=== PATIENT | male | born 1970 | race Caucasian/White ===

== ENCOUNTER → 2020-03-26 10:09 | Outpatient (CLI) | payer OTHER, SELFPAY ==
--- NOTE | ~2020-03-26 | XR_ITS ---
EXAMINATION: XR elbow LT min 3V DATE: 03/26/2020 10:49 INDICATION: Left elbow pain. TECHNIQUE: 4 views of left elbow were obtained. COMPARISON: None. FINDINGS: Bone alignment is normal. No fracture. There is mild elbow joint osteoarthritis. There are enthesophytes at medial and lateral humeral epicondyles and at olecranon. No elbow joint effusion. IMPRESSION: 1. Mild elbow joint osteoarthritis. Reviewed, dictated and finalized at location A.
--- NOTE | ~2020-03-26 | XR_ITS ---
EXAMINATION: XR finger 2nd LT min 2V DATE: 03/26/2020 10:49 INDICATION: Left hand second digit injury. TECHNIQUE: 4 views of left hand second digit were obtained. COMPARISON: Left hand radiographs 07/27/2016 FINDINGS: There is an avulsion fracture of dorsal base of second distal phalanx involving less than 1 0% of the articular surface with 3 mm distraction. There is flexion of second distal interphalangeal joint and mild hyperextension of second proximal interphalangeal joint. There is mild osteoarthritis of second metacarpophalangeal joint and proximal and distal interphalangeal joints. IMPRESSION: 1. Avulsion fracture of dorsal base of second distal phalanx. Reviewed, dictated and finalized at location A.
--- NOTE | ~2020-03-26 | XR_ITS ---
EXAMINATION: XR humerus LT DATE: 03/26/2020 10:49 INDICATION: Left upper arm pain. TECHNIQUE: 2 views of left humerus were obtained. COMPARISON: None. FINDINGS: Bone alignment is normal. No fracture. There is mild osteoarthritis of glenohumeral joint a nd severe osteoarthritis of acromioclavicular joint. IMPRESSION: 1. Polyarticular osteoarthritis. Reviewed, dictated and finalized at location A.
== END ==
PROVIDERS: PCP Internal Medicine; Visit Provider Internal Medicine
DX: Z04.1 Encounter for examination and observation following transport accident (principal); M19.012 Primary osteoarthritis, left shoulder; M19.022 Primary osteoarthritis, left elbow; S62.631A Displaced fracture of distal phalanx of left index finger, initial encounter for closed fracture; X58.XXXA Exposure to other specified factors, initial encounter
CPT/HCPCS: 73060; 73080; 73140

== ENCOUNTER 2024-01-10 10:00 | Emergency (ER) | payer OTHER, SELFPAY ==
--- NOTE | ~2024-01-10 | XR_ITS ---
EXAMINATION: XR foot RT min 3V DATE: 01/10/2024 10:44 INDICATION: Diabetic with blunt trauma to the right third toe TECHNIQUE: Dorsoplantar, two oblique and lateral views of the right foot were obtained. COMPARISON: None. FINDINGS: Transmetatarsal amputation of the left great toe with osteotomy at the neck of the first metatarsal. There is some nonaggressive appearing periosteal reaction along the distal diaphysis likely represent ing secondary changes of healing. There is however some irregularity along the osteotomy margin as we ll as loss of the sharply defined corticated margin at the tibial sesamoid which raises concern for o steomyelitis. Similarly there is been a second toe amputation at the level of the metatarsophalangeal joint with loss of the smooth corticated margin at the head of the second metatarsal also suspicious for osteitis. There is an impacted fracture across the base of the third proximal phalanx. There is 3 mm dorsal dis placement on the lateral projection. There is however some periosteal reaction surrounding the fractu re suggesting this is subacute. No other fractures identified. Mild polyarticular osteoarthritis at m ultiple tarsal metatarsal and interphalangeal joints. IMPRESSION: 1. 3 mm dorsal displacement and impaction of a subacute fracture at the base of the right third proxi mal phalanx with surrounding periosteal reaction likely reflecting changes of healing. Periosteal guillermo ction also be seen in the setting of possible colitis although there is no evident osteolysis at this location to more specifically suggest osteomyelitis. 2. Amputations of the first and second toes with suggestion of osteomyelitis at the head of the secon d metatarsal, along the osteotomy margin at the neck of the first metatarsal and at the distal margin of the first metatarsal tibial sesamoid. Reviewed, dictated and finalized at location A. IMPRESSION: 1. 3 mm dorsal displacement and impaction of a subacute fracture at the base of the right third proximal phalanx with surrounding periosteal reaction likely r eflecting changes of healing. Periosteal reaction also be seen in the setting o f possible colitis although there is no evident osteolysis at this location to more specifically suggest osteomyelitis. 2. Amputations of the first and second toes with suggestion of osteomyelitis at the head of the second metatarsal, along the osteotomy margin at the neck of t he first metatarsal and at the distal margin of the first metatarsal tibial ses amoid.
[2024-01-10 10:15] VITALS: BP 146/91; PULSE 94; RESP 16; TEMP 36.9; O2SAT 97
--- NOTE | 2024-01-10 10:32 | ED.LOWEXIN ---
HPI - Extremity Injury (Lower) General Chief Complaint: Extremity Injury, Lower Stated Complaint: foot injury History of Present Illness HPI Narrative: 53-year-old male with a history of peripheral vascular disease R>L, s/p arterial bypass due to multiple collapsing of stents his right lower extremity, s/p right great and 2nd toe amputation due to osteomyelitis, presents to the emergency room for right foot pain. Patient states yesterday he dropped a large iron pot on his foot. Unable to bear weight or ambulate due to the pain. Was instructed to come to the emergency room for imaging. Related Data Home Medications Medication Instructions Recorded Confirmed ascorbic acid (vitamin C) 500 mg mg PO DAILY 11/10/20 11/13/23 capsule cholecalciferol (vitamin D3) 25 25 mcg PO DAILY 11/10/20 11/13/23 mcg (1,000 unit) capsule hprqdexm-afizxydf-jkjmp acid 400 tablet PO DAILY 11/10/20 11/13/23 mcg-vit K 20 mcg-lycop 300 mcg tablet (One-A-Day Men's Multivitamin) Allergies Allergy/AdvReac Type Severity Reaction Status Date / Time No Known Allergies Allergy Verified 01/10/24 10:01 Review of Systems Review of Systems: ROS unremarkable except for noted in HPI PMFSH Past Medical History Medical History Anxiety Erectile dysfunction Family history of depression GERD (gastroesophageal reflux disease) Macular degeneration of both eyes Primary osteoarthritis of knee Surgical History Surgical History H/O arterial bypass of lower limb Family History Family History Father Depression Father Depression Anxiety Heart disease Mother Anxiety Depression Other Diabetes mellitus Family history of arthritis Family history of heart disease in male family member before age 55 Hypertension Social History Social History Smoking packs per day: 1 Smoking cigarettes per day: 20.0 Smoking status: Current every day smoker Second hand tobacco smoke exposure: Yes Alcohol intake: former Substance use: never Substance use type: does not use Living arrangements: alone Occupation/Education: occupation Additional occupation/education comments: [employer] Gender identity (if verbalized by the patient): Male Spiritual care concerns: No Agree to blood products: Yes Exam Narrative: GENERAL: Well-appearing, well-nourished, no physical limitations, and in no acute distress. HEAD: Normocephalic, atraumatic. EYES: Conjunctivae normal, PERRLA and EOMI. ENT: External nose normal, Nares clear, no rhinorrhea or epistaxis. Mucous membranes moist. Oropharynx without tonsillar hypertrophy exudate or other lesions. External ears normal, bilateral TMs normal bilaterally NECK: Supple. No meningeal signs. No adenopathy or masses. No carotid bruits or JVD CHEST: Clear to auscultation. No respiratory distress. No wheezes rales or rhonchi. No tenderness. HEART: Regular rate and rhythm. No murmur heard. Normal peripheral pulses. ABDOMEN: Soft, nontender, nondistended, normal active bowel sounds. : Normal external male/female exam. BACK: No CVA tenderness; No cervical/thoracic/lumbar tenderness, step-offs, bony abnormality; FROM EXTREMITIES: Right leg: healing incision. Right foot: Diffuse swelling, erythema, tenderness to the dorsal surface extending into the 3rd toe. s/p Right great and 2nd toe amputation, with healing wounds and no discharge. SKIN: Warm, dry, no rash. No noted wounds NEURO: No focal deficits. Alert and oriented x3. MAEW. CN's II-XI intact bilaterally, normal gait PSYCH: Cooperative. Normal mood and affect. Course Course Emergency Course: 1145: spoke to Dr. Mcneal. he recommends placing patient's foot into an Ortho surgical shoe wh
[2024-01-10 12:00] VITALS: BP 140/88; PULSE 90; RESP 16; O2SAT 96
== END 2024-01-10 12:00 | disposition home or self-care (01) ==
PROVIDERS: Emergency Provider Nurse Practitioner Family; PCP Nurse Practitioner Family
DX: S92.511A Displaced fracture of proximal phalanx of right lesser toe(s), initial encounter for closed fracture (principal); I73.9 Peripheral vascular disease, unspecified; H35.30 Unspecified macular degeneration; K21.9 Gastro-esophageal reflux disease without esophagitis; M17.9 Osteoarthritis of knee, unspecified; F17.210 Nicotine dependence, cigarettes, uncomplicated; Z95.828 Presence of other vascular implants and grafts; Z89.411 Acquired absence of right great toe; Z89.421 Acquired absence of other right toe(s); R93.6 Abnormal findings on diagnostic imaging of limbs; W20.8XXA Other cause of strike by thrown, projected or falling object, initial encounter
CPT/HCPCS: 73630; 99283

== ENCOUNTER 2024-05-26 08:48 | Outpatient (RCR) | payer OTHER, SELFPAY ==
--- NOTE | 2024-04-24 09:24 | PCWOUND ---
WOCN NOTE Patient no show, no call for new patient appointment. This is the second no show, no call this patient has done. His first no call no show was on 04/09/24.
[2024-05-26 09:30] VITALS: BMI 35.9
== END 2024-08-11 09:05 | disposition home or self-care (01) ==
LOC: ANHWOC 08:48
PROVIDERS: PCP Nurse Practitioner Family; Visit Provider Nurse Practitioner Family
DX: S98.131A Complete traumatic amputation of one right lesser toe, initial encounter (principal); Z48.00 Encounter for change or removal of nonsurgical wound dressing
CPT/HCPCS: 99215; A9270; G0463; L2116

== ENCOUNTER 2024-06-16 09:15 | Emergency (ER) | payer OTHER, SELFPAY ==
[2024-06-16] VITALS (15 sets, daily range): BP systolic 135–145; BP diastolic 90–96; PULSE 97–105; RESP 13–20; TEMP 36.8; O2SAT 92–100
--- NOTE | ~2024-06-16 | XR_ITS ---
XR chest 2V Ordering provider: Bam Pace MD History: 53 years Male with . chest pain, pressure, sob, cough . Comparison: February 26, 2018 FINDINGS: MEDIASTINUM: The cardiac silhouette is not enlarged. LUNGS: No infiltrates, effusions or pneumothorax. Slightly prominent markings in the lower lobes with minimal interstitial changes which may indicate bronchitis. OTHER: No free air under the diaphragm. IMPRESSION: Slightly prominent markings in the lower lobes with minimal interstitial changes which may indicate b ronchitis. Clinical correlation and follow-up advised. Reviewed, dictated and finalized at location A. CHARGE BOOKKEEPER IMPRESSION: Slightly prominent markings in the lower lobes with minimal interstitial change s which may indicate bronchitis. Clinical correlation and follow-up advised.
--- NOTE | ~2024-06-16 | CT_ITS ---
EXAMINATION: CTA chest abdomen pelvis DATE: 06/16/2024 10:12 INDICATION: Chest and back pain. TECHNIQUE: Computed tomographic angiography (CTA) of the chest, abdomen and pelvis was performed with 150 cc of Omnipaque-350 intravenous contrast. Additional 3D reconstructions utilizing rotating maxim um intensity projection (MIP) were performed. Automated exposure control and iterative reconstruction technique were employed. The dose-length product was 1730.19 mGy-cm. COMPARISON: None FINDINGS: Chest: Mild emphysema. Respiratory motion along with mosaic attenuation in both lungs consistent with atelec tasis related to partially expiratory phase of imaging and subsegmental air trapping. No pneumonia, p ulmonary edema, pleural effusion or pneumothorax. Mild cardiomegaly. No pericardial effusion. Thoraci c aorta is normal in caliber with no dissection. No pathologically enlarged thoracic lymphadenopathy. Mild thoracic spondylosis. Abdomen and pelvis: Diffuse hepatic steatosis. Liver, spleen, pancreas, bilateral adrenal glands and kidneys are normal. Bowels including the appendix are normal. Bladder is normal. Normal caliber abdominal aorta with no d issection. Mild atherosclerotic calcifications at the bilateral iliac arteries. No free intraperitone al gas or fluid. No pathologically enlarged abdominal or pelvic lymphadenopathy. 5.9 x 3.1 x 4.6 cm p artially calcified subcutaneous mass at the lateral right lower quadrant. Severe lumbar spondylosis. IMPRESSION: 1. Normal caliber aorta with no dissection. No other acute intra-abdominal/pelvic process. 2. Mild emphysema. 3. Mild cardiomegaly. 4. Indeterminate 5.9 x 3.1 x 4.6 cm partially calcified subcutaneous mass at the lateral right lower quadrant. Recommend ultrasound-guided core needle biopsy. Reviewed, dictated and finalized at location B. [place] [employer] ASSOCIATE IMPRESSION: 1. Normal caliber aorta with no dissection. No other acute intra-abdominal/pelv ic process. 2. Mild emphysema. 3. Mild cardiomegaly. 4. Indeterminate 5.9 x 3.1 x 4.6 cm partially calcified subcutaneous mass at th e lateral right lower quadrant. Recommend ultrasound-guided core needle biopsy.
--- NOTE | 2024-06-16 09:16 | ECG_ITS ---
Test Date: 2024-06-16 09:22:04 Measurements Intervals [place] Rate: 103 P: -11 PA: 144 QRS: -38 QRSD: 113 T: 37 QT: 341 QTc: 448 Interpretive Statements SINUS TACHYCARDIA LEFT AXIS DEVIATION [QRS AXIS < -30] INCOMPLETE RIGHT BUNDLE BRANCH BLOCK [90+ ms QRS DURATION, TERMINAL R IN V1/V2, 40+ ms S IN I/aVL/V4/V5/V6] No previous ECG available for comparison Electronically Signed On 06-17-2024 14:52:23 DIGITAL MEASUREMENT ADVISOR by Chris Vigil M.D.
[2024-06-16] MEDS: ASPIRIN 81 MG CHEWABLE TABLET 324 MG PO (09:32)
[2024-06-16 09:43] LABS: Basophils Absolute Auto 0.1 K/mm3 (0.0-0.1); Basophils Percent Auto 0.7 % (0.2-1.2); Eosinophils Absolute Auto 0.2 K/mm3 (0-0.3); Eosinophils Percent Auto 1.8 % (0-4.4); Hematocrit 44.5 % (42.0-52.0); Immature Granulocyte Absolute 0.05 K/mm3 (0.00-0.031); Immature Granulocyte Percent A 0.4 % (0-0.5); Lymphocytes Absolute Auto 2.78 K/mm3 (0.9-3.2); Lymphocytes Percent Auto 22.9 % (18.3-44.2); Mean Corpuscular HGB Conc 33.7 g/dl (32-36); Mean Corpuscular Hemoglobin 28.8 pg (26-34); Mean Corpuscular Volume 85.6 fl (80-100); Mean Platelet Volume 9.8 fl (7.4-10.4); Monocytes Absolute Auto 0.9 K/mm3 (0.1-0.6); Monocytes Percent Auto 7.7 % (2.6-8.5); Neutrophils Absolute Auto 8.1 K/mm3 (1.3-6.7); Neutrophils Percent Auto 66.5 % (45.5-73.1); Platelet Count Result 305 k/mm3 (150-375); White Blood Count 12.2 K/mm3 (4.5-10.0)
--- NOTE | 2024-06-16 09:43 | ED_ITS ---
HPI - Chest Pain General Chief Complaint: Chest Pain Stated Complaint: chest pain Time Seen by Provider: 06/16/24 09:26 History of Present Illness HPI narrative: 53-year-old male with significant vascular history including right lower extremity bypass surgery, right upper extremity grafting, hypertension, hyperlipidemia, multiple amputations of various digits in the bilateral lower extremities secondary to vascular insufficiency. Patient presents today with sudden onset chest pain radiating straight towards his back that began at 6:00 p.m. last night. States it hurts to take a deep breath and lie down. He is concerned he was having a heart attack. No history of FL and his last cardiac catheterization showed 30% occlusion according to the patient in 2020. He has had significant vascular Surgical history is including multiple procedures with Dr. Eula talley at [facility] but he presently only follows Dr. Greenfield at [facility] with recent vascular arterial and venous duplex studies of his right lower extremity done less than 1 month prior according to the patient. He has a home healthcare nurse that helps him changes bandages for his right lower extremity wounds and these had previous fractures and nonhealing ulcerations of that extremity. No abdominal pain, fever, chills, headache, vision changes, new weakness. He states he is having subjective paresthesias left arm presently in addition to the chest and back discomfort. He is on aspirin and Plavix but no other blood thinners or anticoagulation. Related Data Home Medications ?Medication ?Instructions ?Recorded ?Confirmed ?Last Taken ?Type ascorbic acid (vitamin C) 500 mg mg PO DAILY 11/10/20 04/02/24 Unknown History capsule cholecalciferol (vitamin D3) 25 25 mcg PO DAILY 11/10/20 04/02/24 Unknown History mcg (1,000 unit) capsule xqurbowm-wtllqoml-pvkpf acid 400 tablet PO DAILY 11/10/20 04/02/24 Unknown History mcg-vit K 20 mcg-lycop 300 mcg tablet (One-A-Day Men's Multivitamin) Allergies Allergy/AdvReac Type Severity Reaction Status Date / Time No Known Allergies Allergy Verified 04/02/24 12:00 Review of Systems 2 Review of Systems: As reviewed above in HPI [facility] Past Medical History Medical History Erectile dysfunction Macular degeneration of both eyes GERD (gastroesophageal reflux disease) Anxiety Primary osteoarthritis of knee Family history of depression Surgical History Surgical History H/O arterial bypass of lower limb Family History Family History Father Depression Father Depression Anxiety Heart disease Mother Anxiety Depression Other Diabetes mellitus Family history of arthritis Family history of heart disease in male family member before age 55 Hypertension Social History Social History Smoking packs per day: 1 Smoking cigarettes per day: 20.0 Smoking status: Current every day smoker Second hand tobacco smoke exposure: Yes Alcohol intake: former Substance use: never Substance use type: does not use Living arrangements: alone Occupation/Education: occupation Additional occupation/education comments: [employer] Gender identity (if verbalized by the patient): Male Spiritual care concerns: No Agree to blood products: Yes Exam 2 Narrative: GENERAL: [Well-appearing, well-nourished, and in no acute distress.] HEAD: [Normocephalic, atraumatic.] EYES: [PERRLA and EOMI.] ENT: Nares clear, no rhinorrhea or epistaxis. Mucous membranes moist. NECK: Supple. CHEST: [Clear to auscultation. No respiratory distress.] HEART: [Regular rate and rhythm]. No murmur heard. 2+ bilateral radial pulses, 2+ dorsalis pedis pulse the left, absent pulse in the right lower extremity which is chronic and known per patient ABDOMEN: [Soft, nondistended], [nontender], [No rigidity or guarding] EXTREMITIES: Normal range of motion. Right lower extremity is near insensate distal to the knee, warm and has good collateral circulation, 1+ edema. Inter webspace between the right 1st and 2nd digit of his right lower extremity has some granulation tissue but no obvious infection. These are chronic findings per patient and not causing him concern today. SKIN: Warm, dry, no rash. Surgical graft site scar from his right upper extremity, graft scars in his right lower extremity NEURO: [No focal deficits]. Alert and oriented [x3.] PSYCH: [Normal mood and affect.] Course Vital Signs Vital signs: Vital Signs Temperature 36.8 C 06/16/24 09:23 Pulse Rate 105 H 06/16/24 09:23 Respiratory Rate 18 06/16/24 09:23 Blood Pressure 145/90 H 06/16/24 09:23 Pulse Oximetry 97 06/16/24 09:23 Temperature 36.8 C 06/16/24 11:38 Pulse Rate 101 H 06/16/24 13:01 Respiratory Rate 20 06/16/24 13:01 Blood Pressure 141/95 H 06/16/24 13:01 Pulse Oximetry 95 06/16/24 13:01 Oxygen Delivery Room Air 06/16/24 09:40 MDM - Chest Pain MDM Narrative Medical decision making narrative: 53-year-old male with significant vascular history including aneurysms, arterial bypass surgery is right lower extremity, grafting surgery in his right upper extremity. He is on aspirin and Plavix. He presents today with sudden onset chest pain radiating straight towards his back in his left side upper chest with associated pleuritic chest pain and difficulty lying flat. Symptoms started at 6:00 p.m. last night. He follows present with Dr. Greenfield at [facility] who saw him last month according to the patient with upcoming plans for potential right BKA for arterial insufficiency his right lower extremity which is chronic. His a history of blood clots according to him but is not taking any other anticoagulation medications. He is chronic arterial insufficiency is right lower extremity, extremities warm, dry, intact without any overt signs of infection endorses distal ulcerations in his inner web spaces which appear healing with good granulation tissue no signs of infection or tenderness with palpation. He has strong pulses and the remaining 3 limbs, clear breath sounds throughout, otherwise not any acute distress but is tachycardic with a pulse 105. Afebrile, not significantly hypertensive blood pressure 145/90. Given patient's significant vascular history considerations are presently for aortic insufficiency, aortic dissection, aortic aneurysm, ACS, less likely intrathoracic process such as pneumonia, pleurisy, pneumothorax. He was given morphine for analgesia well cardiac workup initiated including CBC, CMP, lipase, check EKG, chest x-ray, serial troponins, CT angiography of the chest abdomen pelvis ordered at this time. Workup shows a slight leukocytosis of 12.2, no anemia. Normal platelets. Coagulation studies normal, negative troponin, normal renal function, normal electrolytes, normal hepatic function, negative lipase. Serial troponins negative. Chest x-ray shows some bronchitis but no pneumonia. CT angiography shows normal caliber aorta without any dissection, no acute intra-abdominal or pelvic process. Normal emphysematous changes, mild cardiomegaly. A partially calcified subcutaneous mass located in the right lower quadrant is evident. I relayed these findings to the patient including the mass that was discovered and he states that he is well aware of that mass is been stable for last 15 years. He has not had biopsy previously but has not grown or cause him any discomfort. No further interventions needed on this at this time. I relayed patient's findings to him including the unremarkable CT angiography and my suspicion is that he likely has some chest pain and pleuritic chest pain secondary to bronchitis. We went over the risks and benefits of starting prednisone therapy with his chronic wounds which do appear well healing but steroids can cause some delayed healing. Patient elected to try steroids as he wants to get rid of his painful cough. Patient was given a Medrol Dosepak and strict return precautions and he was stable for discharge home at this time. Patient verbalized understanding of the instructions and was discharged without further intervention. Medical Records Data Attestation: I reviewed the patient's medical records. Lab Data Attestation: I reviewed the patient's lab results. 06/16/24 09:31 06/16/24 09:31 Labs: Lab Results 06/16/24 06/16/24 Range/Units 09:31 12:20 WBC 12.2 H (4.5-10.0) K/mm3 RBC 5.20 (4.6-6.20) M/mm3 Hgb 15.0 (14.0-18.0) g/dL Hct 44.5 (42.0-52.0) % MCV 85.6 (80-100) fl MCH 28.8 (26-34) pg MCHC 33.7 (32-36) g/dl RDW 14.0 (11.5-14.5) % Plt Count 305 (150-375) k/mm3 MPV 9.8 (7.4-10.4) fl Immature Gran % (Auto) 0.4 (0-0.5) % Neut % (Auto) 66.5 (45.5-73.1) % Lymph % (Auto) 22.9 (18.3-44.2) % [place] % (Auto) 7.7 (2.6-8.5) % Eos % (Auto) 1.8 (0-4.4) % Baso % (Auto) 0.7 (0.2-1.2) % Lymph # (Auto) 2.78 (0.9-3.2) K/mm3 [place] # (Auto) 0.9 H (0.1-0.6) K/mm3 Eos # (Auto) 0.2 (0-0.3) K/mm3 Baso # (Auto) 0.1 (0.0-0.1) K/mm3 Abs Immat Gran (auto) 0.05 H (0.00-0.031) K/mm3 Absolute Neuts (auto) 8.1 H (1.3-6.7) K/mm3 Absolute Nucleated RBC 0.000 (0.0-0.012) K/mm3 Nucleated RBC % 0.0 (0.0-0.2) % PT 13.1 (11.1-14.7) Seconds INR 1.0 APTT 27.6 (22.3-36.8) Seconds Sodium 135 L (137-145) mmol/L Potassium 4.1 (3.4-5.0) mmol/L Chloride 102 (98-107) mmol/L Carbon Dioxide 23 (22-30) mmol/L Anion Gap 10 (4-12) mmol/L BUN 16 (9-20) mg/dL Creatinine 0.90 (0.7-1.3) mg/dL Estim Creat Clear Calc 125 ml/min Estimated GFR > 60 (59 - ) Glucose 89 (65-110) mg/dL Calcium 9.8 (8.4-10.2) mg/dL Total Bilirubin 0.6 (0.2-1.3) mg/dL AST 21 (17-59) U/L ALT 26 (6-50) U/L Alkaline Phosphatase 100 (38-126) U/L Troponin I < 0.012 < 0.012 (0.000-0.034) ng/mL Total Protein 8.0 (6.3-8.2) g/dL Albumin 4.7 (3.5-5.1) g/dL Lipase 62 (23-300) U/L Imaging Data Attestation: I personally reviewed and interpreted this imaging study as follows: My impression: Impressions Chest X-Ray 06/16/24 09:52 IMPRESSION: Slightly prominent markings in the lower lobes with minimal interstitial changes which may indicate bronchitis. Clinical correlation and follow-up advised. Chest/Abdomen/Pelvis CTA 06/16/24 10:14 IMPRESSION: 1. Normal caliber aorta with no dissection. No other acute intra- abdominal/pelvic process. 2. Mild emphysema. 3. Mild cardiomegaly. 4. Indeterminate 5.9 x 3.1 x 4.6 cm partially calcified subcutaneous mass at the lateral right lower quadrant. Recommend ultrasound-guided core needle biopsy. ECG Data EKG #1: Attestation: I personally reviewed and interpreted this ECG as follows: ECG completion date: 06/16/24 ECG completion time: 09:22 Prior ECG tracings: not available for review Interpretation: Sinus tachycardia, no ST segment elevations depressions or inversions. No ectopy. Incomplete right bundle branch block, normal QTC of 448, normal QRS 114, normal MS interval 144. Slight left side deviation to the axis. Overall no signs of acute ischemic changes but no previous EKG for comparison. Sinus tachycardia final impression. Discharge Plan Discharge Clinical Impression: Bronchitis, Chest wall pain, History of peripheral vascular disease Patient Disposition: Home, Self-Care Condition: Stable Instructions: Antibiotic Form, Acute Bronchitis (ED) Additional Instructions: Your CT scans are very reassuring, no aortic or arterial injury or damage. No heart attack. Your chest x-ray looks like bronchitis which we will treat with a low-dose of prednisone. Make sure to watch because prednisone does make wound healing worsened you do of chronic ulcers of the right lower extremity. Follow- up with your regular doctor and vascular surgeon on outpatient basis. Return with any new or worsening concerns at any time. Patient Language: Lao Prescriptions: New methylprednisolone [Medrol (Jc)] 4 mg tablets,dose pack See Rx Instructions .ROUTE .COMPLEX Qty: 21 0RF Rx Instructions: orally per package directions hydrocodone-acetaminophen 5-325 mg tablet 1 tablet PO Q8H PRN (Reason: pain) Qty: 10 0RF No Action Culturelle 10 billion cell capsule 1 cap PO DAILY Qty: 14 0RF aspirin [Adult Aspirin Regimen] 81 mg tablet,delayed release (DR/EC) 81 mg PO DAILY Qty: 90 0RF One-A-Day Men's Multivitamin 400-20-300 mcg tablet PO DAILY ascorbic acid (vitamin C) 500 mg capsule PO DAILY cholecalciferol (vitamin D3) 25 mcg (1,000 unit) capsule 25 mcg PO DAILY sildenafil [Viagra] 100 mg tablet 100 mg PO DAILY PRN (Reason: sexual activity) Qty: 15 0RF Rx Instructions: administer 30 minutes to 4 hours before activity clopidogrel [Plavix] 75 mg tablet 75 mg PO DAILY Qty: 90 1RF (DME) Blood Glucose Test Strip See Rx Instructions .ROUTE .MEDSUPPLY Qty: 100 1RF Rx Instructions: use daily to check fasting glucose gabapentin 300 mg capsule 600 mg PO TID Qty: 540 0RF omeprazole 40 mg capsule,delayed release(DR/EC) 40 mg PO DAILY Qty: 90 1RF venlafaxine 75 mg capsule,extended release 24hr 300 mg PO DAILY Qty: 360 0RF hydrocodone-acetaminophen 10-325 mg tablet 1 tablet PO Q8H PRN (Reason: pain) Qty: 90 0RF metformin 500 mg tablet extended release 24 hr 500 mg PO DAILY Qty: 90 1RF amlodipine 10 mg tablet 10 mg PO DAILY Qty: 90 0RF Follow-up/Referrals: Isabell Willis APN-C [Primary Care Provider] - Time of Disposition: 13:09
[2024-06-16 09:55] LABS: Alanine Aminotransferase 26 U/L (6-50); Albumin Level 4.7 g/dL (3.5-5.1); Alkaline Phosphatase 100 U/L (38-126); Anion Gap 10 mmol/L (4-12); Aspartate Amino Transferase 21 U/L (17-59); Bilirubin,Total 0.6 mg/dL (0.2-1.3); Blood Urea Nitrogen 16 mg/dL (9-20); Calcium 9.8 mg/dL (8.4-10.2); Carbon Dioxide 23 mmol/L (22-30); Chloride 102 mmol/L (98-107); Estimated CRCL calculation 125 ml/min; Estimated Glomerular Filt Rate > 60; Glucose 89 mg/dL (65-110); Lipase 62 U/L (23-300); Partial Thromboplastin Time 27.6 Seconds (22.3-36.8); Potassium 4.1 mmol/L (3.4-5.0); Prothrombin Time 13.1 Seconds (11.1-14.7); Sodium 135 mmol/L (137-145)
[2024-06-16] MEDS: MORPHINE SULFATE (*CRX) 4 MG/ML INJ IV PUSH (09:56)
[2024-06-16 10:06] LABS: Troponin I < 0.012 ng/mL (0.000-0.034)
--- NOTE | 2024-06-16 11:03 | PC.NURSE ---
patient rounding complete and pt is complaining of persistent chest pain despite the morphine this morning. States he now also has back pain that is unrelieved by ice and position changes. MD Pace aware that patient is asking for more medication.
[2024-06-16] MEDS: LACTATED RINGERS 1,000 ML 999 ML IV CONT (11:32)
[2024-06-16] MEDS: HYDROmorphone HCL INJ (*CRX) 1 MG/ML SYR IV PUSH (11:32)
--- NOTE | 2024-06-16 12:17 | ECG_ITS ---
Test Date: 2024-06-16 12:17:58 Measurements Intervals [place] Rate: 97 P: -8 [place]: 157 QRS: -29 QRSD: 118 T: 29 QT: 351 QTc: 447 Interpretive Statements SINUS RHYTHM BORDERLINE LEFT AXIS DEVIATION [QRS AXIS < -20] INCOMPLETE RIGHT BUNDLE BRANCH BLOCK [90+ ms QRS DURATION, TERMINAL R IN V1/V2, 40+ ms S IN I/aVL/V4/V5/V6] Compared to ECG 06/16/2024 09:22:04 no changes Electronically Signed On 06-17-2024 15:21:21 SOFTWARE TEAM LEADER by Milady Gallardo M.D.
[2024-06-16 12:49] LABS: Troponin I < 0.012 ng/mL (0.000-0.034)
--- NOTE | 2024-06-16 13:05 | PC.NURSE ---
this RN was called into pt room due to bleeding wound on foot. Bleeding noted to bottom L foot, pt had a scab that popped open. Wound cleaned, antibiotic ointment applied, and dressed with gauze/kerlex. Pt instructed to call out if wound soaks through, although bleeding controlled at this time. PT also asking to speak with MD ELLIOTT aware.
== END 2024-06-16 13:18 | disposition home or self-care (01) ==
PROVIDERS: Emergency Provider Student in an Organized Health Care Education/Training Program; PCP Nurse Practitioner Family
DX: J40 Bronchitis, not specified as acute or chronic (principal); R07.89 Other chest pain; I10 Essential (primary) hypertension; E78.5 Hyperlipidemia, unspecified; I99.8 Other disorder of circulatory system; F17.210 Nicotine dependence, cigarettes, uncomplicated; Z79.02 Long term (current) use of antithrombotics/antiplatelets; Z79.82 Long term (current) use of aspirin; Z79.84 Long term (current) use of oral hypoglycemic drugs
CPT/HCPCS: 36415; 71046; 71275; 74174; 80053; 83690; 84484; 85025; 85610; 85730; 93005; 96361; 96374; 96375; 99284; A9270; J1171; J2270; J7120; Q9967

== ENCOUNTER 2024-07-11 11:56 | Emergency (ER) | payer OTHER, SELFPAY ==
--- NOTE | ~2024-07-11 | CT_ITS ---
EXAMINATION: CT LE RT w con DATE: 07/11/2024 15:28 INDICATION: Right foot and lower limb tenderness. TECHNIQUE: High resolution computed tomography (CT) of the right lower leg from the foot through the knee was performed with 100 mL Omnipaque-350 intravenous contrast. Additional sagittal and coronal re constructions were performed. Automated exposure control and iterative reconstruction technique were employed. The dose-length product was 1318.56 mGy-cm. 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 The osteotom y margins remain corticated and without significant interval change since the prior radiographs. Inte rval healing of a prior fracture at the base of the third proximal phalanx. A small portion of the fr acture at the lateral side of the articular surface remains nonunited. No definitive cortical erosion s to suggest osteomyelitis although assessment is somewhat limited given the chronic postoperative an d post traumatic changes without an intervening CT for direct comparison for interval change. Soft ti ssue swelling with subcutaneous edema over the dorsum of the forefoot. There is suggestion of a skin ulceration in the soft tissues covering the first and second toe amputation sites. No evident abscess or soft tissue gas. Moderate-sized Achilles and plantar calcaneal spurs. A few scattered bone islands infarcts the tibial plafond. Mild polyarticular osteoarthritis at the right knee, ankle and multiple joints in the foot. No knee or ankle joint effusion. Rim calcified heterotopic ossification, phlebolith or thrombosed an eurysm at the popliteal fossa. The [place] popliteal artery appears thrombosed with contrast extending along a likely bypass graft with anastomosis to the proximal peroneal artery. There is three-vessel runoff below the ankle. There are also postoperative change of likely prior right saphenous vein shaun t harvest with scarring along the subcutaneous tissues at the medial aspect of the calf and distal th igh. IMPRESSION: 1. Skin ulceration overlying indications of the first and second toes with no underlying abscess, sof t tissue gas or definitive osteomyelitis. Evaluation is however somewhat limited by the background po stoperative changes in the absence of any intervening prior CT imaging for direct comparison. 2. Healing of the prior fracture at the base of the third proximal phalanx with residual small nonuni sarabjit articular sided fragment. 3. 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 Reviewed, dictated and finalized at location B. R [employer]ER IMPRESSION: 1. Skin ulceration overlying indications of the first and second toes with no u nderlying abscess, soft tissue gas or definitive osteomyelitis. Evaluation is h owever somewhat limited by the background postoperative changes in the absence of any intervening prior CT imaging for direct comparison. 2. Healing of the prior fracture at the base of the third proximal phalanx with residual small nonunited articular sided fragment. 3. 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
[2024-07-11 11:57] VITALS: BP 189/111; PULSE 108; RESP 16; TEMP 36.4; O2SAT 97
--- NOTE | 2024-07-11 14:07 | ED.EXTPRO ---
HPI - Extremity Problem General Chief complaint: Extremity Problem,Nontraumatic <Terry June PA-C - Last Filed: 07/11/24 14:48> Stated complaint: R foot broken? no injury, hx of fx <Terry June PA-C - Last Filed: 07/11/24 14:48> Time Seen by Provider: 07/11/24 15:26 <Terry June PA-C - Last Filed: 07/11/24 14:48> Focused HPI: This is a 53-year-old male who presents to the ED for chief complaint of right lower extremity pain over the past couple days. Reports he has diabetic neuropathy and PAD. Has had 1st and 2nd toe amputations as well as arterial graft surgeries done this year. States that he has been following up with home health who wanted him to come today to make sure that he did have infection. Patient feels that he may have broken his foot because it feels similar to when he has had a toe fracture in the past. He is unsure of any specific injury other than bumping the left foot with a grocery cart at the store the other day. Denies fevers, chills, nausea, vomiting. GENERAL: Well-appearing, well-nourished, and in no acute distress. HEAD: Normocephalic, atraumatic. CHEST: Clear to auscultation. No respiratory distress. HEART: Regular rate and rhythm. NEURO: Alert and oriented x3. Patient screened in triage and initial orders placed. Additional care and disposition to be based upon diagnostic testing and treatment. <Terry June PA-C - Last Filed: 07/11/24 14:48> Source: patient <Terry June PA-C - Last Filed: 07/11/24 14:48> Mode of arrival: ambulatory <Terry June PA-C - Last Filed: 07/11/24 14:48> Limitations: no limitations <Terry June PA-C - Last Filed: 07/11/24 14:48> History of Present Illness HPI Narrative: Agree with HPI <Brock Santiago MD - Last Filed: 07/11/24 22:35> Related Data Home medications: Home Medications ?Medication ?Instructions ?Recorded ?Confirmed ?Last Taken ?Type ascorbic acid (vitamin C) 500 mg mg PO DAILY 11/10/20 04/02/24 Unknown History capsule cholecalciferol (vitamin D3) 25 25 mcg PO DAILY 11/10/20 04/02/24 Unknown History mcg (1,000 unit) capsule ujhkwnzg-ozkjtusn-hmowl acid 400 tablet PO DAILY 11/10/20 04/02/24 Unknown History mcg-vit K 20 mcg-lycop 300 mcg tablet (One-A-Day Men's Multivitamin) <Terry June PA-C - Last Filed: 07/11/24 14:48> Allergies/Adverse reactions: Allergies Allergy/AdvReac Type Severity Reaction Status Date / Time No Known Allergies Allergy Verified 07/11/24 12:02 <Terry June PA-C - Last Filed: 07/11/24 14:48> Review of Systems Review of Systems: All systems reviewed & are unremarkable except as noted in HPI and below <Brock Santiago MD - Last Filed: 07/11/24 22:35> Constitutional: Constitutional: Reports no additional constitutional complaints <Brock Santiago MD - Last Filed: 07/11/24 22:35> Cardiovascular: Cardiovascular: Reports no additional cardiovascular complaints <Brock Santiago MD - Last Filed: 07/11/24 22:35> Respiratory: Respiratory: Reports no additional respiratory complaints <Brock Santiago MD - Last Filed: 07/11/24 22:35> Musculoskeletal: Musculoskeletal: Reports no additional musculoskeletal complaints <Brock Santiago MD - Last Filed: 07/11/24 22:35> Integumentary/Breasts: Skin/Breast: Reports system reviewed and no additional complaints, except as docu <Brock Santiago MD - Last Filed: 07/11/24 22:35> [facility] Past Medical History Medical History: Medical History Erectile dysfunction Macular degeneration of both eyes GERD (gastroesophageal reflux disease) Anxiety Primary osteoarthritis of knee Family history of depression <Terry June PA-C - Last Filed: 07/11/24 14:48> Surgical History Surgical History: Surgical History H/O arterial bypass of lower limb <Terry June PA-C - Last Filed: 07/11/24 14:48> Family History Family History: Family History Father Depression Father Depression Anxiety Heart disease Mother Anxiety Depression Other Diabetes mellitus Family history of arthritis Family history of heart disease in male family member before age 55 Hypertension <Terry June PA-C - Last Filed: 07/11/24 14:48> Social History Social History: Social History Smoking packs per day: 1 Smoking cigarettes per day: 20.0 Smoking status: Current every day smoker Second hand tobacco smoke exposure: Yes Alcohol intake: former Substance use: never Substance use type: does not use Living arrangements: alone Occupation/Education: occupation Additional occupation/education comments: [employer] Gender identity (if verbalized by the patient): Male Spiritual care concerns: No Agree to blood products: Yes <Terry June PA-C - Last Filed: 07/11/24 14:48> Exam Narrative: GENERAL: Well-appearing, well-nourished, and in no acute distress. HEAD: Normocephalic, atraumatic. ENT: Mucous membranes moist. CHEST: Clear to auscultation. No respiratory distress. HEART: Regular rate and rhythm. Normal peripheral pulses. EXTREMITIES: Normal range of motion. No edema. Well-healing amputation site on the right foot. Mild warmth and tenderness. No purulent drainage. No lymphangitic streaking. SKIN: Warm, dry, no rash. NEURO: Alert and oriented x3. PSYCH: Normal mood and affect. 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 No evidence of abscess or osteomyelitis. Will treat his cellulitis and started doxycycline. He has follow-up with his surgeon next week. He feels comfortable with the plan we have reviewed all labs and imaging results. <Brock Santiago MD - Last Filed: 07/11/24 22:35> Vital Signs Vital signs: Vital Signs Temperature 97.6 F 07/11/24 11:57 Pulse Rate 108 H 07/11/24 11:57 Respiratory Rate 16 07/11/24 11:57 Blood Pressure 189/111 H 07/11/24 11:57 Pulse Oximetry 97 07/11/24 11:57 Oxygen Delivery Room Air 07/11/24 11:57 Temperature 97.6 F 07/11/24 11:57 Pulse Rate 84 07/11/24 18:27 Respiratory Rate 16 07/11/24 18:27 Blood Pressure 144/88 H 07/11/24 18:27 Pulse Oximetry 99 07/11/24 18:27 Oxygen Delivery Room Air 07/11/24 11:57 <Terry June PA-C - Last Filed: 07/11/24 14:48> Vital Signs Temperature 97.6 F 07/11/24 11:57 Pulse Rate 108 H 07/11/24 11:57 Respiratory Rate 16 07/11/24 11:57 Blood Pressure 189/111 H 07/11/24 11:57 Pulse Oximetry 97 07/11/24 11:57 Oxygen Delivery Room Air 07/11/24 11:57 Temperature 97.6 F 07/11/24 11:57 Pulse Rate 84 07/11/24 18:27 Respiratory Rate 16 07/11/24 18:27 Blood Pressure 144/88 H 07/11/24 18:27 Pulse Oximetry 99 07/11/24 18:27 Oxygen Delivery Room Air 07/11/24 11:57 <Brock Santiago MD - Last Filed: 07/11/24 22:35> MDM - Extremity (Nontraumatic) Lab Data Result diagrams: 07/11/24 14:18 07/11/24 14:18 <Terry June PA-C - Last Filed: 07/11/24 14:48> Labs: Lab Results 07/11/24 Range/Units 14:18 WBC 12.1 H (4.5-10.0) K/mm3 RBC 5.53 (4.6-6.20) M/mm3 Hgb 16.0 (14.0-18.0) g/dL Hct 47.5 (42.0-52.0) % MCV 85.9 (80-100) fl MCH 28.9 (26-34) pg MCHC 33.7 (32-36) g/dl RDW 14.0 (11.5-14.5) % Plt Count 312 (150-375) k/mm3 MPV 9.8 (7.4-10.4) fl Immature Gran % (Auto) 0.4 (0-0.5) % Neut % (Auto) 62.8 (45.5-73.1) % Lymph % (Auto) 26.8 (18.3-44.2) % [place] % (Auto) 8.0 (2.6-8.5) % Eos % (Auto) 1.3 (0-4.4) % Baso % (Auto) 0.7 (0.2-1.2) % Lymph # (Auto) 3.23 H (0.9-3.2) K/mm3 [place] # (Auto) 1.0 H (0.1-0.6) K/mm3 Eos # (Auto) 0.2 (0-0.3) K/mm3 Baso # (Auto) 0.1 (0.0-0.1) K/mm3 Abs Immat Gran (auto) 0.05 H (0.00-0.031) K/mm3 Absolute Neuts (auto) 7.6 H (1.3-6.7) K/mm3 Absolute Nucleated RBC 0.000 (0.0-0.012) K/mm3 Nucleated RBC % 0.0 (0.0-0.2) % ESR 25 H (0-20) mm/hr Sodium 135 L (137-145) mmol/L Potassium 4.3 (3.4-5.0) mmol/L Chloride 100 (98-107) mmol/L Carbon Dioxide 25 (22-30) mmol/L Anion Gap 10 (4-12) mmol/L BUN 18 (9-20) mg/dL Creatinine 0.83 (0.7-1.3) mg/dL Estim Creat Clear Calc 137 ml/min Estimated GFR > 60 (59 - ) Glucose 123 H (65-110) mg/dL Lactic Acid 1.7 (0.7-2.0) mmol/L Calcium 9.9 (8.4-10.2) mg/dL Total Bilirubin 0.7 (0.2-1.3) mg/dL AST 32 (17-59) U/L ALT 44 (6-50) U/L Alkaline Phosphatase 103 (38-126) U/L C-Reactive Protein 1.5 H (<1.0) mg/dL Total Protein 9.0 H (6.3-8.2) g/dL Albumin 4.8 (3.5-5.1) g/dL <Terry June PA-C - Last Filed: 07/11/24 14:48> Lab Results 07/11/24 Range/Units 14:18 WBC 12.1 H (4.5-10.0) K/mm3 RBC 5.53 (4.6-6.20) M/mm3 Hgb 16.0 (14.0-18.0) g/dL Hct 47.5 (42.0-52.0) % MCV 85.9 (80-100) fl MCH 28.9 (26-34) pg MCHC 33.7 (32-36) g/dl RDW 14.0 (11.5-14.5) % Plt Count 312 (150-375) k/mm3 MPV 9.8 (7.4-10.4) fl Immature Gran % (Auto) 0.4 (0-0.5) % Neut % (Auto) 62.8 (45.5-73.1) % Lymph % (Auto) 26.8 (18.3-44.2) % [place] % (Auto) 8.0 (2.6-8.5) % Eos % (Auto) 1.3 (0-4.4) % Baso % (Auto) 0.7 (0.2-1.2) % Lymph # (Auto) 3.23 H (0.9-3.2) K/mm3 [place] # (Auto) 1.0 H (0.1-0.6) K/mm3 Eos # (Auto) 0.2 (0-0.3) K/mm3 Baso # (Auto) 0.1 (0.0-0.1) K/mm3 Abs Immat Gran (auto) 0.05 H (0.00-0.031) K/mm3 Absolute Neuts (auto) 7.6 H (1.3-6.7) K/mm3 Absolute Nucleated RBC 0.000 (0.0-0.012) K/mm3 Nucleated RBC % 0.0 (0.0-0.2) % ESR 25 H (0-20) mm/hr Sodium 135 L (137-145) mmol/L Potassium 4.3 (3.4-5.0) mmol/L Chloride 100 (98-107) mmol/L Carbon Dioxide 25 (22-30) mmol/L Anion Gap 10 (4-12) mmol/L BUN 18 (9-20) mg/dL Creatinine 0.83 (0.7-1.3) mg/dL Estim Creat Clear Calc 137 ml/min Estimated GFR > 60 (59 - ) Glucose 123 H (65-110) mg/dL Lactic Acid 1.7 (0.7-2.0) mmol/L Calcium 9.9 (8.4-10.2) mg/dL Total Bilirubin 0.7 (0.2-1.3) mg/dL AST 32 (17-59) U/L ALT 44 (6-50) U/L Alkaline Phosphatase 103 (38-126) U/L C-Reactive Protein 1.5 H (<1.0) mg/dL Total Protein 9.0 H (6.3-8.2) g/dL Albumin 4.8 (3.5-5.1) g/dL <Brock Santiago MD - Last Filed: 07/11/24 22:35> Discharge Plan Discharge Clinical Impression: Cellulitis <Terry June PA-C - Last Filed: 07/11/24 14:48> Patient Disposition: Home, Self-Care <Terry June PA-C - Last Filed: 07/11/24 14:48> Condition: Stable <Terry June PA-C - Last Filed: 07/11/24 14:48> Instructions: Antibiotic Form, Cellulitis (ED) <Terry June PA-C - Last Filed: 07/11/24 14:48> Additional Instructions: Return to the ER if you have fever over 101F, you have pus draining from the wound, you have red streaking up your leg, or you have additional concerns. <Terry June PA-C - Last Filed: 07/11/24 14:48> Patient Language: Italian <Terry June PA-C - Last Filed: 07/11/24 14:48> Prescriptions: New doxycycline hyclate 100 mg capsule 100 mg PO BID Qty: 20 0RF hydrocodone-acetaminophen 10-325 mg tablet 1 tablet PO Q6H PRN (Reason: pain) Qty: 20 0RF No Action Culturelle 10 billion cell capsule 1 cap PO DAILY Qty: 14 0RF aspirin [Adult Aspirin Regimen] 81 mg tablet,delayed release (DR/EC) 81 mg PO DAILY Qty: 90 0RF One-A-Day Men's Multivitamin 400-20-300 mcg tablet PO DAILY ascorbic acid (vitamin C) 500 mg capsule PO DAILY cholecalciferol (vitamin D3) 25 mcg (1,000 unit) capsule 25 mcg PO DAILY sildenafil [Viagra] 100 mg tablet 100 mg PO DAILY PRN (Reason: sexual activity) Qty: 15 0RF Rx Instructions: administer 30 minutes to 4 hours before activity methylprednisolone [Medrol (Jc)] 4 mg tablets,dose pack See Rx Instructions .ROUTE .COMPLEX Qty: 21 0RF Rx Instructions: orally per package directions hydrocodone-acetaminophen 5-325 mg tablet 1 tablet PO Q8H PRN (Reason: pain) Qty: 10 0RF clopidogrel [Plavix] 75 mg tablet 75 mg PO DAILY Qty: 90 1RF omeprazole 40 mg capsule,delayed release(DR/EC) 40 mg PO DAILY Qty: 90 1RF venlafaxine 75 mg capsule,extended release 24hr 300 mg PO DAILY Qty: 360 0RF amlodipine 10 mg tablet 10 mg PO DAILY Qty: 90 0RF metformin 500 mg tablet extended release 24 hr 500 mg PO DAILY Qty: 90 1RF (DME) Blood Glucose Test Strip See Rx Instructions .ROUTE .MEDSUPPLY Qty: 100 1RF Rx Instructions: use daily to check fasting glucose hydrocodone-acetaminophen 10-325 mg tablet 1 tablet PO Q8H PRN (Reason: pain) Qty: 90 0RF gabapentin 300 mg capsule 600 mg PO TID Qty: 540 1RF <Terry June PA-C - Last Filed: 07/11/24 14:48> Follow-up/Referrals: Loepker,Isabell R., BANK TELLER-C [Primary Care Provider] - 1 Week <Terry June PA-C - Last Filed: 07/11/24 14:48>
[2024-07-11 14:26] LABS: Basophils Absolute Auto 0.1 K/mm3 (0.0-0.1); Basophils Percent Auto 0.7 % (0.2-1.2); Eosinophils Absolute Auto 0.2 K/mm3 (0-0.3); Eosinophils Percent Auto 1.3 % (0-4.4); Hematocrit 47.5 % (42.0-52.0); Immature Granulocyte Absolute 0.05 K/mm3 (0.00-0.031); Immature Granulocyte Percent A 0.4 % (0-0.5); Lymphocytes Absolute Auto 3.23 K/mm3 (0.9-3.2); Lymphocytes Percent Auto 26.8 % (18.3-44.2); Mean Corpuscular HGB Conc 33.7 g/dl (32-36); Mean Corpuscular Hemoglobin 28.9 pg (26-34); Mean Corpuscular Volume 85.9 fl (80-100); Mean Platelet Volume 9.8 fl (7.4-10.4); Neutrophils Absolute Auto 7.6 K/mm3 (1.3-6.7); Neutrophils Percent Auto 62.8 % (45.5-73.1); Platelet Count Result 312 k/mm3 (150-375); Red Blood Count 5.53 M/mm3 (4.6-6.20); White Blood Count 12.1 K/mm3 (4.5-10.0)
[2024-07-11 14:35] LABS: Lactic Acid Reflex 1.7 mmol/L (0.7-2.0)
[2024-07-11 14:39] LABS: Alanine Aminotransferase 44 U/L (6-50); Albumin Level 4.8 g/dL (3.5-5.1); Alkaline Phosphatase 103 U/L (38-126); Anion Gap 10 mmol/L (4-12); Aspartate Amino Transferase 32 U/L (17-59); Bilirubin,Total 0.7 mg/dL (0.2-1.3); Blood Urea Nitrogen 18 mg/dL (9-20); CRP 1.5 mg/dL (<1.0); Calcium 9.9 mg/dL (8.4-10.2); Carbon Dioxide 25 mmol/L (22-30); Chloride 100 mmol/L (98-107); Estimated CRCL calculation 137 ml/min; Estimated Glomerular Filt Rate > 60; Glucose 123 mg/dL (65-110); Potassium 4.3 mmol/L (3.4-5.0); Sodium 135 mmol/L (137-145)
[2024-07-11 14:50] LABS: Erythrocyte Sedimentation Rate 25 mm/hr (0-20)
[2024-07-11] MEDS: MORPHINE SULFATE (*CRX) 4 MG/ML INJ IV PUSH (15:56)
[2024-07-11 18:27] VITALS: BP 144/88; PULSE 84; RESP 16; O2SAT 99
--- OUTSIDE RECORDS SUMMARY | 2024-07-17 07:17 | XMS_ITS | Encounter Summary ---
Author Organization [facility] Address [facility] [facility] [place] [address] [place] [address] Care Team Providers Care Sharepoint Analyst Name Role Phone Philippe Martinez MD Primary Care Provider [phone] Reason for Referral * Surgical (Routine) - Closed Specialty Diagnoses / Procedures Referred By Margoth peoples Referred To Contact Diagnoses Osteomyelitis of second toe of left foot ([facility]/HCC HHS/HCC) Procedures Case request operating room: AMPUTATION TOE (LEFT SECOND TOE) Cisco Forde MD [facility]. [id number] [place] [address] Phone: tel: fax: Referral ID Status Reason Start Date Expiration Date Visits Re quested Visits Authorized [id number] Closed 06/29/2023 06/29/2024 1 1 Encounter Details Date Type Department Care Team (Late st Contact Info) Description 06/29/2023 Prep for Procedure [facility] [address] [place], [place] [id number] Cisco Forde MD [facility] [address] [place] [address] Social History Tobacco Use Types Packs/Day Years Used Date Smoking Tobacco: Every Day Cigarettes 0.5 30 Smokeless Tobacco: Never Alcohol Use Standard Drinks/Week Comments Not Currently 0 (1 standard drink = 0.6 oz pur e alcohol) socially [facility] Utilities Answer Date Recorded In the past 12 months has th e electric, gas, oil, or water [employer] threatened to shut off services in your home? No 05/24/2023 Humiliation, Afraid, Rape, and Kick questionnair e Answer Date Recorded Within the last year, have y ou been afraid of your partner or ex-partner? No 05/24/2023 Within the last year, have y ou been humiliated or emotionally abused in other ways by your partner or ex-partner? No Within the last year, have y ou been kicked, hit, slapped, or otherwise physically hurt by your partner or ex-partner? No 05/24/2023 Within the last year, have y ou been raped or forced to have any kind of sexual activity by your partner or ex-partner? No 05/24/2023 Overall Financial Resource Strain (CARDIA) Answe r Date Recorded How hard is it for you to pa y for the very basics like food, housing, medical care, and heating? Not hard at all 05/24/2023 Hunger Vital Sign Answer Date Recorded Within the past 12 months, y ou worried that your food would run out before you got the money to buy more. Never true 05/24/20 23 Within the past 12 months, t he food you bought just didn't last and you didn't have money to get more. Never true 05/24/2023 PRAPARE - Transportation Answer Date Re corded In the past 12 months, has l ack of transportation kept you from medical appointments or from getting medications? No 04/27 In the past 12 months, has l ack of transportation kept you from meetings, work, or from getting things needed for daily living? No 05/24/2023 Housing Stability Vital Sign Answer Sohail e Recorded In the last 12 months, was t here a time when you were not able to pay the mortgage or rent on time? No 05/24/2023 In the last 12 months, how many places have you lived? 1 05/24/2023 In the last 12 months, was t here a time when you did not have a steady place to sleep or slept in a intermediate (including now)? No 05/24/2023 Sex and Gender Information Value Date Recorded Sex Assigned at Not on file Legal Sex Male 8:32 PM CDT Gender Identity Not on file Sexual Orientation Not on file documented as of this encounter Functional Status * Are you deaf or do you have serious difficulty hearing Answer Date of Assessment Author Status No 05/24/2023 10:39 PM Luc Goetz RN Active * Are you blind or do you have serious difficulty seeing, even when wearing glasses? Answer Date of Assessment Author Status No 05/24/2023 10:39 PM Luc Goetz RN Active * Do you have serious difficulty walking or climbing stairs? Answer Date of Assessment Author Status No 05/24/2023 10:39 PM Luc Goetz RN Active * Do you have difficulty dressing or bathing? Answer Date of Assessment Author Status No 05/24/2023 10:39 PM Luc Goetz RN Active * Because of a physical, mental, or emotional condition, do you have difficulty doing errands alone such as visiting a doctor's office or shopping? Answer Date of Assessment Author Status No 05/24/2023 10:39 PM Luc Goetz RN Active documented as of this encounter Mental Status * Because of a physical, mental, or emotional condition, do you have serious difficulty concentrating, remembering, or making decisions? Answer Entry Date Author Status No 05/24/2023 10:39 PM Luc Goetz RN Active documented in this encounter Plan of Treatment Scheduled Orders Name Type Priority Associated Diagnoses Orde r Schedule Case request operating room: AMPUTATION TOE (LEFT SECOND TOE) Case Request Routine Osteomyelitis of second toe of left foot ([facility]/HCC [facility]) Once for 1 Occurrences starting 06/29/2023 until 06/29/2023 documented as of this encounter Goals Goal Patient Goal Type Associated Problems Recent Progress Patient-Stated? Author Family - family caregiver with be involved in care transitions and discharge planning General No Estrella Henderson, SYSTEMS ARCHITECT Health - patient able to perform ADLs independently General No Marcial Goodman RN documented as of this encounter Results * (ABNORMAL) COMPREHENSIVE METABOLIC PANEL (07/12/2023 10:45 AM ) [facility] GLUCOSE 102(H) 70 - 99 MG/DL 07/12/2023 11:20 AM [facility] BUN 13 7 - 18 MG/DL 07/12/2023 11:20 AM [facility] CREATININE S/P/B 1.05 0.7 - 1.3 MG/DL 07/12/2023 11:20 AM [facility] SODIUM S/P/B 138 136 - 145 MMOL/L 07/12/2023 11:20 AM [facility] POTASSIUM S/P/B 4.0 3.5 - 5.1 MMOL/L 07/12/2023 11:20 AM [facility] CHLORIDE S/P/B 108 100 - 108 MMOL/L 07/12/2023 11:20 AM [facility] CO2 25.0 21 - 32 MMOL/L 07/12/2023 11:20 AM [facility] CALCIUM S/P/B 9.3 8.5 - 10.1 MG/DL 07/12/2023 11:20 AM [facility] BILIRUBIN TOTAL S/P/B 0.5 0.2 - 1.2 MG/DL 07/12/2023 11:20 AM [facility] Comment: THIS ASSAY IS NOT RECOMMENDED FOR PATIENTS UNDERGOING TREATMENT WITH ELTROMBOPAG DUE TO THE POTENTIAL FOR FALSELY ELEVATED RESULTS. TOTAL PROTEIN S/P/B 8.0 6.4 - 8.2 G/DL 07/12/2023 11:20 AM [facility] ALBUMIN S/P/B 3.9 3.4 - 5.0 G/DL 07/12/2023 11:20 AM [facility] AST 17 15 - 37 U/L 07/12/2023 11:20 AM [facility] ALT 33 16 - 60 U/L 07/12/2023 11:20 AM [facility] ALKALINE PHOSPHATASE S/P/B 110 50 - 136 U/L 07/12/2023 11:20 AM [facility] ANION GAP 5.0 5 - 15 MMOL/L 07/12/2023 11:20 AM [facility] BUN CREATININE RATIO 12.4 6 - 26 07/12/2023 11:20 AM [facility] A/G RATIO 1.0 1.0 - 2.0 RATIO 07/12/2023 11:20 AM [facility] GFR ESTIMATE 85(L) >90 ML/MIN/1.7 3 M2 07/12/2023 11:20 AM [facility] Comment: NOTE: eGFR is not calculated for patients <18 years of age. This is an estimated GFR calculation using the new CKD EPI creatinine equation without race and so does not require a correction factor for race. This estimated GFR should not be used for calculating drug doses. 07/12/2023 10:4 5 AM us Cisco Forde MD LABORATORY Final Result [facility] [address] [place] [address], [place] [phone] * PROTIME/INR, VENOUS (07/12/2023 10:45 AM ) PROTIME 11.1 10.2 - 12.9 SEC 07/12/2023 11:09 AM [facility] INR 0.9 07/12/2023 11:09 AM [facility] Comment: Recommended INR Therapeutic Goals: ??2.0-3.0 Routine Therapy ??2.5-3.5 Mechanical Prosthetic Valves (High Risk) 07/12/2023 10:4 5 AM us Cisco Forde MD LABORATORY Final Result [facility] [address] [place] [address], * CBC W/DIFF AUTOMATED (07/12/2023 10:45 AM ) WBC 8.4 4.5 - 11.0 x10'3/uL 07/12/2023 11:11 AM [facility] RBC 5.32 4.70 - 6.10 x10'6/uL 07/12/2023 11:11 AM [facility] HGB 16.5 14.0 - 18.0 G/DL 07/12/2023 11:11 AM [facility] HCT 47.8 43.0 - 54.0 % 07/12/2023 11:11 AM [facility] MCV 89.8 80.0 - 94.0 FL 07/12/2023 11:11 AM [facility] MCH 31.0 27.0 - 31.0 PG 07/12/2023 11:11 AM [facility] MCHC 34.5 32.0 - 36.0 G/DL 07/12/2023 11:11 AM [facility] RDW 12.6 11.5 - 14.5 % 07/12/2023 11:11 AM [facility] PLT 201 130 - 400 x10'3/uL 07/12/2023 11:11 AM [facility] MPV 10.0 9.3 - 12.2 FL 07/12/2023 11:11 AM [facility] DIFFERENTIAL TYPE AUTOMATED DIFFERENTIAL 07/12/2023 11:11 AM [facility] NEUTROPHILS % 62.9 % 07/12/2023 11:11 AM [facility] LYMPHOCYTES % 26.1 % 07/12/2023 11:11 AM [facility] MONOCYTES % 8.8 % 07/12/2023 11:11 AM [facility] EOSINOPHILS 1.2 % 07/12/2023 11:11 AM [facility] BASOPHILS 0.8 % 07/12/2023 11:11 AM [facility] IMMATURE GRANS % 0.2 % 07/12/19 11:11 AM [facility] ABS. NEUTROPHILS TOTAL 5.27 1.80 - 7.70 x10'3/uL 07/12/2023 11:11 AM [facility] ABS. LYMPHOCYTES 2.19 1.00 - 4.80 x10'3/uL 07/12/2023 11:11 AM [facility] ABS. MONOCYTES 0.74 0.30 - 0.82 x10'3/uL 07/12/2023 11:11 AM [facility] ABS. EOSINOPHILS 0.10 0.04 - 0.54 x10'3/uL 07/12/2023 11:11 AM [facility] ABS. BASOPHILS 0.07 0.01 - 0.08 x10'3/uL 07/12/2023 11:11 AM [facility] ABS. IMMATURE GRANULOCYTES 0.02 0.00 - 0.49 x10'3/uL 07/12/2023 11:11 AM [facility] 07/12/2023 10:4 5 AM us Cisco Forde MD LABORATORY Final Result [facility] [address] [place], [place] [address] [phone] documented in this encounter Visit Diagnoses Diagnosis Osteomyelitis of second toe of left foot (CMS/HCC HHS/HCC)- Primary documented in this encounter Care Teams Sharepoint Analyst Relationship Specialty Start Date End Date Philippe Martinez MD [address] [place] [id number] PCP - General FAMILY PRACTICE 01/10/23 documented as of this encounter
--- OUTSIDE RECORDS SUMMARY | 2024-07-17 07:17 | XMS_ITS | Referral Summary ---
Author Organization [facility] Address [address] [place] [address] Care Team Providers Care Furniture Removalist Name Role Phone Philippe Martinez MD Primary Care Provider [phone] Source Comments [facility],non-owned Affiliates and Associated Physician Practices is amultiple site organization consisting of ambulatory clinics and hospital sitesin [place], [place], [place] and [place]. This disclosure is being madepursuant to the Care Everywhere program and may not contain all information available regarding this patient. Last updated 18.[facility] Encounters Date Type Department Care Team Description 07/15/2024 Travel 07/15/2024 1:30 PM HELMET BINDER Office Visit [facility] - [facility] Surgery [address] [place] [phone] Pablo Greenfield MD History of amputation of lesser toe of right foot (HCC) (Primary Dx); Right knee pain, unspecified chronicity 07/09/2024 Travel 06/11/2024 Travel 05/12/2024 Telephone [facility] [address] [place] [phone] Pablo Greenfield MD Update 05/05/2024 Telephone [facility] [address] [place] [phone] Pablo Greenfield MD Wound/Incision Check 04/29/2024 Travel 04/29/2024 2:15 PM HELMET BINDER Office Visit [facility] [address] [place] [phone] Pablo Greenfield MD PAD (peripheral artery disease) ([facility]) (Primary Dx) 04/28/2024 12:33 PM HELMET BINDER - 04/28/2024 11:59 PM [facility] Hospital Encounter [facility] [address] [place] [address] Pablo Greenfield MD Discharge Disposition: Home or Self Care 04/28/2024 12:32 PM HELMET BINDER Hospital Encounter [facility] [address] [place] [address] Pablo Greenfield MD Discharge Disposition: Home or Self Care 04/25/2024 Travel from Last 3 Months Allergies Active Allergy Reactions Criticality Noted Date Comments Morphine Palpitations 10/19/2023 Medications * Be aware that medications may not be up to date on this document. Alwaysverify current medications with the patient. Medication Sig Dispensed Refills Start Date End Date Status venlafaxine XR 24hr (Effexor XR) 75 MG capsule Take 4 (four) capsules by mouth daily with breakfast Active omeprazole (PriLOSEC) 40 MG capsule Take 1 (one) capsule by mouth daily before breakfast Active Blood Glucose Monitoring Suppl (Blood Glucose Monitor System) w/Device KITIndications:Type 2 diabetes mellitus with diabetic polyneuropathy, without long-term current use of insulin ([facility]) Use 1 Each as directed 1 Each 4 Active blood glucose test stripIndications:Ty pe 2 diabetes mellitus with diabetic polyneuropathy, without long-term current use of insulin ([facility]) Use 1 (one) strip as directed 100 strip 3 4 Active acetaminophen (Tylenol) 500 MG tablet Take 2 (two) tablets by mouth every 6 hours as needed for Fever, Pain or Headache Maximum allowable Acetaminophen amount = 4 Grams (4000 mg) / 24 hours. 4 Active aspirin (Aspirin) 81 MG chew tablet Take 1 (one) tablet by mouth once daily 30 tablet 2 4 Active clopidogrel (plaVIX) 75 MG tablet Take 1 (one) tablet by mouth once daily 30 tablet 1 4 Active gabapentin (Neurontin) 300 MG capsule Take 2 (two) capsules by mouth 3 times daily 180 capsule 4 Active insulin aspart (NovoLOG) pen Inject 0 (zero) Units to 6 (six) Units subcutaneously 3 times daily with meals 3 mL 2 4 Active insulin glargine (Lantus/Semglee) 100 units/mL pen Inject 10 (ten) Units subcutaneously once daily 15 mL 1 4 Active amLODIPine (Norvasc) 10 MG tablet Take 1 (one) tablet by mouth once daily 30 tablet 4 Active metroNIDAZOLE (Flagyl) 500 MG tablet Take 1 (one) tablet by mouth every 8 hours for 1 day 3 tablet 4 Active lancetsIndications: Type 2 diabetes mellitus with diabetic polyneuropathy, without long-term current use of insulin (HCC) Use 1 (one) Each once daily 100 Each 2 4 Active HumaLOG KwikPen 100 UNIT/ML pen 4 Active BD Pen Needle Analisa 2nd Gen 32G X 4 MM MISC as directed 4 Active ibuprofen (Motrin) 800 MG tablet Take 1 (one) tablet by mouth 3 times daily 30 tablet 4 Active oxyCODONE, immediate release, (Roxicodone) 5 MG tabletIndications:P ost-op pain Take 1 (one) tablet by mouth every 6 hours as needed for Pain 12 tablet 4 Active Blood Glucose Monitoring Suppl (OneTouch Verio Reflect) w/Device KITIndications:Type 2 diabetes mellitus with diabetic polyneuropathy (HCC) USE DIRECTED 1 kit 4 11/01/19 25 Active Lancets (ONETOUCH DELICA PLUS 33G EXTRA FINE LANCET)Indications: Type 2 diabetes mellitus with diabetic polyneuropathy (HCC) USE 1 EACH ONCE DAILY 100 Each 2 4 11/01/19 25 Active insulin lispro (HumaLOG;ADMelog) 100 UNIT/ML pen INJECT ZERO TO SIX UNITS UNDER THE SKIN 3 TIMES A DAY WITH MEALS 15 mL 2 4 Active blood glucose test stripIndications:Ty pe 2 diabetes mellitus with diabetic polyneuropathy (HCC) USE 1 STRIP ONCE DAILY DIRECTED 100 strip 3 4 11/01/19 25 Active insulin glargine (Lantus/Semglee) 100 units/mL pen INJECT 10 UNITS UNDER THE SKIN ONCE DAILY 15 mL 2 4 Active gabapentin (Neurontin) 300 MG capsule TAKE 2 CAPSULES BY MOUTH 3 TIMES A DAY 180 capsule 4 Active senna-docusate (Senokot-S) 8.6-50 MG tablet TAKE ONE TABLET BY MOUTH 2 TIMES A DAY 30 tablet 4 Active polyethylene glycol 3350 (Miralax) 17 GM/SCOOP powder TAKE 17 GRAMS BY MOUTH ONCE DAILY 238 g 4 Active nicotine (Nicoderm CQ) 14 MG/24HR patchIndications:Os teomyelitis, unspecified (HCC) APPLY ONE PATCH TO THE SKIN ONCE DAILY 28 patch 4 Active insulin aspart (NovoLOG) pen INJECT 0 TO 6 UNITS UNDER THE SKIN 3 TIMES A DAY WITH MEALS 15 mL 2 4 11/02/19 25 Active insulin glargine (Lantus/Semglee) 100 units/mL pen INJECT 10 UNITS UNDER THE SKIN ONCE DAILY 15 mL 1 4 11/02/19 25 Active polyethylene glycol 3350 (Miralax) 17 GM/SCOOP powder MIX AND TAKE 1 CAPFUL (17 GM) BY MOUTH ONCE DAILY 510 g 4 11/02/19 25 Active senna-docusate (Senokot-S) 8.6-50 MG tablet TAKE ONE TABLET BY MOUTH 2 TIMES A DAY 30 tablet 4 11/02/19 25 Active nicotine (Nicoderm CQ) 14 MG/24HR patchIndications:Os teomyelitis, unspecified (HCC) APPLY ONE PATCH TO SKIN ONCE DAILY 28 patch 4 11/02/19 25 Active metroNIDAZOLE (Flagyl) 500 MG tablet TAKE ONE TABLET BY MOUTH EVERY 8 HOURS 3 tablet 4 11/02/19 25 Active Misc. Devices (Crutches-Aluminum) MISC Use 1 Units once for 1 dose 1 Each 4 Active aspirin (Aspirin) 81 MG chew tablet TAKE ONE TABLET BY MOUTH ONCE DAILY 30 tablet 2 4 07/15/19 25 Discontinu ed(List Clean-Up) clopidogrel (plaVIX) 75 MG tablet TAKE ONE TABLET BY MOUTH ONCE DAILY 30 tablet 1 4 07/15/19 25 Discontinu ed(List Clean-Up) gabapentin (Neurontin) 300 MG capsule TAKE 2 CAPSULES BY MOUTH 3 TIMES A DAY 180 capsule 4 07/15/19 25 Discontinu ed(List Clean-Up) amLODIPine (Norvasc) 10 MG tablet TAKE ONE TABLET BY MOUTH ONCE DAILY 30 tablet 07/15/19 25 Discontinu ed(List Clean-Up) Active Problems Problem Noted Date Diagnosed Date Fracture of right foot, sequela 01/27/2024 PAD (peripheral artery disease) 10/20/2023 Primary hypertension 10/20/2023 Type 2 diabetes mellitus wit h diabetic polyneuropathy, without long-term current use of insulin 10/20/2023 Anxiety 10/20/2023 Osteomyelitis of multiple sites, unspecified typ e 10/19/2023 MSSA (methicillin susceptibl e Staphylococcus aureus) infection 10/19/2023 Osteomyelitis of second toe of left foot 023 Abrasion of foot with infection 08/24/2021 Popliteal artery thrombosis, 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 (F LUZONE; FLULAVAL; FLUARIX; AFLURIA QUADRIVALENT; 6MO+), 0.5 ML (IIV4) 05/26/2023 Social History Tobacco Use Types Packs/Day Years Used Date Smoking Tobacco: Every Day Cigarettes 2 34.4 Started: 1989; Last attempted to quit: 11/25/2023 Smokeless Tobacco: Never Tobacco Cessation:Ready to Q uit: Not Asked; Counseling Given: Not Answered Alcohol Use Standard Drinks/Week Comments Not Currently 1 (1 standard drink = 0.6 oz pur e alcohol) AUDIT-C Answer Date Recorded Q1: How often do you have a drink containing alc ohol? Monthly or less 01/02/2024 Q2: How many drinks containi ng alcohol do you have on a typical day when you are drinking? 5 or 6 01/02/2024 Q3: How often do you have si x or more drinks on one occasion? Monthly 01/02/2024 Overall Financial Resource Strain (CARDIA) Answe r Date Recorded How hard is it for you to pa y for the very basics like food, housing, medical care, and heating? Not hard at all 11/01/2023 [facility] - Occupational Stress Questionnaire Answer Date Recorded Do you feel stress - tense, restless, nervous, or anxious, or unable to sleep at night because your mind is troubled all the time - these days? Not at all 11/01/2023 Hunger Vital Sign Answer Date Recorded Within the past 12 months, y ou worried that your food would run out before you got the money to buy more. Never true 11/01/19 24 Within the past 12 months, t he food you bought just didn't last and you didn't have money to get more. Never true 11/01/2023 PRAPARE - Transportation Answer Date Re corded In the past 12 months, has l ack of transportation kept you from medical appointments or from getting medications? No 02/2024 In the past 12 months, has l ack of transportation kept you from meetings, work, or from getting things needed for daily living? No 11/01/2023 Housing Stability Vital Sign Answer Sohail e Recorded In the last 12 months, was t here a time when you were not able to pay the mortgage or rent on time? No 11/01/2023 In the last 12 months, how many places have you lived? 1 11/01/2023 In the last 12 months, was t here a time when you did not have a steady place to sleep or slept in a fdc (including now)? No 11/01/2023 Sex and Gender Information Value Date Recorded Sex Assigned at Not on file Gender Identity Not on file Sexual Orientation Not on file Last Filed Vital Signs Vital Sign Reading Time Taken Comments Blood Pressure 131/94 07/15/2024 1:14 PM HELMET BINDER Pulse 100 07/15/2024 1:14 PM HELMET BINDER Temperature 37.1 ??C (98.7 ??F) 07/15/2024 1:14 PM CS T Respiratory Rate 18 04/29/2024 1:36 PM HELMET BINDER Oxygen Saturation 94% 07/15/2024 1:14 PM HELMET BINDER Inhaled Oxygen Concentration - - Weight 137.4 kg (303 lb) 07/15/2024 1:14 PM HELMET BINDER Height 193 cm (6' 4 ) 07/15/2024 1:14 PM HELMET BINDER Body Mass Index 36.88 07/15/2024 1:14 PM HELMET BINDER Functional Status Functional Status Response Date of Assess ment Is person deaf or have serious hearing difficult y? No 01/02/2024 Is person blind or have serious difficulty seein g? No 01/02/2024 Does person have serious dif ficulty walking/climbing stairs? No 01/02/2024 Does person have difficulty dressing/bathing? No 01/02/2024 Does person have difficulty doing errands alone? No 01/02/2024 Cognitive Status Response Date of Assessm ent Does person have difficulty concentrating/remembering/making decisions? No 01/02/2024 Plan of Treatment Upcoming Encounters Date Type Department Care Team (Late st Contact Info) Description 11/04/2024 10:00 AM CDT Appointment [facility] [address] [phone] Pablo Greenfield MD [address] [place] [address] [address] [place] [address] 11/04/2024 11:00 AM CDT Appointment [facility] [address] [phone] Pablo Greenfield MD [address] [place] [address] [address] [place] [address] 11/04/2024 2:15 PM CDT Office Visit [facility] - Vascular Surgery [address] [place] [address], [place] [address] Pablo Greenfield MD [address] [place] [address] [address] [place] [address] Procedures Procedure Name Priority Date/Time Associated Diagnosis Comments VAS ARTERIAL ANKLE ARM INDEX OTILIA 04/28/2024 1:22 PM HELMET BINDER PAD (peripheral artery disease) (HCC) VAS RIGHT ARTERIAL DUPLEX LE Routine 04/28/2024 1:22 PM HELMET BINDER PAD (peripheral artery disease) (HCC) COMPREHENSIVE METABOLIC PANEL STAT 12/04/2023 4:49 PM CDT HEMOGLOBIN A1C Routine 2023 4:05 AM CDT MICROALB/CREAT RATIO URINE RANDOM PANEL Routine 10/19/2023 11:18 PM CDT from Last 3 Months or Most Recently Relevant to Health Maintenance Results * VAS ARTERIAL ANKLE ARM INDEX (04/28/2024 1:22 PM HELMET BINDER) Anatomical Region Laterality Modality Ankle / Foot, Upper Extremity In travascular Ultrasound 04/28/2024 12:4 0 PM HELMET BINDER Narrative Procedure Note Forrest Polk MD - 04/29/2024 Pablo Greenfield MD VASCULAR LAB ORDER TREY * VAS Right Arterial Duplex Le (04/28/2024 1:22 PM HELMET BINDER) Anatomical Region Laterality Modality Lower Extremity Intravascular Ul trasound 04/28/2024 12:4 8 PM HELMET BINDER Narrative Procedure Note Forrest Polk MD - 04/29/2024 Pablo Greenfield MD VASCULAR LAB ORDER TREY * (ABNORMAL) COMPREHENSIVE METABOLIC PANEL (12/04/2023 4:49 PM CDT) BUN 16 7 - 26 mg/dL 12/04/2023 5:26 PM [facility] Creatinine 0.91 0.71 - 1.16 mg/dL 12/04/2023 5:26 PM [facility] Sodium 140 136 - 145 mmol/L 12/04/2023 5:26 PM [facility] Potassium 4.3 3.5 - 4.5 mmol/L 12/04/2023 5:26 PM [facility] Chloride 106 98 - 107 mmol/L 12/04/2023 5:26 PM [facility] CO2 21(L) 22 - 29 mmol/L 12/04/2023 5:26 PM [facility] Glucose 84 70 - 115 mg/dL 12/04/2023 5:26 PM [facility] Calcium 10.0 8.4 - 10.2 mg/dL 12/04/2023 5:26 PM [facility] Protein Total 8.2 6.0 - 8.3 g/dL 12/04/2023 5:26 PM [facility] Albumin 4.1 3.4 - 5.0 g/dL 12/04/2023 5:26 PM [facility] Bilirubin Total 0.3 0.2 - 1.2 mg/dL 12/04/2023 5:26 PM [facility] Alkaline Phosphatase 122 40 - 150 U/L 12/04/2023 5:26 PM [facility] ALT 19 5 - 55 U/L 12/04/2023 5:26 PM [facility] AST 16 5 - 34 U/L 12/04/2023 5:26 PM [facility] Anion Gap 13 6 - 16 12/04/2023 5:26 PM [facility] BUN/Creatinine Ratio 18 7 - 23 12/04/2023 5:26 PM [facility] Osmolality Calculated 290 275 - 295 mOsm/kg 12/04/2023 5:26 PM [facility] Albumin/Globulin Ratio 1.0(L) 1.1 - 2.3 12/04/2023 5:26 PM [facility] eGFR by CKD-EPI >90 >=90 mL/min/1.7 3 m2 12/04/2023 5:26 PM [facility] Blood BLOOD SPECIMEN / Unknown Venipuncture / Unknown 12/04/2023 4:49 PM CDT 12/04/2023 5:00 PM [facility] Walter Oakes MD LAB - CHEMISTRY [place] [facility] Organization Address City/State/ZIP Co de Phone Number [facility] [address] [place] [address], [facility] [phone] * (ABNORMAL) HEMOGLOBIN A1C (2023 4:05 AM [facility]) Hemoglobin A1c 8.7(H) <=5.6 % 2023 9:42 AM [facility] Estimated Average Glucose 203 mg/dL 2023 9:42 AM [facility] Comment: HbA1c Interpretation: Normal : < 5.7% Pre-diabetes: 5.7-6.4% Diabetes: Equal to or greater than 6.5% Test results diagnostic of diabetes should be repeated for confirmation. Treatment target values recommended by ADA and other clinical organizations should be used to evaluate metabolic control in patients. Reference: [place] [employer], Standards of Care in Diabetes -2020 In patients 70 years and older consider HbA1c target range of 7.0-7.5% (Reference: Harjit Aviles et al. MIADA. 2012) The Sebia assay for the measurement of HbA1c is a National Glycohemoglobin Standardization Program (NGSP) certified method. Blood BLOOD SPECIMEN / Unknown Lab Venipuncture / Unknown 2023 4:05 AM CDT 2023 5:59 AM CDT Aurea Del Castillo MD LAB - CHEMISTRY [place] Performing Organization Address City/[facility]/ZIP Co de Phone Number [address] [address], [facility] [phone] * (ABNORMAL) MICROALB/CREAT RATIO URINE RANDOM PANEL (10/19/2023 11:18 PM CDT) Albumin Random Urine 26.6 Not Established ug/mL 10/19/2023 11:58 PM CDT [facility] Creatinine Urine 77.71 Not Established mg/dL 10/19/2023 11:58 PM CDT [facility] Urine Albumin/Creati nine Ratio 34(H) <30 mg/g 10/19/2023 11:58 PM CDT [facility] Urine URINE SPECIMEN OBTAINED BY CLEAN CATCH PROCEDURE / Unknown Collection / Unknown 10/19/2023 11:18 PM CDT 10/19/2023 11:37 PM CDT Jennifer Caban MD LAB - URINE [place]LLEN GALDINO ORDERABLES [address] [address], [place] [phone] from Last 3 Months or Most Recently Relevant to Health Maintenance Advance Directives * Full Code (Latest Code Status on File) Date Activated Date Inactivated Comments 10/29/2023 5:30 PM 11/02/2023 8:39 PM * Full Code Date Activated Date Inactivated Comments 10/19/2023 8:07 PM 10/29/2023 5:29 PM Care Teams Furniture Removalist Relationship Specialty Start Date End Date Philippe Martinez MD [address] [place] [phone] PCP - General Family Medicine 11/01/23
--- OUTSIDE RECORDS SUMMARY | 2024-07-17 07:17 | XMS_ITS | Encounter Summary ---
Author Organization [facility] Address [facility] [facility] [place] [address] [place] [address] Care Team Providers Care Landscape Architect Name Role Phone Philippe Martinez MD Primary Care Provider [phone] Encounter Details Date Type Department Care Team (Late st Contact Info) Description 02/09/2023 Prep for Procedure [facility] [address] [place], [place] [id number] Cisco Forde MD [facility]. [facility] [address] [place], [place] [id number] Social History Tobacco Use Types Packs/Day Years Used Date Smoking Tobacco: Every Day Cigarettes 0.5 30 Smokeless Tobacco: Never Alcohol Use Standard Drinks/Week Comments Not Currently 0 (1 standard drink = 0.6 oz pur e alcohol) socially Sex and Gender Information Value Date Recorded Sex Assigned at Not on file Legal Sex Male 8:32 PM CDT Gender Identity Not on file Sexual Orientation Not on file documented as of this encounter Functional Status * RETIRED Are you deaf or do you have serious difficulty hearing Answer Date of Assessment Author Status No 08/24/2021 3:00 PM PSYCHIATRIC CNS Activ e * RETIRED Are you blind or do you have serious difficulty seeing, even when wearing glasses? Answer Date of Assessment Author Status No 08/24/2021 3:00 PM PSYCHIATRIC CNS Activ e * Do you have serious difficulty walking or climbing stairs? Answer Date of Assessment Author Status No 08/24/2021 3:00 PM Paty Riojas RN Active * Do you have difficulty dressing or bathing? Answer Date of Assessment Author Status No 08/24/2021 3:00 PM Paty Riojas, SANDIE Active * Because of a physical, mental, or emotional condition, do you have difficulty doing errands alone such as visiting a doctor's office or shopping? Answer Date of Assessment Author Status No 08/24/2021 3:00 PM Paty Riojas RN Active documented as of this encounter Mental Status * Because of a physical, mental, or emotional condition, do you have serious difficulty concentrating, remembering, or making decisions? Answer Entry Date Author Status No 08/24/2021 3:00 PM Paty Riojas RN Active documented in this encounter Plan of Treatment Not on file documented as of this encounter Goals Goal Patient Goal Type Associated Problems Recent Progress Patient-Stated? Author Family - family caregiver with be involved in care transitions and discharge planning General No Estrella Henderson, SODDER Health - patient able to perform ADLs independently General No Marcial Goodman RN documented as of this encounter Visit Diagnoses Not on filedocumented in this encounter Care Teams Landscape Architect Relationship Specialty Start Date End Date Philippe Martinez MD [address] [place] [phone] PCP - General FAMILY PRACTICE 01/10/23 documented as of this encounter
--- OUTSIDE RECORDS SUMMARY | 2024-07-17 07:17 | XMS_ITS | Patient Health Summary ---
Author Organization [facility] [place] Address [address] [place] [address] Care Team Providers Care Commercial Real Estate Lender Name Role Phone Philippe Martinez MD Primary Care Provider [phone] Note from [facility],non-owned Affiliates and Associated Physician Practices is amultiple site organization consisting of ambulatory clinics and hospital sitesin [place], [place], [place] and [place]. This disclosure is being madepursuant to the Care Everywhere program and may not contain all information available regarding this patient. Last updated 18.[facility] [place] Allergies * Morphine(Palpitations) Medications * Be aware that medications may not be up to date on this document. Alwaysverify current medications with the patient. * venlafaxine XR 24hr (Effexor XR) 75 MG capsule Take 4 (four) capsules by mouth daily with breakfast * omeprazole (PriLOSEC) 40 MG capsule Take 1 (one) capsule by mouth daily before breakfast * Blood Glucose Monitoring Suppl (Blood Glucose Monitor System) w/Device KIT (Started 11/01/2023) Use 1 Each as directed * blood glucose test strip(Started 11/01/2023) Use 1 (one) strip as directed 3 refills by 10/31/2024 * acetaminophen (Tylenol) 500 MG tablet(Started 11/01/2023) Take 2 (two) tablets by mouth every 6 hours as needed for Fever, Pain or Headache Maximum allowableAcetaminophen amount = 4 Grams (4000 mg) / 24 hours. * aspirin (Aspirin) 81 MG chew tablet(Started 11/02/2023) Take 1 (one) tablet by mouth once daily 2 refills by 10/31/2024 * clopidogrel (plaVIX) 75 MG tablet(Started 11/02/2023) Take 1 (one) tablet by mouth once daily 1 refill by 11/01/2024 * gabapentin (Neurontin) 300 MG capsule(Started 11/02/2023) Take 2 (two) capsules by mouth 3 times daily * insulin aspart (NovoLOG) pen(Started 11/02/2023) Inject 0 (zero) Units to 6 (six) Units subcutaneously 3 times daily with meals 2 refills by 11/01/2024 * insulin glargine (Lantus/Semglee) 100 units/mL pen(Started 11/02/2023) Inject 10 (ten) Units subcutaneously once daily 1 refill by 11/01/2024 * amLODIPine (Norvasc) 10 MG tablet(Started 11/02/2023) Take 1 (one) tablet by mouth once daily * metroNIDAZOLE (Flagyl) 500 MG tablet(Started 11/02/2023) Take 1 (one) tablet by mouth every 8 hours for 1 day * lancets(Started 11/06/2023) Use 1 (one) Each once daily 2 refills by 11/05/2024 * HumaLOG KwikPen 100 UNIT/ML pen(Started 11/01/2023) * BD Pen Needle Anailsa 2nd Gen 32G X 4 MM MISC(Started 11/06/2023) as directed * ibuprofen (Motrin) 800 MG tablet(Started 12/07/2023) Take 1 (one) tablet by mouth 3 times daily * oxyCODONE, immediate release, (Roxicodone) 5 MG tablet(Started 01/02/2024) Take 1 (one) tablet by mouth every 6 hours as needed for Pain * Blood Glucose Monitoring Suppl (OneTouch Verio Reflect) w/Device KIT(Started 11/01/2023) USE DIRECTED * Lancets (ONETOUCH DELICA PLUS 33G EXTRA FINE LANCET)(Started 11/01/2023) USE 1 EACH ONCE DAILY 2 refills by 10/31/2024 * insulin lispro (HumaLOG;ADMelog) 100 UNIT/ML pen(Started 11/01/2023) INJECT ZERO TO SIX UNITS UNDER THE SKIN 3 TIMES A DAY WITH MEALS 2 refills by 11/05/2023 * blood glucose test strip(Started 11/01/2023) USE 1 STRIP ONCE DAILY DIRECTED 3 refills by 10/31/2024 * insulin glargine (Lantus/Semglee) 100 units/mL pen(Started 11/01/2023) INJECT 10 UNITS UNDER THE SKIN ONCE DAILY 2 refills by 11/05/2023 * gabapentin (Neurontin) 300 MG capsule(Started 11/01/2023) TAKE 2 CAPSULES BY MOUTH 3 TIMES A DAY * senna-docusate (Senokot-S) 8.6-50 MG tablet(Started 11/01/2023) TAKE ONE TABLET BY MOUTH 2 TIMES A DAY * polyethylene glycol 3350 (Miralax) 17 GM/SCOOP powder(Started 11/01/2023) TAKE 17 GRAMS BY MOUTH ONCE DAILY * nicotine (Nicoderm CQ) 14 MG/24HR patch(Started 11/01/2023) APPLY ONE PATCH TO THE SKIN ONCE DAILY * insulin aspart (NovoLOG) pen(Started 11/02/2023) INJECT 0 TO 6 UNITS UNDER THE SKIN 3 TIMES A DAY WITH MEALS 3 refills by 11/01/2024 * insulin glargine (Lantus/Semglee) 100 units/mL pen(Started 11/02/2023) INJECT 10 UNITS UNDER THE SKIN ONCE DAILY 2 refills by 11/01/2024 * polyethylene glycol 3350 (Miralax) 17 GM/SCOOP powder(Started 11/02/2023) MIX AND TAKE 1 CAPFUL (17 GM) BY MOUTH ONCE DAILY * senna-docusate (Senokot-S) 8.6-50 MG tablet(Started 11/02/2023) TAKE ONE TABLET BY MOUTH 2 TIMES A DAY * nicotine (Nicoderm CQ) 14 MG/24HR patch(Started 11/02/2023) APPLY ONE PATCH TO SKIN ONCE DAILY * metroNIDAZOLE (Flagyl) 500 MG tablet(Started 11/02/2023) TAKE ONE TABLET BY MOUTH EVERY 8 HOURS * Misc. Devices (Crutches-Aluminum) MISC(Started 03/20/2024) Use 1 Units once for 1 dose Ended Medications* aspirin (Aspirin) 81 MG chew tablet(Started 11/01/2023) (Discontinued) TAKE ONE TABLET BY MOUTH ONCE DAILY 2 refills by 10/31/2024 * clopidogrel (plaVIX) 75 MG tablet(Started 11/02/2023)(Discontinued) TAKE ONE TABLET BY MOUTH ONCE DAILY 1 refill by 11/01/2024 * gabapentin (Neurontin) 300 MG capsule(Started 11/02/2023)(Discontinued) TAKE 2 CAPSULES BY MOUTH 3 TIMES A DAY * amLODIPine (Norvasc) 10 MG tablet(Started 11/02/2023)(Discontinued) TAKE ONE TABLET BY MOUTH ONCE DAILY Active Problems Problem Noted Date Diagnosed Date [...] 08/24/2021 Popliteal artery thrombosis, 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 (FLUZONE; FLULAVAL; FLUARIX; AFLURIA QUADRIVALENT; 6MO+), 0.5 ML (IIV4)(Given 05/26/2023) Social History Tobacco Use Types Packs/Day Years [...] and heating? Not hard at all 11/01/2023 [facility] - Occupational Stress [...] place to sleep or slept in a halfway (including now)? No 11/01/2023 Sex and Gender Information Value Date Recorded Sex Assigned at Not on file Gender Identity Not on file Sexual Orientation Not on file Last Filed Vital Signs Vital Sign Reading Time Taken Comments Blood Pressure 131/94 07/15/2024 1:14 PM [employer]AG [employer] Pulse 100 07/15/2024 1:14 PM [employer] Temperature 37.1 ??C (98.7 ??F) 07/15/2024 1:14 PM CS T Respiratory Rate 18 04/29/2024 1:36 PM [employer] Oxygen Saturation 94% 07/15/2024 1:14 PM [employer] Inhaled Oxygen Concentration - - Weight 137.4 kg (303 lb) 07/15/2024 1:14 PM [employer]AG [employer] DR[employer] Height 193 cm (6' 4 ) 07/15/2024 1:14 PM [employer] Body Mass Index 36.88 07/15/2024 1:14 PM [employer]AG [employer]IVER Procedures * VAS ARTERIAL ANKLE ARM INDEX(Performed 04/28/2024) Performed for PAD (peripheral artery disease) (HCC) * VAS RIGHT ARTERIAL DUPLEX LE(Performed 04/28/2024) Performed for PAD (peripheral artery disease) (FORM[facility]LY [facility]) * XR FOOT RIGHT WT BEARING 3VW(Performed 02/28/2024) Performed for Orthopedic aftercare * XR ANKLE RIGHT 3VW OR MORE(Performed 02/28/2024) Performed for Orthopedic aftercare * GLUCOSE - POINT OF CARE(Performed 01/02/2024) * LARYNGEAL MASK AIRWAY(Performed 01/02/2024) * MI DEBRIDE SKIN AT FX SITE(Performed 01/02/2024) Performed for S/P peripheral artery bypass, PVD (peripheral vascular disease) ([facility]) * GLUCOSE - POINT OF CARE(Performed 01/02/2024) * CARDIAC EKG ORDER(Performed 12/05/2023) * XR TIBIA FIBULA RIGHT 2VW(Performed 12/04/2023) Performed for Pain of right lower extremity * MAGNESIUM BLOOD(Performed 12/04/2023) * ERYTHROCYTE SEDIMENTATION RATE(Performed 12/04/2023) * TROPONIN-I HIGH SENSITIVE(Performed 12/04/2023) * PT-INR SLH(Performed 12/04/2023) * LACTIC ACID BLOOD REFLEX TO REPEAT(Performed 12/04/2023) * COMPREHENSIVE METABOLIC PANEL(Performed 12/04/2023) * CBC W AUTO DIFFERENTIAL(Performed 12/04/2023) * CULTURE BLOOD(Performed 12/04/2023) * CULTURE BLOOD(Performed 12/04/2023) * EKG 12-LEAD(Performed 12/04/2023) Performed for Chest pain, unspecified type * VAS ARTERIAL MULTILEVEL LE(Performed 11/27/2023) Performed for Osteomyelitis of multiple sites, unspecified type ([facility]) * VAS RIGHT ARTERIAL DUPLEX LE(Performed 11/27/2023) Performed for Osteomyelitis of multiple sites, unspecified type ([facility]) * CULTURE BLOOD(Performed 11/06/2023) * C-REACTIVE PROTEIN(Performed 11/06/2023) * ERYTHROCYTE SEDIMENTATION RATE(Performed 11/06/2023) * MAGNESIUM BLOOD(Performed 11/06/2023) * COMPREHENSIVE METABOLIC PANEL(Performed 11/06/2023) * CBC W AUTO DIFFERENTIAL(Performed 11/06/2023) * CULTURE BLOOD(Performed 11/06/2023) * GLUCOSE - POINT OF CARE(Performed 11/02/2023) * GLUCOSE - POINT OF CARE(Performed 11/02/2023) * BASIC METABOLIC PANEL (CALCIUM TOTAL)(Performed 11/02/2023) * CBC W AUTO DIFFERENTIAL(Performed 11/02/2023) * MAGNESIUM BLOOD(Performed 11/02/2023) * PHOSPHORUS BLOOD(Performed 11/02/2023) * GLUCOSE - POINT OF CARE(Performed 11/01/2023) * GLUCOSE - POINT OF CARE(Performed 11/01/2023) * GLUCOSE - POINT OF CARE(Performed 11/01/2023) * GLUCOSE - POINT OF CARE(Performed 11/01/2023) * BASIC METABOLIC PANEL (CALCIUM TOTAL)(Performed 11/01/2023) * CBC W AUTO DIFFERENTIAL(Performed 11/01/2023) * MAGNESIUM BLOOD(Performed 11/01/2023) * PHOSPHORUS BLOOD(Performed 11/01/2023) * PREPARE RBC LEUKOREDUCED UNIT(Performed 11/01/2023) * GLUCOSE - POINT OF CARE(Performed 10/31/2023) * GLUCOSE - POINT OF CARE(Performed 10/31/2023) * GLUCOSE - POINT OF CARE(Performed 10/31/2023) * GLUCOSE - POINT OF CARE(Performed 10/31/2023) * BASIC METABOLIC PANEL (CALCIUM TOTAL)(Performed 10/31/2023) * CBC W AUTO DIFFERENTIAL(Performed 10/31/2023) * MAGNESIUM BLOOD(Performed 10/31/2023) * PHOSPHORUS BLOOD(Performed 10/31/2023) * GLUCOSE - POINT OF CARE(Performed 10/30/2023) * GLUCOSE - POINT OF CARE(Performed 10/30/2023) * GLUCOSE - POINT OF CARE(Performed 10/30/2023) * PT EVAL AND TREAT(Performed 10/30/2023) * OT EVAL AND TREAT(Performed 10/30/2023) * BASIC METABOLIC PANEL (CALCIUM TOTAL)(Performed 10/30/2023) * CBC W AUTO DIFFERENTIAL(Performed 10/30/2023) * MAGNESIUM BLOOD(Performed 10/30/2023) * PHOSPHORUS BLOOD(Performed 10/30/2023) * GLUCOSE - POINT OF CARE(Performed 10/29/2023) * GLUCOSE - POINT OF CARE(Performed 10/29/2023) * FL TARYN W ANGIO TEAM(Performed 10/29/2023) Performed for PVD (peripheral vascular disease) ([facility]) * BLOOD GAS+COOX+LYTES+METAB ARTERIAL POCT(Performed 10/29/2023) * BLOOD GAS ART+LYTES+METAB+COOX POC NOTIF(Performed 10/29/2023) Performed for PVD (peripheral vascular disease) ([facility]) * PATHOLOGY TISSUE(Performed 10/29/2023) Performed for Osteomyelitis of multiple sites, unspecified type ([facility]) * CULTURE TISSUE+GRAM STAIN(Performed 10/29/2023) * CULTURE ANAEROBE(Performed 10/29/2023) * PATHOLOGY TISSUE(Performed 10/29/2023) Performed for Osteomyelitis of multiple sites, unspecified type ([facility]) * CULTURE ANAEROBE(Performed 10/29/2023) * CULTURE TISSUE+GRAM STAIN(Performed 10/29/2023) * ACT LR - POCT (SS)(Performed 10/29/2023) * ACT LR - POCT (SSMH)(Performed 10/29/2023) * BLOOD GAS+COOX+LYTES+METAB ARTERIAL POCT(Performed 10/29/2023) * BLOOD GAS ART+LYTES+METAB+COOX POC NOTIF(Performed 10/29/2023) Performed for PVD (peripheral vascular disease) ([facility]) * PERIPHERAL IV NOTE(Performed 10/29/2023) * MI VEIN BYPASS GRAFT,FEM-TIBIAL(Performed 10/29/2023) Performed for Toe osteomyelitis ([facility]) * ENDOTRACHEAL TUBE NOTE(Performed 10/29/2023) * PERIPHERAL IV NOTE(Performed 10/29/2023) * ARTERIAL LINE NOTE(Performed 10/29/2023) * BASIC METABOLIC PANEL (CALCIUM TOTAL)(Performed 10/29/2023) * CBC W/O DIFFERENTIAL(Performed 10/29/2023) * GLUCOSE - POINT OF CARE(Performed 10/28/2023) * GLUCOSE - POINT OF CARE(Performed 10/28/2023) * BLOOD TYPE VERIFICATION(Performed 10/28/2023) * TYPE + SCREEN PANEL(Performed 10/28/2023) * GLUCOSE - POINT OF CARE(Performed 10/28/2023) * GLUCOSE - POINT OF CARE(Performed 10/27/2023) * GLUCOSE - POINT OF CARE(Performed 10/27/2023) * GLUCOSE - POINT OF CARE(Performed 10/27/2023) * GLUCOSE - POINT OF CARE(Performed 10/26/2023) * GLUCOSE - POINT OF CARE(Performed 10/26/2023) * GLUCOSE - POINT OF CARE(Performed 10/26/2023) * GLUCOSE - POINT OF CARE(Performed 10/25/2023) * VAS BILATERAL VENOUS MAPPING(Performed 10/25/2023) Performed for Osteomyelitis of multiple sites, unspecified type (HCC), PVD (peripheral vascular disease) (HCC) * VAS BILATERAL VENOUS MAPPING(Performed 10/25/2023) Performed for Osteomyelitis of multiple sites, unspecified type (HCC), PVD (peripheral vascular disease) (HCC) * GLUCOSE - POINT OF CARE(Performed 10/25/2023) * GLUCOSE - POINT OF CARE(Performed 10/24/2023) * IR ANGIOGRAM BILATERAL LEG(Performed 10/24/2023) Performed for Osteomyelitis of multiple sites, unspecified type (HCC) * MRI FOOT RIGHT WO CONTRAST(Performed 10/23/2023) Performed for Osteomyelitis of left foot, unspecified type (HCC), Osteomyelitis of multiple sites, unspecified type (HCC) * GLUCOSE - POINT OF CARE(Performed 10/23/2023) * ECHO COMPLETE W CONTRAST(Performed 10/23/2023) Performed for Osteomyelitis of multiple sites, unspecified type (HCC) * GLUCOSE - POINT OF CARE(Performed 10/23/2023) * MAGNESIUM BLOOD(Performed 10/23/2023) * RENAL FUNCTION PANEL(Performed 10/23/2023) * GLUCOSE - POINT OF CARE(Performed 2023) * VAS ARTERIAL MULTILEVEL LE(Performed 2023) Performed for Osteomyelitis of left foot, unspecified type (HCC), Osteomyelitis of multiple sites, unspecified type (HCC) * GLUCOSE - POINT OF CARE(Performed 2023) * GLUCOSE - POINT OF CARE(Performed 2023) * MAGNESIUM BLOOD(Performed 2023) * CBC W/O DIFFERENTIAL(Performed 2023) * HEMOGLOBIN A1C(Performed 2023) * RENAL FUNCTION PANEL(Performed 2023) * GLUCOSE - POINT OF CARE(Performed 10/21/2023) * MRI HAND LEFT WWO CONTRAST(Performed 10/21/2023) Performed for Osteomyelitis of multiple sites, unspecified type (HCC) * GLUCOSE - POINT OF CARE(Performed 10/21/2023) * MRI FOOT RIGHT WO CONTRAST(Performed 10/20/2023) Performed for Osteomyelitis of multiple sites, unspecified type (HCC) * GLUCOSE - POINT OF CARE(Performed 10/20/2023) * CULTURE WOUND+GRAM STAIN(Performed 10/20/2023) * GLUCOSE - POINT OF CARE(Performed 10/20/2023) * LIPID PROFILE(Performed 10/20/2023) * COMPREHENSIVE METABOLIC PANEL(Performed 10/20/2023) * CBC W/O DIFFERENTIAL(Performed 10/20/2023) * XR HAND LEFT 2VW(Performed 10/20/2023) Performed for Osteomyelitis of multiple sites, unspecified type (HCC) * GLUCOSE - POINT OF CARE(Performed 10/20/2023) * BLOOD GASES CRISTIAN + COOX PANEL(Performed 10/19/2023) * MICROALB/CREAT RATIO URINE RANDOM PANEL(Performed 10/19/2023) * XR SKULL 3VW OR LESS(Performed 10/19/2023) Performed for Osteomyelitis of multiple sites, unspecified type (HCC) * XR TIBIA FIBULA RIGHT 2VW(Performed 10/19/2023) Performed for Osteomyelitis of multiple sites, unspecified type (HCC) * CULTURE BLOOD(Performed 10/19/2023) * B-TYPE NATRIURETIC PEPTIDE(Performed 10/19/2023) * CBC W AUTO DIFFERENTIAL(Performed 10/19/2023) * CULTURE BLOOD(Performed 10/19/2023) * MAGNESIUM BLOOD(Performed 10/19/2023) * PT-INR SLH(Performed 10/19/2023) * LACTIC ACID BLOOD(Performed 10/19/2023) * COMPREHENSIVE METABOLIC PANEL(Performed 10/19/2023) * XR CHEST 1VW PORTABLE(Performed 10/19/2023) Performed for MSSA (methicillin susceptible Staphylococcus aureus) infection Results * VAS ARTERIAL ANKLE ARM INDEX (04/28/2024 1:22 PM [employer]) Anatomical Region Laterality Modality Ankle / Foot, Upper Extremity In travascular Ultrasound 04/28/2024 12:4 0 PM [employer] Narrative Procedure Note Forrest Polk MD - 04/29/2024 Pablo Greenfield MD VASCULAR LAB ORDER TREY * VAS Right Arterial Duplex Le (04/28/2024 1:22 PM [employer]) Only the most recent of2 resultswithin the time period is included. Anatomical Region Laterality Modality Lower Extremity Intravascular Ul trasound 04/28/2024 12:4 8 PM [employer] Narrative Procedure Note Forrest Polk MD - 04/29/2024 Pablo Greenfield MD VASCULAR LAB ORDER TREY * XR FOOT RIGHT WT BEARING 3VW (02/28/2024 9:22 AM CDT) Anatomical Region Laterality Modality Ankle / Foot Radiographic Juliann ging 02/28/2024 10:2 7 AM CDT Impressions 02/28/2024 12:45 PM CDT IMPRESSION: Postsurgical changes of first and second digit amputations with moderate soft tissue swelling about the forefoot. Subacute fracture of the third digit proximal phalanx base with extension to the third metatarsophalangeal joint. Whether this is posttraumatic in etiology versus pathologic in nature is uncertain. No definite destroyed bone or bony destructive process of the third proximal phalanx clearly defined in relationship to the fracture. Suggested erosion of the lateral side of the second metatarsal head. Report dictated by Partha Dixon MD (residential appraiser). I, Ghassan Gomez MD have personally reviewed and interpreted this examination/study. > Interpreting Provider: Ghassan Gomez MD on 02/28/2024 12:45 PM Narrative 02/28/2024 12:45 PM CDT PROCEDURE: ??XR FOOT RIGHT WT BEARING 3VW, DATE/TIME OF EXAM: ??02/28/2024 9:22 AM, LOCATION [facility] INDICATION: Z47.89: Orthopedic aftercare ADDITIONAL CLINICAL INFORMATION: Ordering Provider Reason For Exam: ??PAIN COMPARISON: Right foot MRI dated 10/23/2023. FINDINGS: Postsurgical changes of amputation of the first and second digit phalanges as well as partial amputation of the first digit metatarsal at the level of the mid/distal shaft. There is some fragmentation of bone at the remaining distal aspect of the first metatarsal bone. There appears to be an ulceration at the lateral side of the second metatarsal head. Comminuted fracture of the base of the third digit proximal phalanx extending into the metatarsophalangeal joint with surrounding periosteal reaction.No definite associated dislocation. Mild degenerative changes of the first tarsometatarsal joint. Moderate-sized spur seen at the plantar fascia and Achilles tendon insertion sites. There is moderate soft tissue swelling of the distal midfoot and forefoot regions. The hindfoot articulations appear intact. Procedure Note Ghassan Gomez MD - 02/28/2024 PROCEDURE: XR FOOT RIGHT WT BEARING 3VW, DATE/TIME OF EXAM: 49:22 AM, LOCATION [facility] INDICATION: Z47.89: Orthopedic aftercare ADDITIONAL CLINICAL INFORMATION: Ordering Provider Reason For Exam: PAIN COMPARISON: Right foot MRI dated 10/23/2023. FINDINGS: Postsurgical changes of amputation of the first and second digitphalanges as well as partial amputation of the first digit metatarsal at the levelof the mid/distal shaft. There is some fragmentation of bone at theremaining distal aspect of the first metatarsal bone. There appears to be an ulceration at the lateral side of the second metatarsal head. Comminuted fracture of the base of the third digit proximal phalanx extending into the metatarsophalangeal joint with surrounding periosteal reaction.No definite associated dislocation. Mild degenerative changesof the first tarsometatarsal joint. Moderate-sized spur seen at the plantar fascia and Achilles tendon insertion sites. There is moderate softtissue swelling of the distal midfoot and forefoot regions. The hindfoot articulations appear intact. IMPRESSION: Postsurgical changes of first and second digit amputations with moderate soft tissue swelling about the forefoot. Subacute fracture of the third digit proximal phalanx base withextension to the third metatarsophalangeal joint. Whether this is posttraumatic in etiology versus pathologic in nature is uncertain. No definite destroyed bone or bony destructive process of the third proximal phalanx clearly defined in relationship to the fracture. Suggested erosion of the lateral side of the second metatarsal head. Report dictated by Partha Dixon MD (residential appraiser). I, Ghassan Gomez MD have personally reviewed and interpreted this examination/study. > Interpreting Provider: Ghassan Gomez MD on 02/28/2024 12:45 PM David Morrow MD DIAGNOSTIC IMAGING O RDERABLES * XR ANKLE RIGHT 3VW OR MORE (02/28/2024 9:22 AM CDT) Anatomical Region Laterality Modality Lower Extremity Radiographic Juliann ging 02/28/2024 9:59 AM CDT Impressions 02/28/2024 10:02 AM CDT IMPRESSION: No evidence of fracture nor disruption of the right ankle articulations. Mild arthritic changes in relationship to the medial malleolus. Unchanged at least moderate-sized posterior calcaneal spurs seen at the plantar fascia and Achilles tendon insertion sites. The previously visualized lucency through the posterior malleolus demonstrates some sclerosis along its margins but similar in appearance. > Interpreting Provider: Ghassan Gomez MD on 02/28/2024 10:02 AM Narrative 02/28/2024 10:02 AM CDT PROCEDURE: ??XR ANKLE RIGHT 3VW OR MORE DATE/TIME OF EXAM: ??02/28/2024 9:22 AM CLINICAL INFORMATION: None relevant/not provided if blank. Indication: Z47.89: Orthopedic aftercare Additional History: COMPARISON: AP and lateral views the right tibia and fibula dated 10/19/2023 FINDINGS: Nonweightbearing AP, internal rotation and lateral views of the right ankle were obtained and demonstrates mild arthritic changes in relationship to the medial malleolus to include a small amount of spurring and adjacent degenerative soft tissue calcifications. No evidence of fracture nor disruption of the right ankle articulations. Ankle mortise appears normal in width and symmetric in appearance. No evidence of significant joint effusion. Procedure Note Ghassan Gomez MD - 02/28/2024 PROCEDURE: XR ANKLE RIGHT 3VW OR MORE DATE/TIME OF EXAM: 02/28/2024 9:22 AM CLINICAL INFORMATION: None relevant/not provided if blank. Indication: Z47.89: Orthopedic aftercare Additional History: COMPARISON: AP and lateral views the right tibia and fibula dated 10/19/2023 FINDINGS: Nonweightbearing AP, internal rotation and lateral views ofthe right ankle were obtained and demonstrates mild arthritic changes in relationship to the medial malleolus to include a small amount ofspurring and adjacent degenerative soft tissue calcifications. No evidence of fracture nor disruption of the right ankle articulations. Ankle mortise appears normal in width and symmetric in appearance. No evidence of significant joint effusion. IMPRESSION: No evidence of fracture nor disruption of the right ankle articulations. Mild arthritic changes in relationship to the medial malleolus. Unchanged at least moderate-sized posterior calcaneal spurs seen at the plantar fascia and Achilles tendon insertion sites. The previously visualized lucency through the posterior malleolus demonstrates some sclerosis along its margins but similar in appearance. > Interpreting Provider: Ghassan Gomez MD on 02/28/2024 10:02 AM David Morrow MD DIAGNOSTIC IMAGING O RDERABLES * GLUCOSE - POINT OF CARE (01/02/2024 1:53 PM CDT) Only the most recent of39 resultswithin the time period is included. Glucose WB/POC 103 70 - 115 mg/dL 01/02/2024 1:54 PM CDT [facility] Specimen Type Cap Fingerstick 2023 1:54 PM CDT [facility] Blood BLOOD SPECIMEN / Unknown 01/02/2024 1:53 PM CDT 01/02/2024 1:54 PM CDT Pablo Greenfield MD LAB - POINT OF CAR E ORDERABLES Performing Organization Address [facility]/State/[facility] Co de Phone Number [facility] [address] [place] [id number], [facility] [phone] * LARYNGEAL MASK AIRWAY (01/02/2024 1:08 PM CDT) Narrative Aristeo Mendoza Anes Asst - 01/02/2024 1:08 PM CDT Aristeo Mendoza Anes Asst ? 01/02/2024 ??1:08 PM LMA Placement Procedure/LDA Note: Patient Location: OR. LMA Insertion Date/Time: ??01/02/2024 12:59 PM Procedure: LMA Induction: standard IV Mask Ventilation: easy Type: ??LMA Size: ??5 Number of Attempts: 1. Placement verified by: bilateral breath sounds, chest auscultation and CO2 monitor Dentition unchanged? ??Yes Procedure Start Time: 01/02/2024 12:59 PM. Staff Section ? Anesthesia Provider: Aristeo Mendoza Anes Asst, Performed the procedure ? Provider #1: Cisco Cottrell MD. Additional Comments: LMA placed atraumatically. ??No change in dentition or soft tissue after placement. ??Min cuff to seal.. Cisco Cottrell MD GENERAL ANESTHESIA O RDERABLES * CARDIAC EKG ORDER (12/05/2023 11:54 AM CDT) Narrative 12/05/2023 11:54 AM CDT Ordered by an unspecified provider. Scanned Document CARDIAC SERVICES ORD ERABLES * XR TIBIA FIBULA RIGHT 2VW (12/04/2023 5:25 PM CDT) Only the most recent of2 resultswithin the time period is included. Anatomical Region Laterality Modality Lower Extremity Radiographic Juliann ging 12/04/2023 5:22 PM CDT Impressions 12/04/2023 8:41 PM CDT IMPRESSION: No acute tibial or fibular fracture identified. No evidence of bone erosions. Report dictated by Jose Angel Delgado MD, (Government Property Inspector). I, Magda Barbosa MD have personally reviewed and interpreted this examination/study. > Interpreting Provider: Magda Barbosa MD on 12/04/2023 8:41 PM Narrative 12/04/2023 8:41 PM CDT PROCEDURE: ??XR TIBIA FIBULA RIGHT 2VW, DATE/TIME OF EXAM: ??12/04/2023 5:26 PM, LOCATION [facility] INDICATION: M79.604: Pain of right lower extremity ADDITIONAL CLINICAL INFORMATION: Ordering Provider Reason For Exam: ??r/o abscess, cellulitis COMPARISON: X-ray tibia-fibula right 10/19/2023. FINDINGS: Surgical clips within the medial aspect of the right lower extremity and posterior aspect of the right knee. 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 Diffuse soft tissue edema. No evidence of subcutaneous emphysema or bone erosions. Patellar enthesophyte at the insertion of the quadriceps tendon. Calcaneal enthesophyte at the insertion of the Achilles tendon. The tibia and fibula are intact without evidence of acute fracture. The bones are mildly diffusely demineralized. Procedure Note Magda Barobsa MD - 12/04/2023 PROCEDURE: XR TIBIA FIBULA RIGHT 2VW, DATE/TIME OF EXAM: 45:26 PM, LOCATION [facility] INDICATION: M79.604: Pain of right lower extremity ADDITIONAL CLINICAL INFORMATION: Ordering Provider Reason For Exam: r/o abscess, cellulitis COMPARISON: X-ray tibia-fibula right 10/19/2023. FINDINGS: Surgical clips within the medial aspect of the right lower extremity and posterior aspect of the right knee. Redemonstrated 3 cm peripheral calcification of the posterior aspect of the knee, may representcalcified Gtz's cyst, unchanged. Diffuse soft tissue edema. No evidence of subcutaneous emphysema or bone erosions. Patellar enthesophyte at the insertion of the quadriceps tendon. Calcaneal enthesophyte at theinsertion of the Achilles tendon. The tibia and fibula are intact without evidence of acute fracture. The bones are mildly diffusely demineralized. IMPRESSION: No acute tibial or fibular fracture identified. No evidence of bone erosions. Report dictated by Jose Angel Delgado MD, (Government Property Inspector). I, Magda Barbosa MD have personally reviewed and interpreted this examination/study. > Interpreting Provider: Magda Barbosa MD on 12/04/2023 8:41 PM Kim Wilson EMERGENCY RESPONSE COORDINATOR-MANAGER RISK DIAGNOSTIC I MAGING ORDERABLES * TROPONIN-I HIGH SENSITIVE (12/04/2023 4:49 PM CDT) Troponin I High Sensitive <3 <=35 ng/L 12/04/2023 5:30 PM CDT [facility] Blood BLOOD SPECIMEN / Unknown Venipuncture / Unknown 12/04/2023 4:49 PM CDT 12/04/2023 5:00 PM CDT Walter Oakes MD LAB - CHEMISTRY BHARTI [place]RA[place] Performing Organization Address [facility]/ZIP Co de Phone Number [facility] [address] [place] [address], [place] [phone] * PT-INR [facility] (12/04/2023 4:49 PM CDT) Only the most recent of2 resultswithin the time period is included. PT 12.8 12.1 - 14.8 Seconds 12/04/2023 5:21 PM CDT [facility] INR 1.0 See Comment 12/04/2023 5:21 PM CDT [facility] Comment:The suggested therap eutic range for standard coumadin (warfarin) therapy is an INR of 2.0-3.0. For high-risk patients (Mechanical Mitral Valve Prosthesis, etc.), the suggested prophylactic therapeutic range is an INR of 2.5-3.5. Blood BLOOD SPECIMEN / Unknown Venipuncture / Unknown 12/04/2023 4:49 PM CDT 12/04/2023 5:21 PM CDT Walter Oakes MD LAB - COAGULATION OR DERABLES Performing Organization Address [facility] Co de Phone Number [address] [address], [place] [phone] * LACTIC ACID BLOOD REFLEX TO REPEAT (12/04/2023 4:49 PM CDT) Lactic Acid-Stat 1.2 <=2.0 mmol/L 12/04/2023 5:19 PM CDT [facility] Blood BLOOD SPECIMEN / Unknown Venipuncture / Unknown 12/04/2023 4:49 PM CDT 12/04/2023 5:00 PM CDT Walter Oakes MD LAB - CHEMISTRY BHARTI [place]RA[place] Performing Organization Address [facility]/ZIP Co de Phone Number [facility] [address] [place] [address], [place] [phone] * CULTURE BLOOD (12/04/2023 4:49 PM CDT) Only the most recent of6 resultswithin the time period is included. Pathologist [facility] Culture No growth day 5 JANET 12/09/2023 11:31 PM CDT [facility] Blood PERIPHERAL BLOOD / Unknown Venipuncture / Unknown 12/04/2023 4:49 PM CDT 12/04/2023 4:58 PM CDT Walter Oakes MD LAB - MICROBIOLOGY O RDERABLES [facility] [address] [place] [address], [facility] [phone] * (ABNORMAL) ERYTHROCYTE SEDIMENTATION RATE (12/04/2023 4:49 PM CDT) Only the most recent of2 resultswithin the time period is included. Pathologist [facility] Erythrocyte Sedimentation Rate Westergren 90(H) 0 - 20 MM/HR 12/04/2023 5:29 PM CDT [facility] Blood BLOOD SPECIMEN / Unknown Venipuncture / Unknown 12/04/2023 4:49 PM CDT 12/04/2023 5:00 PM CDT Kim Wilson APRN-MANAGER RISK LAB - HEMATO LOGY ORDERABLES Performing Organization Address City/[facility]/ZIP Co de Phone Number [facility] [address] [place] [address], [place] [phone] * (ABNORMAL) CBC W AUTO DIFFERENTIAL (12/04/2023 4:49 PM CDT) Only the most recent of7 resultswithin the time period is included. Pathologist [facility] WBC 12.0(H) 4.0 - 10.7 x10E9/L 12/04/2023 5:32 PM CDT [facility] RBC Count 4.61 4.30 - 5.80 x10E12/L 12/04/2023 5:32 PM CDT [facility] Hemoglobin 13.1(L) 13.3 - 17.5 g/dL 12/04/2023 5:32 PM CDT [facility] Hematocrit 40.2 38.7 - 51.1 % 12/04/2023 5:32 PM [facility] MCV 87.2 80.0 - 98.0 fL 12/04/2023 5:32 PM [facility] MCH 28.4 26.7 - 33.6 pg 12/04/2023 5:32 PM [facility] MCHC 32.6 31.7 - 36.3 g/dL 12/04/2023 5:32 PM [facility] RDW-CV 13.7 11.3 - 14.8 % 12/04/2023 5:32 PM [facility] Platelet Count 12/04/2023 5:32 PM [facility] Comment:Automated platelet c ount is inaccurate due to clumping, platelet estimate from smear appears adequate. MPV 12/04/2023 5:32 PM [facility] Comment:Unable to report Neutrophil % 66.1 41.0 - 74.0 % 12/04/2023 5:32 PM [facility] Lymphocyte % 23.5 17.0 - 47.0 % 12/04/2023 5:32 PM [facility] Monocyte % 8.1 3.0 - 11.0 % 12/04/2023 5:32 PM [facility] Eosinophil % 1.1 0.0 - 7.0 % 12/04/2023 5:32 PM [facility] Basophil % 0.8 0.0 - 1.6 % 12/04/2023 5:32 PM [facility] Immature Granulocytes % 0.4 0.0 - 1.0 % 12/04/2023 5:32 PM [facility] Neutrophil Absolute 7.90(H) 1.60 - 7.50 x10E9/L 12/04/2023 5:32 PM [facility] Lymphocyte Absolute 2.81 1.00 - 4.40 x10E9/L 12/04/2023 5:32 PM [facility] Monocyte Absolute 0.97 0.15 - 1.00 x10E9/L 12/04/2023 5:32 PM [facility] Eosinophil Absolute 0.13 0.00 - 0.60 x10E9/L 12/04/2023 5:32 PM [facility] Basophil Absolute 0.10 0.00 - 0.13 x10E9/L 12/04/2023 5:32 PM [facility] Blood BLOOD SPECIMEN / Unknown Venipuncture / Unknown 12/04/2023 4:49 PM CDT 12/04/2023 5:00 PM CDT Walter Oakes MD LAB - HEMATOLOGY ORD ERABLES [facility] [address] [place] [address], [facility] [phone] * (ABNORMAL) COMPREHENSIVE METABOLIC PANEL (12/04/2023 4:49 PM CDT) Only the most recent of4 resultswithin the time period is included. BUN 16 7 - 26 mg/dL 12/04/2023 5:26 PM [facility] Creatinine 0.91 0.71 - 1.16 mg/dL 12/04/2023 5:26 PM [facility] Sodium 140 136 - 145 mmol/L 12/04/2023 5:26 PM [facility] Potassium 4.3 3.5 - 4.5 mmol/L 12/04/2023 5:26 PM [facility] Chloride 106 98 - 107 mmol/L 12/04/2023 5:26 PM [facility] CO2 21(L) 22 - 29 mmol/L 12/04/2023 5:26 PM [facility] Glucose 84 70 - 115 mg/dL 12/04/2023 5:26 PM [facility] Calcium 10.0 8.4 - 10.2 mg/dL 12/04/2023 5:26 PM [facility] Protein Total 8.2 6.0 - 8.3 g/dL 12/04/2023 5:26 PM [facility] Albumin 4.1 3.4 - 5.0 g/dL 12/04/2023 5:26 PM [facility] Bilirubin Total 0.3 0.2 - 1.2 mg/dL 12/04/2023 5:26 PM [facility] Alkaline Phosphatase 122 40 - 150 U/L 12/04/2023 5:26 PM [facility] ALT 19 5 - 55 U/L 12/04/2023 5:26 PM [facility] AST 16 5 - 34 U/L 12/04/2023 5:26 PM [facility] Anion Gap 13 6 - 16 12/04/2023 5:26 PM [facility] BUN/Creatinine Ratio 18 7 - 23 12/04/2023 5:26 PM [facility] Osmolality Calculated 290 275 - 295 mOsm/kg 12/04/2023 5:26 PM [facility] Albumin/Globulin Ratio 1.0(L) 1.1 - 2.3 12/04/2023 5:26 PM [facility] eGFR by CKD-EPI >90 >=90 mL/min/1.7 3 m2 12/04/2023 5:26 PM [facility] Blood BLOOD SPECIMEN / Unknown Venipuncture / Unknown 12/04/2023 4:49 PM CDT 12/04/2023 5:00 PM CDT Walter Oakes MD LAB - CHEMISTRY BHARTI [place] [address] [address], [facility] [phone] * MAGNESIUM BLOOD (12/04/2023 4:49 PM CDT) Only the most recent of9 resultswithin the time period is included. Magnesium 2.2 1.6 - 2.6 mg/dL 12/04/2023 5:26 PM T [facility] Blood BLOOD SPECIMEN / Unknown Venipuncture / Unknown 12/04/2023 4:49 PM CDT 12/04/2023 5:00 PM CDT Kim Wilson EMERGENCY RESPONSE COORDINATOR-MANAGER RISK LAB - CHEMIS TRY ORDERABLES [address] [address], [facility] [phone] * EKG 12-LEAD (12/04/2023 3:57 PM CDT) Ventricular Rate 104 BPM [facility] MUSE Atrial Rate 104 BPM [facility] MUSE P-R Interval 140 ms [facility] MUSE QRS Duration ms 94 ms [facility] MUSE Q-T Interval ms 340 ms [facility] MUSE QTC Calculation (Bezet) 448 ms [facility] MUSE Calculated P [place] -5 degrees [facility] MUSE Calculated R [place] -22 degrees [facility] MUSE Calculated T [place] 42 degrees [facility] MUSE Interpretation EKG SINUS TACHYCARDIA OTHERWISE NORMAL ECG NO PREVIOUS ECGS AVAILABLE Confirmed by WALTER AUGUSTIN MD ([id number]) on 12/07/2023 7:00:47 AM [facility] MUSE 12/04/2023 3:57 PM CDT 12/07/2023 7:00 AM CDT Walter Oakes MD ECG ORDERABLES [facility] MUSE * VAS ARTERIAL MULTILEVEL LE (11/27/2023 2:39 PM CDT) Only the most recent of2 resultswithin the time period is included. Anatomical Region Laterality Modality Intravascular Ul trasound 11/27/2023 1:56 AM CDT Narrative Procedure Note Uriah Liu MD - 11/28/2023 Ian Almonte MD VASCULAR LAB ORDERAB LES * (ABNORMAL) C-REACTIVE PROTEIN (11/06/2023 2:33 PM CDT) C-Reactive Protein 4.3(H) <=0.5 mg/dL 11/06/2023 3:26 PM CDT [facility] Blood BLOOD SPECIMEN / Unknown Venipuncture / Unknown 11/06/2023 2:33 PM CDT 11/06/2023 2:46 PM CDT Kim Wilson EMERGENCY RESPONSE COORDINATOR-MANAGER RISK LAB - CHEMIS TRY ORDERABLES [facility] [address] [place] [address], [facility] [phone] * (ABNORMAL) BASIC METABOLIC PANEL (CALCIUM TOTAL) (11/02/2023 3:50 AM CDT) Only the most recent of5 resultswithin the time period is included. BUN 17 7 - 26 mg/dL 11/02/2023 5:09 AM [facility] Creatinine 0.78 0.71 - 1.16 mg/dL 11/02/2023 5:09 AM [facility] Sodium 139 136 - 145 mmol/L 11/02/2023 5:09 AM [facility] Potassium 4.3 3.5 - 4.5 mmol/L 11/02/2023 5:09 AM [facility] Chloride 108(H) 98 - 107 mmol/L 11/02/2023 5:09 AM [facility] CO2 21(L) 22 - 29 mmol/L 11/02/2023 5:09 AM [facility] Glucose 112 70 - 115 mg/dL 11/02/2023 5:09 AM [facility] Calcium 9.6 8.4 - 10.2 mg/dL 11/02/2023 5:09 AM [facility] Anion Gap 10 6 - 16 11/02/2023 5:09 AM [facility] BUN/Creatinine Ratio 22 7 - 23 11/02/2023 5:09 AM [facility] Osmolality Calculated 290 275 - 295 mOsm/kg 11/02/2023 5:09 AM [facility] eGFR by CKD-EPI >90 >=90 mL/min/1.7 3 m2 11/02/2023 5:09 AM [facility] Blood BLOOD SPECIMEN / Unknown Lab Venipuncture / Unknown 11/02/2023 3:50 AM CDT 11/02/2023 4:06 AM T Jose Ramon Murphy MD LAB - CHEMISTRY BH[place]I [place] [address] [address], [facility] [phone] * PHOSPHORUS BLOOD (11/02/2023 3:50 AM CDT) Only the most recent of4 resultswithin the time period is included. Phosphorus 3.9 2.8 - 5.1 mg/dL 11/02/2023 5:09 AM CDT [facility] Blood BLOOD SPECIMEN / Unknown Lab Venipuncture / Unknown 11/02/2023 3:50 AM CDT 11/02/2023 4:06 AM CDT Jose Ramon Murphy MD LAB - CHEMISTRY BHARTI [place] [address] [address], [facility] [phone] * PREPARE (CROSSMATCH) RBC UNIT(S), 2 Units (11/01/2023 1:17 AM CDT) [facility] Signature Unit Description AS1 LR PRBC [facility] BLOOD BANK LAB Unit ABO A [facility] B[facility] Unit Rh POS [facility] Product Number R02 [facility] B LOOD BANK LAB Unit Donor # [id number] [facility] Code [id number] [facility] BLO OD BANK LAB Blood Type Barcode 6200 [facility] BLOOD [facility] LAB Expiration Date [id number] S BLOOD BANK LAB Unit Description AS1 LR PRBC [facility] BLOOD [facility] LAB Unit ABO A [facility] BLOOD [facility] LAB Unit Rh POS [facility] BLOOD [facility] LAB Product Number R02 [facility] B LOOD BANK LAB Unit Donor # [id number] [facility] BLOOD B[facility] LAB Unit Status released [facility] BLOO D BANK LAB Product Code [id number] [facility] BLO OD BANK LAB Blood Type Barcode 6200 [facility] BLOOD [facility] LAB Expiration Date [id number] S BLOOD BANK LAB Blood Bank BLOOD SPECIMEN / Unknown 10/28/2023 11:33 AM CDT Lew Laura MD LAB - BLOOD BANK ORD TIKA [facility] B[facility] [address] [place] [address], [facility] [phone] * MANUEL López ANGIO TEAM (10/29/2023 3:15 PM CDT) Narrative [facility] - 10/29/2023 4:10 PM CDT Fluoroscopy was used for this exam in the OR. Please see the Operative report. Pablo Greenfield MD FLUOROSCOPY ORDERA BLES [facility] * (ABNORMAL) BLOOD GAS+COOX+LYTES+METAB ARTERIAL POCT (10/29/2023 2:20 PM CDT) Only the most recent of2 resultswithin the time period is included. pH Arterial 7.38 7.35 - 7.45 pH 10/29/2023 2:20 PM [facility] pO2 Arterial 92 80 - 100 mmHg 10/29/2023 2:20 PM [facility] pCO2 Arterial 46(H) 35 - 45 mmHg 2:20 PM [facility] HCO3 Arterial 27.2 20.0 - 30.0 mmol/L 10/29/2023 2:20 PM [facility] BE Arterial 1.6 -2.0 - 2.0 mmol/L 10/29/2023 2:20 PM [facility] Oxyhemoglobin Arterial 96.4 % 10/29/2023 2:20 PM [facility] Dexoyhemoglobin (HHB) % 1.0 % 10/29/2023 2:20 PM [facility] Methemoglobin <0.8 0.0 - 2.0 % 10/29/2023 2:20 PM [facility] Carboxyhemoglobin 1.9 0.0 - 2.0 % 2023 2:20 PM [facility] Comment:Carboxyhemoglobin No rmal Concentration: Non-smokers: 0-2%; Smokers: 0- 9%; Toxic: >20% O2 Content Arterial 17.0 Interpret within clinical context ml/dL 10/29/2023 2:20 PM [facility] Hemoglobin by COOX 12.5 12.0 - 17.6 g/dL 10/29/2023 2:20 PM [facility] O2 Saturation Arterial 99 90 - 100 % 10/29/2023 2:20 PM [facility] Sodium Whole Blood 132(L) 135 - 145 mmol/L 10/29/2023 2:20 PM T [facility] Potassium Whole Blood 5.2 3.5 - 5.5 mmol/L 10/29/2023 2:20 PM [facility] Chloride WB 103 78 - 107 mmol/L 10/29/2023 2:20 PM [facility] Calcium Ionized 1.13 mmol/L 2:20 PM [facility] Ionized Calcium pH Adjusted 1.12(L) 1.19 - 1.34 mmol/L 10/29/2023 2:20 PM [facility] Anion Gap (AG) Arterial 2(L) 6 - 16 mmol/L 10/29/2023 2:20 PM [facility] Glucose WB 146(H) 70 - 115 mg/dL 10/29/2023 2:20 PM [facility] Lactic Acid Whole Blood 2.4(H) <=2.0 mmol/L 10/29/2023 2:20 PM [facility] Blood, arterial ARTERIAL BLOOD SPECIMEN / Unknown 10/29/2023 2:20 PM CDT 10/29/2023 2:20 PM CDT Narrative Authorizing Provider Result Catrachito Laura MD LAB - POINT OF CARE ORDERABLES [facility] [address] [place] [address], [facility] [phone] * BLOOD GAS ART+LYTES+METAB+COOX POC NOTIF (10/29/2023 2:18 PM CDT) Only the most recent of2 resultswithin the time period is included. Comment Notification Label Only - See Separate Report 10/29/2023 3:31 PM T [facility] Other MISCELLANEOUS SAMPLES / Unknown 10/29/2023 2:18 PM CDT 10/29/2023 2:18 PM CDT Balaji Harrison MD LAB - BLOOD GASES OR DERABLES Performing Organization Address [facility]/State/[facility] Co de Phone Number [facility] [address] [place] [address], [facility] [phone] * PATHOLOGY TISSUE (10/29/2023 1:48 PM CDT) Only the most recent of2 resultswithin the time period is included. Case Report Surgical Pathology Report ? Case: [id number] ? Authorizing Provider: ??Pablo Greenfield MD ?Collected: ? 10/29/2023 01:48 PM ? Ordering Location: ? [facility] ?Received: ?10/29/2023 03:33 PM ? Pathologist: ? Damari Joyner MD ? Specimen: ?Amputation Toe ? 11/01/2023 10:52 AM CDT [facility] Final Diagnosis Bone, right 1st and 2nd toe margin, amputation (A): - Bone, skeletal muscle and fibroadipose tissue, negative for acute inflammation 11/01/2023 10:52 AM [facility] Microscopic Description and Comment Microscopic examination substantiates the diagnosis. 11/01/2023 10:52 AM [facility] Clinical History The patient is a 53-year-old male with history of previous right [id number]-iwd-jfuh popliteal artery bypass with greater saphenous vein that was occluded. He presented with osteomyelitis in his right first and second toes and left third toe. Operative procedure: Right first and second toe amputation. 11/01/2023 10:52 AM [facility] Gross Description The requisition and specimen(s) are identified with the patient's name, Ghassan Viramontes. Received in formalin, specimen A , is a irregular segment of orozco-white bone with a minimal amount of attached soft tissue measuring 3.5 x 3.0 x 2.4 cm. One of the surfaces is ragged and presumed to be the resection margin. Sectioning perpendicular to the resection margin shows orozco-white firm underlying bone. Exterior Interior Specialist section is submitted in A1 following decalcification. MSL 11/01/2023 10:52 AM [facility] Pathologist Location at [facility] 11/01/2023 10:52 AM [facility] Disclaimer The performance characteristics of all immunohistochemical and indirect immunofluorescence stains (if any) cited in this report were determined by the Histopathology Laboratory of [facility]. Some of these tests were developed by our own laboratory and have not been cleared or approved by the US Food and Drug Administration. The FDA does not require this test to go through premarket FDA review. These tests are used for clinical purposes. They should not be regarded as investigational or for research. This laboratory is certified under the Clinical Laboratory Improvement Amendments (CLIA) as qualified to perform high complexity clinical laboratory testing. This case has been personally reviewed and interpreted by the attending (teaching) pathologist. 11/01/2023 10:52 AM [facility] Embedded Images 11/01/2023 10:52 AM [facility] Pathology/Cytolo gy AMPUTATION OF TOE / Unknown Collection / Unknown 10/29/2023 1:48 PM CDT 10/29/2023 3:33 PM CDT Comment:Right 1st and 2nd To e Bone Margin Pablo Greenfield MD LAB - PATHOLOGY/CY TOLOGY ORDERABLES [facility] [address] [facility] [place] [address], [facility] [phone] * (ABNORMAL) CULTURE TISSUE+GRAM STAIN (10/29/2023 1:43 PM CDT) Only the most recent of2 resultswithin the time period is included. Culture Moderate Escherichia coli(AA) JANET 11/01/2023 4:36 AM CDT [facility] Culture Light Staphylococcus aureus(AA) JANET 11/01/2023 4:36 AM CDT [facility] Comment:Staphylococcus aureu s methicillin-susceptible (MSSA) detected by penicillin binding protein immunoassay. Culture Moderate normal skin robyn 11/01/2023 4:36 AM CDT [facility] Gram Stain Moderate Gram-positive bacilli(AA) 11/01/2023 4:36 AM CDT [facility] Gram Stain Moderate Gram-positive cocci(AA) 11/01/2023 4:36 AM CDT [facility] Gram Stain Rare Gram-negative bacilli(AA) 11/01/2023 4:36 AM CDT [facility] Gram Stain No polymorphonuclear cells(AA) 11/01/2023 4:36 AM CDT [facility] Microbiology ENTIRE TOE / Unknown Collection / Unknown 10/29/2023 1:43 PM CDT 10/29/2023 3:02 PM CDT Narrative Organism Antibiotic Method Susceptibility Escherichia coli Amikacin JANET <=2 ug/mL: Susceptible Escherichia coli Ampicillin JANET >=32 ug/mL: Resistant Escherichia coli Ampicillin-sulbactam JANET >=32 ug/mL: Resistant Escherichia coli Cefazolin JANET 8 ug/mL: Resistant Escherichia coli Cefepime JANET <=1 ug/mL: Susceptible Escherichia coli Ceftriaxone JANET <=1 ug/mL: Susceptible Escherichia coli Ciprofloxacin JANET <=0.25 ug/mL: Susceptible Escherichia coli Extended-Spectrum Beta-Lactamase JANET NEG ug/mL: Neg Escherichia coli Gentamicin JANET <=1 ug/mL: Susceptible Escherichia coli Meropenem JANET <=0.25 ug/mL: Susceptible Escherichia coli Piperacillin-tazobactam JANET <=4 ug/mL: Susceptible Escherichia coli Tobramycin JANET <=1 ug/mL: Susceptible Escherichia coli Trimethoprim-sulfame thoxa zole JANET <=20 ug/mL: Susceptible Staphylococcus aureus Cefazolin JANET Susceptible Staphylococcus aureus Clindamycin JANET 0.25 ug/mL: Resistant Staphylococcus aureus Doxycycline JANET <=0.5 ug/mL: Susceptible Staphylococcus aureus Inducible Clindamy kiera Resistance JANET POS ug/mL: Pos Staphylococcus aureus Oxacillin JANET 0.5 ug/mL: Susceptible Staphylococcus aureus Trimethoprim-sulfa methoxa zole JANET <=10 ug/mL: Susceptible Comment: This isolate is presumed to be resistant to clindamycin on the basis of detection of inducible clindamycin resistance. Staphylococcus sensitivity to oxacillin predicts susceptibility for nafcillin, ampicillin/sulbactam, amoxicillin/clavulanate, piperacillin/tazobactam, all cephalosporins (except ceftazidime, ceftazidime/avibactam, ceftolozane/tazobactam), and all carbapenems. Pablo Greenfield MD LAB - MICROBIOLOGY ORDERABLES Performing Organization Address City/[facility] de Phone Number [facility] [address] [place] [address], [facility] [phone] * (ABNORMAL) CULTURE ANAEROBE (10/29/2023 1:43 PM CDT) Only the most recent of2 resultswithin the time period is included. Culture Light Bacteroides fragilis(A) JANET 11/02/2023 9:55 AM CDT [facility] Comment:Beta-lactamase posit redd Microbiology ENTIRE TOE / Unknown Collection / Unknown 10/29/2023 1:43 PM CDT 10/29/2023 3:02 PM CDT Pablo Greenfield MD LAB - MICROBIOLOGY ORDERABLES Performing Organization Address City/[facility]/ZIP Co de Phone Number [facility] [address] [place] [address], [facility] [phone] * ACT LR - POCT ([facility]) (10/29/2023 11:58 AM CDT) Only the most recent of2 resultswithin the time period is included. ACT LR 197 See result comments sec 10/29/2023 2:19 PM CDT [facility] Blood BLOOD SPECIMEN / Unknown 10/29/2023 11:58 AM CDT 10/29/2023 2:19 PM CDT Narrative [facility] - 10/29/2023 2:19 PM CDT ACT-LR Therapeutics ranges are: Cardiac dental laboratory manager = 200-300 seconds Sheath pull = ACT less than 170 seconds EPS lab = 200-240 seconds Sheath pull = ACT less than 140 seconds Radiology : CT/Angio lab = 200-300 seconds Sheath pull = ACT less than 200 seconds Expected range of normal volunteers: ACT-LR = 113-149 seconds Expected range of a Non-heparin patients: ACT-LR = 89-169 seconds From established ranges from the company manual Lew Laura MD LAB - COAGULATION OR DERABLES Performing Organization Address City/State/[facility] Co de Phone Number [facility] [address] [place] [id number], [facility] [phone] * IV PLACEMENT PERFORMABLE (10/29/2023 9:25 AM CDT) Narrative Cisco Vuong Anes Asst - 10/29/2023 9:25 AM CDT Cisco Vuong Anes Asst ? 10/29/2023 ??9:26 AM Peripheral IV Line Placement: Patient Location: ??OR Insertion Time: ??10/29/2023 9:25 AM Procedure: IV start ([id number]). Procedure Section: ?? Skin Prep: alcohol. Orientation: left Location: forearm Catheter Gauge: 18 Catheter Length (in): 1 Number of Attempts: 1. Staff Section ? Anesthesia Provider: Cisco Vuong Anes Asst, Performed the procedure ? Provider #1: Balaji Harrison MD. Balaji Harrison MD GENERAL ANESTHESIA O RDERABLES * ETT LINE PERFORMABLE (10/29/2023 8:15 AM CDT) Narrative Cisco Vuong Anes Asst - 10/29/2023 8:15 AM CDT Cisco Vuong Anes Asst ? 10/29/2023 ??8:16 AM Endotracheal Tube Placement: ? Patient Location: OR. Intubation Event Date/Time: ??10/29/2023 7:39 AM Procedure: intubation (79862). Procedure Section: ?? Sedation: under general anesthesia. Indications for Airway Management: ??anesthesia Induction: standard IV Patient Position: ??sniffing Mask Ventilation: difficult and required 2 people (2 handed). Blade Type: Capps Blade Size: 2 Laryngoscopy View: grade 1 (full cords) Tube: endotracheal tube Placement: oral Tube type: cuff - inflated Tube Size (MM): 8 Depth of Insertion (CM): 24 Measured From: lips Cuff Inflated With: air Number of Attempts: 1. Placement Verified By: bilateral breath sounds and CO2 monitor Tube secured with: ??adhesive tape. Dentition unchanged? ??Yes Difficult Airway? ??No. Procedure Start Time: 10/29/2023 7:39 AM. Staff Section ? Anesthesia Provider: Cisco Vuong Anes Asst, Performed the procedure ? Provider #1: Balaji Harrison MD. Additional Comments: Pt failed to remove dentures, removed by anesthesia prior to DL and placed in specimen bag in pt chart . Balaji Harrison MD GENERAL ANESTHESIA O RDERABLES * IV PLACEMENT PERFORMABLE (10/29/2023 8:14 AM CDT) Narrative Cisco Vuong Anes Asst - 10/29/2023 8:14 AM CDT Cisco Vuong Anes Asst ? 10/29/2023 ??8:15 AM Peripheral IV Line Placement: Patient Location: ??OR Insertion Time: ??10/29/2023 7:43 AM Procedure: IV start ([id number]). Procedure Section: ?? Skin Prep: Chloraprep. Orientation: left Location: external jugular Catheter Gauge: 14 Catheter Length (in): 1.5 Number of Attempts: 1. Staff Section ? Anesthesia Provider: Balaji Harrison MD, Performed the procedure Balaji Harrison MD GENERAL ANESTHESIA O WOOD * ARTERIAL LINE PERFORMABLE (10/29/2023 8:14 AM CDT) Narrative Cisco Vuong Anes Asst - 10/29/2023 8:14 AM CDT Cisco Vuong Anes Asst ? 10/29/2023 ??8:14 AM Arterial Line Placement Procedure Note Patient Location: OR. Procedure: Arterial Line ([id number]). Procedure Section ?? Indications: blood sampling needed and continuous blood pressure monitoring. Skin Prep: Chloraprep. Orientation: Left. Site: radial. Site Identification: ultrasound guided with sterile sleeve and gel. Sterile Technique: mask and cap. Gauge: 20. Catheter Length: 1 and 1/4 inch. Catheter Type: Arrow. Seldinger Technique Used? ??Yes Number of Attempts: 2. Line Secured with: tape and Tegaderm. Events: none. Procedure Start Time: 10/29/2023 7:52 AM. Staff Section ? Anesthesia Provider: Lisbeth Byrne Anes Asst, Performed the procedure ? Provider #1: Balaji Harrison MD. Balaji Harrison MD GENERAL ANESTHESIA O WOOD * CBC W/O DIFFERENTIAL (10/29/2023 3:58 AM CDT) Only the most recent of3 resultswithin the time period is included. WBC 7.3 4.0 - 10.7 x10E9/L 10/29/2023 5:03 AM [facility] RBC Count 4.73 4.30 - 5.80 x10E12/L 10/29/2023 5:03 AM [facility] Hemoglobin 14.8 13.3 - 17.5 g/dL 10/29/2023 5:03 AM [facility] Hematocrit 42.3 38.7 - 51.1 % 10/29/2023 5:03 AM [facility] MCV 89.4 80.0 - 98.0 fL 10/29/2023 5:03 AM [facility] MCH 31.3 26.7 - 33.6 pg 10/29/2023 5:03 AM CDT [facility] MCHC 35.0 31.7 - 36.3 g/dL 10/29/2023 5:03 AM CDT [facility] RDW-CV 12.6 11.3 - 14.8 % 10/29/2023 5:03 AM CDT [facility] Platelet Count 284 150 - 420 x10E9/L 10/29/2023 5:03 AM CDT [facility] MPV 9.7 7.8 - 11.4 fL 10/29/2023 5:03 AM CDT [facility] Blood BLOOD SPECIMEN / Unknown Lab Venipuncture / Unknown 10/29/2023 3:58 AM CDT 10/29/2023 4:50 AM CDT Lew Laura MD LAB - HEMATOLOGY ORD ERABLES [facility] [address] [place] [id number], [facility] [phone] * BLOOD TYPE VERIFICATION (10/28/2023 11:40 AM CDT) ABO Rh A POS 10/28/2023 12:16 PM CDT [facility] Blood Bank BLOOD SPECIMEN / Unknown Lab Venipuncture / Unknown 10/28/2023 11:40 AM CDT 10/28/2023 11:49 AM CDT Lew Laura MD LAB - BLOOD BANK ORD ERABLES [facility] [address] [place] [address], [place] [phone] * TYPE + SCREEN PANEL (10/28/2023 11:29 AM CDT) Antibody Screen NEG 12:16 PM CDT [facility] ABO Rh A POS 10/28/2023 12:16 PM CDT [facility] Blood Bank BLOOD SPECIMEN / Unknown Lab Venipuncture / Unknown 10/28/2023 11:29 AM CDT 10/28/2023 11:33 AM CDT Lew Laura MD LAB - BLOOD BANK ORD ERABLES [facility] [address] [place] [address], [facility] [phone] * VAS BILATERAL VENOUS MAPPING (10/25/2023 9:49 AM CDT) Only the most recent of2 resultswithin the time period is included. Anatomical Region Laterality Modality Upper Extremity, Lower Extremity Intravascular Ultrasound 10/25/2023 9:15 AM CDT Narrative Procedure Note Pablo Greenfield MD - 10/26/2023 Tayler Moon MD VASCULAR LAB ORDERAB LES * IR ANGIOGRAM BILATERAL LEG (10/24/2023 2:34 PM CDT) Anatomical Region Laterality Modality Lower Extremity X-Ray Angiograph y 10/24/2023 3:16 PM CDT Impressions 10/26/2023 4:48 PM CDT IMPRESSION: Left lower extremity angiogram with runoff to the foot via the anterior tibial artery with occlusion of the dorsalis pedis artery before it enters the mid foot. Right lower extremity angiogram with occlusion of the distal superficial femoral artery and reconstitution of all 3 tibial vessels with runoff to the foot primarily via the posterior tibial artery. Molina Jack MD > Dictated by Molina Jack (Government Property Inspector) 10/24/2023 3:16 PM I, Pablo Greenfield MD have personally reviewed and interpreted this examination/study. > Interpreting Provider: Pablo Greenfield MD on 10/26/2023 4:48 PM Narrative 10/26/2023 4:48 PM CDT PROCEDURE: ??IR ANGIOGRAM BILATERAL LEG, DATE/TIME OF EXAM: ??10/24/2023 2:34 PM, LOCATION ??[facility] PRE-PROCEDURE DIAGNOSIS: ?Bilateral toe osteomyelitis POST-PROCEDURE DIAGNOSIS: ?Same OPERATORS: ? Dr. Pablo Greenfield MD, Attending Physician ? Dr. Molina Jack MD, Resident Physician ? Dr. Pablo Hendrix MD, Resident Physician PROCEDURE: 1. ?Ultrasound guided access of the left common femoral artery 2. ?Abdominal aortogram 3. ?Bilateral lower extremity angiogram, third order catheterization of the right superficial femoral artery 4. 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 The procedure, along with the risks, benefits and alternatives were discussed in detail, they were agreeable with the plan and all of their questions were answered. PROCEDURE IN DETAIL: The patient was brought into the angiography suite and placed supine on the table. Vital signs were monitored consistently and the patient was given midazolam and fentanyl for sedation, please see below. The bilateral groins were then prepped and draped in the usual sterile fashion. A timeout was performed verifying the correct patient, procedure and site. Limited ultrasound of the left common femoral artery demonstrated a patent vessel. Lidocaine 1% was injected overlying the vessel. The ??common femoral artery measured 8 mm in AP diameter, and a normal waveform was observed. The left common femoral artery was accessed using a micropuncture needle under ultrasound guidance. The needle entry was documented. ??Images have been stored. Seldinger technique was used to place a microcatheter sheath. After a series of exchanges this was upsized for a 5 Norwegian sheath. A left lower extremity angiogram showed patent common femoral and profunda femoris and superficial femoral arteries. There was no significant disease down to the below-knee popliteal artery. There was runoff to the foot via the anterior tibial artery with apparent occlusion of the dorsalis pedis artery crosses the ankle. A Glidewire and Omni flush catheter were then advanced into the aorta. An aortoiliac angiogram showed no significant disease. The Glidewire and Omni flush catheter were then advanced to the level of the right femoral head. Right lower extremity angiogram showed patent common femoral and profunda femoris arteries. The superficial femoral artery was occluded just as it entered Brett's canal. The Glidewire and Omni flush catheter were then advanced into the superficial femoral artery. The remainder of the angiogram showed reconstitution of the anterior tibial and peroneal and posterior tibial arteries. The posterior tibial artery was the major runoff to the foot and into the toes. All devices were removed and a 5 Norwegian minx device was deployed in the left common femoral artery with manual pressure held with adequate hemostasis. SEDATION: I, Dr. Pablo Greenfield MD, was present and performed/supervised the entire procedure. Moderate sedation on this adult patient was ordered by me, administered intravenously in my presence, and monitored by the procedure nurse as an independent trained observer who was present throughout the procedure. The following parameters were monitored: oxygen saturation, heart rate, blood pressure, and response to care. The patient was given a total of 1.5 mg of midazolam and 50 micrograms of fentanyl with a start time of ??1335 hrs and an end time of 1636 hrs for a total of 61 minutes. Vital signs were observed and noted to be within normal limits throughout the entirety of sedation as well as postprocedure in the recovery area until discharge. For details on pre-moderate sedation and post-moderate sedation patient evaluation, please review the evaluation forms [facility]. For details on monitored clinical parameters during the intra-service sedation time, please review the procedure nurse documentation in [facility]. ? COMPLICATIONS: ??None apparent ESTIMATED BLOOD LOSS: 3cc Procedure Note Pablo Greenfield MD - 10/26/2023 PROCEDURE: IR ANGIOGRAM BILATERAL LEG, DATE/TIME OF EXAM: :34 PM, LOCATION [facility] PRE-PROCEDURE DIAGNOSIS: Bilateral toe osteomyelitis POST-PROCEDURE DIAGNOSIS: Same OPERATORS: Dr. Pablo Greenfield MD, Attending Physician Dr. Molina Jack MD, Resident Physician Dr. Pablo Hendrix MD, Resident Physician PROCEDURE: 1. Ultrasound guided access of the left common femoral artery 2. Abdominal aortogram 3. Bilateral lower extremity angiogram, third order catheterizationof the right superficial femoral artery 4. 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 The procedure, along with the risks, benefits and alternativeswere discussed in detail, they were agreeable with the plan and all of their questions were answered. PROCEDURE IN DETAIL: The patient was brought into the angiography suite and placed supine onthe table. Vital signs were monitored consistently and the patient was given midazolam and fentanyl for sedation, please see below. The bilateralgroins were then prepped and draped in the usual sterile fashion. A timeout was performed verifying the correct patient, procedure and site. Limited ultrasound of the left common femoral artery demonstrated apatent vessel. Lidocaine 1% was injected overlying the vessel. The commonfemoral artery measured 8 mm in AP diameter, and a normal waveform was observed. The left common femoral artery was accessed using a micropuncture needle under ultrasound guidance. The needle entry was documented. Images have been stored. Seldinger technique was used to place a microcathetersheath. After a series of exchanges this was upsized for a 5 Norwegian sheath. A left lower extremity angiogram showed patent common femoral andprofunda femoris and superficial femoral arteries. There was no significantdisease down to the below-knee popliteal artery. There was runoff to the footvia the anterior tibial artery with apparent occlusion of the dorsalis pedis artery crosses the ankle. A Glidewire and Omni flush catheter were then advanced into the aorta. An aortoiliac angiogram showed no significant disease. The Glidewire and Omni flush catheter were then advanced to the level of the right femoral head. Right lower extremity angiogram showed patent common femoral and profunda femoris arteries. The superficial femoral artery was occluded just as it entered Brett's canal. The Glidewire and Omni flush catheter were then advanced into thesuperficial femoral artery. The remainder of the angiogram showed reconstitution ofthe anterior tibial and peroneal and posterior tibial arteries. Theposterior tibial artery was the major runoff to the foot and into the toes. All devices were removed and a 5 Norwegian minx device was deployed in the left common femoral artery with manual pressure held with adequatehemostasis. SEDATION: I, Dr. Pablo Greenfield MD, was present and performed/supervised the entire procedure. Moderate sedation on this adult patient was ordered by me, administered intravenously in my presence, and monitored by the procedure nurse as an independent trained observer who was present throughout the procedure. The following parameters were monitored:oxygen saturation, heart rate, blood pressure, and response to care. Thepatient was given a total of 1.5 mg of midazolam and 50 micrograms of fentanylwith a start time of 1335 hrs and an end time of 1636 hrs for a total of 61 minutes. Vital signs were observed and noted to be within normal limits throughout the entirety of sedation as well as postprocedure in the recovery area until discharge. For details on pre-moderate sedation and post-moderate sedation patient evaluation, please review the evaluation forms in [facility]. For details on monitored clinical parameters during the intra-service sedation time, please review the procedure nurse documentation in [facility]. COMPLICATIONS: None apparent ESTIMATED BLOOD LOSS: 3cc IMPRESSION: Left lower extremity angiogram with runoff to the foot viathe anterior tibial artery with occlusion of the dorsalis pedis arterybefore it enters the mid foot. Right lower extremity angiogram with occlusionof the distal superficial femoral artery and reconstitution of all 3 tibial vessels with runoff to the foot primarily via the posterior tibialartery. Molina Jack MD > Dictated by Molina Jack (Government Property Inspector) 10/24/2023 3:16 PM Pablo Ambrosio MD have personally reviewed and interpreted this examination/study. > Interpreting Provider: Pablo Greenfield MD on 10/26/2023 4:48 PM Lew Laura MD IR ORDERABLES * MRI FOOT RIGHT WO CONTRAST (10/23/2023 3:46 PM CDT) Only the most recent of2 resultswithin the time period is included. Anatomical Region Laterality Modality Ankle / Foot Magnetic Resonan ce 10/23/2023 3:29 PM CDT Impressions 10/23/2023 4:35 PM CDT IMPRESSION: 1.Limited study due to patient motion artifact. 2.Bone marrow signal abnormality in the first and second toe distal phalanges compatible with osteomyelitis. Report dictated by Colin Cuenca DO (residential appraiser). Branden Ambrosio MD have personally reviewed and interpreted this examination/study. > Interpreting Provider: Branden Mcgregor MD on 10/23/2023 4:35 PM Narrative 10/23/2023 4:35 PM CDT PROCEDURE: ??MRI FOOT RIGHT WO CONTRAST DATE/TIME OF EXAM: ??10/23/2023 3:24 PM CLINICAL INFORMATION: None relevant/not provided if blank. Indication: M86.9: Osteomyelitis of left foot, unspecified type (HCC) M86.9: Osteomyelitis of multiple sites, unspecified type (HCC) Additional History: COMPARISON: MRI right foot dated 10/20/2023 TECHNIQUE: MRI of the right foot was performed without contrast. FINDINGS: Image quality is degraded due to patient motion artifact. The accuracy of musculoskeletal MRI interpretation is decreased without radiographic correlation. There is again bone marrow signal abnormality in the first and second toe distal phalanges likely representing osteomyelitis. Procedure Note Branden Mcgregor MD - 10/23/2023 PROCEDURE: MRI FOOT RIGHT WO CONTRAST DATE/TIME OF EXAM: 10/23/2023 3:24 PM CLINICAL INFORMATION: None relevant/not provided if blank. Indication: M86.9: Osteomyelitis of left foot, unspecified type (HCC) M86.9: Osteomyelitis of multiple sites, unspecified type (HCC) Additional History: COMPARISON: MRI right foot dated 10/20/2023 TECHNIQUE: MRI of the right foot was performed without contrast. FINDINGS: Image quality is degraded due to patient motion artifact. The accuracy of musculoskeletal MRI interpretation is decreased without radiographic correlation. There is again bone marrow signal abnormality in the first and secondtoe distal phalanges likely representing osteomyelitis. IMPRESSION: 1.Limited study due to patient motion artifact. 2.Bone marrow signal abnormality in the first and second toe distal phalanges compatible with osteomyelitis. Report dictated by Colin Cuenca DO (residential appraiser). I, Branden Mcgregor MD have personally reviewed and interpreted this examination/study. > Interpreting Provider: Branden Mcgregor MD on 10/23/2023 4:35 PM Aurea Del Castillo MD MR ORDERABLES * ECHO COMPLETE W CONTRAST (10/23/2023 10:51 AM CDT) BSA 2.7774071 m2 SSM CV FUJ I PACS Sinus of Valsalva 3.90 cm SS M CV FUJI PACS ST junction 3.4 cm SSM CV F UJI PACS Sinus of valsalva index 1.46 cm/m2 SSM CV FUJI PACS ST junction index 1.28 cm/m2 SS M CV FUJI PACS LV A4C EF 59 46 - 74 % SSM CV FUJ I PACS LV stroke vol BP 67.4 mL SSM CV FUJI PACS LV stroke vol BP index 25.3 mL/m2 SSM CV FUJI PACS LVOT stroke vol 102.59 mL SSM CV FUJI PACS LVOT stroke vol index 38.49 mL/m2 SSM CV FUJI PACS LV stroke vol 2D teich 55.64 ml SSM CV FUJI PACS LV Stroke Index 2D Teich 20.88 mL/m2 SSM CV FUJI PACS LV stroke vol index A4C MOD 90.211 ml/m2 SSM CV FUJI PACS LVIDd 5.84 4.2 - 5.8 cm SSM CV FUJI PACS LVIDs 4.92 2.5 - 4.0 cm SSM CV FUJI PACS IVSd 2D 1.059 0.6 - 1 cm SSM CV FUJI PACS LVPWd 0.84 0.6 - 1 cm SSM CV FUJI PACS Fractional Shortening 2D 16 28 - 44 % SSM CV FUJI PACS LV ESV BP 64.108 21 - 61 mL SSM CV FUJI PACS LV ESV index BP 24.1 11 - 31 mL/m2 SSM CV FUJI PACS LV ESV A2C 63.115 15 - 75 mL SSM CV FUJI PACS LV ESV index A2C 23.68 9 - 37 mL/m2 SSM CV FUJI PACS LV EDV BP 131.495 62 - 150 mL SSM CV FUJI PACS LV ESV A4C 61.811 22 - 78 mL SSM CV FUJI PACS LV ESV index A4C 23.19 12 - 40 mL/m2 SSM CV FUJI PACS LV EDV index BP 49.3 34 - 74 mL/m2 SSM CV FUJI PACS LV EDV A2C 106.302 59 - 175 mL SSM CV FUJI PACS LV EDV index A2C 39.88 31 - 87 mL/m2 SSM CV FUJI PACS LV EDV A4C 153.327 mL SSM CV FU JI PACS LV ESV 2D 113.834 21 - 61 mL SSM CV FUJI PACS LV EDV index A4C 57.53 37 - 93 mL/m2 SSM CV FUJI PACS LV ESV index 2D 42.71 11 - 31 mL/m2 SSM CV FUJI PACS LV EDV 2D 169.474 62 - 150 mL SSM CV FUJI PACS LV EDV index 2D 63.58 34 - 74 mL/m2 SSM CV FUJI PACS LVOT diam 2.4 cm SSM CV FUJ I PACS LVOT area 4.59 cm2 SSM CV FUJ I PACS LV RWT 0.288 SSM CV FUJ I PACS LV [place] A2C 9.137 cm SSM CV F UJI PACS LV [place] A4C 9.731 cm SSM CV F UJI PACS IVS/LVPW 1.256 SSM CV FUJ I PACS LV mass 2D 186.226 96 - 200 g SSM CV FUJI PACS LV mass index 2D 69.87 50 - 102 g/m2 SSM CV FUJI PACS MV E pk lady 81.159 cm/s SSM CV F UJI PACS MV avg E/e' ratio 8.50 SS M CV FUJI PACS MV A pk lady 95.284 cm/s SSM CV F UJI PACS MV E A ratio 0.85 SSM CV FUJI PACS MV E' lateral lady 10.597 cm/s SS M CV FUJI PACS MV DT 199 ms SSM CV FUJ I PACS MV E' septal lady 8.68 cm/s SSM CV FUJI PACS MV E/e' septal 9.35 SSM C V FUJI PACS MV E/e' lateral 7.659 SSM CV FUJI PACS LA vol BP 89.738 mL SSM CV FUJ I PACS P vein A lady 33.7 cm/s SSM CV FUJI PACS P vein A duration 134 msec SS M CV FUJI PACS P vein S/D ratio 1.32 SSM CV FUJI PACS LVOT pk lady 1.17 m/s SSM CV F UJI PACS LVOT mn lady 0.78 m/s SSM CV F UJI PACS LVOT mn grad 2.8 mmHg SSM CV FUJI PACS LVOT Cardiac Output 7.928 l/min SSM CV FUJI PACS LVOT Cardiac Index 2.97 l/min/m2 SSM CV FUJI PACS Qp:Qs 0.53 SSM CV FUJ I PACS LA vol index 33.7 16 - 34 mL/m2 SSM CV FUJI PACS LA size 4.202 3.0 - 4.0 cm SSM CV FUJI PACS LA vol BP A-L 95.285 mL SSM CV FUJI PACS RV-orantes basal diam 4.7 2.5 - 4.1 cm SSM CV FUJI PACS RV-orantes longitudinal diam 8.3 5.9 - 8.3 cm SSM CV FUJI PACS RVIDd 3.7 cm SSM CV FUJ I PACS RVOT diam Doppler 2.177 cm SS M CV FUJI PACS RVOT area Doppler 3.72 10 - 24 cm2 SSM CV FUJI PACS RVOT stroke vol 54.64 cm3 SSM CV FUJI PACS RVOT VTI 14.679 cm SSM CV FUJ I PACS TV S' lady 14.695 cm/s SSM CV FUJ I PACS TAPSE 2.705 1.7 cm SSM CV [facility] I PACS RVOT pk lady 0.76 m/s SSM CV F UJI PACS RA area 25.774 cm2 SSM CV FUJ I PACS AV mn grad 4 mmHg SSM CV FU JI PACS AV pk grad 8 mmHg SSM CV FU JI PACS AV mn lady 0.97 m/s SSM CV [facility] I PACS AV pk lady 1.49 m/s SSM CV [facility] I PACS AV VTI 27.191 cm SSM CV [facility] I PACS LVOT pk grad 5.473 mmHg SSM CV FUJI PACS LVOT VTI 22.341 cm SSM CV [facility] I PACS AV area cont VTI 3.8 cm2 SSM CV FUJI PACS AV area pk lady 3.6 cm2 [facility] C [facility] Doppler lady index pk lady 0.785 SSM CV FUJI PACS Dimensionless Index 0.822 SSM CV FUJI PACS MV mn grad 2 mmHg SSM CV FU JI PACS MV pk grad 3 mmHg SSM CV FU JI PACS MV mn lady 0.64 m/s SSM CV FUJ I PACS MV pk lady 90.715 cm/s SSM CV FUJ I PACS MV PHT 57 ms SSM CV FUJ I PACS MV area PHT 3.84 cm2 SSM CV F UJI PACS MV area cont eq 3.85 cm2 SSM CV FUJI PACS MV VTI 26.672 cm SSM CV FUJ I PACS MV decel slope 407.831 cm/s2 SSM C V FUJI PACS RVOT mn grad 1 mmHg SSM CV FUJI PACS RVOT pk grad 2 mmHg SSM CV FUJI PACS PV area cont eq 2.5 cm2 SSM CV FUJI PACS PV mn grad 3 mmHg SSM CV FU JI PACS PV pk lady 116.542 cm/s SSM CV FUJ I PACS PV pk grad 5 mmHg SSM CV FU JI PACS PV VTI 21.916 cm SSM CV FUJ I PACS PV mn lady 79.98 cm/s SSM CV FUJ I PACS IVC size 1.1 cm SSM CV FUJ I PACS RV stroke vol 54.61 mL SSM CV FUJI PACS LA ESV A4C MOD Index 35 ml/m2 SSM CV FUJI PACS LA ESV A2C MOD Index 28 ml/m2 SSM CV FUJI PACS [id number] 8.272 cm SSM CV FUJ I PACS [id number] 7.763 cm SSM CV FUJ I PACS LVIDs index 1.85 1.3 - 2.1 cm/m2 SSM CV FUJI PACS LV LVIDd index 2.19 2.2 - 3.0 cm/m2 SSM CV FUJI PACS LV biplane EF 61 52 - 72 % SSM CV FUJI PACS Anatomical Region Laterality Modality Ultrasound Narrative 10/23/2023 12:44 PM CDT ?Left??Ventricle: Left ventricle size is normal. Normal wall thickness. Ventricular mass is normal. Normal systolic function. EF by 2D Larsen biplane is 61%. Normal wall motion. Normal diastolic function. ?Right??Ventricle: Right ventricle size is normal. Normal systolic function. ?No hemodynamically significant valvular abnormalities Left Ventricle Left ventricle size is normal. Normal wall thickness. Ventricular mass is normal. Normal systolic function. EF by 2D Larsen biplane is 61%. Normal wall motion. Normal diastolic function. Right Ventricle Right ventricle size is normal. Normal systolic function. Left Atrium Left atrium size is normal. Left atrium volume index is 33.7 mL/m2. Right Atrium Right atrium size is normal. IVC/SVC IVC was not well visualized. IVC diameter is less than or equal to 21 mm and decreases greater than 50% during inspiration; therefore the estimated right atrial pressure is normal (~3 mmHg). Mitral Valve Valve structure is normal. No restricted motion. Trace regurgitation. No stenosis. Tricuspid Valve Valve structure is normal. No restricted motion. Trace regurgitation. Unable to estimate the pulmonary artery systolic pressure due to lack of envelope. No stenosis. Aortic Valve Valve structure is trileaflet. No restricted motion. No regurgitation. No stenosis. AV mean gradient is 4 mmHg. AV peak velocity is 1.49 m/s. AV area by continuity VTI is 3.8 cm2. Pulmonic Valve Valve structure is normal. Trace regurgitation. No stenosis. Ascending Aorta Normal sized sinus of Valsalva (aortic root). Sinus of Valsalva is 3.90 cm. Sinus of Valsalva indexed to BSA is 1.46 cm/m2. Pericardium No pericardial effusion. Study Details Study quality was adequate. A complete 2D, color Doppler, spectral Doppler and M-mode echocardiogram was performed. The apical, parasternal, subcostal and suprasternal views were obtained. Definity ultrasound enhancing agent used. Patient exhibited sinus rhythm. Technical difficulties due to patient's body habitus and poor acoustic windows. Procedure Note Alda Bryant MD - 10/23/2023 ? ? Left??Ventricle: Left ventricle size is normal. Normal wall thickness.Ventricular mass is normal. Normal systolic function. EF by 2D Simpsonbiplane is 61%. Normal wall motion. Normal diastolic function. ? ? Right??Ventricle: Right ventricle size is normal. Normal systolicfunction. ? ? No hemodynamically significant valvular abnormalities Aurea Del Castillo MD ECHO CUPID * (ABNORMAL) RENAL FUNCTION PANEL (10/23/2023 3:45 AM CDT) Only the most recent of2 resultswithin the time period is included. [facility] BUN 14 7 - 26 mg/dL 10/23/2023 4:47 AM T [facility] Creatinine 0.76 0.71 - 1.16 mg/dL 10/23/2023 4:47 AM [facility] Sodium 138 136 - 145 mmol/L 10/23/2023 4:47 AM [facility] Potassium 4.4 3.5 - 4.5 mmol/L 10/23/2023 4:47 AM [facility] Chloride 104 98 - 107 mmol/L 10/23/2023 4:47 AM [facility] CO2 25 22 - 29 mmol/L 10/23/2023 4:47 AM [facility] Glucose 113 70 - 115 mg/dL 10/23/2023 4:47 AM [facility] Albumin 3.1(L) 3.4 - 5.0 g/dL 10/23/2023 4:47 AM [facility] Calcium 9.6 8.4 - 10.2 mg/dL 10/23/2023 4:47 AM [facility] Phosphorus 4.0 2.8 - 5.1 mg/dL 10/23/2023 4:47 AM [facility] Anion Gap 9 6 - 16 10/23/2023 4:47 AM [facility] BUN/Creatinine Ratio 18 7 - 23 10/23/2023 4:47 AM [facility] Osmolality Calculated 287 275 - 295 mOsm/kg 10/23/2023 4:47 AM [facility] eGFR by CKD-EPI >90 >=90 mL/min/1.7 3 m2 10/23/2023 4:47 AM [facility] Blood BLOOD SPECIMEN / Unknown Lab Venipuncture / Unknown 10/23/2023 3:45 AM CDT 10/23/2023 4:19 AM T Aurea Del Castillo MD LAB - CHEMISTRY ORDE [facility] Organization Address City/State/ZIP Co de Phone Number [facility] [address] [place] [address], [facility] [phone] * (ABNORMAL) HEMOGLOBIN A1C (2023 4:05 AM CDT) Hemoglobin A1c 8.7(H) <=5.6 % 2023 9:42 AM [facility] Estimated Average Glucose 203 mg/dL 2023 9:42 AM CDT [facility] Comment: HbA1c Interpretation: Normal : < 5.7% Pre-diabetes: 5.7-6.4% Diabetes: Equal to or greater than 6.5% Test results diagnostic of diabetes should be repeated for confirmation. Treatment target values recommended by ADA and other clinical organizations should be used to evaluate metabolic control in patients. Reference: [place] [employer], Standards of Care in Diabetes -2020 In patients 70 years and older consider HbA1c target range of 7.0-7.5% (Reference: Harjit Aviles et al. JAMDA. 2012) The Sebia assay for the measurement of HbA1c is a National Glycohemoglobin Standardization Program (NGSP) certified method. Blood BLOOD SPECIMEN / Unknown Lab Venipuncture / Unknown 2023 4:05 AM CDT 2023 5:59 AM CDT Aurea Del Castillo MD LAB - CHEMISTRY [facility] Organization Address City/State/[facility] Co de Phone Number [facility] [address] [place] [address], [facility] [phone] * MRI HAND LEFT WWO CONTRAST (10/21/2023 11:31 AM CDT) Anatomical Region Laterality Modality Wrist / Hand Magnetic Resonan ce 2023 7:56 AM CDT Impressions 2023 10:08 AM CDT IMPRESSION: 1.Soft tissue edema and enhancement in the third digit, greater distally, compatible with cellulitis. There is a small defect in the skin at the palmar aspect which may represent a site of incision and drainage or laceration. 2.Mild bone marrow edema involving the third distal phalanx is likely reactive, less likely early osteomyelitis. 3.Flexion deformity at the second digit distal interphalangeal joint may represent extensor tendon injury (mallet finger). The extensor tendon is not well visualized due to poor image quality in this region. Report dictated by Colin Cuenca DO (residential appraiser). I, Branden Mcgregor MD have personally reviewed and interpreted this examination/study. > Interpreting Provider: Branden Mcgregor MD on 2023 10:08 AM Narrative 2023 10:08 AM CDT PROCEDURE: ??MRI HAND LEFT WWO CONTRAST DATE/TIME OF EXAM: ??10/21/2023 11:32 AM CLINICAL INFORMATION: None relevant/not provided if blank. Indication: M86.9: Osteomyelitis of multiple sites, unspecified type (HCC) Additional History: COMPARISON: Left hand x-ray dated 10/20/2023 TECHNIQUE: MRI of the left hand was performed utilizing multiple pulse sequences in multiple planes before and after intravenous gadolinium contrast administration. CONTRAST: ?? GADOBUTROL 1 MMOL/ML IV SSM SO:10 mL FINDINGS: There are mild polyarticular degenerative changes throughout the hand. There is subcutaneous edema in the third digit, greater distally. Postcontrast images demonstrate associated soft tissue enhancement. These findings are compatible with cellulitis. There is a small defect in the skin at the palmar aspect of the third digit at the level of the distal phalanx (series 27 image 9, series 29 image 6) which could represent a site of incision and drainage or laceration. No peripherally enhancing fluid collection is visualized. There is mild bone marrow edema involving the third distal phalanx without definitive correlate on the T1 images. The cortex is preserved. The second digit is flexed at the distal interphalangeal joint which could represent metallic finger. Due to degraded image quality including patient motion artifact, the extensor tendon is not well visualized in this region. There is soft tissue edema in the second digit distally. Procedure Note Branden Mcgregor MD - 2023 PROCEDURE: MRI HAND LEFT WWO CONTRAST DATE/TIME OF EXAM: 10/21/2023 11:32 AM CLINICAL INFORMATION: None relevant/not provided if blank. Indication: M86.9: Osteomyelitis of multiple sites, unspecified type(HCC) Additional History: COMPARISON: Left hand x-ray dated 10/20/2023 TECHNIQUE: MRI of the left hand was performed utilizing multiple pulse sequences in multiple planes before and after intravenous gadolinium contrast administration. CONTRAST: GADOBUTROL 1 MMOL/ML IV SSM SO:10 mL FINDINGS: There are mild polyarticular degenerative changes throughout the hand. There is subcutaneous edema in the third digit, greater distally. Postcontrast images demonstrate associated soft tissue enhancement.These findings are compatible with cellulitis. There is a small defect in the skin at the palmar aspect of the third digit at the level of the distal phalanx (series 27 image 9, series 29 image 6) which could represent asite of incision and drainage or laceration. No peripherally enhancing fluid collection is visualized. There is mild bone marrow edema involving the third distal phalanxwithout definitive correlate on the T1 images. The cortex is preserved. The second digit is flexed at the distal interphalangeal joint whichcould represent metallic finger. Due to degraded image quality includingpatient motion artifact, the extensor tendon is not well visualized in thisregion. There is soft tissue edema in the second digit distally. IMPRESSION: 1.Soft tissue edema and enhancement in the third digit, greaterdistally, compatible with cellulitis. There is a small defect in the skin at the palmar aspect which may represent a site of incision and drainage or laceration. 2.Mild bone marrow edema involving the third distal phalanx is likely reactive, less likely early osteomyelitis. 3.Flexion deformity at the second digit distal interphalangeal joint may represent extensor tendon injury (mallet finger). The extensor tendon is not well visualized due to poor image quality in this region. Report dictated by Colin Cuenca DO (residential appraiser). I, Branden Mcgregor MD have personally reviewed and interpreted this examination/study. > Interpreting Provider: Branden Mcgregor MD on 2023 10:08 AM Jennifer Caban MD MR ORDERABLES * CULTURE WOUND+GRAM STAIN (10/20/2023 3:25 PM CDT) Culture Rare normal skin robyn 2023 8:23 PM CDT [facility] MICROBIOLOGY Gram Stain Moderate Red blood cells 2023 8:23 PM CDT [facility] MICROBIOLOG[facility] Gram Stain No polymorphonuclear cells 2023 8:23 PM CDT [facility]CROBIOLOG[facility] Gram Stain No organisms seen 024 8:23 PM CDT [facility] MICROBIOLOGY Microbiology ENTIRE FINGER / Unknown Collection / Unknown 10/20/2023 3:25 PM CDT 10/20/2023 3:28 PM CDT Aurea Del Castillo MD LAB - MICROBIOLOGY O RDERABLES [facility] MICROBIOLOG[facility] [address] [place] [address], [facility] [phone] * (ABNORMAL) LIPID PROFILE (10/20/2023 4:02 AM CDT) Cholesterol Total 163 <200 mg/dL 10/20/2023 5:16 AM [facility] HDL 31(L) >40 mg/dL 10/20/2023 5:16 AM [facility] Comment: ATP III Classification of HDL Cholesterol: ? <40 mg/dL: ??Considered a major risk factor. ? >60 mg/dL: ??Considered a negative risk factor. ? LDL Calculated 93 <100 mg/dL 10/20/2023 5:16 AM [facility] Comment: ATP III Classification of LDL Cholesterol: ?<100 mg/dL: ??Optimal ? 100 - 129 mg/dL: ??Near Optimal/Above Optimal ? 130 - 159 mg/dL: ??Borderline High ? 160 - 189 mg/dL: ??High ?>190 mg/dL: ??Very High ? Triglycerides 194(H) <150 mg/dL 10/20/2023 5:16 AM [facility] Comment: ATP III Classification of Triglycerides: ?<150 mg/dL: ??Normal ? 150 - 199 mg/dL: ??Borderline High ? 200 - 400 mg/dL: ??High ?>500 mg/dL: ??Very High Blood BLOOD SPECIMEN / Unknown Lab Venipuncture / Unknown 10/20/2023 4:02 AM CDT 10/20/2023 4:41 AM CDT Jennifer Caban MD LAB - CHEMISTRY ORDERABLES [facility] [address] [place] [address], [facility] [phone] * XR HAND LEFT 2VW (10/20/2023 1:25 AM CDT) Anatomical Region Laterality Modality Wrist / Hand Radiographic Juliann ging 10/20/2023 9:16 AM CDT Narrative 10/20/2023 2:42 PM CDT PROCEDURE: ??XR HAND LEFT 2VW DATE/TIME OF EXAM: ??10/20/2023 1:25 AM CLINICAL INFORMATION: None relevant/not provided if blank. Indication: M86.9: Osteomyelitis of multiple sites, unspecified type (HCC) Additional History: MRI screening COMPARISON: None. FINDINGS/IMPRESSION: No acute fracture. No osseous erosion. Degenerative changes seen in the first and second distal interphalangeal joints. No metallic objects are seen within the radiographs. > Dictated by Campos Deshpande MD I, Forrest Waters DO have personally reviewed and interpreted this examination/study. > Interpreting Provider: Forrest Waters DO on 10/20/2023 2:42 PM Procedure Note Forrest Waters DO - 10/20/2023 PROCEDURE: XR HAND LEFT 2VW DATE/TIME OF EXAM: 10/20/2023 1:25 AM CLINICAL INFORMATION: None relevant/not provided if blank. Indication: M86.9: Osteomyelitis of multiple sites, unspecified type(HCC) Additional History: MRI screening COMPARISON: None. FINDINGS/IMPRESSION: No acute fracture. No osseous erosion. Degenerative changes seen in the first and second distal interphalangeal joints. No metallic objects are seen within the radiographs. > Dictated by Campos Deshpande MD I, Forrest Waters DO have personally reviewed and interpreted this examination/study. > Interpreting Provider: Forrest Waters DO on 10/20/2023 2:42 PM Jennifer Cabna MD DIAGNOSTIC IMAG ING ORDERABLES * (ABNORMAL) BLOOD GASES CRISTIAN + COOX PANEL (10/19/2023 11:25 PM CDT) pH Venous 7.42 7.32 - 7.42 pH 10/19/2023 11:49 PM [facility] pO2 Venous 121(H) 35 - 40 mmHg 10/19/2023 11:49 PM [facility] pCO2 Venous 40 40 - 50 mmHg 10/19/2023 11:49 PM [facility] HCO3 Venous 25.9 20 - 30 mmol/L 10/19/2023 11:49 PM [facility] Base Excess Venous 1.3 -2.0 - 2.0 mmol/L 10/19/2023 11:49 PM [facility] Oxyhemoglobin Venous 96.3 % 09/24 11:49 PM [facility] Deoxyhemoglobin (HHB) Venous % <1.0 % 10/19/2023 11:49 PM [facility] Methemoglobin 1.0 0.0 - 2.0 % 10/19/2023 11:49 PM [facility] Carboxyhemoglobin 2.0 0.0 - 2.0 % 2023 11:49 PM [facility] O2 Content Venous 19.1 Interpret within clinical context ml/dL 10/19/2023 11:49 PM [facility] Hemoglobin by COOX 14.0 12.0 - 17.6 g/dL 10/19/2023 11:49 PM [facility] O2 Saturation Venous 99 >=70 % 09/24 11:49 PM [facility] FI O2 Mixed Venous 21.0 % 2023 11:49 PM [facility] Blood BLOOD SPECIMEN / Unknown Venipuncture / Unknown 10/19/2023 11:25 PM T 10/19/2023 11:37 PM [facility] - 10/19/2023 11:49 PM [facility] Carboxyhemoglobin Normal Concentration: Non-smokers: 0-2%; Smokers: 0-9%; Toxic: >20% Jennifer Caban MD LAB - BLOOD GAS ES ORDERABLES Performing Organization Address City/State/[facility] Co de Phone Number [address] [address], [facility] [phone] * (ABNORMAL) MICROALB/CREAT RATIO URINE RANDOM PANEL (10/19/2023 11:18 PM CDT) Albumin Random Urine 26.6 Not Established ug/mL 10/19/2023 11:58 PM CDT [facility] Creatinine Urine 77.71 Not Established mg/dL 10/19/2023 11:58 PM CDT [facility] Urine Albumin/Creati nine Ratio 34(H) <30 mg/g 10/19/2023 11:58 PM CDT [facility] Urine URINE SPECIMEN OBTAINED BY CLEAN CATCH PROCEDURE / Unknown Collection / Unknown 10/19/2023 11:18 PM CDT 10/19/2023 11:37 PM CDT Jennifer Caban MD LAB - URINE KELLEN GALDINO ORDERABLES Performing Organization Address [facility] Co de Phone Number [address] [address], [facility] [phone] * XR SKULL 3VW OR LESS (10/19/2023 10:00 PM CDT) Anatomical Region Laterality Modality Head Radiographic Juliann ging 10/20/2023 9:13 AM CDT Impressions 10/20/2023 2:41 PM CDT IMPRESSION: No displaced fracture of the skull or erosion is noted. > Dictated by Campos Deshpande MD I, Forrest Waters DO have personally reviewed and interpreted this examination/study. > Interpreting Provider: Forrest Waters DO on 10/20/2023 2:41 PM Narrative 10/20/2023 2:41 PM CDT PROCEDURE: ??XR SKULL 3VW OR LESS DATE/TIME OF EXAM: ??10/19/2023 10:01 PM CLINICAL INFORMATION: None relevant/not provided if blank. Indication: M86.9: Osteomyelitis of multiple sites, unspecified type (HCC) Additional History: COMPARISON: None. FINDINGS: Hardware is seen in the mandible. No displaced skull fracture is seen. Procedure Note Forrest Waters DO - 10/20/2023 PROCEDURE: XR SKULL 3VW OR LESS DATE/TIME OF EXAM: 10/19/2023 10:01 PM CLINICAL INFORMATION: None relevant/not provided if blank. Indication: M86.9: Osteomyelitis of multiple sites, unspecified type(HCC) Additional History: COMPARISON: None. FINDINGS: Hardware is seen in the mandible. No displaced skull fracture is seen. IMPRESSION: No displaced fracture of the skull or erosion is noted. > Dictated by Campos Deshpande MD I, Forrest Waters DO have personally reviewed and interpreted this examination/study. > Interpreting Provider: Forrest Waters DO on 10/20/2023 2:41 PM Jennifer Caban MD DIAGNOSTIC IMAG ING ORDERABLES * B-TYPE NATRIURETIC PEPTIDE (10/19/2023 8:40 PM CDT) BNP 35 <100 pg/mL 10/19/2023 9:27 PM CDT [facility] Comment: A decision threshold of 100 pg/mL has been demonstrated to provide the maximal combination of sensitivity, specificity and predictive value for the diagnosis of congestive heart failure (CHF). ??Virtually all patients with no evidence of CHF have BNP values less than 100 pg/mL. A BNP value greater than 100 pg/mL is consistent with the diagnosis of CHF in the appropriate clinical setting. In a study of 693 patients (male and female) with diagnosed CHF, the following values were determined based on the NYHA functional classification system: NYHA Functional Class ?Mean Valule (pg/mL) ? % >100 pg/mL ?I ?320 ? 58.1 ?II ? 432 ? 73.0 ?III ?656 ? 79.0 ?IV ?1635 ? 98.3 ? Blood BLOOD SPECIMEN / Unknown Lab Venipuncture / Unknown 10/19/2023 8:40 PM CDT 10/19/2023 8:54 PM CDT Jennifer Caban MD LAB - CHEMISTRY ORDERABLES Performing Organization Address [facility] de Phone Number [address] [address], [place] [phone] * LACTIC ACID BLOOD (10/19/2023 8:39 PM CDT) Lactic Acid-Stat 1.1 <=2.0 mmol/L 10/19/2023 9:16 PM CDT [facility] Blood BLOOD SPECIMEN / Unknown Lab Venipuncture / Unknown 10/19/2023 8:39 PM CDT 10/19/2023 8:54 PM CDT Jennifer Caban MD LAB - CHEMISTRY ORDERABLES Performing Organization Address [facility] de Phone Number [address] [address], [place] [phone] * XR CHEST 1VW PORTABLE (10/19/2023 8:20 PM CDT) Anatomical Region Laterality Modality Chest Radiographic Juliann ging 10/20/2023 7:31 AM CDT Narrative 10/20/2023 2:17 PM CDT PROCEDURE: ??XR CHEST 1VW PORTABLE, DATE/TIME OF EXAM: ??10/19/2023 8:20 PM, LOCATION ??[facility] INDICATION: A49.01: MSSA (methicillin susceptible Staphylococcus aureus) infection ADDITIONAL CLINICAL INFORMATION: Ordering Provider Reason For Exam: ??rule out pna Technologist Note: Additional: COMPARISON: None. FINDINGS/IMPRESSION: Subtle airspace opacities mild interstitial thickening throughout the bilateral lungs may represent pulmonary edema versus multifocal infection versus underpenetration of the exam. Calcified granuloma versus vessel on end seen at the medial aspect of the right mid lower lung. The cardiomediastinal silhouette is normal. No displaced fractures identified. Report dictated by Stacey Dorantes Dr, MD (residential appraiser). Forrest Ambrosio DO have personally reviewed and interpreted this examination/study. > Interpreting Provider: Forrest Waters DO on 10/20/2023 2:17 PM Procedure Note Forrest Waters DO - 10/20/2023 PROCEDURE: XR CHEST 1VW PORTABLE, DATE/TIME OF EXAM: 10/19/2023 8:20PM, LOCATION [facility] INDICATION: A49.01: MSSA (methicillin susceptible Staphylococcus aureus) infection ADDITIONAL CLINICAL INFORMATION: Ordering Provider Reason For Exam: rule out pna Technologist Note: Additional: COMPARISON: None. FINDINGS/IMPRESSION: Subtle airspace opacities mild interstitial thickening throughout the bilateral lungs may represent pulmonary edema versus multifocalinfection versus underpenetration of the exam. Calcified granuloma versus vesselon end seen at the medial aspect of the right mid lower lung. The cardiomediastinal silhouette is normal. No displaced fracturesidentified. Report dictated by Stacey Dorantes Dr, MD (residential appraiser). Forrest Ambrosio DO have personally reviewed and interpreted this examination/study. > Interpreting Provider: Forrest Waters DO on 10/20/2023 2:17 PM Jennifer Caban MD DIAGNOSTIC IMAG ING ORDERABLES Care Teams Commercial Real Estate Lender Relationship Specialty Start Date End Date Philippe Martinez MD [address] [place] [phone] PCP - General Family Medicine 11/01/23
--- OUTSIDE RECORDS SUMMARY | 2024-07-17 07:17 | XMS_ITS | Clinical Summary ---
Author Organization [facility] Address [address] [place] [address] Care Team Providers Care Computer Engineering Professor Name Role Phone Dejan Zabala MD Unavailable Isabell Willis NP Primary Care Provider Allergies Active Allergy Reactions Criticality Noted Date Comments Morphine Other (See comments),Palpitations Low 05/24/2023 Patient reports became jittery and agitated with morphine Medications amLODIPine (NORVASC) 10 mg tablet Take 1 tablet (10 mg total) by mouth daily 4 11/02/19 25 Active aspirin 81 mg chewable tablet Take 1 tablet (81 mg total) by mouth daily 4 Active clopidogreL (PLAVIX) 75 mg tablet Take 1 tablet (75 mg total) by mouth daily 3 11/02/19 25 Active gabapentin (NEURONTIN) 300 mg capsule Take 2 capsules (600 mg total) by mouth 3 (three) times a day 4 11/02/19 25 Active metFORMIN (FORTAMET) 500 mg 24 hr tablet Take 1 tablet (500 mg total) by mouth daily with breakfast Active acidophilus-pec tin, citrus 100 million cell-10 mg capsule Take by mouth Activ e omeprazole (PriLOSEC) 40 mg capsule Take 1 capsule (40 mg total) by mouth daily before breakfast Active omeprazole (PriLOSEC) 40 mg capsule Take 1 capsule (40 mg total) by mouth daily Active sildenafiL (VIAGRA) 100 mg tablet Take 1 tablet (100 mg total) by mouth daily as needed for erectile dysfunction Active venlafaxine XR (EFFEXOR-XR) 75 mg 24 hr capsule Take 4 capsules (300 mg total) by mouth daily 1 Active HYDROcodone-allie taminophen (NORCO) 10-325 mg per tablet Take by mouth every 8 (eight) hours as needed 4 Active insulin aspart (NovoLOG) 100 unit/mL (3 mL) pen for injection INJECT 0 TO 6 UNITS UNDER THE SKIN 3 TIMES A DAY WITH MEALS 4 11/02/19 25 Active atorvastatin (LIPITOR) 80 mg tablet Take 1 tablet (80 mg total) by mouth daily 90 tablet 3 5 Active Active Problems Problem Noted Date Diagnosed Date Chest pain 06/26/2024 Primary hypertension 06/26/2024 Mixed hyperlipidemia 06/26/2024 PAD (peripheral artery disease) 01/10/2023 Encounters Date Type Department Care Team Description 07/02/2024 9:15 AM ENTERPRISE APPLICATIONS MANAGER Ancillary Procedure [facility] Medical [facility] Cardiology [address] [facility] [address] [place] [phone] Chest pain, unspecified type 06/26/2024 9:30 AM ENTERPRISE APPLICATIONS MANAGER Office Visit [facility] Cardiology [address] [facility] [address] [place] [phone] Lynn Ren MD Chest pain, unspecified type (Primary Dx); Primary hypertension; Mixed hyperlipidemia; PAD (peripheral artery disease) (HCC) from Last 3 Months Surgical History Surgery Date Site/Laterality Comments TOE AMPUTATION 10/29/2023 Right ARTERIAL BYPASS SURGERY lower limb Medical History Medical History Date Comments PAD (peripheral artery disease) (HCC) Hx of blood clots Hypertension GERD (gastroesophageal reflux disease) Depression Family History Medical History Relation Name Comments CABG Father Depression Father Heart disease Father Depression Mother Relation Name Status Comments Father Alive Mother Alive Social History Tobacco Use Types Packs/Day Years Used Date Smoking Tobacco: Every Day Cigarettes Tobacco Cessation:Ready to Q uit: Not Asked; Counseling Given: Not Answered Personal Safety Answer Date Recorded Have you ever been in or are you currently in a harmful physical or emotional relationship or is someone making you feel afraid or unsafe? Denies 01/10/2023 Sex and Gender Information Value Date Recorded Sex Assigned at Not on file Legal Sex Male 8:21 PM ENTERPRISE APPLICATIONS MANAGER Gender Identity Not on file Sexual Orientation Not on file Obstetrics History Last Filed Vital Signs Vital Sign Reading Time Taken Comments Blood Pressure 150/92 06/26/2024 9:25 AM ENTERPRISE APPLICATIONS MANAGER Pulse 112 06/26/2024 9:25 AM ENTERPRISE APPLICATIONS MANAGER Temperature 36.4 ??C (97.5 ??F) 01/10/2023 6:50 PM CD T Respiratory Rate 16 01/10/2023 6:50 PM CDT Oxygen Saturation 96% 06/26/2024 9:25 AM ENTERPRISE APPLICATIONS MANAGER Inhaled Oxygen Concentration - - Weight 137.8 kg (303 lb 14.4 oz) 06/26/2024 9:25 AM ENTERPRISE APPLICATIONS MANAGER Height 193 cm (6' 4 ) 06/26/2024 9:25 AM ENTERPRISE APPLICATIONS MANAGER Body Mass Index 36.99 06/26/2024 9:25 AM ENTERPRISE APPLICATIONS MANAGER Plan of Treatment Health Maintenance Due Date Last Done Comments Colon Cancer Screening-Colonoscopy 1970 Depression Screening 1970 Hepatitis C Screening 1970 Prostate Cancer Screening-PSA 1970 Pneumococcal vaccine <65 (1 of 2 - PCV) 1976 DTaP/Tdap/Td Vaccine (1 - Tdap) 1981 Hepatitis B Screening 1988 Regular Well Visit/Exam 18-64 1988 Zoster Vaccine (1 of 2) 2020 Influenza Vaccine (#1) 2024 05/26/2023 Procedures Procedure Name Priority Date/Time Associated Diagnosis Comments NM MPI SPECT (REST AND/OR STRESS) MULTIPLE STUDIES Schedule Routine, Read Routine (OP Routine) 07/02/2024 10:50 AM ENTERPRISE APPLICATIONS MANAGER Chest pain, unspecified type ELECTROCARDIOGRAM REPORT Routine 06/26/2024 12:34 PM ENTERPRISE APPLICATIONS MANAGER Chest pain, unspecified type from Last 3 Months Results * NM MPI SPECT (Rest and/or Stress) Multiple Studies (07/02/2024 10:50 AM ENTERPRISE APPLICATIONS MANAGER) LV EF % CONS SCIMAGE Anatomical Region Laterality Modality Body N/A Nuclear Medicine 07/02/2024 9:52 AM ENTERPRISE APPLICATIONS MANAGER Narrative 07/02/2024 12:56 PM ENTERPRISE APPLICATIONS MANAGER [facility] Medical Group Cardiology [address], [place] [address] [address] [facility] [address], [place] [address] P:[phone] P:[phone] MPI Imaging Report Patient Name: BERNICE COLUNGA M : 1970 Study Date: 07/02/2024 9:52:05 AM Gender: M Tech: [facility] Location: [facility] Provider: LYNN REN ?Height(Cm): 193 BSA: ??Weight(Kg): 137.8 BMI: 36.99 ?Order Provider: LYNN REN - ?? PHYSICIAN: Referring Physician: Isabell Willis NP. HCG Physician: Lynn Ren M.D., F.A.C.C. Interpreting Physician: Jorden Moreira M.D. Stress Supervision: Jorden Moreira M.D. ?? PROCEDURES: Pharmacologic SPECT Report: Myocardial perfusion imaging with Tc99M Sestamibi SPECT at rest and stress post regadenoson (Lexiscan) infusion. ?? INDICATIONS: Hypertension, Shortness Of Breath. PAD, Diabetes, Family Hx CAD, High Cholesterol, Smoker, and R07.9 Chest pain, unspecified. ?? FINDINGS: Procedural Findings: ??One day rest/stress was used. ??Tc99m Sestamibi injected IV at rest was 12.2 millicuries ??37.5 millicuries of Tc99M Sestamibi injected IV during Lexiscan stress ??Lexiscan 0.4mg administered IV over 10 seconds. ??Patient had no symptoms during stress test. ??Baseline heart rate was 89 BPM ??Maximum Heart Rate Achieved was: 107 BPM ??Baseline blood pressure was 150/80 mmHg ??Post Stress Blood Pressure was 146/82 mmHg Termination: Protocol complete. Resting ECG: Normal sinus rhythm. Cannot r/o anteroseptal infarct - age uncertain. Post ECG: No diagnostic ST changes. Arrhythmia: No arrhythmias seen. Perfusion Findings: Normal perfusion imaging. No definite fixed or reversible defects. Technical quality of study is excellent. Prone imaging was not performed. Left ventricle cavity size at rest is normal. Left ventricle cavity size with stress is unchanged. A TID of 0.99 was automatically calculated. LV Function: Global left ventricular function is normal. Left ventricular ejection fraction is 53 %. ?? CONCLUSIONS: Global left ventricular function is normal. Left ventricular ejection fraction is 53 %. Myocardial perfusion imaging is normal. Negative EKG portion of stress test. Electronically Signed By: Forrest Moreira MD 07/02/2024 12:55:27 PM ENTERPRISE APPLICATIONS MANAGER Electronically Signed By: Forrest Moreira MD 07/02/2024 12:55:27 PM ENTERPRISE APPLICATIONS MANAGER Procedure Note Forrest Moreira MD - 07/02/2024 [facility] Medical Group Cardiology [address] [facility] [address] [id number] [address] [facility] [address] [place], [place] [address] P:[phone] P:[phone] MPI Imaging Report Patient Name: BERNICE COLUNGA M : 1970 Study Date: 07/02/2024 9:52:05 AM Gender: M Tech: [facility] Location: [facility] Provider: LYNN REN Height(Cm): 193 BSA: Weight(Kg): 137.8 BMI: 36.99 Order Provider: LYNN REN - PHYSICIAN: Referring Physician: Isabell Willis NP. HCG Physician: Lynn Ren M.D., F.A.C.C. Interpreting Physician: Jorden Moreira M.D. Stress Supervision: Jorden Moreira M.D. PROCEDURES: Pharmacologic SPECT Report: Myocardial perfusion imaging with Tc99M Sestamibi SPECT at rest and stresspost regadenoson (Lexiscan) infusion. INDICATIONS: Hypertension, Shortness Of Breath. PAD, Diabetes, Family Hx CAD, HighCholesterol, Smoker, and R07.9 Chest pain, unspecified. FINDINGS: Procedural Findings: One day rest/stress was used. Tc99m Sestamibi injected IV at rest was 12.2 millicuries 37.5 millicuries of Tc99M Sestamibi injected IV during Lexiscan stress Lexiscan 0.4mg administered IV over 10 seconds. Patient had no symptoms during stress test. Baseline heart rate was 89 BPM Maximum Heart Rate Achieved was: 107 BPM Baseline blood pressure was 150/80 mmHg Post Stress Blood Pressure was 146/82 mmHg Termination: Protocol complete. Resting ECG: Normal sinus rhythm. Cannot r/o anteroseptal infarct - age uncertain. Post ECG: No diagnostic ST changes. Arrhythmia: No arrhythmias seen. Perfusion Findings: Normal perfusion imaging. No definite fixed or reversible defects.Technical quality of study is excellent. Prone imaging was not performed. Left ventricle cavitysize at rest is normal. Left ventricle cavity size with stress is unchanged. A TID of0.99 was automatically calculated. LV Function: Global left ventricular function is normal. Left ventricular ejectionfraction is 53 %. CONCLUSIONS: Global left ventricular function is normal. Left ventricular ejectionfraction is 53 %. Myocardial perfusion imaging is normal. Negative EKG portion of stress test. Electronically Signed By: Forrest Moreira MD 07/02/2024 12:55:27 PM ENTERPRISE APPLICATIONS MANAGER Electronically Signed By: Forrest Moreira MD 07/02/2024 12:55:27 PM ENTERPRISE APPLICATIONS MANAGER [facility] Esteban Ren MD [employer] PROCEDURES Final Result * Electrocardiogram Report (06/26/2024 12:34 PM ENTERPRISE APPLICATIONS MANAGER) us Ripa Esteban Ren MD ECG ORDERABLES Final R esult from Last [address] [place] [place] [address] [facility] [facility] H[facility]/PPO Address: [place] [address] Advance Directives For more information, please contact: [phone] * Full Code (Latest Code Status on File) Date Activated Date Inactivated Comments 01/10/2023 7:28 PM 01/11/2023 12:07 AM Care Teams Computer Engineering Professor Relationship Specialty Start Date End Date Isabell Willis NP [address] [place] [id number] PCP - General Nurse Practitioner 05/09/24 Dejan Zabala MD Surgeon Vascular Surgery 01/10/23
--- OUTSIDE RECORDS SUMMARY | 2024-07-17 07:17 | XMS_ITS | Clinical Summary ---
Author Organization [facility] Address [address] [place] [address] Care Team Providers Care Glass Etcher Helper Name Role Phone Philippe Martinez MD Primary Care Provider [phone] Source Comments [facility],non-owned Affiliates and Associated Physician Practices is amultiple site organization consisting of ambulatory clinics and hospital sitesin [place], [place], [place] and [place]. This disclosure is being madepursuant to the Care Everywhere program and may not contain all information available regarding this patient. Last updated 18.[facility] Allergies Active Allergy Reactions Criticality Noted Date [...] polyneuropathy, without long-term current use of insulin ([facility]) Use 1 Each as directed 1 Each 4 Active blood glucose test stripIndications:Ty pe 2 diabetes mellitus with diabetic polyneuropathy, without long-term current use of insulin (HCC) Use 1 (one) strip as directed 100 [...] (Nicoderm CQ) 14 MG/24HR patchIndications:Os teomyelitis, unspecified ([facility]) APPLY ONE PATCH TO THE SKIN ONCE [...] (Nicoderm CQ) 14 MG/24HR patchIndications:Os teomyelitis, unspecified ([facility]) APPLY ONE PATCH TO SKIN ONCE DAILY [...] TABLET BY MOUTH ONCE DAILY 30 tablet 4 07/15/19 Discontinu ed(List Clean-Up) Active Problems Problem Noted [...] infection 08/24/2021 Popliteal artery thrombosis, 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 Encounters Date Type Department Care Team Description 07/15/2024 1:30 PM FIRE PILOT Office Visit [facility] - Vascular Surgery [address] [place] [phone] Pablo Greenfield MD History of amputation of lesser toe of right foot (HCC) (Primary Dx); Right knee pain, unspecified chronicity 07/15/2024 Travel 07/09/2024 Travel 06/11/2024 Travel 05/12/2024 Telephone [facility] - Vascular Surgery [address] [place] [phone] Pablo Greenfield MD Update 05/05/2024 Telephone [facility] - Vascular Surgery [address] [place] [phone] Pablo Greenfield MD Wound/Incision Check 04/29/2024 2:15 PM FIRE PILOT Office Visit [facility] - Vascular Surgery [address] [facility] [place] [address] Pablo Greenfield MD PAD (peripheral artery disease) (HCC) (Primary Dx) 04/29/2024 Travel 04/28/2024 12:33 PM FIRE PILOT - 04/28/2024 11:59 PM FIRE PILOT Hospital Encounter [facility] VASCULAR US [address] [place] [address] Pablo Greenfield MD Discharge Disposition: Home or Self Care 04/28/2024 12:32 PM FIRE PILOT Hospital Encounter [facility] VASCULAR [address] [place] [address] Pablo Greenfield MD Discharge Disposition: Home or Self Care 04/25/2024 Travel from Last 3 Months Immunizations Name Administration Dates Next Due INFLUENZA [...] and heating? Not hard at all 11/01/2023 [facility] [place] [facility] - Occupational Stress [...] Comments Blood Pressure 131/94 07/15/2024 1:14 PM FIRE PILOT Pulse 100 07/15/2024 1:14 PM FIRE PILOT Temperature 37.1 ??C (98.7 ??F) 07/15/2024 1:14 PM CS T Respiratory Rate 18 04/29/2024 1:36 PM FIRE PILOT Oxygen Saturation 94% 07/15/2024 1:14 PM FIRE PILOT Inhaled Oxygen Concentration - - Weight 137.4 kg (303 lb) 07/15/2024 1:14 PM FIRE PILOT Height 193 cm (6' 4 ) 07/15/2024 1:14 PM FIRE PILOT Body Mass Index 36.88 07/15/2024 1:14 PM FIRE PILOT Plan of Treatment Upcoming Encounters Date Type Department Care Team (Late st Contact Info) Description 11/04/2024 10:00 AM CDT Appointment [facility] VASCULAR [facility] [place] [address] Pablo Greenfield MD [address] [facility] 2L [place] [address] 11/04/2024 11:00 AM CDT Appointment [facility] VASCULAR US [address] [place] [address] Pablo Greenfield MD [address] [place] [address] [address] [place] [address] 11/04/2024 2:15 PM CDT Office Visit [facility] - Vascular Surgery [address] [facility] [place] [address] Pablo Greenfield MD [address] [place] [address] [address] [place] [address] Health Maintenance Due Date Last Done Comments COLOGUARD (AGES 45-75) - COLON CA SCREENING 1970 COLON MONITORING 1970 COLONOSCOPY - COLON CA SCREENING 1970 CT COLONOGRAPHY - COLON CA SCREENING 1970 Colorectal Cancer Screening 1970 FIT - COLON CA SCREENING 1970 FLEX SIG - COLON CA SCREENING 1970 HIV SCREENING 1985 HEPATITIS C SCREENING 10/17/1988 DTAP/TDAP/TD VACCINES (1 - Tdap) 1989 HEPATITIS B VACCINE (1 of 3 - 19+ 3-dose series) 1989 PNEUMOCOCCAL VACCINE 50+ (1 of 2 - PCV) 1989 DIABETES-STATIN 2010 LUNG CANCER SCREENING 2020 ZOSTER VACCINE (1 of 2) 2020 DIABETES RETINOPATHY SCREENING 10/20/2023 DIABETES-FOOT EXAM WITH MONOFILAMENT 10/20/2023 DIABETES-HGB A1C 01/21/2024 2023, , 08/25/2021, Additional history exists COVID-19 VACCINE (1 - season) 2024 INFLUENZA VACCINE (#1) 2024 05/26/2023 DEPRESSION SCREENING 06/25/2024 DIABETES - URINE PROTEIN SCREENING 06/25/2024 10/19/2023 DIABETES-SERUM CREATININE 12/03/20242023, 11/06/2023, 11/02/2023, Additional history exists HIB VACCINE Aged Out No longer eligi ble based on patient's age to complete this topic HPV VACCINE Aged Out No longer eligi ble based on patient's age to complete this topic MENINGOCOCCAL (Group B) VACCINE Aged Out No longer eligible based on patient's age to complete this topic MENINGOCOCCAL VACCINE Aged Out No iain osorio eligible based on patient's age to complete this topic Procedures Procedure Name Priority Date/Time Associated Diagnosis Comments VAS ARTERIAL ANKLE ARM INDEX OTILIA 04/28/2024 1:22 PM FIRE PILOT PAD (peripheral artery disease) (HCC) VAS RIGHT ARTERIAL DUPLEX LE Routine 04/28/2024 1:22 PM FIRE PILOT PAD (peripheral artery disease) ([facility]) COMPREHENSIVE METABOLIC PANEL STAT 12/04/2023 4:49 PM CDT HEMOGLOBIN A1C Routine 2023 4:05 AM CDT MICROALB/CREAT RATIO URINE RANDOM PANEL Routine 10/19/2023 11:18 PM CDT from Last 3 Months or Most Recently Relevant to Health Maintenance Results * VAS ARTERIAL ANKLE ARM INDEX (04/28/2024 1:22 PM FIRE PILOT) Anatomical Region Laterality Modality Ankle / Foot, Upper Extremity In travascular Ultrasound 04/28/2024 12:4 0 PM FIRE PILOT Narrative Procedure Note Forrest Polk MD - 04/29/2024 Pablo Greenfield MD VASCULAR LAB ORDER TREY * VAS Right Arterial Duplex Le (04/28/2024 1:22 PM FIRE PILOT) Anatomical Region Laterality Modality Lower Extremity Intravascular Ul trasound 04/28/2024 12:4 8 PM FIRE PILOT Narrative Procedure Note Forrest Polk MD - 04/29/2024 Pablo Greenfield MD VASCULAR LAB ORDER TREY * (ABNORMAL) COMPREHENSIVE METABOLIC PANEL (12/04/2023 4:49 PM [facility]) BUN 16 7 - 26 mg/dL 12/04/2023 5:26 PM [facility] Creatinine 0.91 0.71 - 1.16 mg/dL 12/04/2023 5:26 PM [facility] Sodium 140 136 - 145 mmol/L 12/04/2023 5:26 PM [facility] Potassium 4.3 3.5 - 4.5 mmol/L 12/04/2023 5:26 PM [facility] Chloride 106 98 - 107 mmol/L 12/04/2023 5:26 PM [facility] CO2 21(L) 22 - 29 mmol/L 12/04/2023 5:26 PM [facility] Glucose 84 70 - 115 mg/dL 12/04/2023 5:26 PM [facility] Calcium 10.0 8.4 - 10.2 mg/dL 12/04/2023 5:26 PM [facility] Protein Total 8.2 6.0 - 8.3 g/dL 12/04/2023 5:26 PM [facility] Albumin 4.1 3.4 - 5.0 g/dL 12/04/2023 5:26 PM [facility] Bilirubin Total 0.3 0.2 - 1.2 mg/dL 12/04/2023 5:26 PM [facility] Alkaline Phosphatase 122 40 - 150 U/L 12/04/2023 5:26 PM [facility] ALT 19 5 - 55 U/L 12/04/2023 5:26 PM [facility] AST 16 5 - 34 U/L 12/04/2023 5:26 PM [facility] Anion Gap 13 6 - 16 12/04/2023 5:26 PM [facility] BUN/Creatinine Ratio 18 7 - 23 12/04/2023 5:26 PM CDT [facility] Osmolality Calculated 290 275 - 295 mOsm/kg 12/04/2023 5:26 PM CDT [facility] Albumin/Globulin Ratio 1.0(L) 1.1 - 2.3 12/04/2023 5:26 PM T [facility] eGFR by CKD-EPI >90 >=90 mL/min/1.7 3 m2 12/04/2023 5:26 PM T [facility] Blood BLOOD SPECIMEN / Unknown Venipuncture / Unknown 12/04/2023 4:49 PM CDT 12/04/2023 5:00 PM CDT Walter Oakes MD LAB - CHEMISTRY BHARTI [place] Performing Organization Address [facility]/ZIP Co de Phone Number [facility] [address] [place] [address], [facility] [phone] * (ABNORMAL) HEMOGLOBIN A1C (2023 4:05 AM CDT) Hemoglobin A1c 8.7(H) <=5.6 % 2023 9:42 AM T [facility] Estimated Average Glucose 203 mg/dL 2023 9:42 AM [facility] Comment: HbA1c Interpretation: Normal : < 5.7% Pre-diabetes: 5.7-6.4% Diabetes: Equal to or greater than 6.5% Test results diagnostic of diabetes should be repeated for confirmation. Treatment target values recommended by ADA and other clinical organizations should be used to evaluate metabolic control in patients. Reference: [place] [employer], Standards of Care in Diabetes [...] Castillo MD LAB - CHEMISTRY BHARTI [place] [facility] [address] [place] [address], [facility] [phone] * (ABNORMAL) MICROALB/CREAT RATIO URINE RANDOM PANEL (10/19/2023 11:18 PM CDT) Albumin Random Urine 26.6 Not Established ug/mL 10/19/2023 11:58 PM CDT [facility] Creatinine Urine 77.71 Not Established mg/dL 10/19/2023 11:58 PM CDT [facility] Urine Albumin/Creati nine Ratio 34(H) <30 mg/g 10/19/2023 11:58 PM CDT [facility] Urine URINE SPECIMEN OBTAINED BY CLEAN CATCH PROCEDURE / Unknown Collection / Unknown 10/19/2023 11:18 PM CDT 10/19/2023 11:37 PM CDT Jennifer Caban MD LAB - URINE KELLEN GALDINO ORDERABLES Performing Organization Address City/State/[facility] Co de Phone Number [address] [address], [facility] [phone] from Last 3 Months or Most Recently Relevant to Health Maintenance Advance Directives * Full Code (Latest Code Status on File) Date Activated Date Inactivated Comments 10/29/2023 5:30 PM 11/02/2023 8:39 PM * Full Code Date Activated Date Inactivated Comments 10/19/2023 8:07 PM 10/29/2023 5:29 PM Care Teams Glass Etcher Helper Relationship Specialty Start Date End Date Philippe Martinez MD [address] [place] [address] PCP - General Family Medicine 11/01/23
--- OUTSIDE RECORDS SUMMARY | 2024-07-17 07:17 | XMS_ITS | Referral Summary ---
Author Organization [facility] Address [address] [place] [address] Care Team Providers Care Environmental Studies Faculty Member Name Role Phone Dejan Zabala MD Unavailable Isabell Willis NP Primary Care Provider Encounters Date Type Department Care Team Description 07/02/2024 9:15 AM SECURITY ASSURANCE SPECIALIST Ancillary Procedure [facility] Medical [facility] Cardiology [address] [place] [phone] Chest pain, unspecified type 06/26/2024 9:30 AM SECURITY ASSURANCE SPECIALIST Office Visit [facility] Cardiology [address] [facility] [address] [place] [phone] Lynn Ren MD Chest pain, unspecified type (Primary Dx); Primary hypertension; Mixed hyperlipidemia; PAD (peripheral artery disease) (HCC) from Last 3 Months Allergies Active Allergy [...] hyperlipidemia 06/26/2024 PAD (peripheral artery disease) 01/10/2023 Social History Tobacco Use Types Packs/Day Years [...] on file Legal Sex Male 8:21 PM SECURITY ASSURANCE SPECIALIST Gender Identity Not on file Sexual Orientation Not on file Last Filed Vital Signs Vital Sign Reading Time Taken Comments Blood Pressure 150/92 06/26/2024 9:25 AM SECURITY ASSURANCE SPECIALIST Pulse 112 06/26/2024 9:25 AM SECURITY ASSURANCE SPECIALIST Temperature 36.4 ??C (97.5 ??F) 01/10/2023 6:50 PM CD T Respiratory Rate 16 01/10/2023 6:50 PM CDT Oxygen Saturation 96% 06/26/2024 9:25 AM SECURITY ASSURANCE SPECIALIST Inhaled Oxygen Concentration - - Weight 137.8 kg (303 lb 14.4 oz) 06/26/2024 9:25 AM SECURITY ASSURANCE SPECIALIST Height 193 cm (6' 4 ) 06/26/2024 9:25 AM SECURITY ASSURANCE SPECIALIST Body Mass Index 36.99 06/26/2024 9:25 AM SECURITY ASSURANCE SPECIALIST Plan of Treatment Not on file Procedures Procedure Name Priority Date/Time Associated Diagnosis Comments NM MPI SPECT (REST AND/OR STRESS) MULTIPLE STUDIES Schedule Routine, Read Routine (OP Routine) 07/02/2024 10:50 AM SECURITY ASSURANCE SPECIALIST Chest pain, unspecified type ELECTROCARDIOGRAM REPORT Routine 06/26/2024 12:34 PM SECURITY ASSURANCE SPECIALIST Chest pain, unspecified type from Last 3 Months Results * NM MPI SPECT (Rest and/or Stress) Multiple Studies (07/02/2024 10:50 AM SECURITY ASSURANCE SPECIALIST) LV EF % CONS SCIMAGE Anatomical Region Laterality Modality Body N/A Nuclear Medicine 07/02/2024 9:52 AM SECURITY ASSURANCE SPECIALIST Narrative 07/02/2024 12:56 PM SECURITY ASSURANCE SPECIALIST [facility] Medical Group Cardiology [address] [facility] [address] [id number] [address] [facility] [address] [address] P:[phone] P:[phone] MPI Imaging Report Patient Name: BERNICE COLUNGA M : 1970 Study Date: 07/02/2024 9:52:05 AM Gender: M Tech: [facility] Location: [facility] Provider: LYNN REN ?Height(Cm): 193 BSA: ??Weight(Kg): [...] By: Forrest Moreira MD 07/02/2024 12:55:27 PM SECURITY ASSURANCE SPECIALIST Electronically Signed By: Forrest Moreira MD 07/02/2024 12:55:27 PM SECURITY ASSURANCE SPECIALIST Procedure Note Forrest Moreira MD - 07/02/2024 [facility] Medical Group Cardiology [address] [facility] [address], [place] [address] [address] [facility] [address], [place] [address] P:[phone] P:[phone] MPI Imaging Report Patient Name: BERNICE COLUNGA M : 1970 Study Date: 07/02/2024 9:52:05 AM Gender: M Tech: [facility] Location: [facility] Provider: LYNN REN Height(Cm): 193 BSA: Weight(Kg): [...] By: Forrest Moreira MD 07/02/2024 12:55:27 PM SECURITY ASSURANCE SPECIALIST Electronically Signed By: Forrest Moreira MD 07/02/2024 12:55:27 PM SECURITY ASSURANCE SPECIALIST Lynn Ren MD IMG NM PROCEDURES Final Result * Electrocardiogram Report (06/26/2024 12:34 PM SECURITY ASSURANCE SPECIALIST) Lynn Ren MD ECG ORDERABLES Final R esult from Last 3 Months Insurance [facility] CHO[facility] PL[facility] Advance Directives For more information, please contact: [phone] * Full Code (Latest Code Status on File) Date Activated Date Inactivated Comments 01/10/2023 7:28 PM 01/11/2023 12:07 AM Care Teams Environmental Studies Faculty Member Relationship Specialty Start Date End Date Isabell Wlilis ASSISTANT PASTRY CHEF [address] [place] [id number] PCP - General Nurse Practitioner 05/09/24 Dejan Zabala MD Surgeon Vascular Surgery 01/10/23
--- OUTSIDE RECORDS SUMMARY | 2024-07-17 07:17 | XMS_ITS | Clinical Summary ---
Author Organization [facility] Address [facility] [place] [address] [place] [address] Care Team Providers Care Regional Airline Pilot Name Role Phone Philippe Martinez MD Primary Care Provider [phone] Allergies Active Allergy Reactions Criticality Noted Date Comments Morphine Other (see comment) Low 05/24/2023 Patient reports became jittery and agitated with morphine Medications venlafaxine XR 75 MG 24 hr capsule Take 4 capsules (300 mg total) by mouth daily. 11/10/2020 Active amLODIPine (NORVASC) 5 MG tablet Take 1 tablet (5 mg total) by mouth daily. 08/16/2022 Active omeprazole (PRILOSEC) 40 MG capsule Take 1 capsule (40 mg total) by mouth daily. Active clopidogrel (PLAVIX) 75 MG tablet Take 1 tablet (75 mg total) by mouth daily. 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 Immunizations Name Administration Dates Next Due Fluzone 6 Months+ Quad (0.5 mL Prefilled Syringe ) 05/26/2023 Family History Medical History Relation Comments CABG Father Depression Father Heart Disease Father Hypertension Father Arthritis Mother Depression Mother Depression Sister Relation Status Comments Daughter Alive Father Alive Mother Alive Sister Alive Son Alive Social History Tobacco Use Types Packs/Day Years Used Date Smoking Tobacco: Every Day Cigarettes 0.5 30 Smokeless Tobacco: Never Alcohol Use Standard Drinks/Week Comments Not Currently 0 (1 standard drink = 0.6 oz pur e alcohol) socially [facility] Utilities Answer Date Recorded In the past 12 months has e electric, gas, oil, or water company threatened to shut off services in your home? No 10/18/2023 Humiliation, Afraid, Rape, and Kick questionnair e Answer Date Recorded Within the last year, have y ou been afraid of your partner or ex-partner? No 10/18/2023 Within the last year, have y ou been humiliated or emotionally abused in other ways by your partner or ex-partner? No Within the last year, have y ou been kicked, hit, slapped, or otherwise physically hurt by your partner or ex-partner? No 10/18/2023 Within the last year, have y ou been raped or forced to have any kind of sexual activity by your partner or ex-partner? No 10/18/2023 Overall Financial Resource Strain (CARDIA) Answe r Date Recorded How hard is it for you to pa y for the very basics like food, housing, medical care, and heating? Not hard at all 10/18/2023 Hunger Vital Sign Answer Date Recorded Within the past 12 months, y ou worried that your food would run out before you got the money to buy more. Never true 10/18/19 24 Within the past 12 months, t he food you bought just didn't last and you didn't have money to get more. Never true 10/18/2023 PRAPARE - Transportation Answer Date Re corded In the past 12 months, has l ack of transportation kept you from medical appointments or from getting medications? No 09/24 In the past 12 months, has l ack of transportation kept you from meetings, work, or from getting things needed for daily living? No 10/18/2023 Housing Stability Vital Sign Answer Sohail e [...] place to sleep or slept in a residential (including now)? No 05/24/2023 Housing Stability Vital Sign Answer Sohail e Recorded In the last 12 months, was t here a time when you were not able to pay the mortgage or rent on time? No 10/18/2023 In the past 12 months, how m any times have you moved where you were living? 2 10/18/2023 At any time in the past 12 m [facility], were you homeless or living in a residential (including now)? No 10/18/2023 Sex and Gender Information Value Date Recorded Sex Assigned at Not on file Legal Sex Male 8:32 PM CDT Gender Identity Not on file Sexual Orientation Not on file Last Filed Vital Signs Vital Sign Reading Time Taken Comments Blood Pressure 125/73 10/19/2023 4:06 PM CDT Pulse 91 10/19/2023 4:06 PM CDT Temperature 37.2 ??C (99 ??F) 10/19/2023 4:06 PM CDT Respiratory Rate 18 10/19/2023 4:06 PM CDT Oxygen Saturation 95% 10/19/2023 4:06 PM CDT Inhaled Oxygen Concentration - - Weight 135 kg (297 lb 9.9 oz) 10/18/2023 1:04 PM CDT Height 193 cm (6' 4 ) 10/18/2023 8:03 AM CDT Body Mass Index 36.23 10/18/2023 8:03 AM CDT Plan of Treatment Health Maintenance Due Date Last Done Comments ASCVD Statin 1970 Colorectal Cancer Screening Colonoscopy (10 Years) 1970 Kidney Health Evaluation 1970 Annual Physical 1973 Pneumococcal Vaccine: Pediatrics (0 to 5 Years) and At-Risk Patients (6 to 64 Years) (1 of 2 - PCV) 1976 Diabetes: Retinopathy Eye Exam 1988 Hepatitis C 1988 DTaP, Tdap and Td Vaccines (1 - Tdap) 1989 Hepatitis B Vaccines (1 of 3 - 19+ 3-dose series) 1989 Zoster Vaccines (1 of 2) 2020 Hemoglobin A1C 01/18/2024 10/19/2023, 03/0 08/2021, 11/10/2020 COVID-19 Vaccine (1 - season) 2024 Influenza Adult (#1) 2024 05/26/2023 Lipid Panel 10/18/2024 10/19/2023, 03/0 07/2021, 11/11/2020, Additional history exists Meningococcal Vaccine Aged Out No iain osorio eligible based on patient's age to complete this topic RSV Immunizations Under 20 Months Aged Out No longer eligible based on patient's age to complete this topic Goals Goal Patient Goal Type Associated Problems Recent Progress Patient-Stated? Author Family - family caregiver with be involved in care transitions and discharge planning General No Estrella Henderson, QUALITY ASSURANCE SUPERVISOR TRIM Health - patient able to perform ADLs independently General No Marcial Goodman, RN Health - patient able to perform ADLs independently Lifestyle No Kathi Holbrook RN Procedures Procedure Name Priority Date/Time Associated Diagnosis Comments LIPID PANEL Routine 10/19/2023 4:41 AM CDT HEMOGLOBIN, GLYCOSYLATED TIMED 10/19/2023 4:41 AM CDT from Last 3 Months or Most Recently Relevant to Health Maintenance Results * (ABNORMAL) HEMOGLOBIN, GLYCOSYLATED (10/19/2023 4:41 AM CDT) HGB A1C 9.0(H) <5.7 % 10/19/2023 9:20 AM CDT [facility] Comment: ADA GUIDELINES 2010 5.7 TO 6.4% INCREASED RISK OF DIABETES > OR = 6.5% CONSISTENT WITH DIABETES ESTIMATED AVG GLUCOSE 212 mg/dL 10/19/2023 9:20 AM CDT [facility] 10/19/2023 4:41 AM CDT us Stevenson CARDOSO MD LABORATORY Fi nal Result [facility] [address] [place] [address], [place] [phone] * (ABNORMAL) LIPID PANEL (10/19/2023 4:41 AM CDT) [facility] Signature CHOLESTEROL 168 <200 MG/DL 10/19/2023 5:42 AM CDT [facility] TRIGLYCERIDES 222(H) <150 MG/DL 10/19/2023 5:42 AM T [facility] HDL 29(L) >40.0 MG/DL 10/19/2023 5:42 AM T [facility] LDL (CALCULATED) 95 <100 MG/DL 10/19/2023 5:42 AM T [facility] NON HDL CHOLESTEROL 139(H) <130 MG/DL 10/19/2023 5:42 AM [facility] CHOL/HDL RATIO 5.8(H) 0.0 - 4.5 10/19/2023 5:42 AM [facility] VLDL CALCULATION 44 5 - 55 MG/DL 10/19/2023 5:42 AM [facility] LIPID INTERPRETATION 10/19/2023 5:42 AM [facility] Comment: NIH CONCENSUS REPORT RECOMMENDATIONS: ?ADULT ?CHILD ??LOW RISK: ?CHOLESTEROL ? <200 ? <170 ?TRIGLYCERIDE ?<150 ?--- ?HDL ? >=60 ?--- ?LDL ? <100 ? <110 ??BORDERLINE: ?CHOLESTEROL ? 200-239 ?? 170-199 ?TRIGLYCERIDE ?150-199 ? --- ?HDL ?40-59 ?--- ?LDL ? 100-159 ?? 110-129 ??HIGH RISK: ?CHOLESTEROL ? >=240 ?>=200 ?TRIGLYCERIDE ?>=200 ? --- ?HDL ?<40 ?--- ?LDL ? >=160 ?>=130 10/19/2023 4:41 AM CDT us Stevenson CARDOSO MD LABORATORY Fi nal Result Performing Organization Address City/State/[facility] Co de Phone Number [facility] [address] [place] [address], from Last 3 Months or Most Recently Relevant to Health Maintenance Insurance [place] [address] Advance Directives * Full Code (Latest Code Status on File) Date Activated Date Inactivated Comments 10/18/2023 10:33 AM 10/19/2023 9:26 PM * Full Code Date Activated Date Inactivated Comments 05/24/2023 8:44 PM 05/26/2023 5:27 PM * Full Code Date Activated Date Inactivated Comments 09/23/2021 2:02 PM 09/23/2021 11:14 PM * Full Code Date Activated Date Inactivated Comments 08/24/2021 2:01 PM 08/26/2021 8:40 PM * Full Code Date Activated Date Inactivated Comments 11/15/2020 5:00 PM 11/18/2020 6:05 PM Care Teams Regional Airline Pilot Relationship Specialty Start Date End Date Philippe Martinez MD [address] [place] [id number] PCP - General FAMILY PRACTICE 01/10/23
== END 2024-07-11 18:29 | disposition home or self-care (01) ==
PROVIDERS: Physician Assistant; Emergency Provider Emergency Medicine; PCP Nurse Practitioner Family
DX: L03.115 Cellulitis of right lower limb (principal); E11.51 Type 2 diabetes mellitus with diabetic peripheral angiopathy without gangrene; I73.9 Peripheral vascular disease, unspecified; E11.40 Type 2 diabetes mellitus with diabetic neuropathy, unspecified; K21.9 Gastro-esophageal reflux disease without esophagitis; M17.9 Osteoarthritis of knee, unspecified; H35.30 Unspecified macular degeneration; F17.210 Nicotine dependence, cigarettes, uncomplicated; Z89.411 Acquired absence of right great toe; Z89.421 Acquired absence of other right toe(s); Z79.82 Long term (current) use of aspirin; Z79.899 Other long term (current) drug therapy; Z79.02 Long term (current) use of antithrombotics/antiplatelets; Z79.84 Long term (current) use of oral hypoglycemic drugs
CPT/HCPCS: 36415; 73701; 80053; 83605; 85025; 85652; 86140; 96374; 99284; J2270; Q9967

== ENCOUNTER 2024-08-29 10:20 | Emergency (ER) | payer OTHER, SELFPAY ==
--- NOTE | ~2024-08-29 | US_ITS ---
EXAMINATION: US venous doppler LE RT DATE: 08/29/2024 11:11 INDICATION: Right lower limb pain and swelling. TECHNIQUE: Grayscale ultrasound images without and with compression and Doppler ultrasound images of the right lower extremity veins were obtained. COMPARISON: None. FINDINGS: The visualized portions of right common femoral vein, profunda (deep) femoral vein, femoral vein, pop liteal vein, peroneal veins, posterior tibial veins, and greater saphenous vein outflow are patent. IMPRESSION: 1. No deep venous thrombosis. Reviewed, dictated and finalized at location A. RONMENTAL TECH
--- NOTE | ~2024-08-29 | XR_ITS ---
EXAMINATION: XR chest 2V DATE: 08/29/2024 11:09 INDICATION: Shortness of breath. TECHNIQUE: Frontal and lateral views of the chest were obtained. COMPARISON: Chest 2 views 06/16/2024 FINDINGS: There is no pneumonia, pleural effusion, or pneumothorax. The heart size is normal. IMPRESSION: 1. No acute cardiopulmonary disease. Reviewed, dictated and finalized at location A. HASING DEPARTMENT CLERK
--- NOTE | 2024-08-29 10:21 | ECG_ITS ---
Test Date: 2024-08-29 10:28:03 Measurements Intervals [place] Rate: 103 P: 20 HI: 153 QRS: -34 QRSD: 109 T: 44 QT: 331 QTc: 435 Interpretive Statements SINUS TACHYCARDIA LEFT AXIS DEVIATION [QRS AXIS < -30] INCOMPLETE RIGHT BUNDLE BRANCH BLOCK [90+ ms QRS DURATION, TERMINAL R IN V1/V2, 40+ ms S IN I/aVL/V4/V5/V6] Compared to ECG 06/16/2024 12:17:58 Sinus rhythm no longer present Electronically Signed On 08-29-2024 16:34:08 RFID SPECIALIST by Sherlyn Ren M.D.
[2024-08-29 10:35] VITALS: BP 153/86; PULSE 105; RESP 16; TEMP 36.6; O2SAT 97
[2024-08-29 10:45] LABS: Basophils Absolute Auto 0.1 K/mm3 (0.0-0.1); Basophils Percent Auto 0.4 % (0.2-1.2); Eosinophils Percent Auto 0.1 % (0-4.4); Hemoglobin 14.9 g/dL (14.0-18.0); Immature Granulocyte Absolute 0.06 K/mm3 (0.00-0.031); Immature Granulocyte Percent A 0.4 % (0-0.5); Lymphocytes Absolute Auto 1.89 K/mm3 (0.9-3.2); Lymphocytes Percent Auto 14.1 % (18.3-44.2); Mean Corpuscular HGB Conc 33.9 g/dl (32-36); Mean Corpuscular Hemoglobin 29.1 pg (26-34); Mean Corpuscular Volume 85.9 fl (80-100); Monocytes Absolute Auto 1.1 K/mm3 (0.1-0.6); Monocytes Percent Auto 8.3 % (2.6-8.5); Neutrophils Absolute Auto 10.3 K/mm3 (1.3-6.7); Neutrophils Percent Auto 76.7 % (45.5-73.1); Platelet Count Result 214 k/mm3 (150-375); Red Blood Count 5.12 M/mm3 (4.6-6.20); Red Cell Distribution Width 13.8 % (11.5-14.5); White Blood Count 13.5 K/mm3 (4.5-10.0)
[2024-08-29 10:56] LABS: Prothrombin Time 13.9 Seconds (11.1-14.7)
[2024-08-29 10:57] LABS: Partial Thromboplastin Time 25.9 Seconds (22.3-36.8)
[2024-08-29 11:00] LABS: Alanine Aminotransferase 39 U/L (6-50); Albumin Level 4.7 g/dL (3.5-5.1); Alkaline Phosphatase 121 U/L (38-126); Anion Gap 15 mmol/L (4-12); Aspartate Amino Transferase 21 U/L (17-59); Bilirubin,Total 1.3 mg/dL (0.2-1.3); Blood Urea Nitrogen 14 mg/dL (9-20); Calcium 9.5 mg/dL (8.4-10.2); Carbon Dioxide 20 mmol/L (22-30); Chloride 96 mmol/L (98-107); Estimated CRCL calculation 128 ml/min; Estimated Glomerular Filt Rate > 60; Glucose 313 mg/dL (65-110); Lipase 39 U/L (23-300); Potassium 4.1 mmol/L (3.4-5.0); Sodium 131 mmol/L (137-145)
[2024-08-29 11:10] LABS: Troponin I < 0.012 ng/mL (0.000-0.034)
--- OUTSIDE RECORDS SUMMARY | 2024-08-29 11:12 | XMS_ITS | Patient Health Summary ---
Author Organization [facility] Address [address] [address] Care Team Providers Care Heliarc Welder Name Role Phone Philippe Martinez MD Primary Care Provider [phone] Note from [facility],non-owned Affiliates and Associated Physician Practices is amultiple site organization consisting of ambulatory clinics and hospital sitesin [place], [place], [place] and [place]. This disclosure is being madepursuant to the Care Everywhere program and may not contain all information available regarding this patient. Last updated 18.[facility] Cardiocore Allergies * Morphine(Palpitations) Medications * Be aware [...] UNIT/ML pen(Started 11/01/2023) * BD Pen Needle Analisa 2nd Gen 32G X 4 MM MISC(Started 11/06/2023) as directed * ibuprofen (Motrin) 800 MG tablet(Started 12/07/2023) Take 1 (one) tablet by mouth 3 times daily * oxyCODONE, immediate release, (Roxicodone) 5 MG tablet(Started 01/02/2024) Take 1 (one) tablet by mouth every 6 hours as needed for Pain * Blood Glucose Monitoring Suppl (Jana MobileTouch Verio Reflect) w/Device KIT(Started 11/01/2023) USE DIRECTED * Lancets ([employer]TOUCH DELICA PLUS 33G EXTRA FINE LANCET)(Started 11/01/2023) [...] Use 1 Units once for 1 dose Active Problems Problem Noted Date Diagnosed Date Right knee pain 07/27/2024 History of amputation of lesser toe of right pj t 07/27/2024 Fracture of right foot, sequela 01/27/2024 PAD [...] and heating? Not hard at all 11/01/2023 [facility] [place] [facility] Occupat ional Health - Occupational Stress [...] place to sleep or slept in a care home (including now)? No 11/01/2023 Sex and Gender Information Value Date Recorded Sex Assigned at Not on file Gender Identity Not on file Sexual Orientation Not on file Last Filed Vital Signs Vital Sign Reading Time Taken Comments Blood Pressure 131/94 07/15/2024 1:14 PM [facility] Pulse 100 07/15/2024 1:14 PM [facility] Temperature 37.1 C (98.7 F) 07/15/2024 1:14 PM [facility] Respiratory Rate 18 04/29/2024 1:36 PM [facility] Oxygen Saturation 94% 07/15/2024 1:14 PM [facility] Inhaled Oxygen Concentration - - Weight 137.4 kg (303 lb) 07/15/2024 1:14 PM [facility] Height 193 cm (6' 4 ) 07/15/2024 1:14 PM [facility] Body Mass Index 36.88 07/15/2024 1:14 PM [facility] Procedures * VAS ARTERIAL ANKLE ARM INDEX(Performed 04/28/2024) Performed for PAD (peripheral artery disease) ([facility]) * VAS RIGHT ARTERIAL DUPLEX LE(Performed 04/28/2024) Performed for PAD (peripheral artery disease) ([facility]) * XR FOOT RIGHT WT BEARING 3VW(Performed 02/28/2024) Performed for Orthopedic aftercare * XR ANKLE RIGHT 3VW OR MORE(Performed 02/28/2024) Performed for Orthopedic aftercare * GLUCOSE - POINT OF CARE(Performed 01/02/2024) * LARYNGEAL MASK AIRWAY(Performed 01/02/2024) * NC DEBRIDE SKIN AT FX SITE(Performed 01/02/2024) Performed for S/P peripheral artery bypass, PVD (peripheral vascular disease) ([facility]) * GLUCOSE - POINT OF CARE(Performed 01/02/2024) [...] for Osteomyelitis of multiple sites, unspecified type ([facility]) * VAS RIGHT ARTERIAL DUPLEX LE(Performed 11/27/2023) Performed for Osteomyelitis of multiple sites, unspecified type ([facility]) * CULTURE BLOOD(Performed 11/06/2023) * C-REACTIVE PROTEIN(Performed [...] 10/29/2023) Performed for PVD (peripheral vascular disease) ([facility]) * BLOOD GAS+COOX+LYTES+METAB ARTERIAL POCT(Performed 10/29/2023) * BLOOD GAS ART+LYTES+METAB+COOX POC NOTIF(Performed 10/29/2023) Performed for PVD (peripheral vascular disease) ([facility]) * PATHOLOGY TISSUE(Performed 10/29/2023) Performed for Osteomyelitis of multiple sites, unspecified type ([facility]) * CULTURE TISSUE+GRAM STAIN(Performed 10/29/2023) * CULTURE ANAEROBE(Performed 10/29/2023) * PATHOLOGY TISSUE(Performed 10/29/2023) Performed for Osteomyelitis of multiple sites, unspecified type ([facility]) * CULTURE ANAEROBE(Performed 10/29/2023) * CULTURE TISSUE+GRAM STAIN(Performed 10/29/2023) * ACT LR - POCT (SS)(Performed 10/29/2023) * ACT LR - POCT (SS)(Performed 10/29/2023) * BLOOD GAS+COOX+LYTES+METAB ARTERIAL POCT(Performed 10/29/2023) * BLOOD GAS ART+LYTES+METAB+COOX POC NOTIF(Performed 10/29/2023) Performed for PVD (peripheral vascular disease) ([facility]) * PERIPHERAL IV NOTE(Performed 10/29/2023) * NC VEIN BYPASS GRAFT,FEM-TIBIAL(Performed 10/29/2023) Performed for Toe osteomyelitis ([facility]) * ENDOTRACHEAL TUBE NOTE(Performed 10/29/2023) * PERIPHERAL [...] unspecified type (HCC), PVD (peripheral vascular disease) ([facility]) * VAS BILATERAL VENOUS MAPPING(Performed 10/25/2023) Performed [...] ARTERIAL ANKLE ARM INDEX (04/28/2024 1:22 PM [facility]) Anatomical Region Laterality Modality Ankle / Foot, Upper Extremity In travascular Ultrasound 04/28/2024 12:4 0 PM [facility] Narrative Procedure Note Forrest Polk MD - 04/29/2024 Pablo Greenfield MD VASCULAR LAB ORDER TREY * VAS Right Arterial Duplex Le (04/28/2024 1:22 PM [facility]) Only the most recent of2 resultswithin the time period is included. Anatomical Region Laterality Modality Lower Extremity Intravascular Ul trasound 04/28/2024 12:4 8 PM [facility] Narrative Procedure Note Forrest Polk MD - [...] head. Report dictated by Partha Dixon MD (limited radiology technician). IGhassan MD have personally reviewed and interpreted this examination/study. > Interpreting Provider: Ghassan Gomez MD on 02/28/2024 12:45 PM Narrative 02/28/2024 12:45 PM CDT PROCEDURE: XR FOOT RIGHT WT BEARING 3VW, DATE/TIME OF EXAM: 02/28/2024 9:22 AM, LOCATION [facility] INDICATION: Z47.89: Orthopedic aftercare ADDITIONAL CLINICAL INFORMATION: [...] 3VW, DATE/TIME OF EXAM: 49:22 AM, LOCATION [facility] INDICATION: Z47.89: Orthopedic aftercare ADDITIONAL CLINICAL INFORMATION: [...] head. Report dictated by Partha Dixon MD (limited radiology technician). I, Ghassan Gomez MD have personally reviewed [...] AM Narrative 02/28/2024 10:02 AM CDT PROCEDURE: XR ANKLE RIGHT 3VW OR MORE [...] - 115 mg/dL 01/02/2024 1:54 PM CDT [facility] Specimen Type Cap Fingerstick 2023 1:54 PM CDT [facility] Blood BLOOD SPECIMEN / Unknown 01/02/2024 1:53 PM CDT 01/02/2024 1:54 PM CDT Pablo Greenfield MD LAB - POINT OF CAR E ORDERABLES [address] [address], [facility] [phone] * LARYNGEAL MASK AIRWAY (01/02/2024 1:08 PM CDT) Narrative Aristeo Mendoza Anes Asst - 01/02/2024 1:08 PM CDT Aristeo Mendoza Anes Asst 01/02/2024 1:08 PM LMA Placement Procedure/LDA Note: Patient Location: OR. LMA Insertion Date/Time: 01/02/2024 12:59 PM Procedure: LMA Induction: standard IV Mask Ventilation: easy Type: LMA Size: 5 Number of Attempts: 1. Placement verified by: bilateral breath sounds, chest auscultation and CO2 monitor Dentition unchanged? Yes Procedure Start Time: 01/02/2024 12:59 PM. Staff Section Anesthesia Provider: Aristeo Mendoza Anes Asst, Performed the procedure Provider #1: Cisco Cottrell MD. Additional Comments: LMA placed atraumatically. No change in dentition or soft tissue after placement. Min cuff to seal.. Cisco Cottrell MD GENERAL ANESTHESIA O PROSPERERATATY * CARDIAC EKG ORDER (12/05/2023 11:54 AM [...] Report dictated by Jose Angel Delgado MD, (Supervisor Testing). I, Magda Barbosa MD have personally reviewed and interpreted this examination/study. > Interpreting Provider: Magda Barbosa MD on 12/04/2023 8:41 PM Narrative 12/04/2023 8:41 PM CDT PROCEDURE: XR TIBIA FIBULA RIGHT 2VW, DATE/TIME OF EXAM: 12/04/2023 5:26 PM, LOCATION [facility] INDICATION: M79.604: Pain of right lower extremity [...] are mildly diffusely demineralized. Procedure Note Magda Barbosa MD - 12/04/2023 PROCEDURE: XR TIBIA FIBULA RIGHT 2VW, DATE/TIME OF EXAM: 45:26 PM, LOCATION [facility] INDICATION: M79.604: Pain of right lower extremity [...] Report dictated by Jose Angel Delgado MD, (Supervisor Testing). I, Magda Barbosa MD have personally reviewed and interpreted this examination/study. > Interpreting Provider: Magda Barbosa MD on 12/04/2023 8:41 PM Kim Wilson SIGN MAINTENANCE-UTILITY BILL COMPLAINTS INVESTIGATOR DIAGNOSTIC I MAGING ORDERABLES * TROPONIN-I HIGH SENSITIVE (12/04/2023 4:49 PM CDT) Pathologist [facility] Troponin I High Sensitive <3 <=35 ng/L 12/04/2023 5:30 PM CDT [facility] Blood BLOOD SPECIMEN / Unknown Venipuncture / Unknown 12/04/2023 4:49 PM CDT 12/04/2023 5:00 PM CDT Walter Oakes MD LAB - CHEMISTRY BHARTI [place] Organization Address City/State/[facility] Co de Phone Number [facility] [address] [place] [phone] [phone] * PT-INR [facility] (12/04/2023 4:49 PM CDT) Only the most recent of2 resultswithin the time period is included. Pathologist [facility] PT 12.8 12.1 - 14.8 Seconds 12/04/2023 5:21 PM CDT [facility] INR 1.0 See Comment 12/04/2023 5:21 PM CDT [facility] Comment:The suggested therap eutic range for standard coumadin (warfarin) therapy is an INR of 2.0-3.0. For high-risk patients (Mechanical Mitral Valve Prosthesis, etc.), the suggested prophylactic therapeutic range is an INR of 2.5-3.5. Blood BLOOD SPECIMEN / Unknown Venipuncture / Unknown 12/04/2023 4:49 PM CDT 12/04/2023 5:21 PM CDT Walter Oakes MD LAB - COAGULATION OR DERABLES Performing Organization Address [facility] Co de Phone Number [address] [address], [place] [phone] * LACTIC ACID BLOOD REFLEX TO REPEAT (12/04/2023 4:49 PM CDT) [facility] Lactic Acid-Stat 1.2 <=2.0 mmol/L 12/04/2023 5:19 PM CDT [facility] Blood BLOOD SPECIMEN / Unknown Venipuncture / Unknown 12/04/2023 4:49 PM CDT 12/04/2023 5:00 PM CDT Walter Oakes MD LAB - CHEMISTRY ORDE RABCORRY Performing Organization Address [facility] de Phone Number [address] [address], [place] [phone] * CULTURE BLOOD (12/04/2023 4:49 PM CDT) Only the most recent of6 resultswithin the time period is included. Pathologist [facility] Culture No growth day 5 JANET 12/09/2023 11:31 PM CDT [facility] Blood PERIPHERAL BLOOD / Unknown Venipuncture / Unknown 12/04/2023 4:49 PM CDT 12/04/2023 4:58 PM CDT Walter Oakes MD LAB - MICROBIOLOGY O RDERABLES Performing Organization Address [facility] Co de Phone Number [facility] [address] [place] [address], [place] [phone] * (ABNORMAL) ERYTHROCYTE SEDIMENTATION RATE (12/04/2023 4:49 PM CDT) Only the most recent of2 resultswithin the time period is included. Erythrocyte Sedimentation Rate Westergren 90(H) 0 - 20 MM/HR 12/04/2023 5:29 PM CDT [facility] Blood BLOOD SPECIMEN / Unknown Venipuncture / Unknown 12/04/2023 4:49 PM CDT 12/04/2023 5:00 PM CDT Kim Emilyshun Wilson SIGN MAINTENANCE-UTILITY BILL COMPLAINTS INVESTIGATOR LAB - HEMATO LOGY ORDERABLES [address] [address], [facility] [phone] * (ABNORMAL) CBC W AUTO DIFFERENTIAL (12/04/2023 4:49 PM CDT) Only the most recent of7 resultswithin the time period is included. WBC 12.0(H) 4.0 - 10.7 x10E9/L 12/04/2023 5:32 PM [facility] RBC Count 4.61 4.30 - 5.80 x10E12/L 12/04/2023 5:32 PM [facility] Hemoglobin 13.1(L) 13.3 - 17.5 g/dL 12/04/2023 5:32 PM [facility] Hematocrit 40.2 38.7 - 51.1 % 12/04/2023 5:32 PM [facility] MCV 87.2 80.0 - 98.0 fL 12/04/2023 5:32 PM [facility] MCH 28.4 26.7 - 33.6 pg 12/04/2023 5:32 PM [facility] MCHC 32.6 31.7 - 36.3 g/dL 12/04/2023 5:32 PM [facility] RDW-CV 13.7 11.3 - 14.8 % 12/04/2023 5:32 PM [facility] Platelet Count 12/04/2023 5:32 PM [facility] Comment:Automated platelet c ount is inaccurate due to clumping, platelet estimate from smear appears adequate. MPV 12/04/2023 5:32 PM [facility] Comment:Unable to report Neutrophil % 66.1 41.0 - 74.0 % 12/04/2023 5:32 PM [facility] Lymphocyte % 23.5 17.0 - 47.0 % 12/04/2023 5:32 PM [facility] Monocyte % 8.1 3.0 - 11.0 % 12/04/2023 5:32 PM [facility] Eosinophil % 1.1 0.0 - 7.0 % 12/04/2023 5:32 PM [facility] Basophil % 0.8 0.0 - 1.6 % 12/04/2023 5:32 PM [facility] Immature Granulocytes % 0.4 0.0 - 1.0 % 12/04/2023 5:32 PM [facility] Neutrophil Absolute 7.90(H) 1.60 - 7.50 x10E9/L 12/04/2023 5:32 PM [facility] Lymphocyte Absolute 2.81 1.00 - 4.40 x10E9/L 12/04/2023 5:32 PM [facility] Monocyte Absolute 0.97 0.15 - 1.00 x10E9/L 12/04/2023 5:32 PM [facility] Eosinophil Absolute 0.13 0.00 - 0.60 x10E9/L 12/04/2023 5:32 PM [facility] Basophil Absolute 0.10 0.00 - 0.13 x10E9/L 12/04/2023 5:32 PM [facility] Blood BLOOD SPECIMEN / Unknown Venipuncture / Unknown 12/04/2023 4:49 PM CDT 12/04/2023 5:00 PM T Walter Oakes MD LAB - HEMATOLOGY ORD ERABLES [facility] [address] [place] [address], [facility] [phone] * (ABNORMAL) COMPREHENSIVE METABOLIC PANEL (12/04/2023 4:49 PM [facility]) Only the most recent of4 resultswithin the time period is included. BUN 16 7 - 26 mg/dL 12/04/2023 5:26 PM [facility] Creatinine 0.91 0.71 - 1.16 mg/dL 12/04/2023 5:26 PM [facility] Sodium 140 136 - 145 mmol/L 12/04/2023 5:26 PM [facility] Potassium 4.3 3.5 - 4.5 mmol/L 12/04/2023 5:26 PM [facility] Chloride 106 98 - 107 mmol/L 12/04/2023 5:26 PM [facility] CO2 21(L) 22 - 29 mmol/L 12/04/2023 5:26 PM [facility] Glucose 84 70 - 115 mg/dL 12/04/2023 5:26 PM [facility] Calcium 10.0 8.4 - 10.2 mg/dL 12/04/2023 5:26 PM [facility] Protein Total 8.2 6.0 - 8.3 g/dL 12/04/2023 5:26 PM [facility] Albumin 4.1 3.4 - 5.0 g/dL 12/04/2023 5:26 PM [facility] Bilirubin Total 0.3 0.2 - 1.2 mg/dL 12/04/2023 5:26 PM [facility] Alkaline Phosphatase 122 40 - 150 U/L 12/04/2023 5:26 PM [facility] ALT 19 5 - 55 U/L 12/04/2023 5:26 PM [facility] AST 16 5 - 34 U/L 12/04/2023 5:26 PM [facility] Anion Gap 13 6 - 16 12/04/2023 5:26 PM [facility] BUN/Creatinine Ratio 18 7 - 23 12/04/2023 5:26 PM [facility] Osmolality Calculated 290 275 - 295 mOsm/kg 12/04/2023 5:26 PM [facility] Albumin/Globulin Ratio 1.0(L) 1.1 - 2.3 12/04/2023 5:26 PM CDT [facility] eGFR by CKD-EPI >90 >=90 mL/min/1.7 3 m2 12/04/2023 5:26 PM CDT [facility] Blood BLOOD SPECIMEN / Unknown Venipuncture / Unknown 12/04/2023 4:49 PM CDT 12/04/2023 5:00 PM CDT Walter Oakes MD LAB - CHEMISTRY ORDE JHONATAN [facility] [address] [place] [address], [place] [phone] * MAGNESIUM BLOOD (12/04/2023 4:49 PM CDT) Only the most recent of9 resultswithin the time period is included. Magnesium 2.2 1.6 - 2.6 mg/dL 12/04/2023 5:26 PM CDT [facility] Blood BLOOD SPECIMEN / Unknown Venipuncture / Unknown 12/04/2023 4:49 PM CDT 12/04/2023 5:00 PM CDT Kim Wislon APRN-UTILITY BILL COMPLAINTS INVESTIGATOR LAB - CHEMIS TRY ORDERABLES [facility] [address] [place] [address], [place] [phone] * EKG 12-LEAD (12/04/2023 3:57 PM CDT) Ventricular Rate 104 BPM SL MUSE Atrial Rate 104 BPM [facility] MUSE P-R Interval 140 ms [facility] MUSE QRS Duration ms 94 ms [facility] MUSE Q-T Interval ms 340 ms [facility] MUSE QTC Calculation (Bezet) 448 ms SL MUSE Calculated P Dumont -5 degrees SL MUSE Calculated R Dumont -22 degrees SL MUSE Calculated T Dumont 42 degrees [facility] MUSE Interpretation EKG SINUS TACHYCARDIA OTHERWISE NORMAL ECG NO PREVIOUS ECGS AVAILABLE Confirmed by WALTER AUGUSTIN MD ([id number]) on 12/07/2023 7:00:47 AM [facility] MUSE 12/04/2023 3:57 PM CDT 12/07/2023 7:00 AM CDT Walter Oakes MD ECG ORDERABLES Performing Organization Address City/[facility]/ZIP Co de Phone Number [facility] MUSE * VAS ARTERIAL MULTILEVEL LE (11/27/2023 2:39 PM CDT) Only the most recent of2 resultswithin the time period is included. Anatomical Region Laterality Modality Intravascular Ul trasound 11/27/2023 1:56 AM CDT Narrative Procedure Note Uriah Liu MD - 11/28/2023 Ian Almonte MD VASCULAR LAB ORDERAB LES * (ABNORMAL) C-REACTIVE PROTEIN (11/06/2023 2:33 PM CDT) Pathologist [facility] C-Reactive Protein 4.3(H) <=0.5 mg/dL 11/06/2023 3:26 PM CDT [facility] Blood BLOOD SPECIMEN / Unknown Venipuncture / Unknown 11/06/2023 2:33 PM CDT 11/06/2023 2:46 PM CDT Kim Wilson SIGN MAINTENANCE-UTILITY BILL COMPLAINTS INVESTIGATOR LAB - CHEMIS TRY ORDERABLES Performing Organization Address City/[facility]/ZIP Co de Phone Number [facility] [address] [place] [address], [facility] [phone] * (ABNORMAL) BASIC METABOLIC PANEL (CALCIUM TOTAL) (11/02/2023 3:50 AM CDT) Only the most recent of5 resultswithin the time period is included. Pathologist [facility] BUN 17 7 - 26 mg/dL 11/02/2023 5:09 AM CDT [facility] Creatinine 0.78 0.71 - 1.16 mg/dL 11/02/2023 5:09 AM CDT [facility] Sodium 139 136 - 145 mmol/L 11/02/2023 5:09 AM [facility] Potassium 4.3 3.5 - 4.5 mmol/L 11/02/2023 5:09 AM [facility] Chloride 108(H) 98 - 107 mmol/L 11/02/2023 5:09 AM [facility] CO2 21(L) 22 - 29 mmol/L 11/02/2023 5:09 AM [facility] Glucose 112 70 - 115 mg/dL 11/02/2023 5:09 AM [facility] Calcium 9.6 8.4 - 10.2 mg/dL 11/02/2023 5:09 AM [facility] Anion Gap 10 6 - 16 11/02/2023 5:09 AM [facility] BUN/Creatinine Ratio 22 7 - 23 11/02/2023 5:09 AM [facility] Osmolality Calculated 290 275 - 295 mOsm/kg 11/02/2023 5:09 AM [facility] eGFR by CKD-EPI >90 >=90 mL/min/1.7 3 m2 11/02/2023 5:09 AM [facility] Blood BLOOD SPECIMEN / Unknown Lab Venipuncture / Unknown 11/02/2023 3:50 AM CDT 11/02/2023 4:06 AM CDT Jose Ramon Murphy MD LAB - CHEMISTRY BHARTI [facility] Organization Address City/State/ZIP Co de Phone Number [facility] [address] [place] [phone], [facility] [phone] * PHOSPHORUS BLOOD (11/02/2023 3:50 AM CDT) Only the most recent of4 resultswithin the time period is included. Phosphorus 3.9 2.8 - 5.1 mg/dL 11/02/2023 5:09 AM [facility] Blood BLOOD SPECIMEN / Unknown Lab Venipuncture / Unknown 11/02/2023 3:50 AM CDT 11/02/2023 4:06 AM CDT Jose Ramon Murphy MD LAB - CHEMISTRY BHARTI [place] Performing Organization Address [facility]/ZIP Co de Phone Number [facility] [address] [place] [address], [facility] [phone] * PREPARE (CROSSMATCH) RBC UNIT(S), 2 Units (11/01/2023 1:17 AM CDT) Unit Description AS1 LR PRBC [facility] LAB Unit ABO A [facility] Unit Rh POS [facility] Product Number R02 [facility] B LOOD BANK LAB Unit Donor # [id number] [facility] BLOOD [facility]ANK LAB Unit Status released [facility] BLOO D BANK LAB Product Code [id number] [facility] BLO OD BANK LAB Blood Type Barcode 6200 [facility] BLOOD BANK LAB Expiration Date S BLOOD BANK LAB Unit Description AS1 LR PRBC [facility] BLOOD BANK LAB Unit ABO A [facility] BLOOD BANK LAB Unit Rh POS [facility] BLOOD BANK LAB Product Number R02 [facility] B LOOD BANK LAB Unit Donor # [id number] [facility] BLOOD BANK LAB Unit Status released [facility] BLOO D BANK LAB Product Code [id number] [facility] BLO OD BANK LAB Blood Type Barcode 6200 [facility] BLOOD BANK LAB Expiration Date [id number] S BLOOD BANK LAB Blood Bank BLOOD SPECIMEN / Unknown 10/28/2023 11:33 AM CDT Lew Laura MD LAB - BLOOD BANK ORD ERABLES Performing Organization Address [facility]/ZIP Co de Phone Number [facility] BLOOD BANK LAB [address] [place] [address], [facility] [phone] * FL TARYN W ANGIO TEAM (10/29/2023 3:15 PM CDT) Narrative [facility] RADIOLOGY - 10/29/2023 4:10 PM CDT Fluoroscopy was used for this exam in the OR. Please see the Operative report. Pablo Greenfield MD FLUOROSCOPY ORDERA BLES Performing Organization Address [facility]/ZIP Co de Phone Number [facility] * (ABNORMAL) BLOOD GAS+COOX+LYTES+METAB ARTERIAL POCT (10/29/2023 2:20 PM CDT) Only the most recent of2 resultswithin the time period is included. pH Arterial 7.38 7.35 - 7.45 pH 10/29/2023 2:20 PM [facility] pO2 Arterial 92 80 - 100 mmHg 10/29/2023 2:20 PM [facility] pCO2 Arterial 46(H) 35 - 45 mmHg 2:20 PM [facility] HCO3 Arterial 27.2 20.0 - 30.0 mmol/L 10/29/2023 2:20 PM [facility] BE Arterial 1.6 -2.0 - 2.0 mmol/L 10/29/2023 2:20 PM [facility] Oxyhemoglobin Arterial 96.4 % 10/29/2023 2:20 PM [facility] Dexoyhemoglobin (HHB) % 1.0 % 10/29/2023 2:20 PM [facility] Methemoglobin <0.8 0.0 - 2.0 % 10/29/2023 2:20 PM [facility] Carboxyhemoglobin 1.9 0.0 - 2.0 % 2023 2:20 PM [facility] Comment:Carboxyhemoglobin No rmal Concentration: Non-smokers: 0-2%; Smokers: 0- 9%; Toxic: >20% O2 Content Arterial 17.0 Interpret within clinical context ml/dL 10/29/2023 2:20 PM [facility] Hemoglobin by COOX 12.5 12.0 - 17.6 g/dL 10/29/2023 2:20 PM [facility] O2 Saturation Arterial 99 90 - 100 % 10/29/2023 2:20 PM [facility] Sodium Whole Blood 132(L) 135 - 145 mmol/L 10/29/2023 2:20 PM [facility] Potassium Whole Blood 5.2 3.5 - 5.5 mmol/L 10/29/2023 2:20 PM [facility] Chloride WB 103 78 - 107 mmol/L 10/29/2023 2:20 PM [facility] Calcium Ionized 1.13 mmol/L 2:20 PM CDT [facility] Ionized Calcium pH Adjusted 1.12(L) 1.19 - 1.34 mmol/L 10/29/2023 2:20 PM CDT [facility] Anion Gap (AG) Arterial 2(L) 6 - 16 mmol/L 10/29/2023 2:20 PM CDT [facility] Glucose WB 146(H) 70 - 115 mg/dL 10/29/2023 2:20 PM CDT [facility] Lactic Acid Whole Blood 2.4(H) <=2.0 mmol/L 10/29/2023 2:20 PM CDT [facility] Blood, arterial ARTERIAL BLOOD SPECIMEN / Unknown 10/29/2023 2:20 PM CDT 10/29/2023 2:20 PM CDT Lew Laura MD LAB - POINT OF CARE ORDERABLES Performing Organization Address City/[facility]/ZIP Co de Phone Number [address] [address], [facility] [phone] * BLOOD GAS ART+LYTES+METAB+COOX POC NOTIF (10/29/2023 2:18 PM CDT) Only the most recent of2 resultswithin the time period is included. Comment Notification Label Only - See Separate Report 10/29/2023 3:31 PM CDT [facility] Other MISCELLANEOUS SAMPLES / Unknown 10/29/2023 2:18 PM CDT 10/29/2023 2:18 PM CDT Balaji Harrison MD LAB - BLOOD GASES OR DERABLES [address] [address], [place] [phone] * PATHOLOGY TISSUE (10/29/2023 1:48 PM CDT) Only the most recent of2 resultswithin the time period is included. Case Report Surgical Pathology Report Case: [id number] Authorizing Provider: Pablo Greenfield MD Collected: 10/29/2023 01:48 PM Ordering Location: [facility] JUVENCIO OP Received: 10/29/2023 03:33 PM Pathologist: Damari Joyner MD Specimen: Amputation Toe 11/01/2023 10:[address] [facility] Final Diagnosis Bone, right 1st and 2nd toe margin, amputation (A): - Bone, skeletal muscle and fibroadipose tissue, negative for acute inflammation 11/01/2023 10:[address] [facility] Microscopic Description and Comment Microscopic examination substantiates the diagnosis. 11/01/2023 10:[address] [facility] Clinical History The patient is a 53-year-old male with history of previous right tiqcz-rhu-nksk popliteal artery bypass with greater saphenous vein that was occluded. He presented with osteomyelitis in his right first and second toes and left third toe. Operative procedure: Right first and second toe amputation. 11/01/2023 10:[address] [facility] Gross Description The requisition [...] resection margin shows orozco-white firm underlying bone. Director Social Service section is submitted in A1 following decalcification. [facility] 11/01/2023 10:[address] [facility] Pathologist Location at [facility] 11/01/2023 10:[address] [facility] Disclaimer The performance characteristics of all immunohistochemical and indirect immunofluorescence stains (if any) cited in this report were determined by the Histopathology Laboratory of [facility]. Some of these tests were developed by [...] the attending (teaching) pathologist. 11/01/2023 10:52 AM CDT [facility] Embedded Images 11/01/2023 10:52 AM CDT [facility] Pathology/Cytolo gy AMPUTATION OF TOE / Unknown Collection / Unknown 10/29/2023 1:48 PM CDT 10/29/2023 3:33 PM CDT Comment:Right 1st and 2nd To e Bone Margin Pablo Greenfield MD LAB - PATHOLOGY/CY TOLOGY ORDERABLES [facility] [address] [phone] * (ABNORMAL) CULTURE TISSUE+GRAM STAIN (10/29/2023 1:43 PM CDT) Only the most recent of2 resultswithin the time period is included. Culture Moderate Escherichia coli(AA) JANET 11/01/2023 4:36 AM CDT [facility] Culture Light Staphylococcus aureus(AA) JANET 11/01/2023 4:36 AM CDT [facility] Comment:Staphylococcus aureu s methicillin-susceptible (MSSA) detected by penicillin binding protein immunoassay. Culture Moderate normal skin robyn 11/01/2023 4:36 AM CDT [facility] Gram Stain Moderate Gram-positive bacilli(AA) 11/01/2023 4:36 AM CDT [facility] Gram Stain Moderate Gram-positive cocci(AA) 11/01/2023 4:36 AM CDT [facility] Gram Stain Rare Gram-negative bacilli(AA) 11/01/2023 4:36 AM CDT [facility]CRO[facility] Gram Stain No polymorphonuclear cells(AA) 11/01/2023 4:36 AM CDT [facility]CRO[facility] Microbiology ENTIRE TOE / Unknown [...] Pablo Greenfield MD LAB - MICROBIOLOGY ORDERABLES [facility] [address] [phone] * (ABNORMAL) CULTURE ANAEROBE (10/29/2023 1:43 PM CDT) Only the most recent of2 resultswithin the time period is included. Culture Light Bacteroides fragilis(A) JANET 11/02/2023 9:55 AM CDT [facility] Comment:Beta-lactamase posit redd Microbiology ENTIRE TOE / Unknown Collection / Unknown 10/29/2023 1:43 PM CDT 10/29/2023 3:02 PM CDT Pablo Greenfield MD LAB - MICROBIOLOGY ORDERABLES Performing Organization Address City/[facility]/ZIP Co de Phone Number [facility] [address] [place] [address], [facility] [phone] * ACT LR - POCT ([facility]) (10/29/2023 11:58 AM CDT) Only the most recent of2 resultswithin the time period is included. 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 Co de Phone Number [facility] [address] [place] [address], [facility] [phone] * IV PLACEMENT PERFORMABLE (10/29/2023 9:25 AM CDT) Narrative Cisco Vuong Anes Asst - 10/29/2023 9:25 AM CDT Cisco Vuong Anes Asst 10/29/2023 9:26 AM Peripheral IV Line Placement: Patient Location: OR Insertion Time: 10/29/2023 9:25 AM Procedure: IV start ([id number]). Procedure Section: Skin Prep: alcohol. Orientation: left Location: forearm Catheter Gauge: 18 Catheter Length (in): 1 Number of Attempts: 1. Staff Section Anesthesia Provider: Cisco Vuong Anes Asst, Performed the procedure Provider #1: Balaji Harrison MD. Balaji Harrison MD GENERAL ANESTHESIA O WOOD * ETT LINE PERFORMABLE (10/29/2023 8:15 AM CDT) Cisco Hong Anes Asst - 10/29/2023 8:15 AM CDT Cisco Vuong Anes Asst 10/29/2023 8:16 AM Endotracheal Tube Placement: Patient Location: OR. Intubation Event Date/Time: 10/29/2023 7:39 AM Procedure: intubation ([id number]). Procedure Section: Sedation: under general anesthesia. Indications for Airway Management: anesthesia Induction: standard IV Patient Position: sniffing Mask Ventilation: difficult and required 2 people (2 handed). Blade Type: Capps Blade Size: 2 Laryngoscopy View: grade 1 (full cords) Tube: endotracheal tube Placement: oral Tube type: cuff - inflated Tube Size (MM): 8 Depth of Insertion (CM): 24 Measured From: lips Cuff Inflated With: air Number of Attempts: 1. Placement Verified By: bilateral breath sounds and CO2 monitor Tube secured with: adhesive tape. Dentition unchanged? Yes Difficult Airway? No. Procedure Start Time: 10/29/2023 7:39 AM. Staff Section Anesthesia Provider: Cisco Vuong Anes Asst, Performed the procedure Provider #1: Balaji Harrison MD. Additional Comments: Pt failed to remove dentures, removed by anesthesia prior to DL and placed in specimen bag in pt chart . Balaji Harrison MD GENERAL ANESTHESIA O WOOD * IV PLACEMENT PERFORMABLE (10/29/2023 8:14 AM CDT) Cisco Hong Anes Asst - 10/29/2023 8:14 AM CDT Cisco Vuong Anes Asst 10/29/2023 8:15 AM Peripheral IV Line Placement: Patient Location: OR Insertion Time: 10/29/2023 7:43 AM Procedure: IV start ([id number]). Procedure Section: Skin Prep: Chloraprep. Orientation: left Location: external jugular Catheter Gauge: 14 Catheter Length (in): 1.5 Number of Attempts: 1. Staff Section Anesthesia Provider: Balaji Harrison MD, Performed the procedure Balaji Harrison MD GENERAL ANESTHESIA O RDERATATY * ARTERIAL LINE PERFORMABLE (10/29/2023 8:14 AM CDT) Narrative Cisco Vuong Anes Asst - 10/29/2023 8:14 AM CDT Cisco Vuong Anes Asst 10/29/2023 8:14 AM Arterial Line Placement Procedure Note Patient Location: OR. Procedure: Arterial Line ([id number]). Procedure Section Indications: blood sampling needed and continuous blood pressure monitoring. Skin Prep: Chloraprep. Orientation: Left. Site: radial. Site Identification: ultrasound guided with sterile sleeve and gel. Sterile Technique: mask and cap. Gauge: 20. Catheter Length: 1 and 1/4 inch. Catheter Type: Arrow. Seldinger Technique Used? Yes Number of Attempts: 2. Line Secured with: tape and Tegaderm. Events: none. Procedure Start Time: 10/29/2023 7:52 AM. Staff Section Anesthesia Provider: Lisbeth Byrne Anes Asst, Performed the procedure Provider #1: Balaji Harrison MD. Balaji Harrison MD GENERAL ANESTHESIA O PROSPERERATATY * CBC W/O DIFFERENTIAL (10/29/2023 3:58 AM CDT) Only the most recent of3 resultswithin the time period is included. WBC 7.3 4.0 - 10.7 x10E9/L 10/29/2023 5:03 AM [facility] RBC Count 4.73 4.30 - 5.80 x10E12/L 10/29/2023 5:03 AM [facility] Hemoglobin 14.8 13.3 - 17.5 g/dL 10/29/2023 5:03 AM [facility] Hematocrit 42.3 38.7 - 51.1 % 10/29/2023 5:03 AM [facility] MCV 89.4 80.0 - 98.0 fL 10/29/2023 5:03 AM [facility] MCH 31.3 26.7 - 33.6 pg 10/29/2023 5:03 AM CDT [facility] MCHC 35.0 31.7 - 36.3 g/dL 10/29/2023 5:03 AM CDT [facility] RDW-CV 12.6 11.3 - 14.8 % 10/29/2023 5:03 AM CDT [facility] Platelet Count 284 150 - 420 x10E9/L 10/29/2023 5:03 AM CDT [facility] MPV 9.7 7.8 - 11.4 fL 10/29/2023 5:03 AM CDT [facility] Blood BLOOD SPECIMEN / Unknown Lab Venipuncture / Unknown 10/29/2023 3:58 AM CDT 10/29/2023 4:50 AM CDT Lew Laura MD LAB - HEMATOLOGY ORD ERABLES [facility] [address] [place] [phone], [facility] [phone] * BLOOD TYPE VERIFICATION (10/28/2023 11:40 AM CDT) ABO Rh A POS 10/28/2023 12:16 PM CDT [facility] B[facility]OD BANK LAB Blood Bank BLOOD SPECIMEN / Unknown Lab Venipuncture / Unknown 10/28/2023 11:40 AM CDT 10/28/2023 11:49 AM CDT Lew Laura MD LAB - BLOOD BANK ORD ERABLES [facility] [address] [place] [address], [place] [phone] * TYPE + SCREEN PANEL (10/28/2023 11:29 AM CDT) Antibody Screen NEG 12:16 PM CDT [facility] ABO Rh A POS 10/28/2023 12:16 PM CDT [facility] Blood Bank BLOOD SPECIMEN / Unknown Lab Venipuncture / Unknown 10/28/2023 11:29 AM CDT 10/28/2023 11:33 AM CDT Lew Laura MD LAB - BLOOD BANK ORD ERABLES [facility] [address] [place] [address], [facility] [phone] * VAS BILATERAL VENOUS MAPPING (10/25/2023 9:49 [...] Jack MD > Dictated by Molina Jack (Supervisor Testing) 10/24/2023 3:16 PM I, Pablo Greenfield MD have personally reviewed and interpreted this examination/study. > Interpreting Provider: Pablo Greenfield MD on 10/26/2023 4:48 PM Narrative 10/26/2023 4:48 PM CDT PROCEDURE: IR ANGIOGRAM BILATERAL LEG, DATE/TIME OF EXAM: 10/24/2023 2:34 PM, LOCATION [facility] PRE-PROCEDURE DIAGNOSIS: Bilateral toe osteomyelitis POST-PROCEDURE DIAGNOSIS: Same OPERATORS: Dr. Pablo Greenfield MD, Attending Physician Dr. Molina Jack MD, Resident Physician Dr. Pablo Hendrix MD, Resident Physician PROCEDURE: 1. Ultrasound guided access of the left common femoral artery 2. Abdominal aortogram 3. Bilateral lower extremity angiogram, third order catheterization of the right superficial femoral artery 4. Moderate [...] 1% was injected overlying the vessel. The common femoral artery measured 8 mm in AP diameter, and a normal waveform was observed. The left common femoral artery was accessed using a micropuncture needle under ultrasound guidance. The needle entry was documented. Images have been stored. Seldinger technique was used to place a microcatheter sheath. After a series of exchanges this was upsized for a 5 Belarusian sheath. A left lower extremity angiogram showed [...] All devices were removed and a 5 Belarusian minx device was deployed in the left [...] of fentanyl with a start time of 1335 hrs and an end time of 1636 hrs for a total of 61 minutes. Vital signs were observed and noted to be within normal limits throughout the entirety of sedation as well as postprocedure in the recovery area until discharge. For details on pre-moderate sedation and post-moderate sedation patient evaluation, please review the evaluation forms in [facility]. For details on monitored clinical parameters during the intra-service sedation time, please review the procedure nurse documentation in [facility]. COMPLICATIONS: None apparent ESTIMATED BLOOD LOSS: 3cc Procedure Note Pablo Greenfield MD - 10/26/2023 PROCEDURE: IR ANGIOGRAM BILATERAL LEG, DATE/TIME OF EXAM: :34 PM, LOCATION [facility] PRE-PROCEDURE DIAGNOSIS: Bilateral toe osteomyelitis POST-PROCEDURE DIAGNOSIS: [...] exchanges this was upsized for a 5 Belarusian sheath. A left lower extremity angiogram showed [...] All devices were removed and a 5 Belarusian minx device was deployed in the left [...] evaluation, please review the evaluation forms in [facility]. For details on monitored clinical parameters during the intra-service sedation time, please review the procedure nurse documentation in [facility]. COMPLICATIONS: None apparent ESTIMATED BLOOD LOSS: 3cc [...] Jack MD > Dictated by Molina Jack (Supervisor Testing) 10/24/2023 3:16 PM Pablo Ambrosio MD have personally reviewed and interpreted this examination/study. > Interpreting Provider: Pablo Greenfield MD on 10/26/2023 4:48 PM Lew Luara MD IR ORDERABLES * MRI FOOT RIGHT [...] osteomyelitis. Report dictated by Colin Cuenca DO (limited radiology technician). IBranden MD have personally reviewed and interpreted this examination/study. > Interpreting Provider: Branden Mcgregor MD on 10/23/2023 4:35 PM Narrative 10/23/2023 4:35 PM CDT PROCEDURE: MRI FOOT RIGHT WO CONTRAST DATE/TIME [...] osteomyelitis. Report dictated by Colin Cuenca DO (limited radiology technician). I, Branden Mcgregor MD have personally reviewed and interpreted this examination/study. > Interpreting Provider: Branden Mcgregor MD on 10/23/2023 4:35 PM Aurea Del Castillo MD MR ORDERABLES * ECHO COMPLETE W CONTRAST (10/23/2023 10:51 AM CDT) BSA [id number] m2 [facility]SM CV FUJ I PACS Sinus [...] PACS TAPSE 2.705 1.7 cm [facility] CV FUJ I PACS RVOT pk lady 0.76 m/s SSM CV F UJI PACS RA area 25.774 cm2 [facility] CV FUJ I PACS AV mn grad 4 mmHg SSM CV FU JI PACS AV pk grad 8 mmHg SSM CV FU JI PACS AV mn lady 0.97 m/s SSM CV FUJ I PACS AV pk lady 1.49 m/s SSM CV FUJ I PACS AV VTI 27.191 cm SSM CV FUJ I PACS LVOT pk grad 5.473 mmHg SSM CV FUJI PACS LVOT VTI 22.341 cm SSM CV FUJ I PACS AV area cont VTI 3.8 cm2 SSM CV FUJI PACS AV area pk lady 3.6 cm2 SSM C V FUJI PACS AV Doppler lady index pk lady [...] Index 28 ml/m2 SSM CV FUJI PACS [id number] 8.272 cm SSM CV FUJ I PACS [id number] 7.763 cm SSM CV FUJ I PACS LVIDs index 1.85 1.3 - 2.1 cm/m2 S[facility] CV FUJI PACS LV LVIDd index 2.19 2.2 - 3.0 cm/m2 SSM CV FUJI PACS LV biplane EF 61 52 - 72 % SSM CV FUJI PACS Anatomical Region Laterality Modality Ultrasound Narrative 10/23/2023 12:44 PM CDT Left Ventricle: Left ventricle size is normal. Normal wall thickness. Ventricular mass is normal. Normal systolic function. EF by 2D Larsen biplane is 61%. Normal wall motion. Normal diastolic function. Right Ventricle: Right ventricle size is normal. Normal systolic function. No hemodynamically significant valvular abnormalities Left Ventricle Left [...] Procedure Note Alda Bryant MD - 10/23/2023 Left Ventricle: Left ventricle size is normal. Normal wall thickness.Ventricular mass is normal. Normal systolic function. EF by 2D Simpsonbiplane is 61%. Normal wall motion. Normal diastolic function. Right Ventricle: Right ventricle size is normal. Normal systolicfunction. No hemodynamically significant valvular abnormalities Aurea Del Castillo MD ECHO CUPID * (ABNORMAL) RENAL FUNCTION PANEL (10/23/2023 3:45 AM CDT) Only the most recent of2 resultswithin the time period is included. BUN 14 7 - 26 mg/dL 10/23/2023 4:47 AM [facility] Creatinine 0.76 0.71 - 1.16 mg/dL 10/23/2023 4:47 AM [facility] Sodium 138 136 - 145 mmol/L 10/23/2023 4:47 AM [facility] Potassium 4.4 3.5 - 4.5 mmol/L 10/23/2023 4:47 AM [facility] Chloride 104 98 - 107 mmol/L [facility]/23[facility]23 [facility] 25 22 - 29 mmol/L 10/23/2023 4:47 AM [facility] Glucose 113 70 - 115 mg/dL 10/23/2023 4:47 AM [facility] Albumin 3.1(L) 3.4 - 5.0 g/dL 10/23/2023 4:47 AM [facility] Calcium 9.6 8.4 - 10.2 mg/dL 10/23/2023 4:47 AM [facility] Phosphorus 4.0 2.8 - 5.1 mg/dL 10/23/2023 4:47 AM [facility] Anion Gap 9 6 - 16 10/23/2023 4:47 AM [facility] BUN/Creatinine Ratio 18 7 - 23 10/23/2023 4:47 AM [facility] Osmolality Calculated 287 275 - 295 mOsm/kg 10/23/2023 4:47 AM [facility] eGFR by CKD-EPI >90 >=90 mL/min/1.7 3 m2 10/23/2023 4:47 AM [facility] Blood BLOOD SPECIMEN / Unknown Lab Venipuncture / Unknown 10/23/2023 3:45 AM CDT 10/23/2023 4:19 AM T Aurea Del Castillo MD LAB - CHEMISTRY ORDE [facility] Organization Address City/State/ZIP Co de Phone Number [facility] [address] [place] [address], [facility] [phone] * (ABNORMAL) HEMOGLOBIN A1C (2023 4:05 AM T) Hemoglobin A1c 8.7(H) <=5.6 % 2023 9:42 AM [facility] Estimated Average Glucose 203 mg/dL 2023 9:42 AM [facility] Comment: HbA1c Interpretation: Normal : < 5.7% Pre-diabetes: 5.7-6.4% Diabetes: Equal to or greater than 6.5% Test results diagnostic of diabetes should be repeated for confirmation. Treatment target values recommended by ADA and other clinical organizations should be used to evaluate metabolic control in patients. Reference: [place] [employer], Standards of Care in Diabetes [...] Aurea Del Castillo MD LAB - CHEMISTRY [facility] Organization Address City/State/ZIP Co de Phone Number [address] [address], [facility] [phone] * MRI HAND LEFT WWO CONTRAST (10/21/2023 [...] region. Report dictated by Colin Cuenca DO (limited radiology technician). I, Branden Mcgregor MD have personally reviewed and interpreted this examination/study. > Interpreting Provider: Branden Mcgregor MD on 2023 10:08 AM Narrative 2023 10:08 AM CDT PROCEDURE: MRI HAND LEFT WWO CONTRAST DATE/TIME [...] region. Report dictated by Colin Cuenca DO (limited radiology technician). I, Branden Mcgregor MD have personally reviewed and interpreted this examination/study. > Interpreting Provider: Branden Mcgregor MD on 2023 10:08 AM Jennifer Caban MD MR ORDERABLES * CULTURE WOUND+GRAM STAIN (10/20/2023 3:25 PM CDT) Pathologist [facility] Culture Rare normal skin robyn 2023 8:23 PM CDT [facility] Gram Stain Moderate Red blood cells 2023 8:23 PM CDT [facility] Gram Stain No polymorphonuclear cells 2023 8:23 PM CDT [facility] Gram Stain No organisms seen 024 8:23 PM CDT [facility] Microbiology ENTIRE FINGER / Unknown Collection / Unknown 10/20/2023 3:25 PM CDT 10/20/2023 3:28 PM CDT Aurea Del Castillo MD LAB - MICROBIOLOGY O RDERABLES [facility] [address] [place] [address], [facility] [phone] * (ABNORMAL) LIPID PROFILE (10/20/2023 4:02 AM CDT) Pathologist [facility] Cholesterol Total 163 <200 mg/dL 10/20/2023 5:16 AM CDT [facility] HDL 31(L) >40 mg/dL 10/20/2023 5:16 AM CDT [facility] Comment: ATP III Classification of HDL Cholesterol: <40 mg/dL: Considered a major risk factor. >60 mg/dL: Considered a negative risk factor. LDL Calculated 93 <100 mg/dL 10/20/2023 5:16 AM CDT [facility] Comment: ATP III Classification of LDL Cholesterol: <100 mg/dL: Optimal 100 - 129 mg/dL: Near Optimal/Above Optimal 130 - 159 mg/dL: Borderline High 160 - 189 mg/dL: High >190 mg/dL: Very High Triglycerides 194(H) <150 mg/dL 10/20/2023 5:16 AM CDT [facility] Comment: ATP III Classification of Triglycerides: <150 mg/dL: Normal 150 - 199 mg/dL: Borderline High 200 - 400 mg/dL: High >500 mg/dL: Very High Blood BLOOD SPECIMEN / Unknown Lab Venipuncture / Unknown 10/20/2023 4:02 AM CDT 10/20/2023 4:41 AM CDT Jennifer Caban MD LAB - CHEMISTRY ORDERABLES Performing Organization Address [facility]/State/[facility] Co de Phone Number [facility] [address] [place] [address], [facility] [phone] * XR HAND LEFT 2VW (10/20/2023 1:25 AM CDT) Anatomical Region Laterality Modality Wrist / Hand Radiographic Juliann ging 10/20/2023 9:16 AM CDT Narrative 10/20/2023 2:42 PM CDT PROCEDURE: XR HAND LEFT 2VW DATE/TIME OF [...] Waters DO on 10/20/2023 2:42 PM Jennifer Caban MD DIAGNOSTIC IMAG ING ORDERABLES * (ABNORMAL) BLOOD GASES CRISTIAN + COOX PANEL (10/19/2023 11:25 PM CDT) pH Venous 7.42 7.32 - 7.42 pH 10/19/2023 11:49 PM [facility] pO2 Venous 121(H) 35 - 40 mmHg 10/19/2023 11:49 PM [facility] pCO2 Venous 40 40 - 50 mmHg 10/19/2023 11:49 PM [facility] HCO3 Venous 25.9 20 - 30 mmol/L 10/19/2023 11:49 PM [facility] Base Excess Venous 1.3 -2.0 - 2.0 mmol/L 10/19/2023 11:49 PM [facility] Oxyhemoglobin Venous 96.3 % 09/24 11:49 PM [facility] Deoxyhemoglobin (HHB) Venous % <1.0 % 10/19/2023 11:49 PM [facility] Methemoglobin 1.0 0.0 - 2.0 % 10/19/2023 11:49 PM T [facility] Carboxyhemoglobin 2.0 0.0 - 2.0 % 2023 11:49 PM [facility] O2 Content Venous 19.1 Interpret within clinical context ml/dL 10/19/2023 11:49 PM [facility] Hemoglobin by COOX 14.0 12.0 - 17.6 g/dL 10/19/2023 11:49 PM [facility] O2 Saturation Venous 99 >=70 % 09/24 11:49 PM [facility] FI O2 Mixed Venous 21.0 % 2023 11:49 PM [facility] Blood BLOOD SPECIMEN / Unknown Venipuncture / Unknown 10/19/2023 11:25 PM CDT 10/19/2023 11:37 PM CDT Narrative [facility] - 10/19/2023 11:49 PM CDT Carboxyhemoglobin Normal Concentration: Non-smokers: 0-2%; Smokers: 0-9%; Toxic: >20% Jennifer Caban MD LAB - BLOOD GAS ES ORDERABLES [facility] [address] [place] [phone], [facility] [phone] * (ABNORMAL) MICROALB/CREAT RATIO URINE RANDOM PANEL (10/19/2023 11:18 PM CDT) Albumin Random Urine 26.6 Not Established ug/mL 10/19/2023 11:58 PM [facility] Creatinine Urine 77.71 Not Established mg/dL 10/19/2023 11:58 PM [facility] Urine Albumin/Creati nine Ratio 34(H) <30 mg/g 10/19/2023 11:58 PM T [facility] Urine URINE SPECIMEN OBTAINED BY CLEAN CATCH PROCEDURE / Unknown Collection / Unknown 10/19/2023 11:18 PM CDT 10/19/2023 11:37 PM CDT Jennifer Caban MD LAB - URINE KELLEN GALDINO ORDERABLES [place] [id number] [place] [address], [facility] [phone] * XR SKULL 3VW OR LESS (10/19/2023 [...] PM Narrative 10/20/2023 2:41 PM CDT PROCEDURE: XR SKULL 3VW OR LESS DATE/TIME [...] 35 <100 pg/mL 10/19/2023 9:27 PM CDT [facility] Comment: A decision threshold of 100 pg/mL has been demonstrated to provide the maximal combination of sensitivity, specificity and predictive value for the diagnosis of congestive heart failure (CHF). Virtually all patients with no evidence of CHF have BNP values less than 100 pg/mL. A BNP value greater than 100 pg/mL is consistent with the diagnosis of CHF in the appropriate clinical setting. In a study of 693 patients (male and female) with diagnosed CHF, the following values were determined based on the NYHA functional classification system: NYHA Functional Class Mean Valule (pg/mL) % >100 pg/mL I 320 58.1 II 432 73.0 III 656 79.0 IV 1635 98.3 Blood BLOOD SPECIMEN / Unknown Lab Venipuncture / Unknown 10/19/2023 8:40 PM CDT 10/19/2023 8:54 PM CDT Jennifer Caban MD LAB - CHEMISTRY ORDERABLES [address] [address], [facility] [phone] * LACTIC ACID BLOOD (10/19/2023 8:39 PM CDT) Pathologist [facility] Lactic Acid-Stat 1.1 <=2.0 mmol/L 10/19/2023 9:16 PM CDT [facility] Blood BLOOD SPECIMEN / Unknown Lab Venipuncture / Unknown 10/19/2023 8:39 PM CDT 10/19/2023 8:54 PM CDT Jennifer Caban MD LAB - CHEMISTRY ORDERABLES [address] [address], [facility] [phone] * XR CHEST 1VW PORTABLE (10/19/2023 8:20 PM CDT) Anatomical Region Laterality Modality Chest Radiographic Juliann ging 10/20/2023 7:31 AM CDT Narrative 10/20/2023 2:17 PM CDT PROCEDURE: XR CHEST 1VW PORTABLE, DATE/TIME OF EXAM: 10/19/2023 8:20 PM, LOCATION [facility] INDICATION: A49.01: MSSA (methicillin susceptible Staphylococcus aureus) [...] Report dictated by Stacey Dorantes Dr, MD (limited radiology technician). Forrest Ambrosio DO have personally reviewed and interpreted this examination/study. > Interpreting Provider: Forrest Waters DO on 10/20/2023 2:17 PM Procedure Note Forrest Waters DO - 10/20/2023 PROCEDURE: XR CHEST 1VW PORTABLE, DATE/TIME OF EXAM: 10/19/2023 8:20PM, LOCATION [facility] INDICATION: A49.01: MSSA (methicillin susceptible Staphylococcus aureus) [...] Report dictated by Stacey Dorantes Dr, MD (limited radiology technician). Forrest Ambrosio DO have personally reviewed and interpreted this examination/study. > Interpreting Provider: Forrest Waters DO on 10/20/2023 2:17 PM Jennifer Caban MD DIAGNOSTIC IMAG ING ORDERABLES Care Teams Heliarc Welder Relationship Specialty Start Date End Date Philippe Martinez MD [address] [place] [phone] PCP - General Family Medicine 11/01/23
--- OUTSIDE RECORDS SUMMARY | 2024-08-29 11:12 | XMS_ITS | Clinical Summary ---
Author Organization [facility] Address [address] [place] [address] Care Team Providers Care Manager Internal Name Role Phone Dejan Zabala MD Unavailable [...] Department Care Team Description 07/02/2024 9:15 AM BLENDER SNUFF Ancillary Procedure [facility] Medical [facility] Cardiology [address] [facility] [address] [place] [phone] Chest pain, unspecified type 06/26/2024 9:30 AM BLENDER SNUFF Office Visit [facility] Cardiology [address] [facility] [address] [place] [phone] Lynn Ren MD Chest pain, unspecified type (Primary Dx); Primary hypertension; Mixed hyperlipidemia; PAD (peripheral artery disease) from Last 3 Months Surgical History Surgery Date Site/Laterality Comments TOE AMPUTATION 10/29/2023 Right ARTERIAL BYPASS SURGERY lower limb Medical History Medical History Date Comments PAD (peripheral artery disease) Hx of blood clots Hypertension GERD (gastroesophageal [...] on file Legal Sex Male 8:21 PM BLENDER SNUFF Gender Identity Not on file Sexual Orientation Not on file Obstetrics History Last Filed Vital Signs Vital Sign Reading Time Taken Comments Blood Pressure 150/92 06/26/2024 9:25 AM BLENDER SNUFF Pulse 112 06/26/2024 9:25 AM BLENDER SNUFF Temperature 36.4 C (97.5 F) 01/10/2023 6:50 PM CDT Respiratory Rate 16 01/10/2023 6:50 PM CDT Oxygen Saturation 96% 06/26/2024 9:25 AM BLENDER SNUFF Inhaled Oxygen Concentration - - Weight 137.8 kg (303 lb 14.4 oz) 06/26/2024 9:25 AM BLENDER SNUFF Height 193 cm (6' 4 ) 06/26/2024 9:25 AM BLENDER SNUFF Body Mass Index 36.99 06/26/2024 9:25 AM BLENDER SNUFF Plan of Treatment Health Maintenance Due Date Last Done Comments Colon Cancer Screening-Colonoscopy 1970 Depression Screening 1970 Hepatitis C Screening 1970 Prostate Cancer Screening-PSA 1970 DTaP/Tdap/Td Vaccine (1 - Tdap) 1981 Hepatitis B Screening 1988 Regular Well Visit/Exam 18-64 1988 Pneumococcal vaccine <65 (1 of 2 - PCV) 1989 Zoster Vaccine (1 of 2) 2020 Influenza Vaccine (#1) 2024 05/26/2023 Procedures Procedure Name Priority Date/Time Associated Diagnosis Comments NM MPI SPECT (REST AND/OR STRESS) MULTIPLE STUDIES Schedule Routine, Read Routine (OP Routine) 07/02/2024 10:50 AM BLENDER SNUFF Chest pain, unspecified type ELECTROCARDIOGRAM REPORT Routine 06/26/2024 12:34 PM BLENDER SNUFF Chest pain, unspecified type from Last 3 Months Results * NM MPI SPECT (Rest and/or Stress) Multiple Studies (07/02/2024 10:50 AM BLENDER SNUFF) LV EF % CONS SCIMAGE Anatomical Region Laterality Modality Body N/A Nuclear Medicine 07/02/2024 9:52 AM BLENDER SNUFF Narrative 07/02/2024 12:56 PM BLENDER SNUFF [facility] Medical Group Cardiology [address], [place] [address] [address] [facility] [address], [place] [address] P:[phone] P:[phone] MPI Imaging Report Patient Name: BERNICE COLUNGA M : 1970 Study Date: 07/02/2024 9:52:05 AM Gender: M Tech: [facility] Location: [facility] Provider: LYNN REN Height(Cm): 193 BSA: Weight(Kg): 137.8 BMI: 36.99 Order Provider: LYNN REN - PHYSICIAN: Referring Physician: Isabell Willis NP. HCG Physician: Lynn Ren M.D., F.A.C.C. Interpreting Physician: Jorden Moreira M.D. Stress Supervision: Jorden Moreira M.D. PROCEDURES: Pharmacologic SPECT Report: Myocardial perfusion imaging with Tc99M Sestamibi SPECT at rest and stress post regadenoson (Lexiscan) infusion. INDICATIONS: Hypertension, Shortness Of Breath. PAD, Diabetes, Family Hx CAD, High Cholesterol, Smoker, and R07.9 Chest pain, unspecified. FINDINGS: [...] Left ventricular ejection fraction is 53 %. CONCLUSIONS: Global left ventricular function is normal. Left ventricular ejection fraction is 53 %. Myocardial perfusion imaging is normal. Negative EKG portion of stress test. Electronically Signed By: Forrest Moreira MD 07/02/2024 12:55:27 PM BLENDER SNUFF Electronically Signed By: Forrest Moreira MD 07/02/2024 12:55:27 PM BLENDER SNUFF Procedure Note Forrest Moreira MD - 07/02/2024 [facility] Medical Group Cardiology [address] [facility] [address] [id number] [address] [facility] [address], [place] [address] P:[phone] P:[phone] MPI Imaging Report Patient Name: BERNICE COLUNGA M : 1970 Study Date: 07/02/2024 9:52:05 AM Gender: M Tech: [facility] Location: [facility] Provider: LYNN REN Height(Cm): 193 BSA: [...] By: Forrest Moreira MD 07/02/2024 12:55:27 PM BLENDER SNUFF Electronically Signed By: Forrest Moreira MD 07/02/2024 12:55:27 PM BLENDER SNUFF Lynn Ren MD IMG NM PROCEDURES Final Result * Electrocardiogram Report (06/26/2024 12:34 PM BLENDER SNUFF) Lynn Ren MD ECG ORDERABLES Final R esult from Last 3 Months Insurance [facility] H[facility]PPO Address: [facility] [address] [place] [id number] Advance Directives For more information, please contact: [phone] * Full Code (Latest Code Status on File) Date Activated Date Inactivated Comments 01/10/2023 7:28 PM 01/11/2023 12:07 AM Care Teams Manager Internal Relationship Specialty Start Date End Date Isabell Willis NP [address] [place] [phone] PCP - General Nurse Practitioner 05/09/24 Dejan Zabala MD Surgeon Vascular Surgery 01/10/23
--- OUTSIDE RECORDS SUMMARY | 2024-08-29 11:12 | XMS_ITS | Encounter Summary ---
Author Organization [facility] Address [address] [place] [address] Care Team Providers Care Hatchery Helper Name Role Phone Philippe Martinez MD Primary Care Provider [phone] Encounter Details Date Type Department Care Team (Late st Contact Info) Description 02/09/2023 Prep for Procedure [facility], [facility] [address] [place], [place] [phone] Cisco Forde MD Three [facility]. [facility] [address] [place], [place] [phone] Social History Tobacco Use Types Packs/Day Years [...] Assessment Author Status No 08/24/2021 3:00 PM VP SOFTWARE SUPPORT Activ e * RETIRED Are you blind or do you have serious difficulty seeing, even when wearing glasses? Answer Date of Assessment Author Status No 08/24/2021 3:00 PM VP SOFTWARE SUPPORT Activ e * Do you have serious difficulty walking or climbing stairs? Answer Date of Assessment Author Status No 08/24/2021 3:00 PM Paty Riojas RN Active * Do you have difficulty dressing or bathing? Answer Date of Assessment Author Status No 08/24/2021 3:00 PM Paty Riojas RN Active * Because of a physical, [...] and discharge planning General No Estrella Henderson, INSURANCE PROFESSIONAL Health - patient able to perform ADLs independently General No Marcial Goodman RN documented as of this encounter Visit Diagnoses Not on filedocumented in this encounter Care Teams Hatchery Helper Relationship Specialty Start Date End Date Philippe Martinez MD [address] [place] [phone] PCP - General FAMILY PRACTICE 01/10/23 documented as of this encounter
--- OUTSIDE RECORDS SUMMARY | 2024-08-29 11:12 | XMS_ITS | Referral Summary ---
Author Organization [facility] Address [address] [place] [address] Care Team Providers Care Diagnostic Assistant Name Role Phone Philippe Martinez MD Primary Care Provider [phone] Source Comments [facility],non-owned Affiliates and Associated Physician Practices is amultiple site organization consisting of ambulatory clinics and hospital sitesin [place], [place]. This disclosure is being madepursuant to the Care Everywhere program and may not contain all information available regarding this patient. Last updated 18.[facility] Encounters Date Type Department Care Team Description 07/15/2024 Travel 07/15/2024 1:30 PM DRY CHAIN WORKER Office Visit [facility] - Vascular Surgery [address] [place] [phone] Pablo Greenfield MD History of amputation of lesser toe of right foot ([facility]) (Primary Dx); Right knee pain, unspecified chronicity; PAD (peripheral artery disease) ([facility]); Fracture of right foot, sequela; Type 2 diabetes mellitus with diabetic polyneuropathy, without long-term current use of insulin ([facility]) 07/09/2024 Travel 06/11/2024 Travel from Last 3 Months Allergies Active [...] current use of insulin (HCC) Use 1 Each as directed 1 Each 11/01/2023 Active blood glucose test stripIndications:Ty pe 2 diabetes mellitus with diabetic polyneuropathy, without long-term current use of insulin (HCC) Use 1 (one) strip as directed 100 strip 3 11/01/2023 Active acetaminophen (Tylenol) 500 MG tablet Take 2 (two) tablets by mouth every 6 hours as needed for Fever, Pain or Headache Maximum allowable Acetaminophen amount = 4 Grams (4000 mg) / 24 hours. 11/01/2023 Active aspirin (Aspirin) 81 MG chew tablet Take 1 (one) tablet by mouth once daily 30 tablet 2 11/02/2023 Active clopidogrel (plaVIX) 75 MG tablet Take 1 (one) tablet by mouth once daily 30 tablet 1 11/02/2023 Active gabapentin (Neurontin) 300 MG capsule Take 2 (two) capsules by mouth 3 times daily 180 capsule 11/02/2023 Active insulin aspart (NovoLOG) pen Inject 0 (zero) Units to 6 (six) Units subcutaneously 3 times daily with meals 3 mL 2 11/02/2023 Active insulin glargine (Lantus/Semglee) 100 units/mL pen Inject 10 (ten) Units subcutaneously once daily 15 mL 1 11/02/2023 Active amLODIPine (Norvasc) 10 MG tablet Take 1 (one) tablet by mouth once daily 30 tablet 11/02/2023 Active metroNIDAZOLE (Flagyl) 500 MG tablet Take 1 (one) tablet by mouth every 8 hours for 1 day 3 tablet 11/02/2023 Active lancetsIndications: Type 2 diabetes mellitus with diabetic polyneuropathy, without long-term current use of insulin ([facility]) Use 1 (one) Each once daily 100 Each 2 11/06/2023 Active HumaLOG KwikPen 100 UNIT/ML pen 11/01/2023 Active BD Pen Needle Analisa 2nd Gen 32G X 4 MM MISC as directed 11/06/2023 Active ibuprofen (Motrin) 800 MG tablet Take 1 (one) tablet by mouth 3 times daily 30 tablet 12/07/2023 Active oxyCODONE, immediate release, (Roxicodone) 5 MG tabletIndications:P ost-op pain Take 1 (one) tablet by mouth every 6 hours as needed for Pain 12 tablet 01/02/2024 Active Blood Glucose Monitoring Suppl (DB3 MobileTouch Verio Reflect) w/Device KITIndications:Type 2 diabetes mellitus with diabetic polyneuropathy (HCC) USE DIRECTED 1 kit 11/01/2023 11/01/19 25 Active Lancets (ONETOUCH DELICA PLUS 33G EXTRA FINE LANCET)Indications: Type 2 diabetes mellitus with diabetic polyneuropathy (HCC) USE 1 EACH ONCE DAILY 100 Each 2 11/01/2023 11/01/19 25 Active insulin lispro (HumaLOG;ADMelog) 100 UNIT/ML pen INJECT ZERO TO SIX UNITS UNDER THE SKIN 3 TIMES A DAY WITH MEALS 15 mL 2 11/01/2023 Active blood glucose test stripIndications:Ty pe 2 diabetes mellitus with diabetic polyneuropathy (HCC) USE 1 STRIP ONCE DAILY DIRECTED 100 strip 3 11/01/2023 11/01/19 25 Active insulin glargine (Lantus/Semglee) 100 units/mL pen INJECT 10 UNITS UNDER THE SKIN ONCE DAILY 15 mL 2 11/01/2023 Active gabapentin (Neurontin) 300 MG capsule TAKE 2 CAPSULES BY MOUTH 3 TIMES A DAY 180 capsule 11/01/2023 Active senna-docusate (Senokot-S) 8.6-50 MG tablet TAKE ONE TABLET BY MOUTH 2 TIMES A DAY 30 tablet 11/01/2023 Active polyethylene glycol 3350 (Miralax) 17 GM/SCOOP powder TAKE 17 GRAMS BY MOUTH ONCE DAILY 238 g 11/01/2023 Active nicotine (Nicoderm CQ) 14 MG/24HR patchIndications:Os teomyelitis, unspecified ([facility]) APPLY ONE PATCH TO THE SKIN ONCE DAILY 28 patch 11/01/2023 Active insulin aspart (NovoLOG) pen INJECT 0 TO 6 UNITS UNDER THE SKIN 3 TIMES A DAY WITH MEALS 15 mL 2 11/02/2023 11/02/19 25 Active insulin glargine (Lantus/Semglee) 100 units/mL pen INJECT 10 UNITS UNDER THE SKIN ONCE DAILY 15 mL 1 11/02/2023 11/02/19 25 Active polyethylene glycol 3350 (Miralax) 17 GM/SCOOP powder MIX AND TAKE 1 CAPFUL (17 GM) BY MOUTH ONCE DAILY 510 g 11/02/2023 11/02/19 Active senna-docusate (Senokot-S) 8.6-50 MG tablet TAKE ONE TABLET BY MOUTH 2 TIMES A DAY 30 tablet 11/02/2023 11/02/19 Active nicotine (Nicoderm CQ) 14 MG/24HR patchIndications:Os teomyelitis, unspecified (HCC) APPLY ONE PATCH TO SKIN ONCE DAILY 28 patch 11/02/2023 11/02/19 Active metroNIDAZOLE (Flagyl) 500 MG tablet TAKE ONE TABLET BY MOUTH EVERY 8 HOURS 3 tablet 11/02/2023 11/02/19 Active Misc. Devices (Crutches-Aluminum) MISC Use 1 Units once for 1 dose 1 Each 03/20/2024 Active Active Problems Problem Noted Date Diagnosed [...] and heating? Not hard at all 11/01/2023 [facility] - Occupational Stress [...] slept in a residential (including now)? No 11/01/2023 Sex and Gender Information Value Date Recorded Sex Assigned at Not on file Gender Identity Not on file Sexual Orientation Not on file Last Filed Vital Signs Vital Sign Reading Time Taken Comments Blood Pressure 131/94 07/15/2024 1:14 PM DRY CHAIN WORKER Pulse 100 07/15/2024 1:14 PM DRY CHAIN WORKER Temperature 37.1 C (98.7 F) 07/15/2024 1:14 PM DRY CHAIN WORKER Respiratory Rate 18 04/29/2024 1:36 PM DRY CHAIN WORKER Oxygen Saturation 94% 07/15/2024 1:14 PM DRY CHAIN WORKER Inhaled Oxygen Concentration - - Weight 137.4 kg (303 lb) 07/15/2024 1:14 PM DRY CHAIN WORKER Height 193 cm (6' 4 ) 07/15/2024 1:14 PM DRY CHAIN WORKER Body Mass Index 36.88 07/15/2024 1:14 PM DRY CHAIN WORKER Functional Status Functional Status Response Date of [...] Info) Description 11/04/2024 10:00 AM CDT Appointment [facility] [place] [address] Pablo Greenfield MD [address] [place] [address] [address] [place] [address] 11/04/2024 11:00 AM CDT Appointment [facility] [place] [address] Pablo Greenfield MD [address] [place] [address] [address] [place] [address] 11/04/2024 2:15 PM CDT Office Visit [facility] - Vascular Surgery [address] [place] [address], [place] [address] Pablo Greenfield MD [address] [place] [address] [address] [place] [address] Procedures Procedure Name Priority Date/Time Associated Diagnosis Comments COMPREHENSIVE METABOLIC PANEL STAT 12/04/2023 4:49 PM CDT HEMOGLOBIN A1C Routine 2023 4:05 AM CDT MICROALB/CREAT RATIO URINE RANDOM PANEL Routine 10/19/2023 11:18 PM CDT from Last 3 Months or Most Recently Relevant to Health Maintenance Results * (ABNORMAL) COMPREHENSIVE METABOLIC PANEL (12/04/2023 4:49 PM CDT) Pathologist [facility] BUN 16 7 - 26 mg/dL 12/04/2023 5:26 PM [facility] Creatinine 0.91 0.71 - 1.16 mg/dL 12/04/2023 5:26 PM [facility] Sodium 140 136 - 145 mmol/L 12/04/2023 5:26 PM [facility] Potassium 4.3 3.5 - 4.5 mmol/L 12/04/2023 5:26 PM [facility] Chloride 106 98 - 107 mmol/L 12/04/2023 5:26 PM [facility] CO2 21(L) 22 - 29 mmol/L 12/04/2023 5:26 PM [facility] Glucose 84 70 - 115 mg/dL 12/04/2023 5:26 PM [facility] Calcium 10.0 8.4 - 10.2 mg/dL 12/04/2023 5:26 PM [facility] Protein Total 8.2 6.0 - 8.3 g/dL 12/04/2023 5:26 PM [facility] Albumin 4.1 3.4 - 5.0 g/dL 12/04/2023 5:26 PM [facility] Bilirubin Total 0.3 0.2 - 1.2 mg/dL 12/04/2023 5:26 PM [facility] Alkaline Phosphatase 122 40 - 150 U/L 12/04/2023 5:26 PM [facility] ALT 19 5 - 55 U/L 12/04/2023 5:26 PM [facility] AST 16 5 - 34 U/L 12/04/2023 5:26 PM [facility] Anion Gap 13 6 - 16 12/04/2023 5:26 PM [facility] BUN/Creatinine Ratio 18 7 - 23 12/04/2023 5:26 PM [facility] Osmolality Calculated 290 275 - 295 mOsm/kg 12/04/2023 5:26 PM [facility] Albumin/Globulin Ratio 1.0(L) 1.1 - 2.3 12/04/2023 5:26 PM [facility] eGFR by CKD-EPI >90 >=90 mL/min/1.7 3 m2 12/04/2023 5:26 PM [facility] Blood BLOOD SPECIMEN / Unknown Venipuncture / Unknown 12/04/2023 4:49 PM CDT 12/04/2023 5:00 PM CDT Walter Oakes MD LAB - CHEMISTRY BHARTI [place] [facility] Organization Address City/State/ZIP Co de Phone Number [facility] [address] [place] [phone], [facility] [phone] * (ABNORMAL) HEMOGLOBIN A1C (2023 4:05 AM T) Hemoglobin A1c 8.7(H) <=5.6 % 2023 9:42 AM [facility] Estimated Average Glucose 203 mg/dL 2023 9:42 AM [facility] Comment: HbA1c Interpretation: Normal : < 5.7% Pre-diabetes: 5.7-6.4% Diabetes: Equal to or greater than 6.5% Test results diagnostic of diabetes should be repeated for confirmation. Treatment target values recommended by ADA and other clinical organizations should be used to evaluate metabolic control in patients. Reference: [place] [employer], Standards of Care in Diabetes [...] - CHEMISTRY BHARTI ISRAEL Performing Organization Address City/[facility]/ZIP Co de Phone Number [facility] [address] [place] [address], [facility] [phone] * (ABNORMAL) MICROALB/CREAT RATIO URINE RANDOM PANEL (10/19/2023 11:18 PM CDT) Albumin Random Urine 26.6 Not Established ug/mL 10/19/2023 11:58 PM CDT [facility] Creatinine Urine 77.71 Not Established mg/dL 10/19/2023 11:58 PM CDT [facility] Urine Albumin/Creati nine Ratio 34(H) <30 mg/g 10/19/2023 11:58 PM CDT [facility] Urine URINE SPECIMEN OBTAINED BY CLEAN CATCH PROCEDURE / Unknown Collection / Unknown 10/19/2023 11:18 PM CDT 10/19/2023 11:37 PM CDT Jennifer Caban MD LAB - URINE KELLEN GALDINO ORDERABLES Performing Organization Address City/[facility]/ZIP Co de Phone Number [facility] [address] [place] [phone], [facility] [phone] from Last 3 Months or Most Recently Relevant to Health Maintenance Advance Directives * Full Code (Latest Code Status on File) Date Activated Date Inactivated Comments 10/29/2023 5:30 PM 11/02/2023 8:39 PM * Full Code Date Activated Date Inactivated Comments 10/19/2023 8:07 PM 10/29/2023 5:29 PM Care Teams Diagnostic Assistant Relationship Specialty Start Date End Date Philippe Martinez MD [address] [place] [phone] PCP - General Family Medicine 11/01/23
--- OUTSIDE RECORDS SUMMARY | 2024-08-29 11:12 | XMS_ITS | Referral Summary ---
Author Organization [facility] Address [address] [place] [address] Care Team Providers Care Speech Instructor Name Role Phone Dejan Zabala MD Unavailable Isabell Willis NP Primary Care Provider Encounters Date Type Department Care Team Description 07/02/2024 9:15 AM FILLING MACHINE OPERATOR Ancillary Procedure [facility] Medical [facility] Cardiology [address] [place] [phone] Chest pain, unspecified type 06/26/2024 9:30 AM FILLING MACHINE OPERATOR Office Visit [facility] Cardiology [address] [facility] [address] [place] [phone] Lynn Ren MD Chest pain, unspecified type (Primary Dx); Primary hypertension; Mixed hyperlipidemia; PAD (peripheral artery disease) from Last 3 Months Allergies Active Allergy [...] on file Legal Sex Male 8:21 PM FILLING MACHINE OPERATOR Gender Identity Not on file Sexual Orientation Not on file Last Filed Vital Signs Vital Sign Reading Time Taken Comments Blood Pressure 150/92 06/26/2024 9:25 AM FILLING MACHINE OPERATOR Pulse 112 06/26/2024 9:25 AM FILLING MACHINE OPERATOR Temperature 36.4 C (97.5 F) 01/10/2023 6:50 PM CDT Respiratory Rate 16 01/10/2023 6:50 PM CDT Oxygen Saturation 96% 06/26/2024 9:25 AM FILLING MACHINE OPERATOR Inhaled Oxygen Concentration - - Weight 137.8 kg (303 lb 14.4 oz) 06/26/2024 9:25 AM FILLING MACHINE OPERATOR Height 193 cm (6' 4 ) 06/26/2024 9:25 AM FILLING MACHINE OPERATOR Body Mass Index 36.99 06/26/2024 9:25 AM FILLING MACHINE OPERATOR Plan of Treatment Not on file Procedures Procedure Name Priority Date/Time Associated Diagnosis Comments NM MPI SPECT (REST AND/OR STRESS) MULTIPLE STUDIES Schedule Routine, Read Routine (OP Routine) 07/02/2024 10:50 AM FILLING MACHINE OPERATOR Chest pain, unspecified type ELECTROCARDIOGRAM REPORT Routine 06/26/2024 12:34 PM FILLING MACHINE OPERATOR Chest pain, unspecified type from Last 3 Months Results * NM MPI SPECT (Rest and/or Stress) Multiple Studies (07/02/2024 10:50 AM FILLING MACHINE OPERATOR) LV EF % CONS SCIMAGE Anatomical Region Laterality Modality Body N/A Nuclear Medicine 07/02/2024 9:52 AM FILLING MACHINE OPERATOR Narrative 07/02/2024 12:56 PM FILLING MACHINE OPERATOR [facility] Medical Group Cardiology [address] [facility] [address] [address] [address] [facility] [address] [place] [address], [place] [address] P:[phone] P:[phone] MPI Imaging Report Patient Name: BERNICE COLUNGA M : 1970 Study Date: 07/02/2024 9:52:05 AM Gender: M Tech: [facility] Location: [facility] Provider: LYNN REN Height(Cm): 193 BSA: Weight(Kg): [...] By: Forrest Moreira MD 07/02/2024 12:55:27 PM FILLING MACHINE OPERATOR Electronically Signed By: Forrest Moreira MD 07/02/2024 12:55:27 PM FILLING MACHINE OPERATOR Procedure Note Forrest Moreira MD - 01/08/2025 [facility] Medical Group Cardiology [address], [place] [address] [address] [facility] [address], [place] [address] P:[phone] P:[phone] MPI Imaging Report Patient Name: BERNICE COLUNGA M : 1970 Study Date: 07/02/2024 9:52:05 AM Gender: M Tech: [facility] Location: [facility] Provider: LYNN REN Height(Cm): 193 BSA: Weight(Kg): [...] By: Forrest Moreira MD 07/02/2024 12:55:27 PM FILLING MACHINE OPERATOR Electronically Signed By: Forrest Moreira MD 07/02/2024 12:55:27 PM FILLING MACHINE OPERATOR us Lynn Ren MD IMG NM PROCEDURES Final Result * Electrocardiogram Report (06/26/2024 12:34 PM FILLING MACHINE OPERATOR) us Lynn Ren MD ECG ORDERABLES Final R esult from Last 3 Months Insurance Advance Directives For more information, please contact: [phone] * Full Code (Latest Code Status on File) Date Activated Date Inactivated Comments 01/10/2023 7:28 PM 01/11/2023 12:07 AM Care Teams Speech Instructor Relationship Specialty Start Date End Date Isabell Willis NP [address] [place] [id number] PCP - General Nurse Practitioner 05/09/24 Dejan Zabala MD Surgeon Vascular Surgery 01/10/23
--- OUTSIDE RECORDS SUMMARY | 2024-08-29 11:12 | XMS_ITS | Clinical Summary ---
Author Organization [facility] [employer] Address [address] [facility] [place] [address] Care Team Providers Care Publishing Specialist Name Role Phone Philippe Martinez MD Primary Care Provider [phone] Source Comments [facility] [employer],non-owned Affiliates and Associated Physician Practices is amultiple site organization consisting of ambulatory clinics and hospital sitesin [place], [place], [place] and [place]. This disclosure is being madepursuant to the Care Everywhere program and may not contain all information available regarding this patient. Last updated 18.[facility] Allergies Active Allergy Reactions Criticality Noted Date [...] tablet 01/02/2024 Active Blood Glucose Monitoring Suppl (OneTouch Verio [...] (Nicoderm CQ) 14 MG/24HR patchIndications:Os teomyelitis, unspecified (FORMERLY [facility]) APPLY ONE PATCH TO THE SKIN ONCE [...] MOUTH ONCE DAILY 510 g 11/02/2023 11/02/19 25 Active senna-docusate (Senokot-S) 8.6-50 MG tablet TAKE ONE TABLET BY MOUTH 2 TIMES A DAY 30 tablet 11/02/2023 11/02/19 25 Active nicotine (Nicoderm CQ) 14 MG/24HR patchIndications:Os teomyelitis, unspecified ([facility]) APPLY ONE PATCH TO SKIN ONCE DAILY 28 patch 11/02/2023 11/02/19 25 Active metroNIDAZOLE (Flagyl) 500 MG tablet TAKE ONE TABLET BY MOUTH EVERY 8 HOURS 3 tablet 11/02/2023 11/02/19 25 Active Misc. Devices (Crutches-Aluminum) MISC [...] Department Care Team Description 07/15/2024 1:30 PM EDUCATION REVIEWER Office Visit [facility] - Vascular Surgery [address] [place] [address], [place] [phone] Pablo Greenfield MD History of amputation of lesser toe of right foot (HCC) (Primary Dx); Right knee pain, unspecified chronicity; PAD (peripheral artery disease) (HCC); Fracture of right foot, sequela; Type 2 diabetes mellitus with diabetic polyneuropathy, without long-term current use of insulin (HCC) 07/15/2024 Travel 07/09/2024 Travel 06/11/2024 Travel from Last 3 Months Immunizations Name [...] and heating? Not hard at all 11/01/2023 [facility] - Occupational [...] place to sleep or slept in a half-way (including now)? No 11/01/2023 Sex and Gender Information Value Date Recorded Sex Assigned at Not on file Gender Identity Not on file Sexual Orientation Not on file Last Filed Vital Signs Vital Sign Reading Time Taken Comments Blood Pressure 131/94 07/15/2024 1:14 PM EDUCATION REVIEWER Pulse 100 07/15/2024 1:14 PM EDUCATION REVIEWER Temperature 37.1 C (98.7 F) 07/15/2024 1:14 PM EDUCATION REVIEWER Respiratory Rate 18 04/29/2024 1:36 PM EDUCATION REVIEWER Oxygen Saturation 94% 07/15/2024 1:14 PM EDUCATION REVIEWER Inhaled Oxygen Concentration - - Weight 137.4 kg (303 lb) 07/15/2024 1:14 PM EDUCATION REVIEWER Height 193 cm (6' 4 ) 07/15/2024 1:14 PM EDUCATION REVIEWER Body Mass Index 36.88 07/15/2024 1:14 PM EDUCATION REVIEWER Plan of Treatment Upcoming Encounters Date Type Department Care Team (Late st Contact Info) Description 11/04/2024 10:00 AM CDT Appointment [facility] [address] VASCULAR [address] [phone] Pablo Greenfield MD [address] [place] [address] [address] DIV [place] [address] 11/04/2024 11:00 AM CDT Appointment [facility] VASCULAR [address] [phone] Pablo Greenfield MD [address] [place] [address] [address] DIV [place] [address] 11/04/2024 2:15 PM CDT Office Visit [facility] - Vascular Surgery [address] [place] [address], [place] [address] Pablo Greenfield MD [address] [place] [address] [address] DIV [place] [address] Health Maintenance Due Date Last Done Comments [...] , 08/25/2021, Additional history exists COVID-19 VACCINE ( - season) 2024 INFLUENZA VACCINE (#1) 2024 [...] 7 - 26 mg/dL 12/04/2023 5:26 PM CDT [facility] Creatinine 0.91 0.71 - 1.16 mg/dL 12/04/2023 5:26 PM CDT [facility] Sodium 140 136 - 145 mmol/L 12/04/2023 5:26 PM CDT [facility] Potassium 4.3 3.5 - 4.5 mmol/L 12/04/2023 5:26 PM [facility] Chloride 106 98 - 107 mmol/L 12/04/2023 5:26 PM [facility] CO2 21(L) 22 - 29 mmol/L 12/04/2023 5:26 PM [facility] Glucose 84 70 - 115 mg/dL 12/04/2023 5:26 PM [facility] Calcium 10.0 8.4 - 10.2 mg/dL 12/04/2023 5:26 PM [facility] Protein Total 8.2 6.0 - 8.3 g/dL 12/04/2023 5:26 PM [facility] Albumin 4.1 3.4 - 5.0 g/dL 12/04/2023 5:26 PM [facility] Bilirubin Total 0.3 0.2 - 1.2 mg/dL 12/04/2023 5:26 PM [facility] Alkaline Phosphatase 122 40 - 150 U/L 12/04/2023 5:26 PM [facility] ALT 19 5 - 55 U/L 12/04/2023 5:26 PM [facility] AST 16 5 - 34 U/L 12/04/2023 5:26 PM [facility] Anion Gap 13 6 - 16 12/04/2023 5:26 PM [facility] BUN/Creatinine Ratio 18 7 - 23 12/04/2023 5:26 PM [facility] Osmolality Calculated 290 275 - 295 mOsm/kg 12/04/2023 5:26 PM [facility] Albumin/Globulin Ratio 1.0(L) 1.1 - 2.3 12/04/2023 5:26 PM [facility] eGFR by CKD-EPI >90 >=90 mL/min/1.7 3 m2 12/04/2023 5:26 PM [facility] Blood BLOOD SPECIMEN / Unknown Venipuncture / Unknown 12/04/2023 4:49 PM CDT 12/04/2023 5:00 PM T Walter Oakes MD LAB - CHEMISTRY ORDE RABLES Performing Organization Address City/[facility]/ZIP Co de Phone Number [facility] [address] [place] [address], [facility] [phone] * (ABNORMAL) HEMOGLOBIN A1C (2023 4:05 AM CDT) Hemoglobin A1c 8.7(H) <=5.6 % 2023 9:42 AM CDT [facility]ORATORY [facility] Estimated Average Glucose 203 mg/dL 2023 9:42 AM CDT [facility] Comment: HbA1c Interpretation: Normal : < 5.7% Pre-diabetes: 5.7-6.4% Diabetes: Equal to or greater than 6.5% Test results diagnostic of diabetes should be repeated for confirmation. Treatment target values recommended by ADA and other clinical organizations should be used to evaluate metabolic control in patients. Reference: [place] [employer] Association, Standards of Care in Diabetes [...] - CHEMISTRY BHARTI ISRAEL Performing Organization Address City/[facility]/ZIP Co de Phone Number [facility] [address] [place] [address], [facility] [phone] * (ABNORMAL) MICROALB/CREAT RATIO URINE RANDOM PANEL (10/19/2023 11:18 PM CDT) Albumin Random Urine 26.6 Not Established ug/mL 10/19/2023 11:58 PM CDT [facility] LABORATORY [facility] Creatinine Urine 77.71 Not Established mg/dL 10/19/2023 11:58 PM CDT [facility] Urine Albumin/Creati nine Ratio 34(H) <30 mg/g 10/19/2023 11:58 PM CDT [facility] Urine URINE SPECIMEN OBTAINED BY CLEAN CATCH PROCEDURE / Unknown Collection / Unknown 10/19/2023 11:18 PM CDT 10/19/2023 11:37 PM CDT Jennifer Caban MD LAB - URINE KELLEN GALDINO ORDERABLES Performing Organization Address [facility] Co de Phone Number [facility] [address] [place] [address], [facility] [phone] from Last 3 Months or Most Recently Relevant to Health Maintenance Advance Directives * Full Code (Latest Code Status on File) Date Activated Date Inactivated Comments 10/29/2023 5:30 PM 11/02/2023 8:39 PM * Full Code Date Activated Date Inactivated Comments 10/19/2023 8:07 PM 10/29/2023 5:29 PM Care Teams Publishing Specialist Relationship Specialty Start Date End Date Philippe Martinez MD [address] [place] [phone] PCP - General Family Medicine 11/01/23
--- OUTSIDE RECORDS SUMMARY | 2024-08-29 11:12 | XMS_ITS | Encounter Summary ---
Author Organization [facility] Address [address] [place] [address] Care Team Providers Care Trestle Builder Name Role Phone Philippe Martinez MD Primary Care Provider [phone] Reason for Referral * Surgical (Routine) - Closed Specialty Diagnoses / Procedures Referred By Margoth peoples Referred To Contact Diagnoses Osteomyelitis of second toe of left foot (CMS/HCC HHS/HCC) Procedures Case request operating room: AMPUTATION TOE (LEFT SECOND TOE) Cisco Forde MD [facility]. [address] [address] Phone: tel: fax: Referral ID Status Reason Start Date Expiration Date Visits Re quested Visits Authorized [id number] Closed 06/29/2023 06/29/2024 1 1 WELL PERFORATOR OPERATOR Encounter Details Date Type Department Care Team (Late st Contact Info) Description 06/29/2023 Prep for Procedure [place] [facility] [facility] [address] [place], [place] [id number] Cisco Forde MD [facility] [address] [place] [address] Social History Tobacco Use Types Packs/Day Years Used Date Smoking Tobacco: Every Day Cigarettes 0.5 30 Smokeless Tobacco: Never Alcohol Use Standard Drinks/Week Comments Not Currently 0 (1 standard drink = 0.6 oz pur e alcohol) socially [facility] Utilities Answer Date Recorded In the past 12 months has [employer], gas, oil, or water [employer] threatened to shut off services in your [...] place to sleep or slept in a nursing home (including now)? No 05/24/2023 Sex and Gender [...] Osteomyelitis of second toe of left foot ([facility]) Once for 1 Occurrences starting 06/29/2023 until 06/29/2023 documented as of this encounter Goals Goal Patient Goal Type Associated Problems Recent Progress Patient-Stated? Author Family - family caregiver with be involved in care transitions and discharge planning General No Estrella Henderson, DATA MANAGER Health - patient able to perform ADLs independently General No Marcial Goodman RN documented as of this encounter Results * (ABNORMAL) COMPREHENSIVE METABOLIC PANEL (07/12/2023 10:45 AM OIL WELL PERFORATOR OPERATOR) [facility] GLUCOSE 102(H) 70 - 99 MG/DL 07/12/2023 11:20 AM [facility] BUN 13 7 - 18 MG/DL 07/12/2023 11:20 AM [facility] CREATININE S/P/B 1.05 0.7 - 1.3 MG/DL 07/12/2023 11:20 AM [facility] SODIUM S/P/B 138 136 - 145 MMOL/L 07/12/2023 11:20 AM [facility] POTASSIUM S/P/B 4.0 3.5 - 5.1 MMOL/L 07/12/2023 11:20 AM [facility] CHLORIDE S/P/B 108 100 - 108 MMOL/L 07/12/2023 11:20 AM [facility] CO2 25.0 21 - 32 MMOL/L 07/12/2023 11:20 AM [facility] CALCIUM S/P/B 9.3 8.5 - 10.1 MG/DL 07/12/2023 11:20 AM [facility] BILIRUBIN TOTAL S/P/B 0.5 0.2 - 1.2 MG/DL 07/12/2023 11:20 AM [facility] Comment: THIS ASSAY IS NOT RECOMMENDED FOR PATIENTS UNDERGOING TREATMENT WITH ELTROMBOPAG DUE TO THE POTENTIAL FOR FALSELY ELEVATED RESULTS. TOTAL PROTEIN S/P/B 8.0 6.4 - 8.2 G/DL 07/12/2023 11:20 AM [facility] ALBUMIN S/P/B 3.9 3.4 - 5.0 G/DL 07/12/2023 11:20 AM [facility] AST 17 15 - 37 U/L 07/12/2023 11:20 AM [facility] ALT 33 16 - 60 U/L 07/12/2023 11:20 AM [facility] ALKALINE PHOSPHATASE S/P/B 110 50 - 136 U/L 07/12/2023 11:20 AM OIL WELL PERFORATOR OPERATOR [facility] ANION GAP 5.0 5 - 15 MMOL/L 07/12/2023 11:20 AM [facility] BUN CREATININE RATIO 12.4 6 - 26 07/12/2023 11:20 AM [facility] A/G RATIO 1.0 1.0 - 2.0 RATIO 07/12/2023 11:20 AM [facility] GFR ESTIMATE 85(L) >90 ML/MIN/1.7 3 M2 07/12/2023 11:20 AM [facility] Comment: NOTE: eGFR is not calculated for patients <18 years of age. This is an estimated GFR calculation using the new CKD EPI creatinine equation without race and so does not require a correction factor for race. This estimated GFR should not be used for calculating drug doses. 07/12/2023 10:4 5 AM OIL WELL PERFORATOR OPERATOR us Cisco Forde MD LABORATORY Final Result [facility] [address] [place] [address], [place] [phone] * PROTIME/INR, VENOUS (07/12/2023 10:45 AM OIL WELL PERFORATOR OPERATOR) PROTIME 11.1 10.2 - 12.9 SEC 07/12/2023 11:09 AM OIL WELL PERFORATOR OPERATOR [facility] INR 0.9 07/12/2023 11:09 AM OIL WELL PERFORATOR OPERATOR [facility] Comment: Recommended INR Therapeutic Goals: 2.0-3.0 Routine Therapy 2.5-3.5 Mechanical Prosthetic Valves (High Risk) 07/12/2023 10:4 5 AM OIL WELL PERFORATOR OPERATOR us Cisco Forde MD LABORATORY Final Result [facility] [address] [place] [address], * CBC W/DIFF AUTOMATED (07/12/2023 10:45 AM OIL WELL PERFORATOR OPERATOR) [facility] Signature WBC 8.4 4.5 - 11.0 x10'3/uL 07/12/2023 11:11 AM [facility] RBC 5.32 4.70 - 6.10 x10'6/uL 07/12/2023 11:11 AM [facility] HGB 16.5 14.0 - 18.0 G/DL 07/12/2023 11:11 AM [facility] HCT 47.8 43.0 - 54.0 % 07/12/2023 11:11 AM [facility] MCV 89.8 80.0 - 94.0 FL 07/12/2023 11:11 AM [facility] MCH 31.0 27.0 - 31.0 PG 07/12/2023 11:11 AM [facility] MCHC 34.5 32.0 - 36.0 G/DL 07/12/2023 11:11 AM [facility] RDW 12.6 11.5 - 14.5 % 07/12/2023 11:11 AM [facility] PLT 201 130 - 400 x10'3/uL 07/12/2023 11:11 AM [facility] MPV 10.0 9.3 - 12.2 FL 07/12/2023 11:11 AM [facility] DIFFERENTIAL TYPE AUTOMATED DIFFERENTIAL 07/12/2023 11:11 AM [facility] NEUTROPHILS % 62.9 % 07/12/2023 11:11 AM [facility] LYMPHOCYTES % 26.1 % 07/12/2023 11:11 AM OIL WELL PERFORATOR OPERATOR [facility] MONOCYTES % 8.8 % 07/12/2023 11:11 AM [facility] EOSINOPHILS 1.2 % 07/12/2023 11:11 AM [facility] BASOPHILS 0.8 % 07/12/2023 11:11 AM OIL WELL PERFORATOR OPERATOR [facility] IMMATURE GRANS % 0.2 % 07/12/19 11:11 AM [facility] ABS. NEUTROPHILS TOTAL 5.27 1.80 - 7.70 x10'3/uL 07/12/2023 11:11 AM [facility] ABS. LYMPHOCYTES 2.19 1.00 - 4.80 x10'3/uL 07/12/2023 11:11 AM OIL WELL PERFORATOR OPERATOR [facility] ABS. MONOCYTES 0.74 0.30 - 0.82 x10'3/uL 07/12/2023 11:11 AM [facility] ABS. EOSINOPHILS 0.10 0.04 - 0.54 x10'3/uL 07/12/2023 11:11 AM [facility] ABS. BASOPHILS 0.07 0.01 - 0.08 x10'3/uL 07/12/2023 11:11 AM [facility] ABS. IMMATURE GRANULOCYTES 0.02 0.00 - 0.49 x10'3/uL 07/12/2023 11:11 AM [facility] 07/12/2023 10:4 5 AM OIL WELL PERFORATOR OPERATOR Cisco Forde MD LABORATORY Final Result [facility] [address] [place] [address], documented in this encounter Visit Diagnoses Diagnosis Osteomyelitis of second toe of left foot (CMS/HCC HHS/HCC)- Primary documented in this encounter Care Teams Trestle Builder Relationship Specialty Start Date End Date Philippe Martinez MD [address] [place] [phone] PCP - General FAMILY PRACTICE 01/10/23 documented as of this encounter
--- OUTSIDE RECORDS SUMMARY | 2024-08-29 11:12 | XMS_ITS | Clinical Summary ---
Author Organization [facility] Address [address] [place] [address] Care Team Providers Care Turbine Blade Assembler Name Role Phone Philippe Martinez MD Primary Care Provider [phone] Allergies Active Allergy Reactions Criticality Noted Date [...] Problems Problem Noted Date Diagnosed Date Osteomyelitis ([facility]) 10/18/2023 Osteomyelitis of second toe of left foot ([facility]) 05/24/2023 Abrasion of foot with infection 08/24/2021 Popliteal artery thrombosis, 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 Never true 10/18/19 Within the past 12 months, t he [...] place to sleep or slept in a alf (including now)? No 05/24/2023 Housing Stability Vital Sign Answer Sohail e Recorded In the last 12 months, was t here a time when you were not able to pay the mortgage or rent on time? No 10/18/2023 In the past 12 months, how m any times have you moved where you were living? 2 10/18/2023 At any time in the past 12 m [facility], were you homeless or living in a alf (including now)? No 10/18/2023 Sex and Gender Information Value Date Recorded Sex Assigned at Not on file Legal Sex Male 8:32 PM CDT Gender Identity Not on file Sexual Orientation Not on file Last Filed Vital Signs Vital Sign Reading Time Taken Comments Blood Pressure 125/73 10/19/2023 4:06 PM CDT Pulse 91 10/19/2023 4:06 PM CDT Temperature 37.2 C (99 F) 10/19/2023 4:06 PM CDT Respiratory Rate 18 [...] 01/18/2024 10/19/2023, 03/0 08/2021, 11/10/2020 COVID-19 Vaccine ( - season) 2024 Influenza Adult (#1) 2024 05/26/2023 Lipid Panel 10/18/2024 10/19/2023, 03/0 07/2021, 11/11/2020, Additional history exists Meningococcal B Vaccine Aged Out No l onger eligible based on patient's age to complete this topic Meningococcal Vaccine Aged Out No iain osorio eligible based on patient's age to complete this topic RSV Immunizations Under 20 Months Aged Out No longer eligible based on patient's age to complete this topic Goals Goal Patient Goal Type Associated Problems Recent Progress Patient-Stated? Author Family - family caregiver with be involved in care transitions and discharge planning General No Estrella Henderson, ACTIVITIES VOLUNTEER Health - patient able to perform ADLs independently General No Marcial Goodman, RN Health - patient able to perform ADLs independently Lifestyle No Kathi Holbrook, electronic publisher Procedure Name Priority Date/Time Associated Diagnosis Comments LIPID PANEL Routine 10/19/2023 4:41 AM CDT HEMOGLOBIN, GLYCOSYLATED TIMED 10/19/2023 4:41 AM CDT from Last 3 Months or Most Recently Relevant to Health Maintenance Results * (ABNORMAL) HEMOGLOBIN, GLYCOSYLATED (10/19/2023 4:41 AM CDT) HGB A1C 9.0(H) <5.7 % 10/19/2023 9:[address] [facility] Comment: ADA GUIDELINES 2010 5.7 TO 6.4% INCREASED RISK OF DIABETES > OR = 6.5% CONSISTENT WITH DIABETES ESTIMATED AVG GLUCOSE 212 mg/dL 10/19/2023 9:[address] [facility] 10/19/2023 4:41 AM CDT us Stevenson CARDOSO MD LABORATORY Fi nal Result [facility] [address] [place] [address], [place] [phone] * (ABNORMAL) LIPID PANEL (10/19/2023 4:41 AM CDT) CHOLESTEROL 168 <200 MG/DL 10/19/2023 5:[address] [facility] TRIGLYCERIDES 222(H) <150 MG/DL 10/19/2023 5:[address] [facility] HDL 29(L) >40.0 MG/DL 10/19/2023 5:[address] [facility] LDL (CALCULATED) 95 <100 MG/DL 10/19/2023 5:[address] [facility] NON HDL CHOLESTEROL 139(H) <130 MG/DL 10/19/2023 5:[address] [facility] CHOL/HDL RATIO 5.8(H) 0.0 - 4.5 10/19/2023 5:[address] [facility] VLDL CALCULATION 44 5 - 55 MG/DL 10/19/2023 5:[address] [facility] LIPID INTERPRETATION 10/19/2023 5:[address] [facility] Comment: NIH CONCENSUS REPORT RECOMMENDATIONS: ADULT CHILD LOW RISK: CHOLESTEROL <200 <170 TRIGLYCERIDE <150 --- HDL >=60 --- LDL <100 <110 BORDERLINE: CHOLESTEROL 200-239 170-199 TRIGLYCERIDE 150-199 --- HDL 40-59 --- LDL 100-159 110-129 HIGH RISK: CHOLESTEROL >=240 >=200 TRIGLYCERIDE >=200 --- HDL <40 --- LDL >=160 >=130 10/19/2023 4:41 AM CDT us Stevenson CARDOSO MD LABORATORY Fi nal Result [facility] [address] [place] [address], from Last 3 Months or Most Recently Relevant to Health Maintenance Insurance [facility] Advance Directives * Full Code (Latest Code [...] 5:00 PM 11/18/2020 6:05 PM Care Teams Turbine Blade Assembler Relationship Specialty Start Date End Date Philippe Martinez MD [address] [place] [phone] PCP - General FAMILY PRACTICE 01/10/23
--- NOTE | 2024-08-29 13:33 | ECG_ITS ---
Test Date: 2024-08-29 13:45:32 Measurements Intervals Yermo Rate: 87 P: 15 WA: 188 QRS: -29 QRSD: 116 T: 35 QT: 358 QTc: 431 Interpretive Statements SINUS RHYTHM BORDERLINE LEFT AXIS DEVIATION [QRS AXIS < -20] INCOMPLETE RIGHT BUNDLE BRANCH BLOCK [90+ ms QRS DURATION, TERMINAL R IN V1/V2, 40+ ms S IN I/aVL/V4/V5/V6] ABNORMAL ECG Compared to ECG 08/29/2024 10:28:03 NO DIFFERENCE Electronically Signed On 08-30-2024 15:28:14 SENIOR INTERNAL AUDITOR by Pablo Mcdowell M.D.
[2024-08-29 14:04] LABS: Troponin I < 0.012 ng/mL (0.000-0.034)
[2024-08-29 14:13] VITALS: O2SAT 98
[2024-08-29 14:15] VITALS: BP 150/87; PULSE 89; PULSE 91; RESP 15; O2SAT 98
--- NOTE | 2024-08-29 14:16 | ED_ITS ---
HPI - General Adult General Chief complaint: Chest Pain Stated complaint: IGNACIO, CP Time Seen by Provider: 08/29/24 13:31 History of Present Illness HPI narrative: Patient is a 53-year-old male who presents ER with redness the right lower extremity. His home health nurse came out today and his rate segura and calf are erythematous and warm. Mild swelling. He had surgery in October of 2023 to have a amputation of the great toe. He has poor circulation due to bypass grafts. No fevers or chills or sweats. Patient did report some mild chest pressure earlier today but reports he gets this twice a week and is not uncommon. He reports is short-lived and he is on concerned. Related Data Home Medications ?Medication ?Instructions ?Recorded ?Confirmed ?Last Taken ?Type ascorbic acid (vitamin C) 500 mg mg PO DAILY 11/10/20 07/21/24 Unknown History capsule cholecalciferol (vitamin D3) 25 25 mcg PO DAILY 11/10/20 07/21/24 Unknown History mcg (1,000 unit) capsule ynegpsca-exvtvbtl-brebj acid 400 tablet PO DAILY 11/10/20 07/21/24 Unknown History mcg-vit K 20 mcg-lycop 300 mcg tablet (One-A-Day Men's Multivitamin) Allergies Allergy/AdvReac Type Severity Reaction Status Date / Time No Known Allergies Allergy Verified 08/29/24 10:21 Review of Systems 2 Review of Systems: All systems reviewed & are unremarkable except as noted in HPI and below Constitutional: Constitutional: Reports no additional constitutional complaints Cardiovascular: Cardiovascular: Reports no additional cardiovascular complaints Respiratory: Respiratory: Reports no additional respiratory complaints Musculoskeletal: Musculoskeletal: Reports no additional musculoskeletal complaints Integumentary/Breasts: Skin/Breast: Reports system reviewed and no additional complaints, except as docu PMFSH Past Medical History Medical History Erectile dysfunction Macular degeneration of both eyes GERD (gastroesophageal reflux disease) Anxiety Primary osteoarthritis of knee Family history of depression Surgical History Surgical History H/O arterial bypass of lower limb Family History Family History Father Depression Father Depression Anxiety Heart disease Mother Anxiety Depression Other Diabetes mellitus Family history of arthritis Family history of heart disease in male family member before age 55 Hypertension Social History Social History (Updated 07/18/24 @ 14:44 by Hunter Enrique) Social History: 07/18/24 somewhat confident with medical forms Smoking packs per day: 1 Smoking cigarettes per day: 20.0 Smoking status: Current every day smoker Second hand tobacco smoke exposure: Yes Alcohol intake: former Substance use: never Substance use type: does not use Do You Feel Safe in your Home?: Yes Lack of Transportation: No Lack of Food: Often True Current Housing: I Have Housing Concerned About Future Housing: YES Difficulty Paying Gas/Electric Bills: YES Difficulty Paying for Meds: YES Currently Unemployed: No Education: High School Diploma/GED Difficulty w/ Childcare or Family Care: No Living arrangements: alone Occupation/Education: occupation Additional occupation/education comments: [employer] Gender identity (if verbalized by the patient): Male Spiritual care concerns: No Agree to blood products: Yes Exam 2 Narrative: GENERAL: Well-appearing, well-nourished, and in no acute distress. HEAD: Normocephalic, atraumatic. ENT: Mucous membranes moist. CHEST: Clear to auscultation. No respiratory distress. HEART: Regular rate and rhythm. Normal peripheral pulses. ABDOMEN: Soft, nontender, nondistended. EXTREMITIES: Normal range of motion. 1+ edema RLE with erythema below the knee. SKIN: Warm, dry, no rash. NEURO: Alert and oriented x3. PSYCH: Normal mood and affect. Course Course Emergency Course: Troponin negative x2. White count 13.5, symptoms consistent with cellulitis. Will start on cefuroxime. The amputated toe and chronic wound on the right foot are normal in appearance and without necrosis or drainage. Vital Signs Vital signs: Vital Signs Temperature 97.9 F 08/29/24 10:35 Pulse Rate 105 H 08/29/24 10:35 Respiratory Rate 16 08/29/24 10:35 Blood Pressure 153/86 H 08/29/24 10:35 Pulse Oximetry 97 08/29/24 10:35 Oxygen Delivery Room Air 08/29/24 10:35 Temperature 97.9 F 08/29/24 10:35 Pulse Rate 89 08/29/24 14:15 Respiratory Rate 15 08/29/24 14:15 Blood Pressure 150/87 H 08/29/24 14:15 Pulse Oximetry 98 08/29/24 14:15 Oxygen Delivery Room Air 08/29/24 14:13 Medical Decision Making Vital Signs Vital Signs: Vital Signs Temperature 97.9 F 08/29/24 10:35 Pulse Rate 105 H 08/29/24 10:35 Respiratory Rate 16 08/29/24 10:35 Blood Pressure 153/86 H 08/29/24 10:35 Pulse Oximetry 97 08/29/24 10:35 Oxygen Delivery Room Air 08/29/24 10:35 Temperature 97.9 F 08/29/24 10:35 Pulse Rate 89 08/29/24 14:15 Respiratory Rate 15 08/29/24 14:15 Blood Pressure 150/87 H 08/29/24 14:15 Pulse Oximetry 98 08/29/24 14:15 Oxygen Delivery Room Air 08/29/24 14:13 Lab Data 08/29/24 10:36 08/29/24 10:36 Labs: Lab Results 08/29/24 08/29/24 Range/Units 10:36 13:36 WBC 13.5 H (4.5-10.0) K/mm3 RBC 5.12 (4.6-6.20) M/mm3 Hgb 14.9 (14.0-18.0) g/dL Hct 44.0 (42.0-52.0) % MCV 85.9 (80-100) fl MCH 29.1 (26-34) pg MCHC 33.9 (32-36) g/dl RDW 13.8 (11.5-14.5) % Plt Count 214 (150-375) k/mm3 MPV 10.0 (7.4-10.4) fl Immature Gran % (Auto) 0.4 (0-0.5) % Neut % (Auto) 76.7 H (45.5-73.1) % Lymph % (Auto) 14.1 L (18.3-44.2) % Tucker % (Auto) 8.3 (2.6-8.5) % Eos % (Auto) 0.1 (0-4.4) % Baso % (Auto) 0.4 (0.2-1.2) % Lymph # (Auto) 1.89 (0.9-3.2) K/mm3 Tucker # (Auto) 1.1 H (0.1-0.6) K/mm3 Eos # (Auto) 0.0 (0-0.3) K/mm3 Baso # (Auto) 0.1 (0.0-0.1) K/mm3 Abs Immat Gran (auto) 0.06 H (0.00-0.031) K/mm3 Absolute Neuts (auto) 10.3 H (1.3-6.7) K/mm3 Absolute Nucleated RBC 0.000 (0.0-0.012) K/mm3 Nucleated RBC % 0.0 (0.0-0.2) % PT 13.9 (11.1-14.7) Seconds INR 1.0 APTT 25.9 (22.3-36.8) Seconds Sodium 131 L (137-145) mmol/L Potassium 4.1 (3.4-5.0) mmol/L Chloride 96 L (98-107) mmol/L Carbon Dioxide 20 L (22-30) mmol/L Anion Gap 15 H (4-12) mmol/L BUN 14 (9-20) mg/dL Creatinine 0.87 (0.7-1.3) mg/dL Estim Creat Clear Calc 128 ml/min Estimated GFR > 60 (59 - ) Glucose 313 H (65-110) mg/dL Calcium 9.5 (8.4-10.2) mg/dL Total Bilirubin 1.3 (0.2-1.3) mg/dL AST 21 (17-59) U/L ALT 39 (6-50) U/L Alkaline Phosphatase 121 (38-126) U/L Troponin I < 0.012 < 0.012 (0.000-0.034) ng/mL Total Protein 8.0 (6.3-8.2) g/dL Albumin 4.7 (3.5-5.1) g/dL Lipase 39 (23-300) U/L Imaging Data Radiologist's impression: ITS Impressions Chest X-Ray 08/29/24 11:18 IMPRESSION: 1. No acute cardiopulmonary disease. Venous Doppler Study 08/29/24 11:19 IMPRESSION: 1. No deep venous thrombosis. Discharge Plan Discharge Clinical Impression: Cellulitis Patient Disposition: Home, Self-Care Condition: Stable Instructions: Antibiotic Form, Cellulitis (ED) Additional Instructions: Return the ER if your redness is worsening, you have fever 100.4? F, you cannot keep down food water, or you have additional concerns. Patient Language: Greek Prescriptions: New cefuroxime axetil 500 mg tablet 500 mg PO BID Qty: 20 0RF No Action Culturelle 10 billion cell capsule 1 cap PO DAILY Qty: 14 0RF aspirin [Adult Aspirin Regimen] 81 mg tablet,delayed release (DR/EC) 81 mg PO DAILY Qty: 90 0RF venlafaxine 75 mg capsule,extended release 24hr 300 mg PO DAILY Qty: 360 0RF One-A-Day Men's Multivitamin 400-20-300 mcg tablet PO DAILY ascorbic acid (vitamin C) 500 mg capsule PO DAILY cholecalciferol (vitamin D3) 25 mcg (1,000 unit) capsule 25 mcg PO DAILY sildenafil [Viagra] 100 mg tablet 100 mg PO DAILY PRN (Reason: sexual activity) Qty: 15 0RF Rx Instructions: administer 30 minutes to 4 hours before activity gentamicin 0.1 % cream 1 applic topical DAILY Qty: 30 0RF doxycycline hyclate 100 mg capsule 100 mg PO BID Qty: 20 0RF methylprednisolone [Medrol (Jc)] 4 mg tablets,dose pack See Rx Instructions .ROUTE .COMPLEX Qty: 21 0RF Rx Instructions: orally per package directions clopidogrel [Plavix] 75 mg tablet 75 mg PO DAILY Qty: 90 1RF omeprazole 40 mg capsule,delayed release(DR/EC) 40 mg PO DAILY Qty: 90 1RF amlodipine 10 mg tablet 10 mg PO DAILY Qty: 90 0RF metformin 500 mg tablet extended release 24 hr 500 mg PO DAILY Qty: 90 1RF (DME) Blood Glucose Test Strip See Rx Instructions .ROUTE .MEDSUPPLY Qty: 100 1RF Rx Instructions: use daily to check fasting glucose gabapentin 300 mg capsule 600 mg PO TID Qty: 540 1RF losartan 25 mg tablet 25 mg PO DAILY Qty: 90 0RF Ozempic 0.25 mg or 0.5 mg (2 mg/3 mL) pen injector 0.25 mg subcut WEEKLY Qty: 3 0RF Rx Instructions: for 4 weeks hydrocodone-acetaminophen 10-325 mg tablet 1 tablet PO Q6H PRN (Reason: pain) Qty: 120 0RF Follow-up/Referrals: Isabell Willis, CARE CLINICIAN-C [Primary Care Provider] - 1 Week
--- OUTSIDE RECORDS SUMMARY | 2024-08-29 14:16 | XMS_ITS | Clinical Summary ---
Author Organization [facility] Address [address] [place] [address] Care Team Providers Care Service Coordinator Elderly Facility Name Role Phone Philippe Martinez MD Primary Care Provider [phone] Allergies Active Allergy Reactions Criticality Noted Date [...] Problems Problem Noted Date Diagnosed Date Osteomyelitis ([facility]) 10/18/2023 Osteomyelitis of second toe of left foot ([facility]) 05/24/2023 Abrasion of foot with infection 08/24/2021 Popliteal artery thrombosis, 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 No 05/24/2023 Housing Stability Vital Sign Answer Sohail e Recorded In the last 12 months, was t here a time when you were not able to pay the mortgage or rent on time? No 10/18/2023 In the past 12 months, how m any times have you moved where you were living? 2 10/18/2023 At any time in the past 12 m [facility], were you homeless or living in a fci (including now)? No 10/18/2023 Sex and Gender [...] and discharge planning General No Estrella Henderson, ACID RECOVERY OPERATOR Health - patient able to perform ADLs independently General No Marcial Goodman, RN Health - patient able to perform ADLs independently Lifestyle No Kathi Holbrook, vamp maker Procedure Name Priority Date/Time Associated Diagnosis Comments LIPID PANEL Routine 10/19/2023 4:41 AM CDT HEMOGLOBIN, GLYCOSYLATED TIMED 10/19/2023 4:41 AM CDT from Last 3 Months or Most Recently Relevant to Health Maintenance Results * (ABNORMAL) HEMOGLOBIN, GLYCOSYLATED (10/19/2023 4:41 AM CDT) HGB A1C 9.0(H) <5.7 % 10/19/2023 9:20 AM CDT [facility] Comment: ADA GUIDELINES 2010 5.7 TO 6.4% INCREASED RISK OF DIABETES > OR = 6.5% CONSISTENT WITH DIABETES ESTIMATED AVG GLUCOSE 212 mg/dL 10/19/2023 9:20 AM CDT [facility] 10/19/2023 4:41 AM CDT us Stevenson CARDOSO MD LABORATORY Fi nal Result [facility] [address] [place] [address], [place] [phone] * (ABNORMAL) LIPID PANEL (10/19/2023 4:41 AM CDT) CHOLESTEROL 168 <200 MG/DL 10/19/2023 5:42 AM CDT [facility] TRIGLYCERIDES 222(H) <150 MG/DL 10/19/2023 5:42 AM CDT [facility] HDL 29(L) >40.0 MG/DL 10/19/2023 5:42 AM CDT [facility] LDL (CALCULATED) 95 <100 MG/DL 10/19/2023 5:42 AM CDT [facility] NON HDL CHOLESTEROL 139(H) <130 MG/DL 10/19/2023 5:42 AM CDT [facility] CHOL/HDL RATIO 5.8(H) 0.0 - 4.5 10/19/2023 5:42 AM CDT [facility] VLDL CALCULATION 44 5 - 55 MG/DL 10/19/2023 5:42 AM T [facility] LIPID INTERPRETATION 10/19/2023 5:42 AM T [facility] Comment: NIH CONCENSUS REPORT RECOMMENDATIONS: ADULT CHILD LOW RISK: CHOLESTEROL <200 <170 TRIGLYCERIDE <150 --- HDL >=60 --- LDL <100 <110 BORDERLINE: CHOLESTEROL 200-239 170-199 TRIGLYCERIDE 150-199 --- HDL 40-59 --- LDL 100-159 110-129 HIGH RISK: CHOLESTEROL >=240 >=200 TRIGLYCERIDE >=200 --- HDL <40 --- LDL >=160 >=130 10/19/2023 4:41 AM CDT us Stevenson CARDOSO MD LABORATORY Fi nal Result [facility] [address] [place] [address], from Last 3 Months or Most Recently Relevant to Health Maintenance Insurance [facility] Advance Directives * Full Code (Latest Code [...] 5:00 PM 11/18/2020 6:05 PM Care Teams Service Coordinator Elderly Facility Relationship Specialty Start Date End Date Philippe Martinez MD [address] [place] [phone] PCP - General FAMILY PRACTICE 01/10/23
--- OUTSIDE RECORDS SUMMARY | 2024-08-29 14:16 | XMS_ITS | Referral Summary ---
Author Organization [facility] Address [address] [place] [address] Care Team Providers Care Commercial Carpenter Name Role Phone Dejan Zabala MD Unavailable Isabell Willis NP Primary Care Provider Encounters Date Type Department Care Team Description 07/02/2024 9:15 AM SENIOR ENVIRONMENTAL CONSULTANT Ancillary Procedure [facility] Cardiology [address] [place] [phone] Chest pain, unspecified type 06/26/2024 9:30 AM SENIOR ENVIRONMENTAL CONSULTANT Office Visit [facility] Cardiology [address] [facility] [address] [place] [phone] Lynn Ren MD Chest pain, unspecified [...] on file Legal Sex Male 8:21 PM SENIOR ENVIRONMENTAL CONSULTANT Gender Identity Not on file Sexual Orientation Not on file Last Filed Vital Signs Vital Sign Reading Time Taken Comments Blood Pressure 150/92 06/26/2024 9:25 AM SENIOR ENVIRONMENTAL CONSULTANT Pulse 112 06/26/2024 9:25 AM SENIOR ENVIRONMENTAL CONSULTANT Temperature 36.4 C (97.5 F) 01/10/2023 6:50 PM CDT Respiratory Rate 16 01/10/2023 6:50 PM CDT Oxygen Saturation 96% 06/26/2024 9:25 AM SENIOR ENVIRONMENTAL CONSULTANT Inhaled Oxygen Concentration - - Weight 137.8 kg (303 lb 14.4 oz) 06/26/2024 9:25 AM SENIOR ENVIRONMENTAL CONSULTANT Height 193 cm (6' 4 ) 06/26/2024 9:25 AM SENIOR ENVIRONMENTAL CONSULTANT Body Mass Index 36.99 06/26/2024 9:25 AM SENIOR ENVIRONMENTAL CONSULTANT Plan of Treatment Not on file Procedures Procedure Name Priority Date/Time Associated Diagnosis Comments NM MPI SPECT (REST AND/OR STRESS) MULTIPLE STUDIES Schedule Routine, Read Routine (OP Routine) 07/02/2024 10:50 AM SENIOR ENVIRONMENTAL CONSULTANT Chest pain, unspecified type ELECTROCARDIOGRAM REPORT Routine 06/26/2024 12:34 PM SENIOR ENVIRONMENTAL CONSULTANT Chest pain, unspecified type from Last 3 Months Results * NM MPI SPECT (Rest and/or Stress) Multiple Studies (07/02/2024 10:50 AM SENIOR ENVIRONMENTAL CONSULTANT) LV EF % CONS SCIMAGE Anatomical Region Laterality Modality Body N/A Nuclear Medicine 07/02/2024 9:52 AM SENIOR ENVIRONMENTAL CONSULTANT Narrative 07/02/2024 12:56 PM SENIOR ENVIRONMENTAL CONSULTANT [facility] Cardiology [address] [facility] [address], [place] [address] [address] [facility] [address], [place] [address] P:[phone] P:[phone] MPI Imaging Report Patient Name: BERNICE COLUNGA M : 1970 Study Date: 07/02/2024 9:52:05 AM Gender: M Tech: [facility] Location: [facility] Provider: LYNN REN Height(Cm): 193 BSA: [...] By: Forrest Moreira MD 07/02/2024 12:55:27 PM SENIOR ENVIRONMENTAL CONSULTANT Electronically Signed By: Forrest Moreira MD 07/02/2024 12:55:27 PM SENIOR ENVIRONMENTAL CONSULTANT Procedure Note Forrest Moreira MD - 01/08/2025 [facility] Cardiology [address], [place] [address] [address] [facility] [address], [place] [address] P:[phone] P:[phone] MPI Imaging Report Patient Name: BERNICE COLUNGA M : 1970 Study Date: 07/02/2024 9:52:05 AM Gender: M Tech: [facility] Location: [facility] Provider: LYNN REN Height(Cm): 193 BSA: [...] By: Forrest Moreira MD 07/02/2024 12:55:27 PM SENIOR ENVIRONMENTAL CONSULTANT Electronically Signed By: Forrest Moreira MD 07/02/2024 12:55:27 PM SENIOR ENVIRONMENTAL CONSULTANT us Lynn Ren MD IMG NM PROCEDURES Final Result * Electrocardiogram Report (06/26/2024 12:34 PM SENIOR ENVIRONMENTAL CONSULTANT) us Lynn Ren MD ECG ORDERABLES Final R esult from Last 3 Months Insurance Advance Directives For more information, please contact: [phone] * Full Code (Latest Code Status on File) Date Activated Date Inactivated Comments 01/10/2023 7:28 PM 01/11/2023 12:07 AM Care Teams Commercial Carpenter Relationship Specialty Start Date End Date Isabell Willis NP [address] [place] [id number] PCP - General Nurse Practitioner 05/09/24 Dejan Zabala MD Surgeon Vascular Surgery 01/10/23
--- OUTSIDE RECORDS SUMMARY | 2024-08-29 14:16 | XMS_ITS | Clinical Summary ---
Author Organization [facility] Address [address] [place] [address] Care Team Providers Care Oxyhydrogen Welder Name Role Phone Dejan Zabala MD Unavailable [...] Department Care Team Description 07/02/2024 9:15 AM FOREST OFFICER Ancillary Procedure [facility] Medical [facility] Cardiology [address] [facility] [address] [place] [phone] Chest pain, unspecified type 06/26/2024 9:30 AM FOREST OFFICER Office Visit [facility] Cardiology [address] [facility] [address] [place] [phone] Lynn Ren MD Chest pain, unspecified type [...] on file Legal Sex Male 8:21 PM FOREST OFFICER Gender Identity Not on file Sexual Orientation Not on file Obstetrics History Last Filed Vital Signs Vital Sign Reading Time Taken Comments Blood Pressure 150/92 06/26/2024 9:25 AM FOREST OFFICER Pulse 112 06/26/2024 9:25 AM FOREST OFFICER Temperature 36.4 C (97.5 F) 01/10/2023 6:50 PM CDT Respiratory Rate 16 01/10/2023 6:50 PM CDT Oxygen Saturation 96% 06/26/2024 9:25 AM FOREST OFFICER Inhaled Oxygen Concentration - - Weight 137.8 kg (303 lb 14.4 oz) 06/26/2024 9:25 AM FOREST OFFICER Height 193 cm (6' 4 ) 06/26/2024 9:25 AM FOREST OFFICER Body Mass Index 36.99 06/26/2024 9:25 AM FOREST OFFICER Plan of Treatment Health Maintenance Due Date [...] Read Routine (OP Routine) 07/02/2024 10:50 AM FOREST OFFICER Chest pain, unspecified type ELECTROCARDIOGRAM REPORT Routine 06/26/2024 12:34 PM FOREST OFFICER Chest pain, unspecified type from Last 3 Months Results * NM MPI SPECT (Rest and/or Stress) Multiple Studies (07/02/2024 10:50 AM FOREST OFFICER) LV EF % CONS SCIMAGE Anatomical Region Laterality Modality Body N/A Nuclear Medicine 07/02/2024 9:52 AM FOREST OFFICER Narrative 07/02/2024 12:56 PM FOREST OFFICER [facility] Medical Group Cardiology [address], [place] [address] [address] [facility] [address], [place] [address] P:[phone] P:[phone] MPI Imaging Report Patient Name: BERNICE COLUNGA M : 1970 Study Date: 07/02/2024 9:52:05 AM Gender: M Tech: [facility] Location: [facility] Provider: LYNN REN Height(Cm): 193 BSA: Weight(Kg): [...] By: Forrest Moreira MD 07/02/2024 12:55:27 PM FOREST OFFICER Electronically Signed By: Forrest Moreira MD 07/02/2024 12:55:27 PM FOREST OFFICER Procedure Note Forrest Moreira MD - 07/02/2024 [facility] Cardiology [address] [facility] [address] [id number] [facility] [address] [place], [place] [address] P:[phone] P:[phone] MPI Imaging Report Patient Name: BERNICE COLUNGA M : 1970 Study Date: 07/02/2024 9:52:05 AM Gender: M Tech: [facility] Location: [facility] Provider: LYNN REN Height(Cm): 193 BSA: Weight(Kg): [...] By: Forrest Moreira MD 07/02/2024 12:55:27 PM FOREST OFFICER Electronically Signed By: Forrest Moreira MD 07/02/2024 12:55:27 PM FOREST OFFICER Lynn Ren MD IMG NM PROCEDURES Final Result * Electrocardiogram Report (06/26/2024 12:34 PM FOREST OFFICER) Lynn Ren MD ECG ORDERABLES Final R esult from Last 3 Months Insurance [facility] CHOICE [facility] HMO/PPO Address: [facility] [id number] [place] [id number] Advance Directives For more information, please contact: [phone] * Full Code (Latest Code Status on File) Date Activated Date Inactivated Comments 01/10/2023 7:28 PM 01/11/2023 12:07 AM Care Teams Oxyhydrogen Welder Relationship Specialty Start Date End Date Isabell Willis NP [address] [place] [id number] PCP - General Nurse Practitioner 05/09/24 Dejan Zabala MD Surgeon Vascular Surgery 01/10/23
--- OUTSIDE RECORDS SUMMARY | 2024-08-29 14:17 | XMS_ITS | Clinical Summary ---
Author Organization [facility] Address [address] [facility] [place] [address] Care Team Providers Care Visual Journalist Name Role Phone Philippe Martinez MD Primary Care Provider [phone] Source Comments [facility],non-owned Affiliates and Associated Physician Practices is amultiple site organization consisting of ambulatory clinics and hospital sitesin [place], [place], [place] and [place]. This disclosure is being madepursuant to the Care Everywhere program and may not contain all information available regarding this patient. Last updated 18.[facility] Allergies Active Allergy Reactions Criticality Noted Date [...] (Nicoderm CQ) 14 MG/24HR patchIndications:Os teomyelitis, unspecified ([facility]) APPLY ONE PATCH TO THE SKIN ONCE [...] (Nicoderm CQ) 14 MG/24HR patchIndications:Os teomyelitis, unspecified ([facility]) APPLY ONE PATCH TO SKIN ONCE DAILY [...] Department Care Team Description 07/15/2024 1:30 PM PSYCHIATRIC NURSING ASSISTANT Office Visit [facility] - Vascular Surgery [address] [place] [address], [place] [phone] Pablo Greenfield MD History of amputation of [...] and heating? Not hard at all 11/01/2023 [facility] - [facility]ational [...] Comments Blood Pressure 131/94 07/15/2024 1:14 PM PSYCHIATRIC NURSING ASSISTANT Pulse 100 07/15/2024 1:14 PM PSYCHIATRIC NURSING ASSISTANT Temperature 37.1 C (98.7 F) 07/15/2024 1:14 PM PSYCHIATRIC NURSING ASSISTANT Respiratory Rate 18 04/29/2024 1:36 PM PSYCHIATRIC NURSING ASSISTANT Oxygen Saturation 94% 07/15/2024 1:14 PM PSYCHIATRIC NURSING ASSISTANT Inhaled Oxygen Concentration - - Weight 137.4 kg (303 lb) 07/15/2024 1:14 PM PSYCHIATRIC NURSING ASSISTANT Height 193 cm (6' 4 ) 07/15/2024 1:14 PM PSYCHIATRIC NURSING ASSISTANT Body Mass Index 36.88 07/15/2024 1:14 PM PSYCHIATRIC NURSING ASSISTANT Plan of Treatment Upcoming Encounters Date Type Department Care Team (Late st Contact Info) Description 11/04/2024 10:00 AM CDT Appointment [facility] [address] [phone] Pablo Greenfield MD [address] [place] [address] [address] [place] [address] 11/04/2024 11:00 AM CDT Appointment [facility] [address] [phone] Pablo Greenfield MD [address] [place] [address] [address] [place] [address] 11/04/2024 2:15 PM CDT Office Visit [facility] - Vascular Surgery [address] [place] [address], [place] [address] Pablo Greenfield MD [address] [place] [address] [address] [place] [address] Health Maintenance Due Date Last Done Comments [...] - 26 mg/dL 12/04/2023 5:26 PM CDT [facility] Creatinine 0.91 0.71 - 1.16 mg/dL 12/04/2023 5:26 PM CDT [facility] Sodium 140 136 - 145 mmol/L 12/04/2023 5:26 PM CDT [facility] Potassium 4.3 3.5 - 4.5 mmol/L 12/04/2023 5:26 PM [facility] Chloride 106 98 - 107 mmol/L 12/04/2023 5:26 PM [facility] CO2 21(L) 22 - 29 mmol/L 12/04/2023 5:26 PM [facility] Glucose 84 70 - 115 mg/dL 12/04/2023 5:26 PM [facility] Calcium 10.0 8.4 - 10.2 mg/dL 12/04/2023 5:26 PM [facility] Protein Total 8.2 6.0 - 8.3 g/dL 12/04/2023 5:26 PM [facility] Albumin 4.1 3.4 - 5.0 g/dL 12/04/2023 5:26 PM [facility] Bilirubin Total 0.3 0.2 - 1.2 mg/dL 12/04/2023 5:26 PM [facility] Alkaline Phosphatase 122 40 - 150 U/L 12/04/2023 5:26 PM [facility] ALT 19 5 - 55 U/L 12/04/2023 5:26 PM [facility] AST 16 5 - 34 U/L 12/04/2023 5:26 PM [facility] Anion Gap 13 6 - 16 12/04/2023 5:26 PM [facility] BUN/Creatinine Ratio 18 7 - 23 12/04/2023 5:26 PM [facility] Osmolality Calculated 290 275 - 295 mOsm/kg 12/04/2023 5:26 PM [facility] Albumin/Globulin Ratio 1.0(L) 1.1 - 2.3 12/04/2023 5:26 PM [facility] eGFR by CKD-EPI >90 >=90 mL/min/1.7 3 m2 12/04/2023 5:26 PM [facility] Blood BLOOD SPECIMEN / Unknown Venipuncture / Unknown 12/04/2023 4:49 PM CDT 12/04/2023 5:00 PM T Walter Oakes MD LAB - CHEMISTRY ORDE RABLES Performing Organization Address City/[facility]/ZIP Co de Phone Number [facility] [address] [place] [address], [facility] [phone] * (ABNORMAL) HEMOGLOBIN A1C (2023 4:05 AM CDT) Hemoglobin A1c 8.7(H) <=5.6 % 2023 9:42 AM CDT [facility] Estimated Average Glucose 203 mg/dL 2023 9:42 AM CDT [facility] Comment: HbA1c Interpretation: Normal : < 5.7% Pre-diabetes: 5.7-6.4% Diabetes: Equal to or greater than 6.5% Test results diagnostic of diabetes should be repeated for confirmation. Treatment target values recommended by ADA and other clinical organizations should be used to evaluate metabolic control in patients. Reference: [place] [employer], Standards of Care in Diabetes [...] - CHEMISTRY BHARTI [place] Performing Organization Address City/[facility]/ZIP Co de Phone Number [facility] [address] [place] [address], [facility] [phone] * (ABNORMAL) MICROALB/CREAT RATIO URINE RANDOM PANEL (10/19/2023 11:18 PM CDT) Albumin Random Urine 26.6 Not Established ug/mL 10/19/2023 11:58 PM CDT [facility] Creatinine Urine 77.71 Not Established mg/dL 10/19/2023 11:58 PM CDT [facility] Urine Albumin/Creati nine Ratio 34(H) <30 mg/g 10/19/2023 11:58 PM CDT [facility] Urine URINE SPECIMEN OBTAINED BY CLEAN CATCH PROCEDURE / Unknown Collection / Unknown 10/19/2023 11:18 PM CDT 10/19/2023 11:37 PM CDT Jennifer Caban MD LAB - URINE KELLEN GALDINO ORDERABLES Performing Organization Address [facility] Co de Phone Number [facility] [address] [place] [address], [facility] [phone] from Last 3 Months or Most Recently Relevant to Health Maintenance Advance Directives * Full Code (Latest Code Status on File) Date Activated Date Inactivated Comments 10/29/2023 5:30 PM 11/02/2023 8:39 PM * Full Code Date Activated Date Inactivated Comments 10/19/2023 8:07 PM 10/29/2023 5:29 PM Care Teams Visual Journalist Relationship Specialty Start Date End Date Philippe Martinez MD [address] [place] [id number] PCP - General Family Medicine 11/01/23
--- OUTSIDE RECORDS SUMMARY | 2024-08-29 14:17 | XMS_ITS | Patient Health Summary ---
Author Organization [facility] Address [address] [place] [address] Care Team Providers Care Lead Android Developer Name Role Phone Philippe Martinez MD Primary Care Provider [phone] Note from [facility],non-owned Affiliates and Associated Physician Practices is amultiple site organization consisting of ambulatory clinics and hospital sitesin [place], [place], [place] and [place]. This disclosure is being madepursuant to the Care Everywhere program and may not contain all information available regarding this patient. Last updated 18.[facility] [employer] Allergies * Morphine(Palpitations) Medications * Be aware [...] for Pain * Blood Glucose Monitoring Suppl ([employer] Verio Reflect) w/Device KIT(Started 11/01/2023) USE DIRECTED * Lancets (ZazzleTOUCH DELICA PLUS 33G EXTRA FINE LANCET)(Started 11/01/2023) [...] and heating? Not hard at all 11/01/2023 [facility] [place] [facility] Occupat ional Health - Occupational Stress [...] place to sleep or slept in a longterm (including now)? No 11/01/2023 Sex and Gender Information Value Date Recorded Sex Assigned at Not on file Gender Identity Not on file Sexual Orientation Not on file Last Filed Vital Signs Vital Sign Reading Time Taken Comments Blood Pressure 131/94 07/15/2024 1:14 PM MATCH UP WORKER Pulse 100 07/15/2024 1:14 PM MATCH UP WORKER Temperature 37.1 C (98.7 F) 07/15/2024 1:14 PM MATCH UP WORKER Respiratory Rate 18 04/29/2024 1:36 PM MATCH UP WORKER Oxygen Saturation 94% 07/15/2024 1:14 PM MATCH UP WORKER Inhaled Oxygen Concentration - - Weight 137.4 kg (303 lb) 07/15/2024 1:14 PM MATCH UP WORKER Height 193 cm (6' 4 ) 07/15/2024 1:14 PM MATCH UP WORKER Body Mass Index 36.88 07/15/2024 1:14 PM MATCH UP WORKER Procedures * VAS ARTERIAL ANKLE ARM INDEX(Performed 04/28/2024) Performed for PAD (peripheral artery disease) ([facility]) * VAS RIGHT ARTERIAL DUPLEX LE(Performed 04/28/2024) Performed for PAD (peripheral artery disease) ([facility]) * XR FOOT RIGHT WT BEARING 3VW(Performed 02/28/2024) Performed for Orthopedic aftercare * XR ANKLE RIGHT 3VW OR MORE(Performed 02/28/2024) Performed for Orthopedic aftercare * GLUCOSE - POINT OF CARE(Performed 01/02/2024) * LARYNGEAL MASK AIRWAY(Performed 01/02/2024) * NJ DEBRIDE SKIN AT FX SITE(Performed 01/02/2024) Performed for S/P peripheral artery bypass, PVD (peripheral vascular disease) ([facility]) * GLUCOSE - POINT OF [...] for Osteomyelitis of multiple sites, unspecified type ([facility]) * VAS RIGHT ARTERIAL DUPLEX LE(Performed 11/27/2023) Performed for Osteomyelitis of multiple sites, unspecified type ([facility]) * CULTURE BLOOD(Performed 11/06/2023) * [...] 10/29/2023) Performed for PVD (peripheral vascular disease) ([facility]) * BLOOD GAS+COOX+LYTES+METAB ARTERIAL POCT(Performed 10/29/2023) * BLOOD GAS ART+LYTES+METAB+COOX POC NOTIF(Performed 10/29/2023) Performed for PVD (peripheral vascular disease) ([facility]) * PATHOLOGY TISSUE(Performed 10/29/2023) Performed for Osteomyelitis of multiple sites, unspecified type ([facility]) * CULTURE TISSUE+GRAM STAIN(Performed 10/29/2023) * CULTURE ANAEROBE(Performed 10/29/2023) * PATHOLOGY TISSUE(Performed 10/29/2023) Performed for Osteomyelitis of multiple sites, unspecified type ([facility]) * CULTURE ANAEROBE(Performed 10/29/2023) * CULTURE TISSUE+GRAM STAIN(Performed 10/29/2023) * ACT LR - POCT (SS)(Performed 10/29/2023) * ACT LR - POCT (SS)(Performed 10/29/2023) * BLOOD GAS+COOX+LYTES+METAB ARTERIAL POCT(Performed 10/29/2023) * BLOOD GAS ART+LYTES+METAB+COOX POC NOTIF(Performed 10/29/2023) Performed for PVD (peripheral vascular disease) ([facility]) * PERIPHERAL IV NOTE(Performed 10/29/2023) * NJ VEIN BYPASS GRAFT,FEM-TIBIAL(Performed 10/29/2023) Performed for Toe osteomyelitis ([facility]) * ENDOTRACHEAL TUBE NOTE(Performed 10/29/2023) [...] unspecified type (HCC), PVD (peripheral vascular disease) ([facility]) * VAS BILATERAL VENOUS MAPPING(Performed [...] ARTERIAL ANKLE ARM INDEX (04/28/2024 1:22 PM MATCH UP WORKER) Anatomical Region Laterality Modality Ankle / Foot, Upper Extremity In travascular Ultrasound 04/28/2024 12:4 0 PM MATCH UP WORKER Narrative Procedure Note Forrest Polk MD - 04/29/2024 Pablo Greenfield MD VASCULAR LAB ORDER TREY * VAS Right Arterial Duplex Le (04/28/2024 1:22 PM MATCH UP WORKER) Only the most recent of2 resultswithin the time period is included. Anatomical Region Laterality Modality Lower Extremity Intravascular Ul trasound 04/28/2024 12:4 8 PM MATCH UP WORKER Narrative Procedure Note Forrest Polk MD - [...] head. Report dictated by Partha Dixon MD (radiology manager). IGhassan MD have personally reviewed and interpreted this examination/study. > Interpreting Provider: Ghassan Gomez MD on 02/28/2024 12:45 PM Narrative 02/28/2024 12:45 PM CDT PROCEDURE: XR FOOT RIGHT WT BEARING 3VW, DATE/TIME OF EXAM: 02/28/2024 9:22 AM, LOCATION [facility] INDICATION: Z47.89: Orthopedic aftercare ADDITIONAL CLINICAL INFORMATION: [...] 3VW, DATE/TIME OF EXAM: 49:22 AM, LOCATION [facility] INDICATION: Z47.89: Orthopedic aftercare ADDITIONAL CLINICAL INFORMATION: [...] head. Report dictated by Partha Dixon MD (radiology manager). I, Ghassan Gomez MD have personally reviewed [...] mg/dL 01/02/2024 1:54 PM CDT [facility] Specimen Type Cap Fingerstick 2023 1:54 PM CDT [facility] Blood BLOOD SPECIMEN / Unknown 01/02/2024 1:53 PM CDT 01/02/2024 1:54 PM CDT Pablo Greenfield MD LAB - POINT OF CAR E ORDERABLES [address] [address], [facility] [phone] * LARYNGEAL MASK AIRWAY (01/02/2024 1:08 PM [...] Report dictated by Jose Angel Delgado MD, (Button Station Worker). I, Magda Barbosa MD have personally reviewed and interpreted this examination/study. > Interpreting Provider: Magda Barbosa MD on 12/04/2023 8:41 PM Narrative 12/04/2023 8:41 PM CDT PROCEDURE: XR TIBIA FIBULA RIGHT 2VW, DATE/TIME OF EXAM: 12/04/2023 5:26 PM, LOCATION [facility] INDICATION: M79.604: Pain of right lower extremity [...] 2VW, DATE/TIME OF EXAM: 45:26 PM, LOCATION [facility] INDICATION: M79.604: Pain of right lower extremity [...] Report dictated by Jose Angel Delgado MD, (Button Station Worker). I, Magda Barbosa MD have personally reviewed and interpreted this examination/study. > Interpreting Provider: Magda Barbosa MD on 12/04/2023 8:41 PM Kim Wilson LINE DRIVER-TIE PRESSER DIAGNOSTIC I MAGING ORDERABLES * TROPONIN-I HIGH SENSITIVE (12/04/2023 4:49 PM CDT) Pathologist [facility] Troponin I High Sensitive <3 <=35 ng/L 12/04/2023 5:30 PM CDT [facility] Blood BLOOD SPECIMEN / Unknown Venipuncture / Unknown 12/04/2023 4:49 PM CDT 12/04/2023 5:00 PM CDT Walter Oakes MD LAB - CHEMISTRY BHARTI [place] [facility] Organization Address City/State/[facility] Co de Phone Number [facility] [address] [place] [phone] [phone] * PT-INR [facility] (12/04/2023 4:49 PM CDT) Only the most recent of2 resultswithin the time period is included. Pathologist [facility] PT 12.8 12.1 - 14.8 Seconds 12/04/2023 5:21 PM CDT [facility] INR 1.0 See Comment 12/04/2023 5:21 PM CDT [facility] Comment:The suggested therap eutic range for standard coumadin (warfarin) therapy is an INR of 2.0-3.0. For high-risk patients (Mechanical Mitral Valve Prosthesis, etc.), the suggested prophylactic therapeutic range is an INR of 2.5-3.5. Blood BLOOD SPECIMEN / Unknown Venipuncture / Unknown 12/04/2023 4:49 PM CDT 12/04/2023 5:21 PM CDT Walter Oakes MD LAB - COAGULATION OR DERABLES Performing Organization Address [facility] Co de Phone Number [address] [address], [place] [phone] * LACTIC ACID BLOOD REFLEX TO REPEAT (12/04/2023 4:49 PM CDT) [facility] Lactic Acid-Stat 1.2 <=2.0 mmol/L 12/04/2023 5:19 PM CDT [facility] Blood BLOOD SPECIMEN / Unknown Venipuncture / Unknown 12/04/2023 4:49 PM CDT 12/04/2023 5:00 PM CDT Walter Oakes MD LAB - CHEMISTRY ORDE RABOCRRY Performing Organization Address [facility] de Phone Number [address] [address], [place] [phone] * CULTURE BLOOD (12/04/2023 4:49 PM CDT) Only the most recent of6 resultswithin the time period is included. Pathologist [facility] Culture No growth day 5 JANET 12/09/2023 11:31 PM CDT [facility] MICROBIOLOG[facility] Blood PERIPHERAL BLOOD / Unknown Venipuncture / Unknown 12/04/2023 4:49 PM CDT 12/04/2023 4:58 PM CDT Walter Oakes MD LAB - MICROBIOLOGY O RDERABLES Performing Organization Address [facility] Co de Phone Number [facility] MICROBIOLOGY [address] [place] [address], [place] [phone] * (ABNORMAL) ERYTHROCYTE SEDIMENTATION RATE (12/04/2023 4:49 PM CDT) Only the most recent of2 resultswithin the time period is included. Erythrocyte Sedimentation Rate Westergren 90(H) 0 - 20 MM/HR 12/04/2023 5:29 PM CDT [facility] Blood BLOOD SPECIMEN / Unknown Venipuncture / Unknown 12/04/2023 4:49 PM CDT 12/04/2023 5:00 PM CDT Kim Emilyshun Wilson LINE DRIVER-TIE PRESSER LAB - HEMATO LOGY ORDERABLES [address] [address], [facility] [phone] * (ABNORMAL) CBC W AUTO DIFFERENTIAL (12/04/2023 4:49 PM CDT) Only the most recent of7 resultswithin the time period is included. WBC 12.0(H) 4.0 - 10.7 x10E9/L 12/04/2023 5:32 PM [facility] RBC Count 4.61 4.30 - 5.80 x10E12/L 12/04/2023 5:32 PM [facility] Hemoglobin 13.1(L) 13.3 - 17.5 g/dL 12/04/2023 5:32 PM [facility] Hematocrit 40.2 38.7 - 51.1 % 12/04/2023 5:32 PM [facility] MCV 87.2 80.0 - 98.0 fL 12/04/2023 5:32 PM [facility] MCH 28.4 26.7 - 33.6 pg 12/04/2023 5:32 PM [facility] MCHC 32.6 31.7 - 36.3 g/dL 12/04/2023 5:32 PM [facility] RDW-CV 13.7 11.3 - 14.8 % 12/04/2023 5:32 PM [facility] Platelet Count 12/04/2023 5:32 PM [facility] Comment:Automated platelet c ount is inaccurate due to clumping, platelet estimate from smear appears adequate. MPV 12/04/2023 5:32 PM [facility] Comment:Unable to report Neutrophil % 66.1 41.0 - 74.0 % 12/04/2023 5:32 PM [facility] Lymphocyte % 23.5 17.0 - 47.0 % 12/04/2023 5:32 PM [facility] Monocyte % 8.1 3.0 - 11.0 % 12/04/2023 5:32 PM [facility] Eosinophil % 1.1 0.0 - 7.0 % 12/04/2023 5:32 PM [facility] Basophil % 0.8 0.0 - 1.6 % 12/04/2023 5:32 PM [facility] Immature Granulocytes % 0.4 0.0 - 1.0 % 12/04/2023 5:32 PM [facility] Neutrophil Absolute 7.90(H) 1.60 - 7.50 x10E9/L 12/04/2023 5:32 PM [facility] Lymphocyte Absolute 2.81 1.00 - 4.40 x10E9/L 12/04/2023 5:32 PM [facility] Monocyte Absolute 0.97 0.15 - 1.00 x10E9/L 12/04/2023 5:32 PM [facility] Eosinophil Absolute 0.13 0.00 - 0.60 x10E9/L 12/04/2023 5:32 PM [facility] Basophil Absolute 0.10 0.00 - 0.13 x10E9/L 12/04/2023 5:32 PM [facility] Blood BLOOD SPECIMEN / Unknown Venipuncture / Unknown 12/04/2023 4:49 PM CDT 12/04/2023 5:00 PM T Walter Oakes MD LAB - HEMATOLOGY ORD ERABLES [facility] [address] [place] [address], [facility] [phone] * (ABNORMAL) COMPREHENSIVE METABOLIC PANEL (12/04/2023 4:49 PM [facility]) Only the most recent of4 resultswithin the time period is included. BUN 16 7 - 26 mg/dL 12/04/2023 5:26 PM [facility] Creatinine 0.91 0.71 - 1.16 mg/dL 12/04/2023 5:26 PM [facility] Sodium 140 136 - 145 mmol/L 12/04/2023 5:26 PM [facility] Potassium 4.3 3.5 - 4.5 mmol/L 12/04/2023 5:26 PM [facility] Chloride 106 98 - 107 mmol/L 12/04/2023 5:26 PM [facility] CO2 21(L) 22 - 29 mmol/L 12/04/2023 5:26 PM [facility] Glucose 84 70 - 115 mg/dL 12/04/2023 5:26 PM [facility] Calcium 10.0 8.4 - 10.2 mg/dL 12/04/2023 5:26 PM [facility] Protein Total 8.2 6.0 - 8.3 g/dL 12/04/2023 5:26 PM [facility] Albumin 4.1 3.4 - 5.0 g/dL 12/04/2023 5:26 PM [facility] Bilirubin Total 0.3 0.2 - 1.2 mg/dL 12/04/2023 5:26 PM [facility] Alkaline Phosphatase 122 40 - 150 U/L 12/04/2023 5:26 PM [facility] ALT 19 5 - 55 U/L 12/04/2023 5:26 PM [facility] AST 16 5 - 34 U/L 12/04/2023 5:26 PM [facility] Anion Gap 13 6 - 16 12/04/2023 5:26 PM [facility] BUN/Creatinine Ratio 18 7 - 23 12/04/2023 5:26 PM [facility] Osmolality Calculated 290 275 - 295 mOsm/kg 12/04/2023 5:26 PM [facility] Albumin/Globulin Ratio 1.0(L) 1.1 - 2.3 12/04/2023 5:26 PM CDT [facility] eGFR by CKD-EPI >90 >=90 mL/min/1.7 3 m2 12/04/2023 5:26 PM CDT [facility] Blood BLOOD SPECIMEN / Unknown Venipuncture / Unknown 12/04/2023 4:49 PM CDT 12/04/2023 5:00 PM CDT Walter Oakes MD LAB - CHEMISTRY ORDE JHONATAN [facility] [address] [place] [address], [place] [phone] * MAGNESIUM BLOOD (12/04/2023 4:49 PM CDT) Only the most recent of9 resultswithin the time period is included. Magnesium 2.2 1.6 - 2.6 mg/dL 12/04/2023 5:26 PM CDT [facility] Blood BLOOD SPECIMEN / Unknown Venipuncture / Unknown 12/04/2023 4:49 PM CDT 12/04/2023 5:00 PM CDT Kim Wilson APRN-TIE PRESSER LAB - CHEMIS TRY ORDERABLES [facility] [address] [place] [address], [place] [phone] * EKG 12-LEAD (12/04/2023 3:57 PM CDT) Ventricular Rate 104 BPM [facility] MUSE Atrial Rate 104 BPM [facility] MUSE P-R Interval 140 ms [facility] MUSE QRS Duration ms 94 ms [facility] MUSE Q-T Interval ms 340 ms [facility] MUSE QTC Calculation (Bezet) 448 ms SL MUSE Calculated P [place] -5 degrees SL MUSE Calculated R Red [place] -22 degrees SL MUSE Calculated T [place] 42 degrees [facility] MUSE Interpretation EKG SINUS TACHYCARDIA OTHERWISE NORMAL ECG NO PREVIOUS ECGS AVAILABLE Confirmed by WALTER AUGUSTIN MD ([id number]) on 12/07/2023 7:00:47 AM [facility] MUSE 12/04/2023 3:57 PM CDT 12/07/2023 7:00 AM CDT Walter Oakes MD ECG ORDERABLES Performing Organization Address City/[facility]/ZIP Co de Phone Number [facility] MUSE * VAS ARTERIAL MULTILEVEL LE (11/27/2023 2:39 PM CDT) Only the most recent of2 resultswithin the time period is included. Anatomical Region Laterality Modality Intravascular Ul trasound 11/27/2023 1:56 AM CDT Narrative Procedure Note Uriah Liu MD - 11/28/2023 Ian Almonte MD VASCULAR LAB ORDERAB LES * (ABNORMAL) C-REACTIVE PROTEIN (11/06/2023 2:33 PM CDT) Pathologist [facility] C-Reactive Protein 4.3(H) <=0.5 mg/dL 11/06/2023 3:26 PM CDT [facility] Blood BLOOD SPECIMEN / Unknown Venipuncture / Unknown 11/06/2023 2:33 PM CDT 11/06/2023 2:46 PM CDT Kim Wilson LINE DRIVER-TIE PRESSER LAB - CHEMIS TRY ORDERABLES Performing Organization Address City/[facility]/ZIP Co de Phone Number [facility] [address] [place] [address], [facility] [phone] * (ABNORMAL) BASIC METABOLIC PANEL (CALCIUM TOTAL) (11/02/2023 3:50 AM CDT) Only the most recent of5 resultswithin the time period is included. Pathologist [facility] BUN 17 7 - 26 mg/dL 11/02/2023 5:09 AM CDT [facility] Creatinine 0.78 0.71 - 1.16 mg/dL 11/02/2023 5:09 AM CDT [facility] Sodium 139 136 - 145 mmol/L 11/02/2023 5:09 AM [facility] Potassium 4.3 3.5 - 4.5 mmol/L 11/02/2023 5:09 AM [facility] Chloride 108(H) 98 - 107 mmol/L 11/02/2023 5:09 AM [facility] CO2 21(L) 22 - 29 mmol/L 11/02/2023 5:09 AM [facility] Glucose 112 70 - 115 mg/dL 11/02/2023 5:09 AM [facility] Calcium 9.6 8.4 - 10.2 mg/dL 11/02/2023 5:09 AM [facility] Anion Gap 10 6 - 16 11/02/2023 5:09 AM [facility] BUN/Creatinine Ratio 22 7 - 23 11/02/2023 5:09 AM [facility] Osmolality Calculated 290 275 - 295 mOsm/kg 11/02/2023 5:09 AM [facility] eGFR by CKD-EPI >90 >=90 mL/min/1.7 3 m2 11/02/2023 5:09 AM [facility] Blood BLOOD SPECIMEN / Unknown Lab Venipuncture / Unknown 11/02/2023 3:50 AM CDT 11/02/2023 4:06 AM CDT Jose Ramon Murphy MD LAB - CHEMISTRY BHARTI [facility] Organization Address City/State/ZIP Co de Phone Number [facility] [address] [place] [phone], [facility] [phone] * PHOSPHORUS BLOOD (11/02/2023 3:50 AM CDT) Only the most recent of4 resultswithin the time period is included. Phosphorus 3.9 2.8 - 5.1 mg/dL 11/02/2023 5:09 AM [facility] Blood BLOOD SPECIMEN / Unknown Lab Venipuncture / Unknown 11/02/2023 3:50 AM CDT 11/02/2023 4:06 AM CDT Jose Ramon Murphy MD LAB - CHEMISTRY BHARTI [place] Performing Organization Address [facility]/ZIP Co de Phone Number [facility] [address] [place] [address], [facility] [phone] * PREPARE (CROSSMATCH) RBC UNIT(S), 2 Units (11/01/2023 1:17 AM CDT) Unit Description AS1 LR PRBC [facility] BLOOD [facility]ANK LAB Unit ABO A [facility] Unit Rh POS [facility] Product Number R02 [facility] B LOOD BANK LAB Unit Donor # [id number] [facility] BLOOD [facility] Unit Status released [facility] BLOO D BANK LAB Product Code [id number] [facility] BLO OD BANK LAB Blood Type Barcode 6200 [facility] BLOOD [facility] LAB Expiration Date S BLOOD BANK LAB Unit Description AS1 LR PRBC [facility] BLOOD [facility] Unit ABO A [facility] BLOOD [facility] LAB Unit Rh POS [facility] BLOOD [facility] LAB Product Number R02 [facility] B LOOD BANK LAB Unit Donor # [id number] [facility] BLOOD BANK LAB Unit Status released [facility] BLOO D BANK LAB Product Code [id number] [facility] BLO OD BANK LAB Blood Type Barcode 6200 [facility] BLOOD [facility]ANK LAB Expiration Date [id number] S BLOOD BANK LAB Blood Bank BLOOD SPECIMEN / Unknown 10/28/2023 11:33 AM CDT Lew Laura MD LAB - BLOOD BANK ORD ERABLES Performing Organization Address [facility]/ZIP Co de Phone Number [facility] LAB [address] [place] [address], [facility] [phone] * FL TARYN W ANGIO TEAM (10/29/2023 3:15 PM CDT) Narrative [facility] RADIOLOGY - 10/29/2023 4:10 PM CDT Fluoroscopy was used for this exam in the OR. Please see the Operative report. Pablo Greenfield MD FLUOROSCOPY ORDERA BLES Performing Organization Address [facility]/ZIP Co de Phone Number [facility] RADIOLOGY * (ABNORMAL) BLOOD GAS+COOX+LYTES+METAB ARTERIAL POCT (10/29/2023 2:20 PM CDT) Only the most recent of2 resultswithin the time period is included. pH Arterial 7.38 7.35 - 7.45 pH 10/29/2023 2:20 PM [facility] pO2 Arterial 92 80 - 100 mmHg 10/29/2023 2:20 PM [facility] pCO2 Arterial 46(H) 35 - 45 mmHg 2:20 PM [facility] HCO3 Arterial 27.2 20.0 - 30.0 mmol/L 10/29/2023 2:20 PM [facility] BE Arterial 1.6 -2.0 - 2.0 mmol/L 10/29/2023 2:20 PM [facility] Oxyhemoglobin Arterial 96.4 % 10/29/2023 2:20 PM [facility] Dexoyhemoglobin (HHB) % 1.0 % 10/29/2023 2:20 PM [facility] Methemoglobin <0.8 0.0 - 2.0 % 10/29/2023 2:20 PM [facility] Carboxyhemoglobin 1.9 0.0 - 2.0 % 2023 2:20 PM [facility] Comment:Carboxyhemoglobin No rmal Concentration: Non-smokers: 0-2%; Smokers: 0- 9%; Toxic: >20% O2 Content Arterial 17.0 Interpret within clinical context ml/dL 10/29/2023 2:20 PM [facility] Hemoglobin by COOX 12.5 12.0 - 17.6 g/dL 10/29/2023 2:20 PM [facility] O2 Saturation Arterial 99 90 - 100 % 10/29/2023 2:20 PM [facility] Sodium Whole Blood 132(L) 135 - 145 mmol/L 10/29/2023 2:20 PM [facility] Potassium Whole Blood 5.2 3.5 - 5.5 mmol/L 10/29/2023 2:20 PM [facility] Chloride WB 103 78 - 107 mmol/L 10/29/2023 2:20 PM [facility] Calcium Ionized 1.13 mmol/L 2:20 PM CDT [facility] Ionized Calcium pH Adjusted 1.12(L) 1.19 - 1.34 mmol/L 10/29/2023 2:20 PM CDT [facility] Anion Gap (AG) Arterial 2(L) 6 - 16 mmol/L 10/29/2023 2:20 PM CDT [facility] Glucose WB 146(H) 70 - 115 mg/dL 10/29/2023 2:20 PM CDT [facility] Lactic Acid Whole Blood 2.4(H) <=2.0 mmol/L 10/29/2023 2:20 PM CDT [facility] Blood, arterial ARTERIAL BLOOD SPECIMEN / Unknown 10/29/2023 2:20 PM CDT 10/29/2023 2:20 PM CDT Lew Laura MD LAB - POINT OF CARE ORDERABLES Performing Organization Address City/[facility]/ZIP Co de Phone Number [address] [address], [facility] [phone] * BLOOD GAS ART+LYTES+METAB+COOX POC NOTIF (10/29/2023 2:18 PM CDT) Only the most recent of2 resultswithin the time period is included. Comment Notification Label Only - See Separate Report 10/29/2023 3:31 PM CDT [facility] Other MISCELLANEOUS SAMPLES / Unknown 10/29/2023 2:18 PM CDT 10/29/2023 2:18 PM CDT Balaji Harrison MD LAB - BLOOD GASES OR DERABLES [address] [address], [place] [phone] * PATHOLOGY TISSUE (10/29/2023 1:48 PM CDT) Only the most recent of2 resultswithin the time period is included. Case Report Surgical Pathology Report Case: [id number] Authorizing Provider: Pablo Greenfield MD Collected: 10/29/2023 01:48 PM Ordering Location: [facility] Received: 10/29/2023 03:33 PM Pathologist: Damari Joyner MD Specimen: Amputation Toe 11/01/2023 10:52 AM [facility] Final Diagnosis Bone, right 1st and 2nd toe margin, amputation (A): - Bone, skeletal muscle and fibroadipose tissue, negative for acute inflammation 11/01/2023 10:52 AM [facility] Microscopic Description and Comment Microscopic examination substantiates the diagnosis. 11/01/2023 10:52 AM [facility] Clinical History The patient is a 53-year-old male with history of previous right [id number] popliteal artery bypass with greater saphenous vein that was occluded. He presented with osteomyelitis in his right first and second toes and left third toe. Operative procedure: Right first and second toe amputation. 11/01/2023 10:52 AM [facility] Gross Description The requisition [...] resection margin shows orozco-white firm underlying bone. Training [employer] Development Project Leader section is submitted in A1 following decalcification. [facility] 11/01/2023 10:52 AM [facility] Pathologist Location at [facility] 11/01/2023 10:52 AM [facility] Disclaimer The performance characteristics of all immunohistochemical and indirect immunofluorescence stains (if any) cited in this report were determined by the Histopathology Laboratory of [facility]. Some of these tests were [...] attending (teaching) pathologist. 11/01/2023 10:52 AM CDT [facility] PATHOLOGY LAB Embedded Images 11/01/2023 10:52 AM CDT [facility] PATHOLOGY LAB Pathology/Cytolo gy AMPUTATION OF TOE / Unknown Collection / Unknown 10/29/2023 1:48 PM CDT 10/29/2023 3:33 PM CDT Comment:Right 1st and 2nd To e Bone Margin Pablo Greenfield MD LAB - PATHOLOGY/CY TOLOGY ORDERABLES [facility] PATHOLOGY LAB [address] [phone] * (ABNORMAL) CULTURE TISSUE+GRAM STAIN (10/29/2023 1:43 PM CDT) Only the most recent of2 resultswithin the time period is included. Culture Moderate Escherichia coli(AA) JANET 11/01/2023 4:36 AM CDT [facility] MICROBIOLOGY Culture Light Staphylococcus aureus(AA) JANET 11/01/2023 4:36 AM CDT [facility] Comment:Staphylococcus aureu s methicillin-susceptible (MSSA) detected by penicillin binding protein immunoassay. Culture Moderate normal skin robyn 11/01/2023 4:36 AM CDT [facility] MICROBI[facility] Gram Stain Moderate Gram-positive bacilli(AA) 11/01/2023 4:36 AM CDT [facility] MICROBIOLOG[facility] Gram Stain Moderate Gram-positive cocci(AA) 11/01/2023 4:36 AM CDT [facility] MICRO[facility] Gram Stain Rare Gram-negative bacilli(AA) 11/01/2023 4:36 AM CDT [facility] MICRO[facility] Gram Stain No polymorphonuclear cells(AA) 11/01/2023 4:36 AM CDT [facility] MICROBIOLOGY Microbiology ENTIRE TOE / [...] Pablo Greenfield MD LAB - MICROBIOLOGY ORDERABLES [facility] MICROBIOLOGY [address] [phone] * (ABNORMAL) CULTURE ANAEROBE (10/29/2023 1:43 PM CDT) Only the most recent of2 resultswithin the time period is included. Culture Light Bacteroides fragilis(A) JANET 11/02/2023 9:55 AM CDT [facility] MICROBIOLOGY Comment:Beta-lactamase posit redd Microbiology ENTIRE TOE / Unknown Collection / Unknown 10/29/2023 1:43 PM CDT 10/29/2023 3:02 PM CDT Pablo Greenfield MD LAB - MICROBIOLOGY ORDERABLES Performing Organization Address City/[facility]/ZIP Co de Phone Number [facility] MICROBI[facility] [address] [place] [address], [facility] [phone] * ACT LR - POCT ([facility]) (10/29/2023 11:58 AM CDT) Only the most recent of2 resultswithin the time period is included. ACT LR 197 See result comments sec 10/29/2023 2:19 PM CDT [facility] Blood BLOOD SPECIMEN / Unknown 10/29/2023 11:58 AM CDT 10/29/2023 2:19 PM CDT Narrative [facility] - 10/29/2023 2:19 PM CDT ACT-LR Therapeutics ranges are: Cardiac label paster = 200-300 seconds Sheath pull = ACT [...] - COAGULATION OR DERABLES Performing Organization Address City/[facility] Co de Phone Number [facility] [address] [place] [address], [facility] [phone] * IV PLACEMENT PERFORMABLE (10/29/2023 9:25 AM CDT) Narrative Cisco Vuong Anes Asst - 10/29/2023 9:25 AM CDT Cisco Vuong Anes Asst 10/29/2023 9:26 AM Peripheral IV Line Placement: Patient Location: OR Insertion Time: 10/29/2023 9:25 AM Procedure: IV start ([id number]). Procedure Section: Skin Prep: alcohol. Orientation: left [...] Event Date/Time: 10/29/2023 7:39 AM Procedure: intubation (47608). Procedure Section: Sedation: under general anesthesia. Indications [...] Time: 10/29/2023 7:43 AM Procedure: IV start ([id number]). Procedure Section: Skin Prep: Chloraprep. Orientation: left [...] Note Patient Location: OR. Procedure: Arterial Line ([id number]). Procedure Section Indications: blood sampling needed and [...] MD. Balaji Harrison MD GENERAL ANESTHESIA O PROSEPRERATATY * CBC W/O DIFFERENTIAL (10/29/2023 3:58 AM CDT) Only the most recent of3 resultswithin the time period is included. WBC 7.3 4.0 - 10.7 x10E9/L 10/29/2023 5:03 AM [facility] RBC Count 4.73 4.30 - 5.80 x10E12/L 10/29/2023 5:03 AM [facility] Hemoglobin 14.8 13.3 - 17.5 g/dL 10/29/2023 5:03 AM [facility] Hematocrit 42.3 38.7 - 51.1 % 10/29/2023 5:03 AM [facility] MCV 89.4 80.0 - 98.0 fL 10/29/2023 5:03 AM [facility] MCH 31.3 26.7 - 33.6 pg 10/29/2023 5:03 AM CDT [facility] MCHC 35.0 31.7 - 36.3 g/dL 10/29/2023 5:03 AM CDT [facility] RDW-CV 12.6 11.3 - 14.8 % 10/29/2023 5:03 AM CDT [facility] Platelet Count 284 150 - 420 x10E9/L 10/29/2023 5:03 AM CDT [facility] MPV 9.7 7.8 - 11.4 fL 10/29/2023 5:03 AM CDT [facility] Blood BLOOD SPECIMEN / Unknown Lab Venipuncture / Unknown 10/29/2023 3:58 AM CDT 10/29/2023 4:50 AM CDT Lew Laura MD LAB - HEMATOLOGY ORD ERABLES [facility] [address] [place] [phone], [facility] [phone] * BLOOD TYPE VERIFICATION (10/28/2023 11:40 AM CDT) ABO Rh A POS 10/28/2023 12:16 PM CDT [facility] Blood Bank BLOOD SPECIMEN / Unknown Lab Venipuncture / Unknown 10/28/2023 11:40 AM CDT 10/28/2023 11:49 AM CDT Lew Laura MD LAB - BLOOD BANK ORD ERABLES [facility] [address] [place] [address], [place] [phone] * TYPE + SCREEN PANEL (10/28/2023 11:29 AM CDT) Antibody Screen NEG 12:16 PM CDT [facility] ABO Rh A POS 10/28/2023 12:16 PM CDT [facility] Blood Bank BLOOD SPECIMEN / Unknown Lab Venipuncture / Unknown 10/28/2023 11:29 AM CDT 10/28/2023 11:33 AM CDT Lew Laura MD LAB - BLOOD BANK ORD ERABLES [facility] [address] [place] [address], [facility] [phone] * VAS BILATERAL VENOUS MAPPING (10/25/2023 9:49 [...] Jack MD > Dictated by Molina Jack (Button Station Worker) 10/24/2023 3:16 PM I, Pablo Greenfield MD have personally reviewed and interpreted this examination/study. > Interpreting Provider: Pablo Greenfield MD on 10/26/2023 4:48 PM Narrative 10/26/2023 4:48 PM CDT PROCEDURE: IR ANGIOGRAM BILATERAL LEG, DATE/TIME OF EXAM: 10/24/2023 2:34 PM, LOCATION [facility] PRE-PROCEDURE DIAGNOSIS: Bilateral toe osteomyelitis POST-PROCEDURE DIAGNOSIS: [...] exchanges this was upsized for a 5 [place] sheath. A left lower extremity angiogram showed [...] All devices were removed and a 5 [place] minx device was deployed in the left [...] evaluation, please review the evaluation forms in [facility]. For details on monitored clinical parameters during the intra-service sedation time, please review the procedure nurse documentation in [facility]. COMPLICATIONS: None apparent ESTIMATED BLOOD LOSS: 3cc Procedure Note Pablo Greenfield MD - 10/26/2023 PROCEDURE: IR ANGIOGRAM BILATERAL LEG, DATE/TIME OF EXAM: :34 PM, LOCATION [facility] PRE-PROCEDURE DIAGNOSIS: Bilateral toe osteomyelitis POST-PROCEDURE DIAGNOSIS: [...] minutes ATTENDING: Pablo Greenfield MD RESIDENT: Molina Jakc MD; Pablo Hendrix MD INDICATIONS FOR PROCEDURE: [...] exchanges this was upsized for a 5 [place]er sheath. A left lower extremity angiogram showed [...] All devices were removed and a 5 [place] minx device was deployed in the left [...] evaluation, please review the evaluation forms in [facility]. For details on monitored clinical parameters during the intra-service sedation time, please review the procedure nurse documentation in [facility]. COMPLICATIONS: None apparent ESTIMATED BLOOD LOSS: 3cc [...] Jack MD > Dictated by Molina Jack (Button Station Worker) 10/24/2023 3:16 PM Pablo Ambrosio MD have [...] osteomyelitis. Report dictated by Colin Cuenca DO (radiology manager). IBranden MD have personally reviewed and interpreted [...] osteomyelitis. Report dictated by Colin Cuenca DO (radiology manager). I, Branden Mcgregor MD have personally reviewed and interpreted this examination/study. > Interpreting Provider: Branden Mcgregor MD on 10/23/2023 4:35 PM Aurea Del Castillo MD MR ORDERABLES * ECHO COMPLETE W CONTRAST (10/23/2023 10:51 AM CDT) BSA [id number] m2 [facility] CV FUJ I PACS Sinus [...] Index 28 ml/m2 [facility] CV FUJI PACS [id number] 8.272 cm [facility] CV FUJ I PACS [id number] 7.763 cm [facility] CV FUJ I PACS [...] 7 - 26 mg/dL 10/23/2023 4:47 AM [facility] Creatinine 0.76 0.71 - 1.16 mg/dL 10/23/2023 4:47 AM [facility] Sodium 138 136 - 145 mmol/L 10/23/2023 4:47 AM [facility] Potassium 4.4 3.5 - 4.5 mmol/L 10/23/2023 4:47 AM [facility] Chloride 104 98 - 107 mmol/L 10/23[facility]23 4:[facility] CO2 25 22 - 29 mmol/L 10/23/2023 4:47 AM [facility] Glucose 113 70 - 115 mg/dL 10/23/2023 4:47 AM [facility] Albumin 3.1(L) 3.4 - 5.0 g/dL 10/23/2023 4:47 AM [facility] Calcium 9.6 8.4 - 10.2 mg/dL 10/23/2023 4:47 AM [facility] Phosphorus 4.0 2.8 - 5.1 mg/dL 10/23/2023 4:47 AM [facility] Anion Gap 9 6 - 16 10/23/2023 4:47 AM [facility] BUN/Creatinine Ratio 18 7 - 23 10/23/2023 4:47 AM [facility] Osmolality Calculated 287 275 - 295 mOsm/kg 10/23/2023 4:47 AM [facility] eGFR by CKD-EPI >90 >=90 mL/min/1.7 3 m2 10/23/2023 4:47 AM [facility] Blood BLOOD SPECIMEN / Unknown Lab Venipuncture / Unknown 10/23/2023 3:45 AM CDT 10/23/2023 4:19 AM T Aurea Del Castillo MD LAB - CHEMISTRY ORDE [facility] Organization Address City/State/ZIP Co de Phone Number [facility] [address] [place] [address], [facility] [phone] * (ABNORMAL) HEMOGLOBIN A1C (2023 4:05 AM T) Hemoglobin A1c 8.7(H) <=5.6 % 2023 9:42 AM [facility] Estimated Average Glucose 203 mg/dL 2023 9:42 AM [facility] Comment: HbA1c Interpretation: Normal : < 5.7% Pre-diabetes: 5.7-6.4% Diabetes: Equal to or greater than 6.5% Test results diagnostic of diabetes should be repeated for confirmation. Treatment target values recommended by ADA and other clinical organizations should be used to evaluate metabolic control in patients. Reference: [place] [employer] Association, Standards of Care in Diabetes [...] Aurea Del Castillo MD LAB - CHEMISTRY [facility] Organization Address City/State/ZIP Co de Phone Number [address] [address], [facility] [phone] * MRI HAND LEFT WWO CONTRAST (10/21/2023 [...] region. Report dictated by Colin Cuenca DO (radiology manager). I, Branden Mcgregor MD have personally reviewed [...] region. Report dictated by Colin Cuenca DO (radiology manager). I, Branden Mcgregor MD have personally reviewed and interpreted this examination/study. > Interpreting Provider: Branden Mcgregor MD on 2023 10:08 AM Jennifer Caban MD MR ORDERABLES * CULTURE WOUND+GRAM STAIN (10/20/2023 3:25 PM CDT) Pathologist [facility] Culture Rare normal skin robyn 2023 8:23 PM CDT [facility] MICROBIOLOGY Gram Stain Moderate Red blood cells 2023 8:23 PM CDT [facility]CRO[facility] Gram Stain No polymorphonuclear cells 2023 8:23 PM CDT [facility] MICRO[facility]OLOG[facility] Gram Stain No organisms seen 024 8:23 PM CDT [facility] MICROBIOLOGY Microbiology ENTIRE FINGER / Unknown Collection / Unknown 10/20/2023 3:25 PM CDT 10/20/2023 3:28 PM CDT Aurea Del Castillo MD LAB - MICROBIOLOGY O RDERABLES [facility] MICRO[facility] [address] [place] [address], [facility] [phone] * (ABNORMAL) LIPID PROFILE (10/20/2023 4:02 AM CDT) Pathologist [facility] Cholesterol Total 163 <200 mg/dL 10/20/2023 5:16 AM CDT [facility] HDL 31(L) >40 mg/dL 10/20/2023 5:16 AM CDT [facility] Comment: ATP III Classification of HDL Cholesterol: <40 mg/dL: Considered a major risk factor. >60 mg/dL: Considered a negative risk factor. LDL Calculated 93 <100 mg/dL 10/20/2023 5:16 AM CDT [facility] Comment: ATP III Classification of LDL Cholesterol: <100 mg/dL: Optimal 100 - 129 mg/dL: Near Optimal/Above Optimal 130 - 159 mg/dL: Borderline High 160 - 189 mg/dL: High >190 mg/dL: Very High Triglycerides 194(H) <150 mg/dL 10/20/2023 5:16 AM CDT [facility] Comment: ATP III Classification of Triglycerides: <150 mg/dL: Normal 150 - 199 mg/dL: Borderline High 200 - 400 mg/dL: High >500 mg/dL: Very High Blood BLOOD SPECIMEN / Unknown Lab Venipuncture / Unknown 10/20/2023 4:02 AM CDT 10/20/2023 4:41 AM CDT Jennifer Caban MD LAB - CHEMISTRY ORDERABLES Performing Organization Address [facility]/State/[facility] Co de Phone Number [facility] [address] [place] [address], [facility] [phone] * XR HAND LEFT 2VW (10/20/2023 1:25 [...] 7.32 - 7.42 pH 10/19/2023 11:49 PM [facility] pO2 Venous 121(H) 35 - 40 mmHg 10/19/2023 11:49 PM [facility] pCO2 Venous 40 40 - 50 mmHg 10/19/2023 11:49 PM [facility] HCO3 Venous 25.9 20 - 30 mmol/L 10/19/2023 11:49 PM [facility] Base Excess Venous 1.3 -2.0 - 2.0 mmol/L 10/19/2023 11:49 PM [facility] Oxyhemoglobin Venous 96.3 % 09/24 11:49 PM [facility] Deoxyhemoglobin (HHB) Venous % <1.0 % 10/19/2023 11:49 PM [facility] Methemoglobin 1.0 0.0 - 2.0 % 10/19/2023 11:49 PM T [facility] Carboxyhemoglobin 2.0 0.0 - 2.0 % 2023 11:49 PM [facility] O2 Content Venous 19.1 Interpret within clinical context ml/dL 10/19/2023 11:49 PM [facility] Hemoglobin by COOX 14.0 12.0 - 17.6 g/dL 10/19/2023 11:49 PM [facility] O2 Saturation Venous 99 >=70 % 09/24 11:49 PM [facility] FI O2 Mixed Venous 21.0 % 2023 11:49 PM [facility] Blood BLOOD SPECIMEN / Unknown Venipuncture / Unknown 10/19/2023 11:25 PM CDT 10/19/2023 11:37 PM CDT Narrative [facility] - 10/19/2023 11:49 PM CDT Carboxyhemoglobin Normal Concentration: Non-smokers: 0-2%; Smokers: 0-9%; Toxic: >20% Jennifer Caban MD LAB - BLOOD GAS ES ORDERABLES [facility] [address] [place] [address], [facility] [phone] * (ABNORMAL) MICROALB/CREAT RATIO URINE RANDOM PANEL (10/19/2023 11:18 PM CDT) Albumin Random Urine 26.6 Not Established ug/mL 10/19/2023 11:58 PM [facility] Creatinine Urine 77.71 Not Established mg/dL 10/19/2023 11:58 PM [facility] Urine Albumin/Creati nine Ratio 34(H) <30 mg/g 10/19/2023 11:58 PM T [facility] Urine URINE SPECIMEN OBTAINED BY CLEAN CATCH PROCEDURE / Unknown Collection / Unknown 10/19/2023 11:18 PM CDT 10/19/2023 11:37 PM CDT Jennifer Caban MD LAB - URINE KELLEN GALDINO ORDERABLES [id number] [place] [address], [facility] [phone] * XR SKULL 3VW OR LESS (10/19/2023 [...] 35 <100 pg/mL 10/19/2023 9:27 PM CDT [facility] Comment: A decision threshold of 100 [...] Jennifer Caban MD LAB - CHEMISTRY ORDERABLES [address] [address], [facility] [phone] * LACTIC ACID BLOOD (10/19/2023 8:39 PM CDT) Pathologist [facility] Lactic Acid-Stat 1.1 <=2.0 mmol/L 10/19/2023 9:16 PM CDT [facility] Blood BLOOD SPECIMEN / Unknown Lab Venipuncture / Unknown 10/19/2023 8:39 PM CDT 10/19/2023 8:54 PM CDT Jennifer Caban MD LAB - CHEMISTRY ORDERABLES [address] [address], [facility] [phone] * XR CHEST 1VW PORTABLE (10/19/2023 8:20 PM CDT) Anatomical Region Laterality Modality Chest Radiographic Juliann ging 10/20/2023 7:31 AM CDT Narrative 10/20/2023 2:17 PM CDT PROCEDURE: XR CHEST 1VW PORTABLE, DATE/TIME OF EXAM: 10/19/2023 8:20 PM, LOCATION [facility] INDICATION: A49.01: MSSA (methicillin susceptible Staphylococcus aureus) [...] Report dictated by Stacey Dorantes Dr, MD (radiology manager). Forrest Ambrosio DO have personally reviewed and interpreted this examination/study. > Interpreting Provider: Forrest Waters DO on 10/20/2023 2:17 PM Procedure Note Forrest Waters DO - 10/20/2023 PROCEDURE: XR CHEST 1VW PORTABLE, DATE/TIME OF EXAM: 10/19/2023 8:20PM, LOCATION [facility] INDICATION: A49.01: MSSA (methicillin susceptible Staphylococcus aureus) [...] Report dictated by Stacey Dorantes Dr, MD (radiology manager). Forrest Ambrosio DO have personally reviewed and interpreted this examination/study. > Interpreting Provider: Forrest Waters DO on 10/20/2023 2:17 PM Jennifer Caban MD DIAGNOSTIC IMAG ING ORDERABLES Care Teams Lead Android Developer Relationship Specialty Start Date End Date Philippe Martinez MD [address] [place] [phone] PCP - General Family Medicine 11/01/23
--- OUTSIDE RECORDS SUMMARY | 2024-08-29 14:17 | XMS_ITS | Encounter Summary ---
Author Organization [facility] Address [address] [place] [address] Care Team Providers Care Chlorine Cell Tender Name Role Phone Philippe Martinez MD Primary Care Provider [phone] Reason for Referral * Surgical (Routine) - Closed Specialty Diagnoses / Procedures Referred By Margoth peoples Referred To Contact Diagnoses Osteomyelitis of second toe of left foot (CMS/HCC HHS/HCC) Procedures Case request operating room: AMPUTATION TOE (LEFT SECOND TOE) Cisco Forde MD [facility]. [address] [address] Phone: tel: fax: Referral ID Status Reason Start Date Expiration Date Visits Re quested Visits Authorized [id number] Closed 06/29/2023 06/29/2024 1 1 OMIC HISTORY TEACHER Encounter Details Date Type Department Care Team (Late st Contact Info) Description 06/29/2023 Prep for Procedure [facility] [address] [place], [place] [id number] Cisco Forde MD [facility] [address] [place] [address] Social History Tobacco Use Types Packs/Day Years Used Date Smoking Tobacco: Every Day Cigarettes 0.5 30 Smokeless Tobacco: Never Alcohol Use Standard Drinks/Week Comments Not Currently 0 (1 standard drink = 0.6 oz pur e alcohol) socially [facility] Utilities Answer Date Recorded In the past 12 months has [employer], gas, oil, or water [employer] threatened to shut off services in your [...] place to sleep or slept in a fpc (including now)? No 05/24/2023 Sex and Gender [...] Osteomyelitis of second toe of left foot ([facility]) Once for 1 Occurrences starting 06/29/2023 until 06/29/2023 documented as of this encounter Goals Goal Patient Goal Type Associated Problems Recent Progress Patient-Stated? Author Family - family caregiver with be involved in care transitions and discharge planning General No Estrella Henderson, SLAT BASKET MAKER HELPER Health - patient able to perform ADLs independently General No Marcial Goodman RN documented as of this encounter Results * (ABNORMAL) COMPREHENSIVE METABOLIC PANEL (07/12/2023 10:45 AM ECONOMIC HISTORY TEACHER) [facility] GLUCOSE 102(H) 70 - 99 MG/DL 07/12/2023 11:20 AM [facility] BUN 13 7 - 18 MG/DL 07/12/2023 11:20 AM [facility] CREATININE S/P/B 1.05 0.7 - 1.3 MG/DL 07/12/2023 11:20 AM [facility] SODIUM S/P/B 138 136 - 145 MMOL/L 07/12/2023 11:20 AM [facility] POTASSIUM S/P/B 4.0 3.5 - 5.1 MMOL/L 07/12/2023 11:20 AM [facility] CHLORIDE S/P/B 108 100 - 108 MMOL/L 07/12/2023 11:20 AM [facility] CO2 25.0 21 - 32 MMOL/L 07/12/2023 11:20 AM [facility] CALCIUM S/P/B 9.3 8.5 - 10.1 MG/DL 07/12/2023 11:20 AM [facility] BILIRUBIN TOTAL S/P/B 0.5 0.2 - 1.2 MG/DL 07/12/2023 11:20 AM [facility] Comment: THIS ASSAY IS NOT RECOMMENDED FOR PATIENTS UNDERGOING TREATMENT WITH ELTROMBOPAG DUE TO THE POTENTIAL FOR FALSELY ELEVATED RESULTS. TOTAL PROTEIN S/P/B 8.0 6.4 - 8.2 G/DL 07/12/2023 11:20 AM [facility] ALBUMIN S/P/B 3.9 3.4 - 5.0 G/DL 07/12/2023 11:20 AM [facility] AST 17 15 - 37 U/L 07/12/2023 11:20 AM [facility] ALT 33 16 - 60 U/L 07/12/2023 11:20 AM [facility] ALKALINE PHOSPHATASE S/P/B 110 50 - 136 U/L 07/12/2023 11:20 AM ECONOMIC HISTORY TEACHER [facility] ANION GAP 5.0 5 - 15 MMOL/L 07/12/2023 11:20 AM [facility] BUN CREATININE RATIO 12.4 6 - 26 07/12/2023 11:20 AM [facility] A/G RATIO 1.0 1.0 - 2.0 RATIO 07/12/2023 11:20 AM [facility] GFR ESTIMATE 85(L) >90 ML/MIN/1.7 3 M2 07/12/2023 11:20 AM [facility] Comment: NOTE: eGFR is not calculated for patients <18 years of age. This is an estimated GFR calculation using the new CKD EPI creatinine equation without race and so does not require a correction factor for race. This estimated GFR should not be used for calculating drug doses. 07/12/2023 10:4 5 AM ECONOMIC HISTORY TEACHER us Cisco Forde MD LABORATORY Final Result [facility] [address] [place] [address], [place] [phone] * PROTIME/INR, VENOUS (07/12/2023 10:45 AM ECONOMIC HISTORY TEACHER) PROTIME 11.1 10.2 - 12.9 SEC 07/12/2023 11:09 AM ECONOMIC HISTORY TEACHER [facility] INR 0.9 07/12/2023 11:09 AM ECONOMIC HISTORY TEACHER [facility] Comment: Recommended INR Therapeutic Goals: 2.0-3.0 Routine Therapy 2.5-3.5 Mechanical Prosthetic Valves (High Risk) 07/12/2023 10:4 5 AM ECONOMIC HISTORY TEACHER us Cisco Forde MD LABORATORY Final Result [facility] [address] [place] [address], * CBC W/DIFF AUTOMATED (07/12/2023 10:45 AM ECONOMIC HISTORY TEACHER) [facility] Signature WBC 8.4 4.5 - 11.0 x10'3/uL 07/12/2023 11:11 AM [facility] RBC 5.32 4.70 - 6.10 x10'6/uL 07/12/2023 11:11 AM [facility] HGB 16.5 14.0 - 18.0 G/DL 07/12/2023 11:11 AM [facility] HCT 47.8 43.0 - 54.0 % 07/12/2023 11:11 AM [facility] MCV 89.8 80.0 - 94.0 FL 07/12/2023 11:11 AM [facility] MCH 31.0 27.0 - 31.0 PG 07/12/2023 11:11 AM [facility] MCHC 34.5 32.0 - 36.0 G/DL 07/12/2023 11:11 AM [facility] RDW 12.6 11.5 - 14.5 % 07/12/2023 11:11 AM [facility] PLT 201 130 - 400 x10'3/uL 07/12/2023 11:11 AM [facility] MPV 10.0 9.3 - 12.2 FL 07/12/2023 11:11 AM [facility] DIFFERENTIAL TYPE AUTOMATED DIFFERENTIAL 07/12/2023 11:11 AM [facility] NEUTROPHILS % 62.9 % 07/12/2023 11:11 AM [facility] LYMPHOCYTES % 26.1 % 07/12/2023 11:11 AM ECONOMIC HISTORY TEACHER [facility] MONOCYTES % 8.8 % 07/12/2023 11:11 AM [facility] EOSINOPHILS 1.2 % 07/12/2023 11:11 AM [facility] BASOPHILS 0.8 % 07/12/2023 11:11 AM ECONOMIC HISTORY TEACHER [facility] IMMATURE GRANS % 0.2 % 07/12/19 11:11 AM [facility] ABS. NEUTROPHILS TOTAL 5.27 1.80 - 7.70 x10'3/uL 07/12/2023 11:11 AM [facility] ABS. LYMPHOCYTES 2.19 1.00 - 4.80 x10'3/uL 07/12/2023 11:11 AM ECONOMIC HISTORY TEACHER [facility] ABS. MONOCYTES 0.74 0.30 - 0.82 x10'3/uL 07/12/2023 11:11 AM [facility] ABS. EOSINOPHILS 0.10 0.04 - 0.54 x10'3/uL 07/12/2023 11:11 AM [facility] ABS. BASOPHILS 0.07 0.01 - 0.08 x10'3/uL 07/12/2023 11:11 AM [facility] ABS. IMMATURE GRANULOCYTES 0.02 0.00 - 0.49 x10'3/uL 07/12/2023 11:11 AM [facility] 07/12/2023 10:4 5 AM ECONOMIC HISTORY TEACHER Cisco Forde MD LABORATORY Final Result [facility] [address] [place] [address], documented in this encounter Visit Diagnoses Diagnosis Osteomyelitis of second toe of left foot (CMS/HCC HHS/HCC)- Primary documented in this encounter Care Teams Chlorine Cell Tender Relationship Specialty Start Date End Date Philippe Martinez MD [address] [place] [address] PCP - General FAMILY PRACTICE 01/10/23 documented as of this encounter
--- OUTSIDE RECORDS SUMMARY | 2024-08-29 14:17 | XMS_ITS | Referral Summary ---
Author Organization [facility] Address [address] [place] [address] Care Team Providers Care Hose Handler Name Role Phone Philippe Martinez MD Primary Care Provider [phone] Source Comments [facility],non-owned Affiliates and Associated Physician Practices is amultiple site organization consisting of ambulatory clinics and hospital sitesin [place], [place], [place] and [place]. This disclosure is being madepursuant to the Care Everywhere program and may not contain all information available regarding this patient. Last updated 18.[facility] Encounters Date Type Department Care Team Description 07/15/2024 Travel 07/15/2024 1:30 PM INTERNETWORKING TECHNICIAN Office Visit [facility] - Vascular Surgery [address] [place] [phone] Pablo Greenfield MD History of amputation of lesser toe of right foot ([facility]) (Primary Dx); Right knee pain, unspecified chronicity; PAD (peripheral artery disease) ([facility]); Fracture of right foot, sequela; Type 2 diabetes mellitus with diabetic polyneuropathy, without long-term current use of insulin ([facility]) 07/09/2024 Travel 06/11/2024 Travel from Last 3 [...] polyneuropathy, without long-term current use of insulin ([facility]) Use 1 (one) Each once daily 100 [...] tablet 01/02/2024 Active Blood Glucose Monitoring Suppl ([employer] Verio Reflect) w/Device KITIndications:Type 2 diabetes mellitus [...] CQ) 14 MG/24HR patchIndications:Os teomyelitis, unspecified ([facility]) APPLY ONE PATCH TO THE SKIN ONCE [...] and heating? Not hard at all 11/01/2023 [facility] - Occupational Stress [...] Comments Blood Pressure 131/94 07/15/2024 1:14 PM INTERNETWORKING TECHNICIAN Pulse 100 07/15/2024 1:14 PM INTERNETWORKING TECHNICIAN Temperature 37.1 C (98.7 F) 07/15/2024 1:14 PM INTERNETWORKING TECHNICIAN Respiratory Rate 18 04/29/2024 1:36 PM INTERNETWORKING TECHNICIAN Oxygen Saturation 94% 07/15/2024 1:14 PM INTERNETWORKING TECHNICIAN Inhaled Oxygen Concentration - - Weight 137.4 kg (303 lb) 07/15/2024 1:14 PM INTERNETWORKING TECHNICIAN Height 193 cm (6' 4 ) 07/15/2024 1:14 PM INTERNETWORKING TECHNICIAN Body Mass Index 36.88 07/15/2024 1:14 PM INTERNETWORKING TECHNICIAN Functional Status Functional Status Response Date of [...] Info) Description 11/04/2024 10:00 AM CDT Appointment [facility] [place] [address] Pablo Greenfield MD [address] [place] [address] [address] [place] [address] 11/04/2024 11:00 AM CDT Appointment [facility] [place] [address] Pablo Greenfield MD [address] [place] [address] [address] [place] [address] 11/04/2024 2:15 PM CDT Office Visit [facility] - Vascular [facility] [address] [place] [address], [place] [address] Pablo Greenfield MD [address] [place] [address] [address] [place] [address] Procedures Procedure Name Priority Date/Time Associated Diagnosis Comments COMPREHENSIVE METABOLIC PANEL STAT 12/04/2023 4:49 PM CDT HEMOGLOBIN A1C Routine 2023 4:05 AM CDT MICROALB/CREAT RATIO URINE RANDOM PANEL Routine 10/19/2023 11:18 PM CDT from Last 3 Months or Most Recently Relevant to Health Maintenance Results * (ABNORMAL) COMPREHENSIVE METABOLIC PANEL (12/04/2023 4:49 PM CDT) Pathologist [facility] BUN 16 7 - 26 mg/dL 12/04/2023 5:26 PM [facility] Creatinine 0.91 0.71 - 1.16 mg/dL 12/04/2023 5:26 PM [facility] Sodium 140 136 - 145 mmol/L 12/04/2023 5:26 PM [facility] Potassium 4.3 3.5 - 4.5 mmol/L 12/04/2023 5:26 PM [facility] Chloride 106 98 - 107 mmol/L 12/04/2023 5:26 PM [facility] CO2 21(L) 22 - 29 mmol/L 12/04/2023 5:26 PM [facility] Glucose 84 70 - 115 mg/dL 12/04/2023 5:26 PM [facility] Calcium 10.0 8.4 - 10.2 mg/dL 12/04/2023 5:26 PM [facility] Protein Total 8.2 6.0 - 8.3 g/dL 12/04/2023 5:26 PM [facility] Albumin 4.1 3.4 - 5.0 g/dL 12/04/2023 5:26 PM [facility] Bilirubin Total 0.3 0.2 - 1.2 mg/dL 12/04/2023 5:26 PM [facility] Alkaline Phosphatase 122 40 - 150 U/L 12/04/2023 5:26 PM [facility] ALT 19 5 - 55 U/L 12/04/2023 5:26 PM [facility] AST 16 5 - 34 U/L 12/04/2023 5:26 PM [facility] Anion Gap 13 6 - 16 12/04/2023 5:26 PM [facility] BUN/Creatinine Ratio 18 7 - 23 12/04/2023 5:26 PM [facility] Osmolality Calculated 290 275 - 295 mOsm/kg 12/04/2023 5:26 PM [facility] Albumin/Globulin Ratio 1.0(L) 1.1 - 2.3 12/04/2023 5:26 PM [facility] eGFR by CKD-EPI >90 >=90 mL/min/1.7 3 m2 12/04/2023 5:26 PM [facility] Blood BLOOD SPECIMEN / Unknown Venipuncture / Unknown 12/04/2023 4:49 PM CDT 12/04/2023 5:00 PM CDT Walter Oakes MD LAB - CHEMISTRY BHARTI ISRA[place] [facility] Organization Address City/State/ZIP Co de Phone Number [facility] [address] [place] [phone], [facility] [phone] * (ABNORMAL) HEMOGLOBIN A1C (2023 4:05 AM T) Hemoglobin A1c 8.7(H) <=5.6 % 2023 9:42 AM [facility] Estimated Average Glucose 203 mg/dL 2023 9:42 AM [facility] Comment: HbA1c Interpretation: Normal : < 5.7% Pre-diabetes: 5.7-6.4% Diabetes: Equal to or greater than 6.5% Test results diagnostic of diabetes should be repeated for confirmation. Treatment target values recommended by ADA and other clinical organizations should be used to evaluate metabolic control in patients. Reference: Citizen [place] Diabetes Association, Standards of Care in Diabetes [...] - CHEMISTRY BHARTI [place]RA[place] Performing Organization Address City/[facility]/ZIP Co de Phone Number [facility] [address] [place] [address], [facility] [phone] * (ABNORMAL) MICROALB/CREAT RATIO URINE RANDOM PANEL (10/19/2023 11:18 PM CDT) Albumin Random Urine 26.6 Not Established ug/mL 10/19/2023 11:58 PM CDT [facility] Creatinine Urine 77.71 Not Established mg/dL 10/19/2023 11:58 PM CDT [facility] Urine Albumin/Creati nine Ratio 34(H) <30 mg/g 10/19/2023 11:58 PM CDT [facility] Urine URINE SPECIMEN OBTAINED BY CLEAN CATCH PROCEDURE / Unknown Collection / Unknown 10/19/2023 11:18 PM CDT 10/19/2023 11:37 PM CDT Jennifer Caban MD LAB - URINE KELLEN GALDINO ORDERABLES Performing Organization Address City/[facility]/ZIP Co de Phone Number [facility] [address] [place] [phone], [facility] [phone] from Last 3 Months or Most Recently Relevant to Health Maintenance Advance Directives * Full Code (Latest Code Status on File) Date Activated Date Inactivated Comments 10/29/2023 5:30 PM 11/02/2023 8:39 PM * Full Code Date Activated Date Inactivated Comments 10/19/2023 8:07 PM 10/29/2023 5:29 PM Care Teams Hose Handler Relationship Specialty Start Date End Date Philippe Martinez MD [address] [place] [phone] PCP - General Family Medicine 11/01/23
--- OUTSIDE RECORDS SUMMARY | 2024-08-29 14:17 | XMS_ITS | Encounter Summary ---
Author Organization [facility] Address [address] [place] [address] Care Team Providers Care Cobol Programmer Name Role Phone Philippe Martinez MD Primary Care Provider [phone] Encounter Details Date Type Department Care Team (Late st Contact Info) Description 02/09/2023 Prep for Procedure [facility] [address] [place], [place] [id number] Cisco Forde MD [facility]. [facility] [address] [place], [place] [phone] Social History Tobacco Use Types Packs/Day Years [...] Assessment Author Status No 08/24/2021 3:00 PM OPTOMECHANICAL TECHNICIAN Activ e * RETIRED Are you blind or do you have serious difficulty seeing, even when wearing glasses? Answer Date of Assessment Author Status No 08/24/2021 3:00 PM OPTOMECHANICAL TECHNICIAN Activ e * Do you have serious [...] and discharge planning General No Estrella Henderson, POWER PLANT TECHNICIAN Health - patient able to perform ADLs independently General No Marcial Goodman RN documented as of this encounter Visit Diagnoses Not on filedocumented in this encounter Care Teams Cobol Programmer Relationship Specialty Start Date End Date Philippe Martinez MD [address] [place] [phone] PCP - General FAMILY PRACTICE 01/10/23 documented as of this encounter
[2024-08-29] MEDS: SODIUM CHLORIDE 0.9% IV 1,000 ML 999 ML IV CONT (14:24)
[2024-08-29] MEDS: MORPHINE SULFATE (*CRX) 4 MG/ML INJ IV PUSH (14:24)
[2024-08-29] MEDS: ASPIRIN 81 MG CHEWABLE TABLET 324 MG PO (14:27)
== END 2024-08-29 15:30 | disposition home or self-care (01) ==
PROVIDERS: Emergency Medicine; Emergency Provider Emergency Medicine; PCP Nurse Practitioner Family
DX: L03.115 Cellulitis of right lower limb (principal); H35.30 Unspecified macular degeneration; K21.9 Gastro-esophageal reflux disease without esophagitis; M17.9 Osteoarthritis of knee, unspecified; Z95.828 Presence of other vascular implants and grafts; Z89.411 Acquired absence of right great toe; R00.0 Tachycardia, unspecified; I45.10 Unspecified right bundle-branch block
CPT/HCPCS: 36415; 71046; 80053; 83690; 84484; 85025; 85610; 85730; 93005; 93971; 96360; 96374; 99284; A9270; J2270; J7030